=== PATIENT | male | born 1950 | race Caucasian/White ===

== ENCOUNTER 2017-08-09 06:10 | Emergency (ER) | payer OTHER, BC ==
[~2017-08-09 06:10] MED LIST: ALBUAER2 INH; ATEN50TA8 PO; CHOL100027 PO; DXY100 PO; GLC5 PO; GLC500 PO; LPT/40 PO; OMEP20CA9 PO; POTA10CA28 PO; TRIA75TA53 PO
[2017-08-09 06:16] VITALS: TEMP 36.4
[2017-08-09] MEDS ORDERED: AZITHROMYCIN 250 MG TAB PO STA (06:48)
[2017-08-09] MEDS ORDERED: AZITTAB PO (06:53)
--- NOTE | 2017-08-09 06:57 | EMERGENCY ROOM VISIT NOTE ---
History Report prepared by Heidiibaliya: Beth Puentes Under the Supervision of: Ijeoma RandolphO. First contact with patient: 06:37 Chief Complaint: RESPIRATORY PROBLEMS Stated Complaint: BRONCHITIS History of Present Illness The patient is a 66 year old male who presents to the Emergency Room with complaints of persistent cough for three days [employer] LIB[employer]. Per family, every time the patient gets a cold he typically gets pneumonia or bronchitis. He notes a productive cough with yellow sputum, fevers, cough, sore throat, sinus congestion. The patient has had his flu shot this year. He has a history of DM. He denies any shortness of breath. 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 Review of Systems See HPI for pertinent positives & negatives. A total of 10 systems reviewed and were otherwise negative. 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 (9) Dyslipidemia (10) Dyslipidemia (11) GERD (gastroesophageal reflux disease) (12) HTN (hypertension) (13) Hypertension (14) LVH (left ventricular hypertrophy) due to hypertensive disease (15) Malignant neoplasm of colon (16) Mild intellectual disability (17) Obesity, Class III, BMI 40-49.9 (morbid obesity) (18) Vitamin D deficiency Surgical Problems: (1) H/o a-port placement (2) H/O colonoscopy (3) H/o EGD (4) History of bowel resection (5) History of cholecystectomy (6) Hx of cholecystectomy (7) S/P appendectomy (8) S/P partial colectomy Family History Cardiac disorder BROTHER GRANDMOTHER UNCLE FH: aneurysm FATHER FH: kidney failure FATHER Stroke BROTHER Social History Smoking Status: Never Smoker Smokeless Tobacco Use: No Alcohol Use: none Drug Use: none Marital Status: Housing Status: lives with family Occupation Status: unemployed Current/Historical Medications Scheduled Atenolol (Tenormin), 50 MG PO DAILY Atorvastatin (Lipitor), 40 MG PO HS Cholecalciferol (Vitamin D 1000 Unit), 1,000 INTER.UNIT PO DAILY Doxycycline Hyclate (Doxycycline Hyclate), 1 CAP PO BID Glipizide (Glipizide), 5 MG PO DAILY Metformin HCL (Glucophage *), 1,000 MG PO BID Omeprazole (Prilosec), 20 MG PO DAILY Potassium Chloride (Micro-K Ext Rel), 30 MEQ PO TID Triamterene/Hctz (Maxzide 75MG/50MG), 0.5 TAB PO DAILY Scheduled PRN Albuterol (Ventolin), 2 PUFFS INH QID PRN for Shortness of Breath Allergies Coded Allergies: No Known Allergies (Verified , 12/01/15) Physical Exam Vital Signs Date Time Temp Pulse Resp B/P (MAP) Pulse Ox O2 Delivery O2 Flow Rate FiO2 08/09/17 06:48 103 08/09/17 06:16 36.4 110 20 149/89 93 Room Air Physical Exam CONSTITUTIONAL/VITAL SIGNS: Reviewed / noted above. GENERAL: Non-toxic in appearance. INTEGUMENTARY: Warm, dry, and [place]. HEAD: Normocephalic. EYES: without scleral icterus or trauma. ENT/OROPHARYNX: clear and moist. LYMPHADENOPATHY/NECK: Is supple without lymphadenopathy or meningismus. RESPIRATORY: Lungs clear and equal. CARDIOVASCULAR: Regular rate and rhythm. GI/ABDOMEN: Soft and nontender. No organomegaly or pulsatile mass. No rebound or guarding. Normal bowel sounds. EXTREMITIES: Warm and well perfused. BACK: No CVA tenderness. NEUROLOGICAL: Intact without focal deficits. PSYCHIATRIC: normal affect. MUSCULOSKELETAL: Normally developed with good muscle tone. Medical Decision & Procedures ED Course 0639: Previous medical records were reviewed. The patient was evaluated in room B11B. A complete history and physical examination was performed. 0653: Zithromax 500mg po 0655: I reassessed the patient at this time. He is resting comfortably. I discussed the results and treatment plan with the patient and his family. I answered all pertaining questions that he had. He expressed understanding and verbalized agreement. The patient will be discharged home. Medical Decision Differential includes viral illness, influenza, streptococcal pharyngitis, meningitis, pneumonia, sinusitis, UTI, pyelonephritis, and otitis media. This is a 66-year-old female who presents to the ED with a chief complaint of cough, sore throat, congestion fever. The patient's symptoms started on Wednesday. Cough is productive for yellow sputum. The patient has a history of COPD and diabetes. His daughter brought him in as she felt might need an antibiotic because of frequent bronchitis. The patient is no distress. His breathing appears comfortable. His vital signs are stable. His exam reveals clear lungs sounds. He has no chest pains or shortness of breath. Based on the patient's history, patient was started on Z-Nestor. He was given his first dose here today. Medication Reconcilliation Current Medication List: was personally reviewed by me Impression Primary Impression: Bronchitis Scribe Attestation The scribe's documentation has been prepared under my direction and personally reviewed by me in its entirety. I confirm that the note above accurately reflects all work, treatment, procedures, and medical decision making performed by me. Departure Information Dispostion Home / Self-Care Prescriptions Azithromycin (ZITHROMAX Z-NESTOR) 250 Mg Tab 0 PO UD, #1 PKT 2 TABS DAY 1, THEN 1 TAB DAILY FOR 4 DAYS Prov: Kristian Reyes D.O. 08/09/17 Referrals Dominic Blancas M.D. (PCP) Patient Instructions My [facility] Additional Instructions Zithromax as prescribed. Follow-up with your doctor for further care and evaluation in 5-7 days if symptoms persist. Return to the emergency department for worsening or new symptoms or any concerns. You have been examined and treated today on an emergency basis only. This is not a substitute for, or an effort to provide, complete comprehensive medical care. It is impossible to recognize and treat all injuries or illnesses in a single emergency department visit. It is therefore important that you follow up closely with your doctor. Call as soon as possible for an appointment.
[2017-08-09 07:00] VITALS: BP 135/95
[2017-08-09 07:10] VITALS: PULSE 98; O2SAT 92
[2017-08-09] MEDS ORDERED: METF-384 PO (07:11)
[2017-08-09] MEDS ORDERED: VNTHFA/IN INH (07:11)
== END 2017-08-09 07:13 | disposition home or self-care (01) ==
LOC: C.EDB 06:12
DX: J40 Bronchitis, not specified as acute or chronic (principal); E11.9 Type 2 diabetes mellitus without complications; E78.5 Hyperlipidemia, unspecified; K21.9 Gastro-esophageal reflux disease without esophagitis; I10 Essential (primary) hypertension; J44.9 Chronic obstructive pulmonary disease, unspecified; E55.9 Vitamin D deficiency, unspecified; F70 Mild intellectual disabilities; Z85.038 Personal history of other malignant neoplasm of large intestine; Z90.49 Acquired absence of other specified parts of digestive tract; Z90.89 Acquired absence of other organs; Z98.890 Other specified postprocedural states; Z82.49 Family history of ischemic heart disease and other diseases of the circulatory system; Z82.3 Family history of stroke; Z84.2 Family history of other diseases of the genitourinary system; Z79.84 Long term (current) use of oral hypoglycemic drugs; Z79.899 Other long term (current) drug therapy

== ENCOUNTER 2022-12-16 18:43 | Observation (INO) ==
[2022-12-16] MEDS ORDERED: OPTIRAY 320 500ml IV ONE (18:58)
[2022-12-16 19:25] LABS: Basophils # (auto) 0.04 K/uL (0-0.2); Basophils % (auto) 0.6 %; Eosinophils % (auto) 1.4 %; Hematocrit (blood only) 40.4 % (42.0-52.0); Hemoglobin 13.8 g/dl (14.0-18.0); Immature Granulocytes # (auto) 0.04 K/uL (0.01-0.20); Immature Granulocytes % (auto) 0.6 %; Lymphocytes % (auto) 21.2 %; Mean Corpuscular Hemoglobin 30.5 pg (25.0-34.0); Mean Corpuscular Hgb Conc 34.2 g/dL (32.0-36.0); Mean Corpuscular Volume 89.2 fL (80.0-100.0); Monocytes # (auto) 0.86 K/uL (0.11-0.59); Monocytes % (auto) 12.1 %; Neutrophils # (auto) 4.55 K/uL (1.40-6.50); Neutrophils % (auto) 64.1 %; Platelet Count 163 K/uL (130-400); RDW Coefficient of Variation 13.4 % (11.5-14.5); RDW Standard Deviation 43.8 fL (36.4-46.3); Red Blood Count 4.53 M/uL (4.70-6.10); White Blood Count 7.09 K/ul (4.8-10.8)
--- NOTE | 2022-12-16 19:37 | CT Scan Report ---
CT angio head w con, CT angio neck with con, CT head/brain wo con CLINICAL HISTORY: 72 years-old Male with neuro deficit, acute stroke suspected. Acute stroke like symptoms COMPARISON STUDY: Head CT 02/03/2022 TECHNIQUE: Unenhanced axial CT scan of the brain is performed. Subsequently, following the IV adminis tration of 118 cc of Optiray, CT angiogram of the head and neck was performed from the aortic arch to the skull apex. Images are reviewed in the axial, sagittal, and coronal planes. 3-D MIPS images are created and assessed. IV contrast was administered without complication. All measurements were obtain ed according to NASCET criteria. A dose lowering technique was utilized adhering to the principles of ALARA. CT DOSE: 995.09 mGy.cm FINDINGS: CT BRAIN: There is no acute intracranial hemorrhage, midline shift, hydrocephalus, intracranial mass, territori al ischemia or abnormal extra-axial collections. No abnormal intra-axial or extra-axial enhancement. Involutional changes with mild likely ex vacuo ventriculomegaly. White matter hypodensities suggest c hronic microvascular ischemic disease. Cerebral vascular calcifications. Mastoid air cells and middle ear cavities are clear. Prior bilateral repair. No calvarial fracture. Paranasal sinuses are clear. CT ANGIOGRAM OF THE HEAD AND NECK: The atherosclerosis of the thoracic aorta and arch. Patency of the innominate and image subclavian ar teries. The common carotid arteries are patent. Moderate atherosclerotic plaque of the carotid bulbs and proximal cervical segments of the internal carotid arteries resulting in less than 50% stenosis b ilaterally. The bilateral anterior and middle cerebral arteries are also patent. Dominant right verte bral artery is widely patent. Prominent degenerative left vertebral artery. Atherosclerotic plaques i n the V4 segment results in high-grade approximately 90% stenosis on image 29 series 6 just proximal to the PICA origin. There is a stenosis noted within the PICA, notably on image 314 series 6. The pos terior cerebral arteries are patent with areas of mild multifocal stenosis. There is no aneurysm, add itional high-grade stenosis, or proximal branch occlusion identified. Dural sinuses appear patent. Lung apices are clear. No pneumothorax. Unremarkable soft tissues. Degenerative changes of the cervic al spine. IMPRESSION: 1. No acute intracranial abnormality. 2. High-grade stenosis within the V4 segment left vertebral artery secondary to atherosclerotic plaqu e. 3. No additional high-grade stenosis, aneurysm, dissection or arterial occlusion. ACT 112: Negative or not required by law. The above report was generated using voice recognition software. It may contain grammatical, syntax o r spelling errors. Electronically signed by: Romain Franco M.D. 12/16/2022 7:34 PM
[2022-12-16 19:50] LABS: Albumin Level 3.7 gm/dl (3.4-5.0); Anion Gap 8 (3-11); Bilirubin,Total 1.5 mg/dl (0.2-1.0); Calcium 9.2 mg/dl (8.6-10.3); Carbon Dioxide 25 mmol/L (21-32); Chloride 105 mmol/L (98-107); INR 1.1 (0.9-1.1); Magnesium 1.6 mg/dl (1.7-2.4); Partial Thromboplastin Ratio 0.9; Partial Thromboplastin Time 26.1 Seconds (21.0-31.0); Potassium 3.6 mmol/L (3.5-5.1); Prothrombin Time 12.1 Seconds (9.0-12.0); Sodium 138 mmol/L (136-145)
[2022-12-16 19:56] LABS: Alanine Aminotransferase 19 U/L (7-52); Albumin Globulin Ratio 1.5 (0.9-2); Alkaline Phosphatase 48 U/L (34-104); Aspartate Aminotransferase 31 U/L (13-39); BUN Creatinine Ratio 16.3 (10-20); Blood Urea Nitrogen 16 mg/dl (6-23); Est GFR (African American) 88.3 ml/min; Est GFR (Non-African American) 76.2 ml/min; Globulin 2.5 gm/dl (2.5-4.0); Glucose 175 mg/dl (70-99(Fasting)); Total Protein 6.2 gm/dl (6.0-8.3)
[2022-12-16 19:58] LABS: Troponin I High Sensitivity 3.4 pg/ml (0-20)
--- NOTE | 2022-12-16 20:03 | XRay Report ---
XR chest 1V portable HISTORY: 72 years-old Male neuro deficit, acute stroke suspected acute strokelike symptoms COMPARISON: Chest radiograph 02/03/2022 TECHNIQUE: AP view of the chest FINDINGS: Cardiac silhouette is enlarged. Atherosclerosis of the aorta. No pneumothorax, pleural effusion, airs pace consolidation or pulmonary edema. Degenerative changes of the shoulders and spine. IMPRESSION: Cardiomegaly without acute process. ACT 112: Negative or not required by law. The above report was generated using voice recognition software. It may contain grammatical, syntax o r spelling errors. Electronically signed by: Romain Franco M.D. 12/16/2022 8:01 PM
[2022-12-16 20:12] LABS: Appearance Urine Clear (Clear); Bilirubin Urine Negative (Negative); Blood Urine Negative (Negative); Color Urine Yellow; Glucose Urine UA 3+ (Negative); Ketones Urine Negative (Negative); Leukocyte Esterase Urine Negative (Negative); Nitrite Urine Negative (Negative); Protein Urine Negative (Negative); Specific Gravity Urine > 1.045 (1.000-1.030); Urobilinogen Urine Negative (Negative)
[2022-12-16] MEDS ORDERED: MAGNESIUM SULFATE / D5W 1 GM/100 ML BAG IV SCH (20:25)
[2022-12-16] MEDS ORDERED: LACTATED RINGER'S 1,000 ML IV ONE (20:26)
[2022-12-16] MEDS: MAGNESIUM SULFATE / D5W 1 GM/100 ML BAG IV SCH ×2 (20:38→22:43)
--- NOTE | 2022-12-16 20:50 | History & Physical Report ---
Date of Service December 16, 2022 Assessment & Plan (1) Stroke-like symptom: (2) Mild intellectual disability: (3) DM type 2 (diabetes mellitus, type 2): (4) Hypertension: (5) Dyslipidemia: (6) Obesity, Class III, BMI 40-49.9 (morbid obesity): (7) Cortes's esophagus: Plan: Assessment and plan per Dr Corrales. See addendum History of Present Illness Chief Complaint: Slurred speech Primary Care Provider: Dominic Blancas MD Patient is 72-year-old male with PMH mild intellectual disability, HTN, dyslipidemia, DM II, Cortes's esophagus, obesity presented to ER with complaint of slurred speech. History obtained from chart review and patient's cousin Eli who is his POA and who he resides with. States 3 days ago patient seemed more tired than usual. After eating lunch 3 days ago patient had reported felt like his left hand was weaker than usual. Symptoms seem to resolve throughout the day. Has noticed past 3 days has not been eating as much as usual. She is concerned that patient does not drink enough fluids. Seen at PCPs office 12/14/2022 for new onset fatigue and had negative urine culture, CRP <3, ESR: 23, and negative Lyme disease antibody. Was started on doxycycline. Had 3 doses. Family reports since patient seem to be improving discontinue doxycycline. Today around 6:15pm patient was sitting in the car. Family noticed patient was taking a long time to unbuckle himself and get out of the car. When patient spoke it is reported that he had garbled speech. Family brought patient to hospital. Since being in ER family reports patient speech is close to baseline. Currently patient denying any complaints. Denies fever/chills, diaphoresis, N/V/D/C, LAZARO, dizziness, syncope, vision changes, neck pain, CP, SOB, cough, sore throat, otalgia, rhinorrhea, abdominal pain, paresthesias, extremity edema, rashes, urinary symptoms. Allergies Allergy/AdvReac Type Severity Reaction Status Date / Time latex Allergy Unknown Rash Verified 11/17/22 06:33 Home Medications Medication Instructions Recorded Confirmed Type atenolol 50 mg tablet 50 mg PO QAM 09/15/22 12/16/22 History atorvastatin 40 mg tablet 40 mg PO HS 09/15/22 12/16/22 History cholecalciferol (vitamin D3) 25 4,000 - 5,000 unit PO WK 09/15/22 12/16/22 History mcg (1,000 unit) capsule (Vitamin D3) cyanocobalamin (vitamin B-12) 1,000 mcg PO QAM 09/15/22 12/16/22 History 1,000 mcg tablet (Vitamin B-12) dapagliflozin 10 mg tablet 10 mg PO DAILY 09/15/22 12/16/22 History (Farxiga) glipizide 5 mg tablet 5 mg PO BID 09/15/22 12/16/22 History metformin 1,000 mg tablet 1,000 mg PO BID 09/15/22 12/16/22 History multivitamin 1 cap PO QAM 09/15/22 12/16/22 History omeprazole 20 mg capsule,delayed 20 mg PO QAM 09/15/22 12/16/22 History release potassium chloride 10 mEq 30 meq PO TID 09/15/22 12/16/22 History tablet,extended release(part/cryst) (Klor-Con M) triamterene 75 0.5 tab PO QAM 09/15/22 12/16/22 History mg-hydrochlorothiazide 50 mg tablet miconazole nitrate 2 % topical 1 applic topical DAILY PRN Rash 12/16/22 12/16/22 History powder Past Med/Surg History Medical History Aortic valve sclerosis Cortes's esophagus DM type 2 (diabetes mellitus, type 2) DM TYPE 2 CAUSING RENAL DISEASE Dyslipidemia History of anesthesia reaction problems with swallowing after surgery, esophagus was irritated - with colon surgery Hypertension Kidney disease ? born with, reason for potassium supplement Malignant neoplasm of colon hx 15-20 yr ago / sx intervention HX PORT PLACEMENT ? HX CHEMO/? IF PORT IS STILL PRESENT Mild intellectual disability PT IS SPECIAL NEEDS, COMMUNICATION ABILITY SEEMS TO DECLINE WITH AGE PT IS FEARFUL OF UPCOMING CATARACT SURGERY Obesity, Class III, BMI 40-49.9 (morbid obesity) Problem of extremity RIGHT LEG TROUBLE WITH MOVEMENT AT TIMES Rash OF GROIN AREA/DR VASQUEZ FOR/ANTIFUNGAL POWDER/IMPROVING Surgical History History of colon surgery for colon ca History of colonoscopy History of endoscopy History of left cataract surgery Hx of cholecystectomy S/P appendectomy Family History Mother Family history of diabetes mellitus Social History Smoking Status: Never smoker Second Hand Exposure: No; Do You Dip or Chew Tobacco: No; Hx Alcohol Use: No Hx Substance Use: No Preferred Language: Ukrainian Communication Ability: Effective Communication Ability Comment: PT SPECIAL NEEDS/COMMUNICATES LIVAN & IS COOPERATIVE/ABLE TO SIGN CONSENTS Engineering Scientist Required: No Beliefs That Will Affect Care: None Current Living Situation: Family Current Living Situation Comment: PT LIVES WITH COUSIN AND HER Other Information That Helps Us Care for You: No Feels Safe at Home: Yes Safety Concerns: Feels Safe At This Time Assistive Devices: Denture - Upper and Glasses Review of Systems Review of Systems: All systems reviewed & are unremarkable except as noted in HPI & below Physical Exam Physical Exam: General: no acute distress, +obese Head: normocephalic, atraumatic Eyes: PERRL, EOM's intact, conjunctiva non-injected, anicteric ENT: normal inspection external ears, nose, mucous membranes dry Neck: supple, trachea midline Lungs: clear, no respiratory distress, no wheezing/rhonchi/rales CV: RRR, + murmur,no pretibial edema Abd: normal BS, soft, non-tender Ext: no cyanosis, no calf tenderness Neuro: Alert, Oriented to person and place. calm, cooperative. facial sensation is intact and symmetric, face is strong and symmetric, hearing grossly intact, soft palate elevates symmetrically, some mild slurred speech (family report baseline), shoulder shrug intact, tongue is midline, normal movement, no fasciculations. Strength BUE: 5/5. Strength BLE: 4/5 Skin: warm, dry Results & Data Results & Data Vital Signs (Past 12 Hours) Vital Signs Temp Pulse Resp BP Pulse Ox O2 Del Method 12/16/22 20:15 76 20 135/82 93 Room Air 12/16/22 19:45 75 18 152/87 H 95 Room Air 12/16/22 19:33 37.0 C 12/16/22 19:30 76 22 143/92 H 96 Room Air 12/16/22 19:10 84 12/16/22 19:11 84 18 154/95 H 94 Room Air 12/16/22 18:45 36.6 C 104 H 18 131/60 98 Room Air Laboratory Results Short CBC 12/16/22 Range/Units 19:11 WBC 7.09 (4.8-10.8) K/ul Hgb 13.8 L (14.0-18.0) g/dl Hct 40.4 L (42.0-52.0) % Plt Count 163 (130-400) K/uL BMP 12/16/22 19:11 Sodium 138 Potassium 3.6 Chloride 105 Carbon Dioxide 25 BUN 16 Creatinine 0.98 Glucose 175 H Calcium 9.2 Liver Function 12/16/22 Range/Units 19:11 Total Bilirubin 1.5 H (0.2-1.0) mg/dl AST 31 (13-39) U/L ALT 19 (7-52) U/L Alkaline Phosphatase 48 (34-104) U/L Albumin 3.7 (3.4-5.0) gm/dl Urine 12/16/22 Range/Units 20:04 Urine Color Yellow Urine Appearance Clear (Clear) Urine pH 5.0 (4.5-7.5) Ur Specific [place] > 1.045 H (1.000-1.030) Urine Protein Negative (Negative) Urine Glucose (UA) 3+ H (Negative) Diagnostic Findings Chest X-Ray 12/16/22 18:54 XR chest 1V portable HISTORY: 72 years-old Male neuro deficit, acute stroke suspected acute strokelike symptoms COMPARISON: Chest radiograph 02/03/2022 TECHNIQUE: AP view of the chest FINDINGS: Cardiac silhouette is enlarged. Atherosclerosis of the aorta. No pneumothorax, pleural effusion, airspace consolidation or pulmonary edema. Degenerative changes of the shoulders and spine. IMPRESSION: Cardiomegaly without acute process. ACT 112: Negative or not required by law. The above report was generated using voice recognition software. It may contain grammatical, syntax or spelling errors. Electronically signed by: Romain Franco M.D. 12/16/2022 8:[address] 12/16/22 18:54 CT angio head w con, CT angio neck with con, CT head/brain wo con CLINICAL HISTORY: 72 years-old Male with neuro deficit, acute stroke suspected. Acute stroke like symptoms COMPARISON STUDY: Head CT 02/03/2022 TECHNIQUE: Unenhanced axial CT scan of the brain is performed. Subsequently, following the IV administration of 118 cc of Optiray, CT angiogram of the head and neck was performed from the aortic arch to the skull apex. Images are reviewed in the axial, sagittal, and coronal planes. 3-D MIPS images are created and assessed. IV contrast was administered without complication. All measurements were obtained according to NASCET criteria. A dose lowering technique was utilized adhering to the principles of ALARA. CT DOSE: 995.09 mGy.cm FINDINGS: CT BRAIN: There is no acute intracranial hemorrhage, midline shift, hydrocephalus, intracranial mass, territorial ischemia or abnormal extra-axial collections. No abnormal intra-axial or extra-axial enhancement. Involutional changes with mild likely ex vacuo ventriculomegaly. White matter hypodensities suggest chronic microvascular ischemic disease. Cerebral vascular calcifications. Mastoid air cells and middle ear cavities are clear. Prior bilateral repair. No calvarial fracture. Paranasal sinuses are clear. CT ANGIOGRAM OF THE HEAD AND NECK: The atherosclerosis of the thoracic aorta and arch. Patency of the innominate and image subclavian arteries. The common carotid arteries are patent. Moderate atherosclerotic plaque of the carotid bulbs and proximal cervical segments of the internal carotid arteries resulting in less than 50% stenosis bilaterally. The bilateral anterior and middle cerebral arteries are also patent. Dominant right vertebral artery is widely patent. Prominent degenerative left vertebral artery. Atherosclerotic plaques in the V4 segment results in high-grade approximately 90% stenosis on image 29 series 6 just proximal to the PICA origin. There is a stenosis noted within the PICA, notably on image 314 series 6. The posterior cerebral arteries are patent with areas of mild multifocal stenosis. There is no aneurysm, additional high-grade stenosis, or proximal branch occlusion identified. Dural sinuses appear patent. Lung apices are clear. No pneumothorax. Unremarkable soft tissues. Degenerative changes of the cervical spine. IMPRESSION: 1. No acute intracranial abnormality. 2. 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 3. No additional high-grade stenosis, aneurysm, dissection or arterial occlusion. ACT 112: Negative or not required by law. The above report was generated using voice recognition software. It may contain grammatical, syntax or spelling errors. Electronically signed by: Romain Franco M.D. 12/16/2022 7:34 PM Head CTA 12/16/22 18:54 CT angio head w con, CT angio neck with con, CT head/brain wo con CLINICAL HISTORY: 72 years-old Male with neuro deficit, acute stroke suspected. Acute stroke like symptoms COMPARISON STUDY: Head CT 02/03/2022 TECHNIQUE: Unenhanced axial CT scan of the brain is performed. Subsequently, following the IV administration of 118 cc of Optiray, CT angiogram of the head and neck was performed from the aortic arch to the skull apex. Images are reviewed in the axial, sagittal, and coronal planes. 3-D MIPS images are created and assessed. IV contrast was administered without complication. All measurements were obtained according to NASCET criteria. A dose lowering technique was utilized adhering to the principles of ALARA. CT DOSE: 995.09 mGy.cm FINDINGS: CT BRAIN: There is no acute intracranial hemorrhage, midline shift, hydrocephalus, intracranial mass, territorial ischemia or abnormal extra-axial collections. No abnormal intra-axial or extra-axial enhancement. Involutional changes with mild likely ex vacuo ventriculomegaly. White matter hypodensities suggest chronic microvascular ischemic disease. Cerebral vascular calcifications. Mastoid air cells and middle ear cavities are clear. Prior bilateral repair. No calvarial fracture. Paranasal sinuses are clear. CT ANGIOGRAM OF THE HEAD AND NECK: The atherosclerosis of the thoracic aorta and arch. Patency of the innominate and image subclavian arteries. The common carotid arteries are patent. Moderate atherosclerotic plaque of the carotid bulbs and proximal cervical segments of the internal carotid arteries resulting in less than 50% stenosis bilaterally. The bilateral anterior and middle cerebral arteries are also patent. Dominant right vertebral artery is widely patent. Prominent degenerative left vertebral artery. Atherosclerotic plaques in the V4 segment results in high-grade approximately 90% stenosis on image 29 series 6 just proximal to the PICA origin. There is a stenosis noted within the PICA, notably on image 314 series 6. The posterior cerebral arteries are patent with areas of mild multifocal stenosis. There is no aneurysm, additional high-grade stenosis, or proximal branch occlusion identified. Dural sinuses appear patent. Lung apices are clear. No pneumothorax. Unremarkable soft tissues. Degenerative changes of the cervical spine. IMPRESSION: 1. No acute intracranial abnormality. 2. 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 3. No additional high-grade stenosis, aneurysm, dissection or arterial occlusion. ACT 112: Negative or not required by law. The above report was generated using voice recognition software. It may contain grammatical, syntax or spelling errors. Electronically signed by: Romain Franco M.D. 12/16/2022 7:34 PM Neck CTA 12/16/22 18:54 CT angio head w con, CT angio neck with con, CT head/brain wo con CLINICAL HISTORY: 72 years-old Male with neuro deficit, acute stroke suspected. Acute stroke like symptoms COMPARISON STUDY: Head CT 02/03/2022 TECHNIQUE: Unenhanced axial CT scan of the brain is performed. Subsequently, following the IV administration of 118 cc of Optiray, CT angiogram of the head and neck was performed from the aortic arch to the skull apex. Images are reviewed in the axial, sagittal, and coronal planes. 3-D MIPS images are created and assessed. IV contrast was administered without complication. All measurements were obtained according to NASCET criteria. A dose lowering technique was utilized adhering to the principles of ALARA. CT DOSE: 995.09 mGy.cm FINDINGS: CT BRAIN: There is no acute intracranial hemorrhage, midline shift, hydrocephalus, intracranial mass, territorial ischemia or abnormal extra-axial collections. No abnormal intra-axial or extra-axial enhancement. Involutional changes with mild likely ex vacuo ventriculomegaly. White matter hypodensities suggest chronic microvascular ischemic disease. Cerebral vascular calcifications. Mastoid air cells and middle ear cavities are clear. Prior bilateral repair. No calvarial fracture. Paranasal sinuses are clear. CT ANGIOGRAM OF THE HEAD AND NECK: The atherosclerosis of the thoracic aorta and arch. Patency of the innominate and image subclavian arteries. The common carotid arteries are patent. Moderate atherosclerotic plaque of the carotid bulbs and proximal cervical segments of the internal carotid arteries resulting in less than 50% stenosis bilaterally. The bilateral anterior and middle cerebral arteries are also patent. Dominant right vertebral artery is widely patent. Prominent degenerative left vertebral artery. Atherosclerotic plaques in the V4 segment results in high-grade approximately 90% stenosis on image 29 series 6 just proximal to the PICA origin. There is a stenosis noted within the PICA, notably on image 314 series 6. The posterior cerebral arteries are patent with areas of mild multifocal stenosis. There is no aneurysm, additional high-grade stenosis, or proximal branch occlusion identified. Dural sinuses appear patent. Lung apices are clear. No pneumothorax. Unremarkable soft tissues. Degenerative changes of the cervical spine. IMPRESSION: 1. No acute intracranial abnormality. 2. 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 3. No additional high-grade stenosis, aneurysm, dissection or arterial occlusion. ACT 112: Negative or not required by law. The above report was generated using voice recognition software. It may contain grammatical, syntax or spelling errors. Electronically signed by: Romain Franco M.D. 12/16/2022 7:34 PM Supervising Physician Co-Signing Physician Notes Patient seen and examined. History obtained from patient, family, and records. Limited history from patient secondary to intellectual impairment. Preceding documentation by Ms. Tammie Mills PA-C reviewed. FINAL ASSESSMENT AND PLAN as follows : TIA presenting as transient left hand weakness, slurred speech, significant improvement after IVF administration at the ER Ongoing doxycycline Rx for presumptive Lyme disease, outpatient Lyme screen negative Left vertebral artery stenosis/plaque on CT imaging Hypertension, slightly elevated Hyperlipidemia on statin Rx GERD/Cortes's esophagus on PPI DM2 on oral medications, suboptimal control as of recent hemoglobin A1c of 7.15 Dec 2022 Colon cancer status post surgery chemotherapy New onset anemia, FOBT done at the ER was negative Chronic intellectual impairment OBS Medical telemetry Neurochecks Aspirin for stroke prevention, PVD MRI brain, TTE for TIA work-up Further management pending work-up results Stop doxycycline given negative outpatient Lyme screen Basal bolus insulin, ISS BG goal 1 10-1 40, carb count coverage Anemia work-up PT OT eval DVT prophylaxis per Lovenox subcu Full code as per patient's cousin/POA, Ms. Eli Dinero. She requests updates from providers thru contact #[phone]. Text document was generated using [employer] voice recognition software. It may contain grammatical or spelling errors. Kindly contact undersigned for clarification of any documentation item in question.
--- NOTE | 2022-12-16 22:45 | Emergency Department Note ---
Impression & Plan Stroke-like symptom, Mild intellectual disability, Hypomagnesemia ED Provider Note NAME: MIHIR HEATH AGE: 72 SEX: M ARRIVES VIA: Walk-In INFORMANT: Patient ED PROVIDER(S): Jacob Hansen MD CHIEF COMPLAINT: Slurred speech PLAN: Disposition: Admit MEDICAL DECISION MAKING: The patient is a pleasant 72-year-old gentleman with a past medical history of intellectual delay, SBO, hypertension, hyperlipidemia, type 2 diabetes who presents to the emergency department via walk-in, accompanied by his sister with concern for symptoms of confusion and garbled speech which she reports was notable approximately 40 minutes prior to arrival. Stroke alert was activated from triage. Symptoms occur in the setting of the patient not being himself since Wednesday where he was appearing more fatigued and had even complained of numbness and weakness of his left hand where he had dropped his utensil when he was eating. Per her report, the patient was seen by his PCP on Wednesday and there was suspicion for possible Lyme and was started on doxycycline however per her report, his lyme screen had returned negative and given that he was improving they were instructed that he could discontinue this. The patient's sister reports that they were at a family gathering and while she noticed his symptoms 40 minutes prior to arrival but she acknowledges that there were no family members that necessarily engaged in conversation with him for least an hour or so prior to that, approximately 5 PM. Thus, given the patient's last known well was not definitive and moreover has had component of neurologic symptoms since Wednesday we agreed he is not a tPA candidate however stroke evaluation was expedited. On arrival the patient is no acute distress, afebrile stable vital signs. He appears clinically dry. His speech is currently at his baseline per his sister at the bedside. He has otherwise no focal neurologic deficits. EKG without overt acute ischemia. CXR negative for acute cardiopulmonary process. WBC and platelets within normal limits. H/H 13.8/40.4 decreased from prior however no recent values for comparison. Chemistry without metabolic acidosis. Magnesium 1.6 with repletion provided. LFTs unremarkable. High-sensitivity troponin 3.4, within normal limits. UA without convincing evidence of infection. COVID-19 RNA, KENDALL test was negative. CT of the head and CT of the head and neck were performed and demonstrate high-grade stenosis within the V4 s egment of the left vertebral artery and otherwise no ischemia, ICH or severe narrowing or occlusion of large vessels. Upon evaluation the patient was feeling improved following IV fluid hydration. Given the patient's symptoms which may be related to central etiology the patient's sister and the patient agree with plan for admission for further management. [facility] will evaluate the patient for admission. Triage Nursing notes reviewed and agree them. Prior/outside medical records reviewed Vital Signs: reviewed Differential diagnosis: Infection, dehydration, metabolic abnormality, hypo/hyperglycemia, electrolyte disturbance, anemia, hypoxia, cardiac sources, intracerebral event, toxicologic, neurologic, as well as other pathologies. ER treatment provided: See below. Diagnostics interpreted by me: ECG: Normal sinus rhythm, 82 bpm, right bundle branch block, left anterior fascicular block, no overt ST elevation or depression, QTc 472, QRS 130. Cardiac Monitoring: An order for continuous cardiac monitoring was placed and demonstrated Normal sinus rhythm, 82 bpm, no ectopy. Laboratory studies: See below Imaging studies: See below Consultation(s): [facility] will [facility] the patient for admission. HPI: The patient is a pleasant 72-year-old gentleman with a past medical history of intellectual delay, SBO, hypertension, hyperlipidemia, type 2 diabetes who presents to the emergency department via walk-in, accompanied by his sister with concern for symptoms of confusion and garbled speech which she reports was notable approximately 40 minutes prior to arrival. Stroke alert was activated from triage. Symptoms occur in the setting of the patient not being himself since Wednesday where he was appearing more fatigued and had even complained of numbness and weakness of his left hand where he had dropped his utensil when he was eating. Per her report, the patient was seen by his PCP on Wednesday and there was suspicion for possible Lyme and was started on doxycycline however per her report, his lyme screen had returned negative and given that he was improving they were instructed that he could discontinue this. The patient's sister reports that they were at a family gathering and while she noticed his symptoms 40 minutes prior to arrival but she acknowledges that there were no family members that necessarily engaged in conversation with him for least an hour or so prior to that, approximately 5 PM. Thus, given the patient's last known well was not definitive and moreover has had component of neurologic symptoms since Wednesday we agreed he is not a tPA candidate however stroke evaluation was expedited. ROS: See above HPI for pertinent positives & negatives. A total of 10 systems reviewed and were otherwise negative. VITALS:See Below PHYSICAL EXAMINATION: GENERAL: Awake, alert, fatigued-appearing, in no distress HENT: Normocephalic, atraumatic. Oropharynx with dry mucous membranes and otherwise unremarkable. EYES: Normal conjunctiva. Sclera non-icteric. EOMI. No nystamgus. PEARRL. NECK: Supple. No nuchal rigidity. FROM. No JVD. RESPIRATORY: Clear to auscultation. CARDIAC: Regular rate, normal rhythm. Extremities warm and well perfused. Pulses equal. ABDOMEN: Soft, non-distended. No tenderness to palpation. No rebound or guarding. No masses. RECTAL: Deferred. MUSCULOSKELETAL: Chest examination reveals no tenderness. The back is symmetrical on inspection without obvious abnormality. There is no CVA tenderness to palpation. No joint edema. LOWER EXTREMITIES: Calves are equal size bilaterally and non-tender. No edema. No discoloration. NEURO: No focal sensory or motor deficits noted. Cranial nerves II-XII grossly intact. 5/5 strength and SILT x 4 extremities. Cerebellar function intact including [id number]. SKIN: No rash or jaundice noted. Jacob Hansen MD Past Med/Surg History Medical History Aortic valve sclerosis Cortes's esophagus DM type 2 (diabetes mellitus, type 2) DM TYPE 2 CAUSING RENAL DISEASE Dyslipidemia History of anesthesia reaction problems with swallowing after surgery, esophagus was irritated - with colon surgery Hypertension Kidney disease ? born with, reason for potassium supplement Malignant neoplasm of colon hx 15-20 yr ago / sx intervention HX PORT PLACEMENT ? HX CHEMO/? IF PORT IS STILL PRESENT Mild intellectual disability PT IS SPECIAL NEEDS, COMMUNICATION ABILITY SEEMS TO DECLINE WITH AGE PT IS FEARFUL OF UPCOMING CATARACT SURGERY Obesity, Class III, BMI 40-49.9 (morbid obesity) Problem of extremity RIGHT LEG TROUBLE WITH MOVEMENT AT TIMES Rash OF GROIN AREA/DR VASQUEZ FOR/ANTIFUNGAL POWDER/IMPROVING Surgical History History of colon surgery for colon ca History of colonoscopy History of endoscopy History of left cataract surgery Hx of cholecystectomy S/P appendectomy Family History Mother Family history of diabetes mellitus Social History Smoking Status: Never smoker Second Hand Exposure: No; Do You Dip or Chew Tobacco: No; Hx Alcohol Use: No Hx Substance Use: No Preferred Language: Vietnamese Communication Ability: Effective Communication Ability Comment: PT SPECIAL NEEDS/COMMUNICATES LIVAN & IS 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 Malted Milk Required: No Beliefs That Will Affect Care: None Current Living Situation: Family Current Living Situation Comment: PT LIVES WITH COUSIN AND HER Feels Safe at Home: Yes Assistive Devices: Denture - Upper and Walker Allergies Allergies Allergy/AdvReac Type Severity Reaction Status Date / Time latex Allergy Unknown Rash Verified 11/17/22 06:33 Home Meds Home Medications Medication Instructions Recorded Confirmed atenolol 50 mg tablet 50 mg PO QAM 09/15/22 12/16/22 atorvastatin 40 mg tablet 40 mg PO HS 09/15/22 12/16/22 cholecalciferol (vitamin D3) 25 4,000 - 5,000 unit PO WK 09/15/22 12/16/22 mcg (1,000 unit) capsule (Vitamin D3) cyanocobalamin (vitamin B-12) 1,000 mcg PO QAM 09/15/22 12/16/22 1,000 mcg tablet (Vitamin B-12) dapagliflozin 10 mg tablet 10 mg PO DAILY 09/15/22 12/16/22 (Farxiga) glipizide 5 mg tablet 5 mg PO BID 09/15/22 12/16/22 metformin 1,000 mg tablet 1,000 mg PO BID 09/15/22 12/16/22 multivitamin 1 cap PO QAM 09/15/22 12/16/22 omeprazole 20 mg capsule,delayed 20 mg PO QAM 09/15/22 12/16/22 release potassium chloride 10 mEq 30 meq PO TID 09/15/22 12/16/22 tablet,extended release(part/cryst) (Klor-Con M) triamterene 75 0.5 tab PO QAM 09/15/22 12/16/22 mg-hydrochlorothiazide 50 mg tablet miconazole nitrate 2 % topical 1 applic topical DAILY PRN Rash 12/16/22 12/16/22 powder Results & Data (ED) Vital Signs Vital Signs - 24 hr 12/16/22 18:45 12/16/22 19:11 12/16/22 19:10 Temperature 36.6 C Temperature Source Temporal Artery Scan Pulse Rate 104 H 84 84 Respiratory Rate 18 18 Respiratory Effort / Characteristics Non-Labored Respiratory Depth Normal Respiratory Pattern Regular Blood Pressure 131/60 154/95 H Blood Pressure Mean 83 114 Pulse Oximetry 98 94 Oxygen Delivery Method Room Air Room Air Sepsis Recent Fever Within 48 Hours No Sepsis New/Unexplained Change in Mental Status N/A Sepsis Action Taken by Nursing No Action Required 12/16/22 19:30 12/16/22 19:33 12/16/22 19:45 Temperature 37.0 C Temperature Source Oral Pulse Rate 76 75 Respiratory Rate 22 18 Respiratory Effort / Characteristics Respiratory Depth Respiratory Pattern Blood Pressure 143/92 H 152/87 H Blood Pressure Mean 109 108 Pulse Oximetry 96 95 Oxygen Delivery Method Room Air Room Air Sepsis Recent Fever Within 48 Hours Sepsis New/Unexplained Change in Mental Status Sepsis Action Taken by Nursing 12/16/22 20:15 12/16/22 20:30 12/16/22 20:40 Temperature Temperature Source Pulse Rate 76 76 Respiratory Rate 20 22 Respiratory Effort / Characteristics Respiratory Depth Respiratory Pattern Blood Pressure 135/82 138/78 Blood Pressure Mean 99 98 Pulse Oximetry 93 94 Oxygen Delivery Method Room Air Sepsis Recent Fever Within 48 Hours Sepsis New/Unexplained Change in Mental Status Sepsis Action Taken by Nursing 12/16/22 20:40 12/16/22 21:00 12/16/22 21:00 Temperature Temperature Source Pulse Rate 76 73 Respiratory Rate 19 24 Respiratory Effort / Characteristics Respiratory Depth Respiratory Pattern Blood Pressure 152/87 H Blood Pressure Mean 108 Pulse Oximetry 95 95 Oxygen Delivery Method Room Air Sepsis Recent Fever Within 48 Hours Sepsis New/Unexplained Change in Mental Status Sepsis Action Taken by Nursing 12/16/22 21:30 12/16/22 21:30 12/16/22 22:00 Temperature Temperature Source Pulse Rate 72 Respiratory Rate 16 Respiratory Effort / Characteristics Respiratory Depth Respiratory Pattern Blood Pressure 126/83 134/85 Blood Pressure Mean 97 101 Pulse Oximetry Oxygen Delivery Method Sepsis Recent Fever Within 48 Hours Sepsis New/Unexplained Change in Mental Status Sepsis Action Taken by Nursing 12/16/22 22:00 12/16/22 22:30 12/16/22 22:30 Temperature Temperature Source Pulse Rate 68 73 Respiratory Rate 20 22 Respiratory Effort / Characteristics Respiratory Depth Respiratory Pattern Blood Pressure 156/82 H Blood Pressure Mean 106 Pulse Oximetry Oxygen Delivery Method Sepsis Recent Fever Within 48 Hours Sepsis New/Unexplained Change in Mental Status Sepsis Action Taken by Nursing Laboratory Data Attestation: I reviewed the patient's lab results. 12/16/22 19:11 12/16/22 19:11 Lab Results 12/16/22 12/16/22 12/16/22 Range/Units 19:09 19:11 19:11 WBC 7.09 (4.8-10.8) K/ul RBC 4.53 L (4.70-6.10) M/uL Hgb 13.8 L (14.0-18.0) g/dl Hct 40.4 L (42.0-52.0) % MCV 89.2 (80.0-100.0) fL MCH 30.5 (25.0-34.0) pg MCHC 34.2 (32.0-36.0) g/dL RDW Std Deviation 43.8 (36.4-46.3) fL RDW Coeff of Hal 13.4 (11.5-14.5) % Plt Count 163 (130-400) K/uL MPV 10.0 (9.4-12.4) fL Immature Gran % (Auto) 0.6 % Neut % (Auto) 64.1 % Lymph % (Auto) 21.2 % Lasalle % (Auto) 12.1 % Eos % (Auto) 1.4 % Baso % (Auto) 0.6 % Neut # (Auto) 4.55 (1.40-6.50) K/uL Lymph # (Auto) 1.50 (1.2-3.4) K/uL Lasalle # (Auto) 0.86 H (0.11-0.59) K/uL Eos # (Auto) 0.10 (0-0.50) K/uL Baso # (Auto) 0.04 (0-0.2) K/uL Immature Gran # (Auto) 0.04 (0.01-0.20) K/uL PT 12.1 H (9.0-12.0) Seconds INR 1.1 (0.9-1.1) APTT 26.1 (21.0-31.0) Seconds PTT Ratio 0.9 Sodium (136-145) mmol/L Potassium (3.5-5.1) mmol/L Chloride (98-107) mmol/L Carbon Dioxide (21-32) mmol/L Anion Gap (3-11) BUN (6-23) mg/dl Creatinine (0.6-1.4) mg/dl Est Cr Clr Drug Dosing Est GFR ( Amer) ml/min Est GFR (Non-Af Amer) ml/min BUN/Creatinine Ratio (10-20) Glucose (70-99(Fasting)) mg/dl POC Glucose 173 H (70-99) mg/dl Calcium (8.6-10.3) mg/dl Magnesium (1.7-2.4) mg/dl Total Bilirubin (0.2-1.0) mg/dl AST (13-39) U/L ALT (7-52) U/L Alkaline Phosphatase (34-104) U/L Troponin I High Sens (0-20) pg/ml Total Protein (6.0-8.3) gm/dl Albumin (3.4-5.0) gm/dl Globulin (2.5-4.0) gm/dl Albumin/Globulin Ratio (0.9-2) Urine Color Urine Appearance (Clear) Urine pH (4.5-7.5) Ur Specific Gary (1.000-1.030) Urine Protein (Negative) Urine Glucose (UA) (Negative) Urine Ketones (Negative) Urine Blood (Negative) Urine Nitrite (Negative) Urine Bilirubin (Negative) Urine Urobilinogen (Negative) Ur Leukocyte Esterase (Negative) SARS-CoV-2, RNA, NAAT (NEGATIVE) 12/16/22 12/16/22 12/16/22 Range/Units 19:11 19:35 20:04 WBC (4.8-10.8) K/ul RBC (4.70-6.10) M/uL Hgb (14.0-18.0) g/dl Hct (42.0-52.0) % MCV (80.0-100.0) fL MCH (25.0-34.0) pg MCHC (32.0-36.0) g/dL RDW Std Deviation (36.4-46.3) fL RDW Coeff of Hal (11.5-14.5) % Plt Count (130-400) K/uL MPV (9.4-12.4) fL Immature Gran % (Auto) % Neut % (Auto) % Lymph % (Auto) % Lasalle % (Auto) % Eos % (Auto) % Baso % (Auto) % Neut # (Auto) (1.40-6.50) K/uL Lymph # (Auto) (1.2-3.4) K/uL Lasalle # (Auto) (0.11-0.59) K/uL Eos # (Auto) (0-0.50) K/uL Baso # (Auto) (0-0.2) K/uL Immature Gran # (Auto) (0.01-0.20) K/uL PT (9.0-12.0) Seconds INR (0.9-1.1) APTT (21.0-31.0) Seconds PTT Ratio Sodium 138 (136-145) mmol/L Potassium 3.6 (3.5-5.1) mmol/L Chloride 105 (98-107) mmol/L Carbon Dioxide 25 (21-32) mmol/L Anion Gap 8 (3-11) BUN 16 (6-23) mg/dl Creatinine 0.98 (0.6-1.4) mg/dl Est Cr Clr Drug Dosing Not Reportable Est GFR ( Amer) 88.3 ml/min Est GFR (Non-Af Amer) 76.2 ml/min BUN/Creatinine Ratio 16.3 (10-20) Glucose 175 H (70-99(Fasting)) mg/dl POC Glucose (70-99) mg/dl Calcium 9.2 (8.6-10.3) mg/dl Magnesium 1.6 L (1.7-2.4) mg/dl Total Bilirubin 1.5 H (0.2-1.0) mg/dl AST 31 (13-39) U/L ALT 19 (7-52) U/L Alkaline Phosphatase 48 (34-104) U/L Troponin I High Sens 3.4 (0-20) pg/ml Total Protein 6.2 (6.0-8.3) gm/dl Albumin 3.7 (3.4-5.0) gm/dl Globulin 2.5 (2.5-4.0) gm/dl Albumin/Globulin Ratio 1.5 (0.9-2) Urine Color Yellow Urine Appearance Clear (Clear) Urine pH 5.0 (4.5-7.5) Ur Specific Gary > 1.045 H (1.000-1.030) Urine Protein Negative (Negative) Urine Glucose (UA) 3+ H (Negative) Urine Ketones Negative (Negative) Urine Blood Negative (Negative) Urine Nitrite Negative (Negative) Urine Bilirubin Negative (Negative) Urine Urobilinogen Negative (Negative) Ur Leukocyte Esterase Negative (Negative) SARS-CoV-2, RNA, NAAT NEGATIVE (NEGATIVE) Administered Medications Magnesium Sulfate/Dextrose (Magnesium Sulfate / D5w) 1 gm in 100 mls @ 50 mls/hr IV Q2H DANISHA Stop: 12/17/22 00:29 Last Admin: 12/16/22 22:43 Dose: 50 mls/hr Documented By: Infusion: 12/16/22 22:38 Dose: 50 mls/hr Documented By: Admin: 12/16/22 20:38 Dose: 50 mls/hr Documented By: VARINDER Lactated Ringer's (Lr) 1,000 mls @ 80 mls/hr IV .[id number] ONE Stop: 12/17/22 08:55 Last Admin: 12/16/22 20:38 Dose: 80 mls/hr Documented By: VARINDER Discontinued Medications Ioversol (Optiray 320 500ml) 118 ml IV ONCE ONE Stop: 12/16/22 18:59 Last Admin: 12/16/22 19:05 Dose: 118 ml Documented By: LARRY Imaging Data Radiologist's Impression: Chest X-Ray 12/16/22 18:54 XR chest 1V portable HISTORY: 72 years-old Male neuro deficit, acute stroke suspected acute strokelike symptoms COMPARISON: Chest radiograph 02/03/2022 TECHNIQUE: AP view of the chest FINDINGS: Cardiac silhouette is enlarged. Atherosclerosis of the aorta. No pneumothorax, pleural effusion, airspace consolidation or pulmonary edema. Degenerative changes of the shoulders and spine. IMPRESSION: Cardiomegaly without acute process. ACT 112: Negative or not required by law. The above report was generated using voice recognition software. It may contain grammatical, syntax or spelling errors. Electronically signed by: Romain Franco M.D. 12/16/2022 8:[address] 12/16/22 18:54 CT angio head w con, CT angio neck with con, CT head/brain wo con CLINICAL HISTORY: 72 years-old Male with neuro deficit, acute stroke suspected. Acute stroke like symptoms COMPARISON STUDY: Head CT 02/03/2022 TECHNIQUE: Unenhanced axial CT scan of the brain is performed. Subsequently, following the IV administration of 118 cc of Optiray, CT angiogram of the head and neck was performed from the aortic arch to the skull apex. Images are reviewed in the axial, sagittal, and coronal planes. 3-D MIPS images are created and assessed. IV contrast was administered without complication. All measurements were obtained according to NASCET criteria. A dose lowering mamta hnique was utilized adhering to the principles of ALARA. CT DOSE: 995.09 mGy.cm FINDINGS: CT BRAIN: There is no acute intracranial hemorrhage, midline shift, hydrocephalus, intracranial mass, territorial ischemia or abnormal extra-axial collections. No abnormal intra-axial or extra-axial enhancement. Involutional changes with mild likely ex vacuo ventriculomegaly. White matter hypodensities suggest chronic microvascular ischemic disease. Cerebral vascular calcifications. Mastoid air cells and middle ear cavities are clear. Prior bilateral repair. No calvarial fracture. Paranasal sinuses are clear. CT ANGIOGRAM OF THE HEAD AND NECK: The atherosclerosis of the thoracic aorta and arch. Patency of the innominate and image subclavian arteries. The common carotid arteries are patent. Moderate atherosclerotic plaque of the carotid bulbs and proximal cervical segments of the internal carotid arteries resulting in less than 50% stenosis bilaterally. The bilateral anterior and middle cerebral arteries are also patent. Dominant right vertebral artery is widely patent. Prominent degenerative left vertebral artery. Atherosclerotic plaques in the V4 segment results in high-grade approximately 90% stenosis on image 29 series 6 just proximal to the PICA origin. There is a stenosis noted within the PICA, notably on image 314 series 6. The posterior cerebral arteries are patent with areas of mild multifocal stenosis. There is no aneurysm, additional high-grade stenosis, or proximal branch occlusion identified. Dural sinuses appear patent. Lung apices are clear. No pneumothorax. Unremarkable soft tissues. Degenerative changes of the cervical spine. IMPRESSION: 1. No acute intracranial abnormality. 2. 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 3. No additional high-grade stenosis, aneurysm, dissection or arterial occlusion. ACT 112: Negative or not required by law. The above report was generated using voice recognition software. It may contain grammatical, syntax or spelling errors. Electronically signed by: Romain Franco M.D. 12/16/2022 7:34 PM Head CTA 12/16/22 18:54 CT angio head w con, CT angio neck with con, CT head/brain wo con CLINICAL HISTORY: 72 years-old Male with neuro deficit, acute stroke suspected. Acute stroke like symptoms COMPARISON STUDY: Head CT 02/03/2022 TECHNIQUE: Unenhanced axial CT scan of the brain is performed. Subsequently, following the IV administration of 118 cc of Optiray, CT angiogram of the head and neck was performed from the aortic arch to the skull apex. Images are reviewed in the axial, sagittal, and coronal planes. 3-D MIPS images are created and assessed. IV contrast was administered without complication. All measurements were obtained according to NASCET criteria. A dose lowering technique was utilized adhering to the principles of ALARA. CT DOSE: 995.09 mGy.cm FINDINGS: CT BRAIN: There is no acute intracranial hemorrhage, midline shift, hydrocephalus, intracranial mass, territorial ischemia or abnormal extra-axial collections. No abnormal intra-axial or extra-axial enhancement. Involutional changes with mild likely ex vacuo ventriculomegaly. White matter hypodensities suggest chronic microvascular ischemic disease. Cerebral vascular calcifications. Mastoid air cells and middle ear cavities are clear. Prior bilateral repair. No calvarial fracture. Paranasal sinuses are clear. CT ANGIOGRAM OF THE HEAD AND NECK: The atherosclerosis of the thoracic aorta and arch. Patency of the innominate and image subclavian arteries. The common carotid arteries are patent. Moderate atherosclerotic plaque of the carotid bulbs and proximal cervical segments of the internal carotid arteries resulting in less than 50% stenosis bilaterally. The bilateral anterior and middle cerebral arteries are also patent. Dominant right vertebral artery is widely patent. Prominent degenerative left vertebral artery. Atherosclerotic plaques in the V4 segment results in high-grade approximately 90% stenosis on image 29 series 6 just proximal to the PICA origin. There is a stenosis noted within the PICA, notably on image 314 series 6. The posterior cerebral arteries are patent with areas of mild multifocal stenosis. There is no aneurysm, additional high-grade stenosis, or proximal branch occlusion identified. Dural sinuses appear patent. Lung apices are clear. No pneumothorax. Unremarkable soft tissues. Degenerative changes of the cervical spine. IMPRESSION: 1. No acute intracranial abnormality. 2. 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 3. No additional high-grade stenosis, aneurysm, dissection or arterial occlusion. ACT 112: Negative or not required by law. The above report was generated using voice recognition software. It may contain grammatical, syntax or spelling errors. Electronically signed by: Romain Franco M.D. 12/16/2022 7:34 PM Neck CTA 12/16/22 18:54 CT angio head w con, CT angio neck with con, CT head/brain wo con CLINICAL HISTORY: 72 years-old Male with neuro deficit, acute stroke suspected. Acute stroke like symptoms COMPARISON STUDY: Head CT 02/03/2022 TECHNIQUE: Unenhanced axial CT scan of the brain is performed. Subsequently, following the IV administration of 118 cc of Optiray, CT angiogram of the head and neck was performed from the aortic arch to the skull apex. Images are reviewed in the axial, sagittal, and coronal planes. 3-D MIPS images are created and assessed. IV contrast was administered without complication. All measurements were obtained according to NASCET criteria. A dose lowering technique was utilized adhering to the principles of ALARA. CT DOSE: 995.09 mGy.cm FINDINGS: CT BRAIN: There is no acute intracranial hemorrhage, midline shift, hydrocephalus, intracranial mass, territorial ischemia or abnormal extra-axial collections. No abnormal intra-axial or extra-axial enhancement. Involutional changes with mild likely ex vacuo ventriculomegaly. White matter hypodensities suggest chronic microvascular ischemic disease. Cerebral vascular calcifications. Mastoid air cells and middle ear cavities are clear. Prior bilateral repair. No calvarial fracture. Paranasal sinuses are clear. CT ANGIOGRAM OF THE HEAD AND NECK: The atherosclerosis of the thoracic aorta and arch. Patency of the innominate and image subclavian arteries. The common carotid arteries are patent. Moderate atherosclerotic plaque of the carotid bulbs and proximal cervical segments of the internal carotid arteries resulting in less than 50% stenosis bilaterally. The bilateral anterior and middle cerebral arteries are also patent. Dominant right vertebral artery is widely patent. Prominent degenerative left vertebral artery. Atherosclerotic plaques in the V4 segment results in high-grade approximately 90% stenosis on image 29 series 6 just proximal to the PICA origin. There is a stenosis noted within the PICA, notably on image 314 series 6. The posterior cerebral arteries are patent with areas of mild multifocal stenosis. There is no aneurysm, additional high-grade stenosis, or proximal branch occlusion identified. Dural sinuses appear patent. Lung apices are clear. No pneumothorax. Unremarkable soft tissues. Degenerative changes of the cervical spine. IMPRESSION: 1. No acute intracranial abnormality. 2. 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 3. No additional high-grade stenosis, aneurysm, dissection or arterial occlusion. ACT 112: Negative or not required by law. The above report was generated using voice recognition software. It may contain grammatical, syntax or spelling errors. Electronically signed by: Romain Franco M.D. 12/16/2022 7:34 PM Discharge Plan Visit Data Chief Complaint: Stroke/CVA Symptoms Stated Complaint: WEAKNESS ED Provider: Jacob Hansen Discharge Problem: Stroke-like symptom, Mild intellectual disability, Hypomagnesemia Forms Stand Alone Forms: [facility]Context Prescriptions Prescriptions: No Action atorvastatin 40 mg Tablet 40 mg PO HS cyanocobalamin (vitamin B-12) [Vitamin B-12] 1,000 mcg Tablet 1,000 mcg PO QAM metformin 1,000 mg Tablet 1,000 mg PO BID omeprazole 20 mg Capsule,Delayed Release(Dr/Ec) 20 mg PO QAM triamterene-hydrochlorothiazid 75-50 mg Tablet 0.5 tab PO QAM Patient Comments: half tablet in the morning . 1 tablet is 75-50 mg. multivitamin Capsule 1 cap PO QAM atenolol 50 mg Tablet 50 mg PO QAM glipizide 5 mg Tablet 5 mg PO BID cholecalciferol (vitamin D3) [Vitamin D3] 25 mcg (1,000 unit) Capsule 4,000 - 5,000 unit PO WK potassium chloride [Klor-Con M10] 10 mEq Tablet,Er Particles/Crystals 30 meq PO TID Farxiga 10 mg Tablet 10 mg PO DAILY Rx Instructions: takes at lunch time miconazole nitrate 2 % Powder 1 applic TOPICAL DAILY PRN (Reason: Rash) Rx Instructions: apply to groin Referrals Referrals: Dominic Blancas MD [Primary Care Provider] -
[2022-12-16] MEDS ORDERED: ASPIRIN 81 MG CHEW PO STA (22:54)
[2022-12-17] MEDS ORDERED: CARBOHYDRATES FOR HYPOGLYCEMIA PO PRN (00:43)
[2022-12-17] MEDS ORDERED: PHARMACIST DISCHARGE MED REC CONSULT PRN (00:43)
[2022-12-17] MEDS ORDERED: GLUCAGON FOR INJ 1 MG VIAL SQ PRN (00:43)
[2022-12-17] MEDS ORDERED: GLUCOSE 40% GEL 15 GM TUBE PO PRN (00:43)
[2022-12-17] MEDS ORDERED: LANTUS PER UNIT CHARGE SQ SCH (00:43)
[2022-12-17] MEDS ORDERED: ACETAMINOPHEN 325 MG TAB PO PRN (00:43)
[2022-12-17] MEDS ORDERED: GLUCOSE 10 TAB/TUBE PO PRN (00:43)
[2022-12-17] MEDS ORDERED: DEXTROSE 50% 50 ML SYRINGE IV PRN (00:43)
--- NOTE | 2022-12-17 01:49 | Magnetic Resonance Report ---
Exam(s): MRI HEAD Without Contrast EXAM: MR Head Without Intravenous Contrast CLINICAL HISTORY: Reason for exam: tia. TECHNIQUE: Magnetic resonance images of the head/brain without intravenous contrast in multiple planes. COMPARISON: No relevant prior studies available. FINDINGS: Brain: No restricted diffusion. No mass-effect or edema. Global parenchymal atrophy. Periventricular and subcortical T2/flair hyperintensities consistent with chronic microvascular ischemic changes. No hemorrhage. Ventricles: Unremarkable. No ventriculomegaly. Bones/joints: Unremarkable. Sinuses: Unremarkable as visualized. No acute sinusitis. Mastoid air cells: Unremarkable as visualized. No mastoid effusion. Orbits: Unremarkable as visualized. IMPRESSION: 1. No acute abnormality. 2. Atrophy and chronic microvascular ischemic changes. Electronically signed by: Melecio Beltran MD 12/17/22 01:48 AM
[2022-12-17] MEDS: INSULIN ASPART PER UNIT CHARGE SC SCH ×4 (02:06→17:03)
[2022-12-17 07:54] LABS: Basophils # (auto) 0.02 K/uL (0-0.2); Basophils % (auto) 0.3 %; Eosinophils # (auto) 0.07 K/uL (0-0.50); Eosinophils % (auto) 1.2 %; Hematocrit (blood only) 40.2 % (42.0-52.0); Hemoglobin 13.5 g/dl (14.0-18.0); Immature Granulocytes # (auto) 0.02 K/uL (0.01-0.20); Immature Granulocytes % (auto) 0.3 %; Lymphocytes # (auto) 1.35 K/uL (1.2-3.4); Lymphocytes % (auto) 22.8 %; Mean Corpuscular Hemoglobin 30.1 pg (25.0-34.0); Mean Corpuscular Hgb Conc 33.6 g/dL (32.0-36.0); Mean Corpuscular Volume 89.7 fL (80.0-100.0); Mean Platelet Volume 10.5 fL (9.4-12.4); Monocytes # (auto) 0.64 K/uL (0.11-0.59); Monocytes % (auto) 10.8 %; Neutrophils # (auto) 3.83 K/uL (1.40-6.50); Neutrophils % (auto) 64.6 %; Platelet Count 135 K/uL (130-400); RDW Coefficient of Variation 13.2 % (11.5-14.5); RDW Standard Deviation 43.4 fL (36.4-46.3); Red Blood Count 4.48 M/uL (4.70-6.10); Reticulocyte % 1.5 % (0.5-2.0); Reticulocytes # 0.07 10^6/uL (0.02-0.10); White Blood Count 5.93 K/ul (4.8-10.8)
[2022-12-17 08:32] LABS: Vitamin B12 775 pg/ml (180-914)
[2022-12-17 08:38] LABS: BUN Creatinine Ratio 17.7 (10-20); Calcium 8.5 mg/dl (8.6-10.3); Chol HDL Ratio 2.5 (0-5); Creatinine Clr Calc Pharmacy 98.5 ml/min; Est GFR (African American) 103.2 ml/min; Est GFR (Non-African American) 89.1 ml/min; Magnesium 1.9 mg/dl (1.7-2.4); Potassium 3.7 mmol/L (3.5-5.1)
[2022-12-17 08:55] LABS: Ferritin 46.1 ng/ml (8-388)
[2022-12-17] MEDS ORDERED: ATENOLOL 25 MG TABLET PO SCH (09:00)
[2022-12-17] MEDS ORDERED: MULTIVITAMIN TAB PO SCH (09:00)
[2022-12-17] MEDS ORDERED: ASPIRIN 81 MG ECTAB PO SCH (09:00)
[2022-12-17] MEDS ORDERED: CYANOCOBALAMIN (B-12) 500 MCG TABLET PO SCH (09:00)
[2022-12-17] MEDS ORDERED: PANTOprazole 40 MG TAB PO SCH (09:00)
[2022-12-17] MEDS ORDERED: ENOXAPARIN INJ 40 MG/0.4 ML SYR SQ SCH (09:00)
--- NOTE | 2022-12-17 15:44 | Neurology Consultation ---
Date of Consultation December 17, 2022 Assessment & Plan (1) Stroke-like symptom: Impression: The patient had an episode of short lasting expressive speech difficulty, which was resolved in emergency department. There has been no additional neurological symptoms. The patient was not a candidate for thrombolytic treatment. Since admission, the patient has been neurologically intact. Imaging studies did not show acute cerebrovascular accident. Aspirin was added to treatment. Telemetry monitoring and echocardiogram are unremarkable. This event can be due to transient ischemic attack or can be secondary to dry mouth and possible dehydration. Recommendations: I agree with aspirin treatment, 81 mg daily, for secondary stroke prevention. We will keep the patient on Lipitor 40 mg as before. Goal LDL level is lower than 70. Good hydration. Management of hypertension and diabetes mellitus. Outpatient evaluation for possible obstructive sleep apnea. The patient is neurologically stable and can be discharged home. I will contact with [facility] neurology to set up an appointment in a month. (2) Vertebral artery stenosis, non-symptomatic: Impression: CT angiography of neck showed left vertebral artery V4 for segment significant stenosis, which is asymptomatic. Recommendations: There is no neurological indication for vascular intervention at this time. Optimizing treatment for secondary stroke prevention will be sufficient at this time. (3) Dyslipidemia: Impression: The patient has been on Lipitor for a long time, and the last lipid panel showed LDL lower than 70. (4) Hypertension: Impression: The patient has been treated for hypertension successfully. (5) DM type 2 (diabetes mellitus, type 2): Impression: The patient has been on treatment. He has been compliant. (6) Mild intellectual disability: Plan As seen above. Thank you for the consultation. History of Present Illness Reason for Consultation: Stroke like symptoms Requesting Physician: Elijah Shankar MD Attending Physician: Elijah Shankar MD History of Present Illness The patient is a 72-year-old gentleman, who was brought to emergency department, after family noticed garbled speech yesterday evening. When he was taken to emergency department, he was back to his baseline with mostly improved speech, without any additional neurological deficit. Head CT was unremarkable and the patient was admitted to hospital for stroke work-up. Following brain MRI did not show any acute intracranial pathology. CT angiogram of head and neck were unremarkable other than left vertebral artery V4 segment significant stenosis. Telemetry monitoring has been sinus, with satisfactory blood pressure and blood sugar control. The patient has stayed symptom-free. Serum lipid panel showed LDL lower than 70. He has been on Lipitor 40 mg and a low-dose aspirin was added to treatment based on possibility of transient ischemic attack. Echocardiogram was also unremarkable. Apparently, the patient has not been hydrating and eating as usual during last many days. He was treated for possible urinary tract infection on doxycycline, which was discontinued. Reportedly, the patient had an episode of questionable left hand short lasting weakness 4 days ago. He denies any residual sensorimotor symptoms. He has mild intellectual disability, and he is a mouth breather with dry mouth which might contribute to speech disturbance. I have reviewed the patient's chart including imaging studies and visualized them personally. I have discussed the case with hospitalist physician. Allergies Allergy/AdvReac Type Severity Reaction Status Date / Time latex Allergy Unknown Rash Verified 11/17/22 06:33 Home Medications Medication Instructions Recorded Confirmed Type atenolol 50 mg tablet 50 mg PO QAM 09/15/22 12/16/22 History atorvastatin 40 mg tablet 40 mg PO HS 09/15/22 12/16/22 History cholecalciferol (vitamin D3) 25 4,000 - 5,000 unit PO WK 09/15/22 12/16/22 History mcg (1,000 unit) capsule (Vitamin D3) cyanocobalamin (vitamin B-12) 1,000 mcg PO QAM 09/15/22 12/16/22 History 1,000 mcg tablet (Vitamin B-12) dapagliflozin 10 mg tablet 10 mg PO DAILY 09/15/22 12/16/22 History (Farga) glipizide 5 mg tablet 5 mg PO BID 09/15/22 12/16/22 History metformin 1,000 mg tablet 1,000 mg PO BID 09/15/22 12/16/22 History multivitamin 1 cap PO QAM 09/15/22 12/16/22 History omeprazole 20 mg capsule,delayed 20 mg PO QAM 09/15/22 12/16/22 History release potassium chloride 10 mEq 30 meq PO TID 09/15/22 12/16/22 History tablet,extended release(part/cryst) (Klor-Con M) triamterene 75 0.5 tab PO QAM 09/15/22 12/16/22 History mg-hydrochlorothiazide 50 mg tablet miconazole nitrate 2 % topical 1 applic topical DAILY PRN Rash 12/16/22 12/16/22 History powder aspirin 81 mg tablet,delayed 81 mg PO QAM #30 tabs 12/17/22 Rx release Patient History Medical History Aortic valve sclerosis Cortes's esophagus DM type 2 (diabetes mellitus, type 2) DM TYPE 2 CAUSING RENAL DISEASE Dyslipidemia History of anesthesia reaction problems with swallowing after surgery, esophagus was irritated - with colon surgery Hypertension Kidney disease ? born with, reason for potassium supplement Malignant neoplasm of colon hx 15-20 yr ago / sx intervention HX PORT PLACEMENT ? HX CHEMO/? IF PORT IS STILL PRESENT Mild intellectual disability PT IS SPECIAL NEEDS, COMMUNICATION ABILITY SEEMS TO DECLINE WITH AGE PT IS FEARFUL OF UPCOMING CATARACT SURGERY Obesity, Class III, BMI 40-49.9 (morbid obesity) Problem of extremity RIGHT LEG TROUBLE WITH MOVEMENT AT TIMES Rash OF GROIN AREA/DR VASQUEZ FOR/ANTIFUNGAL POWDER/IMPROVING Surgical History History of colon surgery for colon ca History of colonoscopy History of endoscopy History of left cataract surgery Hx of cholecystectomy S/P appendectomy Family History Mother Family history of diabetes mellitus Social History Smoking Status: Never smoker Second Hand Exposure: No; Do You Dip or Chew Tobacco: No; Hx Alcohol Use: No Hx Substance Use: No Preferred Language: Paraguayan Communication Ability: Effective Communication Ability Comment: PT SPECIAL NEEDS/COMMUNICATES LIVAN & IS COOPERATIVE/ABLE TO SIGN CONSENTS [employer] Required: No Beliefs That Will Affect Care: None Current Living Situation: Family Current Living Situation Comment: PT LIVES WITH COUSIN AND HER Other Information That Helps Us Care for You: No Feels Safe at Home: Yes Safety Concerns: Feels Safe At This Time Assistive Devices: Walker Review of Systems Review of Systems: All systems reviewed & are unremarkable except as noted in HPI & below Physical Exam Physical Exam: General Examination: Constitutional: Well developed overweight person with mild intellectual disability in no acute distress. HENT: Normal exam with inspection. CV: Hearth rhythm is regular. Neck: Supple, no carotid bruits. Lungs: Non-labored and comfortable breathing. Abdomen: Soft, non-tender, non-distended. Skin: No rash or ecchymosis. Extremities: No edema or cyanosis NEUROLOGICAL EXAMINATION: Mental Status: Alert and oriented to place, person but not to time. Baseline mild intellectual disability. Cranial Nerves: II-XII are intact. No nystagmus. Funduscopy: Normal looking optic discs. Motor: 5/5 in all extremities without asymmetry. Tone: Normal without spasticity or rigidity. Sensory: Intact to all sensory modalities other than decreased vibratory sensation in feet. Coordination: No dysmetria with FTN testing. Speech: Fluent. Comprehension is intact. Gait: Normal. No ataxia or abnormal walking pattern. Musculoskeletal: Normal muscle bulk, no atrophy. DTRs: 2 - in upper extremities and 1+ in lower extremities symmetrically. Plantar reflexes are bilaterally downgoing. Results & Data Vital Signs (Past 12 Hours) Vital Signs Temp Pulse Pulse Resp BP Pulse Ox O2 Del Method 12/17/22 15:40 36.5 C 70 20 150/77 H 95 Room Air 12/17/22 11:34 36.6 C 63 18 146/75 H 95 Room Air 12/17/22 07:29 Room Air 12/17/22 07:15 36.6 C 68 18 147/77 H 95 Room Air 12/17/22 07:14 65 12/17/22 03:45 36.4 C L 68 18 131/84 95 Room Air Laboratory Results Laboratory Results - last 24 hr 12/16/22 12/16/22 12/16/22 19:09 19:11 19:11 WBC 7.09 RBC 4.53 L Hgb 13.8 L Hct 40.4 L MCV 89.2 MCH 30.5 MCHC 34.2 RDW Std Deviation 43.8 RDW Coeff of Hal 13.4 Plt Count 163 MPV 10.0 Immature Gran % (Auto) 0.6 Neut % (Auto) 64.1 Lymph % (Auto) 21.2 [place] % (Auto) 12.1 Eos % (Auto) 1.4 Baso % (Auto) 0.6 Reticulocyte % (Auto) Neut # (Auto) 4.55 Lymph # (Auto) 1.50 [place] # (Auto) 0.86 H Eos # (Auto) 0.10 Baso # (Auto) 0.04 Reticulocyte # Immature Gran # (Auto) 0.04 PT 12.1 H INR 1.1 APTT 26.1 PTT Ratio 0.9 Sodium Potassium Chloride Carbon Dioxide Anion Gap BUN Creatinine Est Cr Clr Drug Dosing Est GFR ( Amer) Est GFR (Non-Af Amer) BUN/Creatinine Ratio Glucose POC Glucose 173 H Calcium Magnesium Iron Transferrin Ferritin Total Bilirubin AST ALT Alkaline Phosphatase Troponin I High Sens Total Protein Albumin Globulin Albumin/Globulin Ratio Triglycerides Cholesterol LDL Cholesterol, Calc VLDL Cholesterol, Calc HDL Cholesterol Cholesterol/HDL Ratio Vitamin B12 Folate Urine Color Urine Appearance Urine pH Ur Specific [place] Urine Protein Urine Glucose (UA) Urine Ketones Urine Blood Urine Nitrite Urine Bilirubin Urine Urobilinogen Ur Leukocyte Esterase SARS-CoV-2, RNA, NAAT 12/16/22 12/16/22 12/16/22 19:11 19:35 20:04 WBC RBC Hgb Hct MCV MCH MCHC RDW Std Deviation RDW Coeff of Hal Plt Count MPV Immature Gran % (Auto) Neut % (Auto) Lymph % (Auto) [place] % (Auto) Eos % (Auto) Baso % (Auto) Reticulocyte % (Auto) Neut # (Auto) Lymph # (Auto) [place] # (Auto) Eos # (Auto) Baso # (Auto) Reticulocyte # Immature Gran # (Auto) PT INR APTT PTT Ratio Sodium 138 Potassium 3.6 Chloride 105 Carbon Dioxide 25 Anion Gap 8 BUN 16 Creatinine 0.98 Est Cr Clr Drug Dosing Not Reportable Est GFR ( Amer) 88.3 Est GFR (Non-Af Amer) 76.2 BUN/Creatinine Ratio 16.3 Glucose 175 H POC Glucose Calcium 9.2 Magnesium 1.6 L Iron Transferrin Ferritin Total Bilirubin 1.5 H AST 31 ALT 19 Alkaline Phosphatase 48 Troponin I High Sens 3.4 Total Protein 6.2 Albumin 3.7 Globulin 2.5 Albumin/Globulin Ratio 1.5 Triglycerides Cholesterol LDL Cholesterol, Calc VLDL Cholesterol, Calc HDL Cholesterol Cholesterol/HDL Ratio Vitamin B12 Folate Urine Color Yellow Urine Appearance Clear Urine pH 5.0 Ur Specific [place] > 1.045 H Urine Protein Negative Urine Glucose (UA) 3+ H Urine Ketones Negative Urine Blood Negative Urine Nitrite Negative Urine Bilirubin Negative Urine Urobilinogen Negative Ur Leukocyte Esterase Negative SARS-CoV-2, RNA, NAAT NEGATIVE 12/17/22 12/17/22 12/17/22 01:39 07:04 07:04 WBC 5.93 RBC 4.48 L Hgb 13.5 L Hct 40.2 L MCV 89.7 MCH 30.1 MCHC 33.6 RDW Std Deviation 43.4 RDW Coeff of Hal 13.2 Plt Count 135 MPV 10.5 Immature Gran % (Auto) 0.3 Neut % (Auto) 64.6 Lymph % (Auto) 22.8 [place] % (Auto) 10.8 Eos % (Auto) 1.2 Baso % (Auto) 0.3 Reticulocyte % (Auto) 1.5 Neut # (Auto) 3.83 Lymph # (Auto) 1.35 [place] # (Auto) 0.64 H Eos # (Auto) 0.07 Baso # (Auto) 0.02 Reticulocyte # 0.07 Immature Gran # (Auto) 0.02 PT INR APTT PTT Ratio Sodium 142 Potassium 3.7 Chloride 107 Carbon Dioxide 27 Anion Gap 8 BUN 14 Creatinine 0.79 Est Cr Clr Drug Dosing 98.5 Est GFR ( Amer) 103.2 Est GFR (Non-Af Amer) 89.1 BUN/Creatinine Ratio 17.7 Glucose 92 POC Glucose 171 H Calcium 8.5 L Magnesium 1.9 Iron 53 Transferrin 295 Ferritin 46.1 Total Bilirubin AST ALT Alkaline Phosphatase Troponin I High Sens Total Protein Albumin Globulin Albumin/Globulin Ratio Triglycerides 135 Cholesterol 84 LDL Cholesterol, Calc 24 VLDL Cholesterol, Calc 27 HDL Cholesterol 33 Cholesterol/HDL Ratio 2.5 Vitamin B12 Folate Urine Color Urine Appearance Urine pH Ur Specific [place] Urine Protein Urine Glucose (UA) Urine Ketones Urine Blood Urine Nitrite Urine Bilirubin Urine Urobilinogen Ur Leukocyte Esterase SARS-CoV-2, RNA, NAAT 12/17/22 12/17/22 12/17/22 07:04 07:46 11:47 WBC RBC Hgb Hct MCV MCH MCHC RDW Std Deviation RDW Coeff of Hal Plt Count MPV Immature Gran % (Auto) Neut % (Auto) Lymph % (Auto) [place] % (Auto) Eos % (Auto) Baso % (Auto) Reticulocyte % (Auto) Neut # (Auto) Lymph # (Auto) [place] # (Auto) Eos # (Auto) Baso # (Auto) Reticulocyte # Immature Gran # (Auto) PT INR APTT PTT Ratio Sodium Potassium Chloride Carbon Dioxide Anion Gap BUN Creatinine Est Cr Clr Drug Dosing Est GFR ( Amer) Est GFR (Non-Af Amer) BUN/Creatinine Ratio Glucose POC Glucose 90 131 H Calcium Magnesium Iron Transferrin Ferritin Total Bilirubin AST ALT Alkaline Phosphatase Troponin I High Sens Total Protein Albumin Globulin Albumin/Globulin Ratio Triglycerides Cholesterol LDL Cholesterol, Calc VLDL Cholesterol, Calc HDL Cholesterol Cholesterol/HDL Ratio Vitamin B12 775 Folate > 22.30 Urine Color Urine Appearance Urine pH Ur Specific [place] Urine Protein Urine Glucose (UA) Urine Ketones Urine Blood Urine Nitrite Urine Bilirubin Urine Urobilinogen Ur Leukocyte Esterase SARS-CoV-2, RNA, NAAT Diagnostic Findings Chest X-Ray 12/16/22 18:54 XR chest 1V portable HISTORY: 72 years-old Male neuro deficit, acute stroke suspected acute strokelike symptoms COMPARISON: Chest radiograph 02/03/2022 TECHNIQUE: AP view of the chest FINDINGS: Cardiac silhouette is enlarged. Atherosclerosis of the aorta. No pneumothorax, pleural effusion, airspace consolidation or pulmonary edema. Degenerative changes of the shoulders and spine. IMPRESSION: Cardiomegaly without acute process. ACT 112: Negative or not required by law. The above report was generated using voice recognition software. It may contain grammatical, syntax or spelling errors. Electronically signed by: Romain Franco M.D. 12/16/2022 8:[address] 12/16/22 18:54 CT angio head w con, CT angio neck with con, CT head/brain wo con CLINICAL HISTORY: 72 years-old Male with neuro deficit, acute stroke suspected. Acute stroke like symptoms COMPARISON STUDY: Head CT 02/03/2022 TECHNIQUE: Unenhanced axial CT scan of the brain is performed. Subsequently, following the IV administration of 118 cc of Optiray, CT angiogram of the head and neck was performed from the aortic arch to the skull apex. Images are reviewed in the axial, sagittal, and coronal planes. 3-D MIPS images are created and assessed. IV contrast was administered without complication. All measurements were obtained according to NASCET criteria. A dose lowering technique was utilized adhering to the principles of ALARA. CT DOSE: 995.09 mGy.cm FINDINGS: CT BRAIN: There is no acute intracranial hemorrhage, midline shift, hydrocephalus, intracranial mass, territorial ischemia or abnormal extra-axial collections. No abnormal intra-axial or extra-axial enhancement. Involutional changes with mild likely ex vacuo ventriculomegaly. White matter hypodensities suggest chronic microvascular ischemic disease. Cerebral vascular calcifications. Mastoid air cells and middle ear cavities are clear. Prior bilateral repair. No calvarial fracture. Paranasal sinuses are clear. CT ANGIOGRAM OF THE HEAD AND NECK: The atherosclerosis of the thoracic aorta and arch. Patency of the innominate and image subclavian arteries. The common carotid arteries are patent. Moderate atherosclerotic plaque of the carotid bulbs and proximal cervical segments of the internal carotid arteries resulting in less than 50% stenosis bilaterally. The bilateral anterior and middle cerebral arteries are also patent. Dominant r ight vertebral artery is widely patent. Prominent degenerative left vertebral artery. Atherosclerotic plaques in the V4 segment results in high-grade approximately 90% stenosis on image 29 series 6 just proximal to the PICA origin. There is a stenosis noted within the PICA, notably on image 314 series 6. The posterior cerebral arteries are patent with areas of mild multifocal stenosis. There is no aneurysm, additional high-grade stenosis, or proximal branch occlusion identified. Dural sinuses appear patent. Lung apices are clear. No pneumothorax. Unremarkable soft tissues. Degenerative changes of the cervical spine. IMPRESSION: 1. No acute intracranial abnormality. 2. 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 3. No additional high-grade stenosis, aneurysm, dissection or arterial occlusion. ACT 112: Negative or not required by law. The above report was generated using voice recognition software. It may contain grammatical, syntax or spelling errors. Electronically signed by: Romain Franco M.D. 12/16/2022 7:34 PM Head CTA 12/16/22 18:54 CT angio head w con, CT angio neck with con, CT head/brain wo con CLINICAL HISTORY: 72 years-old Male with neuro deficit, acute stroke suspected. Acute stroke like symptoms COMPARISON STUDY: Head CT 02/03/2022 TECHNIQUE: Unenhanced axial CT scan of the brain is performed. Subsequently, following the IV administration of 118 cc of Optiray, CT angiogram of the head and neck was performed from the aortic arch to the skull apex. Images are reviewed in the axial, sagittal, and coronal planes. 3-D MIPS images are created and assessed. IV contrast was administered without complication. All measurements were obtained according to NASCET criteria. A dose lowering technique was utilized adhering to the principles of ALARA. CT DOSE: 995.09 mGy.cm FINDINGS: CT BRAIN: There is no acute intracranial hemorrhage, midline shift, hydrocephalus, intracranial mass, territorial ischemia or abnormal extra-axial collections. No abnormal intra-axial or extra-axial enhancement. Involutional changes with mild likely ex vacuo ventriculomegaly. White matter hypodensities suggest chronic microvascular ischemic disease. Cerebral vascular calcifications. Mastoid air cells and middle ear cavities are clear. Prior bilateral repair. No calvarial fracture. Paranasal sinuses are clear. CT ANGIOGRAM OF THE HEAD AND NECK: The atherosclerosis of the thoracic aorta and arch. Patency of the innominate and image subclavian arteries. The common carotid arteries are patent. Moderate atherosclerotic plaque of the carotid bulbs and proximal cervical segments of the internal carotid arteries resulting in less than 50% stenosis bilaterally. The bilateral anterior and middle cerebral arteries are also patent. Dominant right vertebral artery is widely patent. Prominent degenerative left vertebral artery. Atherosclerotic plaques in the V4 segment results in high-grade approximately 90% stenosis on image 29 series 6 just proximal to the PICA origin. There is a stenosis noted within the PICA, notably on image 314 series 6. The posterior cerebral arteries are patent with areas of mild multifocal stenosis. There is no aneurysm, additional high-grade stenosis, or proximal branch occlusion identified. Dural sinuses appear patent. Lung apices are clear. No pneumothorax. Unremarkable soft tissues. Degenerative changes of the cervical spine. IMPRESSION: 1. No acute intracranial abnormality. 2. 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 3. No additional high-grade stenosis, aneurysm, dissection or arterial occlusion. ACT 112: Negative or not required by law. The above report was generated using voice recognition software. It may contain grammatical, syntax or spelling errors. Electronically signed by: Romain Franco M.D. 12/16/2022 7:34 PM Neck CTA 12/16/22 18:54 CT angio head w con, CT angio neck with con, CT head/brain wo con CLINICAL HISTORY: 72 years-old Male with neuro deficit, acute stroke suspected. Acute stroke like symptoms COMPARISON STUDY: Head CT 02/03/2022 TECHNIQUE: Unenhanced axial CT scan of the brain is performed. Subsequently, following the IV administration of 118 cc of Optiray, CT angiogram of the head and neck was performed from the aortic arch to the skull apex. Images are reviewed in the axial, sagittal, and coronal planes. 3-D MIPS images are created and assessed. IV contrast was administered without complication. All measurements were obtained according to NASCET criteria. A dose lowering technique was utilized adhering to the principles of ALARA. CT DOSE: 995.09 mGy.cm FINDINGS: CT BRAIN: There is no acute intracranial hemorrhage, midline shift, hydrocephalus, intracranial mass, territorial ischemia or abnormal extra-axial collections. No abnormal intra-axial or extra-axial enhancement. Involutional changes with mild likely ex vacuo ventriculomegaly. White matter hypodensities suggest chronic microvascular ischemic disease. Cerebral vascular calcifications. Mastoid air cells and middle ear cavities are clear. Prior bilateral repair. No calvarial fracture. Paranasal sinuses are clear. CT ANGIOGRAM OF THE HEAD AND NECK: The atherosclerosis of the thoracic aorta and arch. Patency of the innominate and image subclavian arteries. The common carotid arteries are patent. Moderate atherosclerotic plaque of the carotid bulbs and proximal cervical segments of the internal carotid arteries resulting in less than 50% stenosis bilaterally. The bilateral anterior and middle cerebral arteries are also patent. Dominant right vertebral artery is widely patent. Prominent degenerative left vertebral artery. Atherosclerotic plaques in the V4 segment results in high-grade approximately 90% stenosis on image 29 series 6 just proximal to the PICA origin. There is a stenosis noted within the PICA, notably on image 314 series 6. The posterior cerebral arteries are patent with areas of mild multifocal stenosis. There is no aneurysm, additional high-grade stenosis, or proximal branch occlusion identified. Dural sinuses appear patent. Lung apices are clear. No pneumothorax. Unremarkable soft tissues. Degenerative changes of the cervical spine. IMPRESSION: 1. No acute intracranial abnormality. 2. 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 3. No additional high-grade stenosis, aneurysm, dissection or arterial occlusion. ACT 112: Negative or not required by law. The above report was generated using voice recognition software. It may contain grammatical, syntax or spelling errors. Electronically signed by: Romain Franco M.D. 12/16/2022 7:34 PM Brain MRI 12/17/22 00:02 Exam(s): MRI HEAD Without Contrast EXAM: MR Head Without Intravenous Contrast CLINICAL HISTORY: Reason for exam: tia. TECHNIQUE: Magnetic resonance images of the head/brain without intravenous contrast in multiple planes. COMPARISON: No relevant prior studies available. FINDINGS: Brain: No restricted diffusion. No mass-effect or edema. Global parenchymal atrophy. Periventricular and subcortical T2/flair hyperintensities consistent with chronic microvascular ischemic changes. No hemorrhage. Ventricles: Unremarkable. No ventriculomegaly. Bones/joints: Unremarkable. Sinuses: Unremarkable as visualized. No acute sinusitis. Mastoid air cells: Unremarkable as visualized. No mastoid effusion. Orbits: Unremarkable as visualized. IMPRESSION: 1. No acute abnormality. 2. Atrophy and chronic microvascular ischemic changes. Electronically signed by: Melecio Beltran MD 12/17/22 01:48 AM ECHO--Reviewed Medications Administered Reviewed
[2022-12-17] MEDS ORDERED: STROKE PATIENT DISCHARGE STA (16:13)
--- NOTE | 2022-12-17 16:21 | Discharge Summary ---
Date of Service December 17, 2022 Admission HPI Per Admitting Provider Patient is 72-year-old male with PMH mild intellectual disability, HTN, dyslipidemia, DM II, Cortes's esophagus, obesity presented to ER with complaint of slurred speech. History obtained from chart review and patient's cousin Eli who is his POA and who he resides with. States 3 days ago patient seemed more tired than usual. After eating lunch 3 days ago patient had reported felt like his left hand was weaker than usual. Symptoms seem to resolve throughout the day. Has noticed past 3 days has not been eating as much as usual. She is concerned that patient does not drink enough fluids. Seen at PCPs office 12/14/2022 for new onset fatigue and had negative urine culture, CRP <3, ESR: 23, and negative Lyme disease antibody. Was started on doxycycline. Had 3 doses. Family reports since patient seem to be improving discontinue doxycycline. Today around 6:15pm patient was sitting in the car. Family noticed patient was taking a long time to unbuckle himself and get out of the car. When patient spoke it is reported that he had garbled speech. Family brought patient to hospital. Since being in ER family reports patient speech is close to baseline. Currently patient denying any complaints. Denies fever/chills, diaphoresis, N/V/D/C, LAZARO, dizziness, syncope, vision changes, neck pain, CP, SOB, cough, sore throat, otalgia, rhinorrhea, abdominal pain, paresthesias, extremity edema, rashes, urinary symptoms. Admission Exam Per Admitting Provider General: no acute distress, +obese Head: normocephalic, atraumatic Eyes: PERRL, EOM's intact, conjunctiva non-injected, anicteric ENT: normal inspection external ears, nose, mucous membranes dry Neck: supple, trachea midline Lungs: clear, no respiratory distress, no wheezing/rhonchi/rales CV: RRR, + murmur,no pretibial edema Abd: normal BS, soft, non-tender Ext: no cyanosis, no calf tenderness Neuro: Alert, Oriented to person and place. calm, cooperative. facial sensation is intact and symmetric, face is strong and symmetric, hearing grossly intact, soft palate elevates symmetrically, some mild slurred speech (family report baseline), shoulder shrug intact, tongue is midline, normal movement, no fasciculations. Strength BUE: 5/5. Strength BLE: 4/5 Skin: warm, dry Principal Diagnosis Stroke-like symptoms/ TIA Discharge Exam General: elderly obese M in no acute distress Head: normocephalic, atraumatic Eyes: PERRL, EOM's intact, conjunctiva non-injected, anicteric ENT: normal inspection external ears, nose, mucous membranes dry Neck: supple Lungs: clear, no respiratory distress, no wheezing/rhonchi/rales CV: RRR, + murmur,no pretibial edema Abd: normal BS, soft, non-tender Ext: no cyanosis, no calf tenderness Neuro: Alert, Oriented to person and place. calm, cooperative. facial sensation is intact and symmetric, speech mildly slurred (family report baseline), moves extremities, no weakness noted Skin: warm, dry Discharge Data Allergies Allergy/AdvReac Type Severity Reaction Status Date / Time latex Allergy Unknown Rash Verified 11/17/22 06:33 Consultations 12/16/22 20:25 ED Decision to Admit Stat 12/17/22 08:22 Consult Neurology Routine Ordered Studies 12/16/22 18:54 CT angio head w con Stat CT angio neck with con Stat CT head/brain wo con Stat CT BRAIN: There is no acute intracranial hemorrhage, midline shift, hydrocephalus, intracranial mass, territorial ischemia or abnormal extra-axial collections. No abnormal intra-axial or extra-axial enhancement. Involutional changes with mild likely ex vacuo ventriculomegaly. White matter hypodensities suggest chronic microvascular ischemic disease. Cerebral vascular calcifications. Mastoid air cells and middle ear cavities are clear. Prior bilateral repair. No calvarial fracture. Paranasal sinuses are clear. CT ANGIOGRAM OF THE HEAD AND NECK: The atherosclerosis of the thoracic aorta and arch. Patency of the innominate and image subclavian arteries. The common carotid arteries are patent. Moderate atherosclerotic plaque of the carotid bulbs and proximal cervical segments of the internal carotid arteries resulting in less than 50% stenosis bilaterally. The bilateral anterior and middle cerebral arteries are also patent. Dominant right vertebral artery is widely patent. Prominent degenerative left vertebral artery. Atherosclerotic plaques in the V4 segment results in high-grade approximately 90% stenosis on image 29 series 6 just proximal to the PICA origin. There is a stenosis noted within the PICA, notably on image 314 series 6. The posterior cerebral arteries are patent with areas of mild multifocal stenosis. There is no aneurysm, additional high-grade stenosis, or proximal branch occlusion identified. Dural sinuses appear patent. Lung apices are clear. No pneumothorax. Unremarkable soft tissues. Degenerative changes of the cervical spine. IMPRESSION: 1. No acute intracranial abnormality. 2. 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 3. No additional high-grade stenosis, aneurysm, dissection or arterial occlusion. 12/17/22 00:02 MR brain wo con Stat FINDINGS: Brain: No restricted diffusion. No mass-effect or edema. Global parenchymal atrophy. Periventricular and subcortical T2/flair hyperintensities consistent with chronic microvascular ischemic changes. No hemorrhage. Ventricles: Unremarkable. No ventriculomegaly. Bones/joints: Unremarkable. Sinuses: Unremarkable as visualized. No acute sinusitis. Mastoid air cells: Unremarkable as visualized. No mastoid effusion. Orbits: Unremarkable as visualized. IMPRESSION: 1. No acute abnormality. 2. Atrophy and chronic microvascular ischemic changes. Hospital Course (1) Stroke-like symptom: (2) Mild intellectual disability: (3) DM type 2 (diabetes mellitus, type 2): (4) Hypertension: (5) Dyslipidemia: (6) Obesity, Class III, BMI 40-49.9 (morbid obesity): (7) Cortes's esophagus: TIA - presenting as transient left hand weakness, slurred speech, significant improvement after IVF administration at the ER Ongoing doxycycline Rx for presumptive Lyme disease, outpatient Lyme screen negative - doxy stopped UA negative CXR- Cardiomegaly without acute process. CT/ CTA head and neck Left vertebral artery stenosis/plaque on CT imaging MRI brain - without acute abnormality Aspirin started for stroke prevention, PVD Neurologically pt back to baseline TTE obtained as part of stroke work-up EF 60 to 65%. There is borderline concentric LVH. Grade 1 diastolic dysfunction. Aortic valve sclerosis moderate, without significant aortic valvular stenosis. Injection of contrast documented no interatrial shunt. LDL - 24 - cont. home statin PT eval - ok to return home. Neurology consulted and discussed with - ok to discharge home on daily aspirin. Cont. home statin. Follow up w/ [facility] neurology in 1 month. Pt may benefit from eval for obstructive sleep apnea. Hypertension, slightly elevated Hyperlipidemia on statin Rx GERD/Cortes's esophagus on PPI DM2 on oral medications, suboptimal control as of recent hemoglobin A1c of 7.15 Dec 2022 Colon cancer status post surgery chemotherapy Mild anemia-new, FOBT done at the ER was negative, followup as outpt Chronic intellectual impairment Total Time Total Time Spent Total Time Spent (In Minutes): 40 Discharge Plan Discharge Items Patient Disposition: Home - Self-Care Reason For Visit: TIA Discharge Diagnosis: Stroke-like symptoms/ TIA Activity: Per Instructions section Non-emergency contact: Primary Care Provider and Neurologist Call non-emergency contact if: you have any medication questions Follow-up/Referrals: Dominic Blancas MD [Primary Care Provider] - Diet: Carb Consistent or DM2 and Heart Healthy Addtl Attending Provider Instructions: Follow-up with primary care doctor within 1 week. Follow-up with [facility] neurology in 1 month. You will be contacted about the appointment. Take aspirin daily. Recommend to take aspirin with food. Make sure to stay well-hydrated. You may need evaluation for possible obstructive sleep apnea. Pending Studies at Discharge: No Stand-Alone Forms: My [facility] [employer], Smoking Cessation Medications and DC Order Prescriptions: New aspirin 81 mg Tablet,Delayed Release (Dr/Ec) 81 mg PO QAM Qty: 30 0RF Continued atorvastatin 40 mg Tablet 40 mg PO HS cyanocobalamin (vitamin B-12) [Vitamin B-12] 1,000 mcg Tablet 1,000 mcg PO QAM metformin 1,000 mg Tablet 1,000 mg PO BID omeprazole 20 mg Capsule,Delayed Release(Dr/Ec) 20 mg PO QAM triamterene-hydrochlorothiazid 75-50 mg Tablet 0.5 tab PO QAM Patient Comments: half tablet in the morning . 1 tablet is 75-50 mg. multivitamin Capsule 1 cap PO QAM atenolol 50 mg Tablet 50 mg PO QAM glipizide 5 mg Tablet 5 mg PO BID cholecalciferol (vitamin D3) [Vitamin D3] 25 mcg (1,000 unit) Capsule 4,000 - 5,000 unit PO WK potassium chloride [Klor-Con M10] 10 mEq Tablet,Er Particles/Crystals 30 meq PO TID Farxiga 10 mg Tablet 10 mg PO DAILY Rx Instructions: takes at lunch time miconazole nitrate 2 % Powder 1 applic TOPICAL DAILY PRN (Reason: Rash) Rx Instructions: apply to groin Discharge Orders: Discharge Order (Routine); Ordered 12/17/22 Ordered By: Elijah Shankar Admission Data Admit Date/Time: 12/16/22 22:56 Attending Provider: Elijah Shankar Admit Provider: Saran Corrales Primary Care Provider: Dominic Blancas Other Providers: Saran Corrales ; Trey Wadsworth Other Interventions: Discharge Summary Assessment (RN) Last Done: 12/17/22 16:36
[2022-12-17] MEDS ORDERED: ATORVASTATIN 40 MG TAB PO SCH (21:00)
--- NOTE | 2022-12-18 05:17 | Electrocardiogram Report ---
Test Reason : Blood Pressure : / mmHG Vent. Rate : 082 BPM Atrial Rate : 082 BPM P-R Int : 188 ms QRS Dur : 130 ms QT Int : 404 ms P-R-T Axes : 043 -66 015 degrees QTc Int : 472 ms Normal sinus rhythm Right bundle branch block Left anterior fascicular block Bifascicular block Abnormal ECG When compared with ECG of 03-FEB-2022 04:05, No significant change Confirmed by Chandan Justice [id number] on 12/18/2022 5:17:20 AM Referred By: REFERRED SELF Confirmed By:Chandan Justice
--- NOTE | 2022-12-18 09:54 | Pharmacy Report ---
Pharmacist Stroke Counseling - Date of Service December 18, 2022 - Scope: Pharmacy has been consulted to provide medication discharge counseling for this patient admitted with transient ischemic attack as per the Pharmacist Discharge Counseling for Stroke Patients Protocol. - Medications on Discharge: Home Medications Medication Instructions Recorded Confirmed atenolol 50 mg tablet 50 mg PO QAM 09/15/22 12/16/22 atorvastatin 40 mg tablet 40 mg PO HS 09/15/22 12/16/22 cholecalciferol (vitamin D3) 25 4,000 - 5,000 unit PO WK 09/15/22 12/16/22 mcg (1,000 unit) capsule (Vitamin D3) cyanocobalamin (vitamin B-12) 1,000 mcg PO QAM 09/15/22 12/16/22 1,000 mcg tablet (Vitamin B-12) dapagliflozin 10 mg tablet 10 mg PO DAILY 09/15/22 12/16/22 (Farxiga) glipizide 5 mg tablet 5 mg PO BID 09/15/22 12/16/22 metformin 1,000 mg tablet 1,000 mg PO BID 09/15/22 12/16/22 multivitamin 1 cap PO QAM 09/15/22 12/16/22 omeprazole 20 mg capsule,delayed 20 mg PO QAM 09/15/22 12/16/22 release potassium chloride 10 mEq 30 meq PO TID 09/15/22 12/16/22 tablet,extended release(part/cryst) (Klor-Con M) triamterene 75 0.5 tab PO QAM 09/15/22 12/16/22 mg-hydrochlorothiazide 50 mg tablet miconazole nitrate 2 % topical 1 applic topical DAILY PRN Rash 12/16/22 12/16/22 powder New Rx's Medication Instructions Recorded aspirin 81 mg tablet,delayed 81 mg PO QAM #30 tabs 12/17/22 release - Action: The above medications, specifically ones for stroke treatment/prophylaxis, have been reviewed in detail with the patient and/or patient financial services sales representative(s) prior to discharge. This includes indication, common adverse reactions, drug interactions, and medication administration. Medication counseling has been employed using the teach-back method to ensure understanding. - Outcome: The patient and/or patient financial services sales representative(s) have demonstrated understanding of the medications. Additional comments: - Spoke with patient's Eli RIZZO - she will be picking up aspirin today at the pharmacy, follow-up appointment made. No other changes to patients regimen. No issues identified. Thank you for allowing pharmacy to be involved in the care of this patient. Please call [phone] with any additional questions
== END 2022-12-17 18:44 | disposition home or self-care (01) ==
LOC: 2N 18:43 → ED 18:43 → 2N 12-17 00:11

== ENCOUNTER 2024-07-30 19:07 | Inpatient (IN) ==
--- OUTSIDE RECORDS SUMMARY | 2024-07-30 19:16 | External Medical Summary | Summary of Care ---
Author Name Unknown Organization [facility] Address [address] [place] [facility] [place] [address] Phone [phone] Care Team Providers Care Cook Short Order Name Role Phone Dominic Blancas MD Primary Care Provider [phone] Reason for Visit * Reason Onset Date Comments Order Request 03/27/2024 Non fasting labs Encounter Details Date Type Department Care Team (Late st Contact Info) Description 03/27/2024 Telephone [facility] [address] [place] [address] Dominic Blancas MD [address] [place] [address] Order Request (Non fasting labs ) Allergies Active Allergy Reactions Criticality Noted Date Comments Dapagliflozin Other (Please comment) 12/25/2022 dehydration Latex 11/06/2016 documented as of this encounter (statuses as of 06/26/2024) Medications Every1Mobile SYSTEM W/DEVICE KITIndications:D M type 2, not at goal (HCC) Use up to four times a day as directed 1 Kit 0 11/17/19 12 Active VITAMIN D 1000 UNITS PO CAPSIndications: Vitamin D deficiency 1 capsule daily 30 Cap 11 05/06/20 12 Active Multiple Vitamins-Mineral s (MULTIVITAMIN ADULT) TABSIndications: daily once. Active Triamcinolone Acetonide 0.1 % External Ointment (Aristocort)Alma cations:Eczema, unspecified type APPLY TO AFFECTED AREA TWICE A DAY 80 g 3 07/13/20 22 Active OneTouch Delica Lancets 30G E 11.9 DX Use to test blood glucose twice daily 200 Each 3 09/01/19 23 Active Miconazole Nitrate 2 % PowderIndication s:Intertrigo Apply powder to areas of fungal rash in groin area three times a day until rash is gone. Then daily for maintenance therapy. 100 g 11 09/07/19 23 Active OneTouch Ultra In Vitro Strip (Glucose Blood)Indication s:Type 2 diabetes mellitus with hemoglobin A1c goal of less than 8.0% (HCC) USE TO TEST BLOOD SUGARS ONCE DAILY DX: E11.9 100 Strip 3 03/14/20 24 Active Triamterene-HCTZ 75-50 MG Oral Tablet (Maxzide) TAKE 1/2 TABLET BY MOUTH EVERY DAY 45 Tablet 3 04/06/20 23 024 Discontin ued(Refil l) glipiZIDE ER 10 MG Oral Tablet Extended Release 24 Hour (glipiZIDE XL)Indications:D iabetes mellitus with stage 2 chronic kidney disease (HCC) Take 1 Tablet by mouth in the morning. 30 minutes before a meal.. 90 Tablet 3 10/18/19 24 024 Discontin ued(Medic ation/Dos e Changed) Trulicity 3 MG/0.5ML Subcutaneous Solution Pen-injector (Dulaglutide)Ind ications:Type 2 diabetes mellitus with hemoglobin A1c goal of less than 8.0% ([facility]) Inject 3 mg under the skin once a week. Dose Increase 2 mL 5 10/18/19 24 024 Discontin ued(Refil l) Omeprazole 20 MG Oral Capsule Delayed Release (PriLOSEC)Indica tions: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,Intertrigino us dermatitis associated with moisture TAKE 1 CAPSULE BY MOUTH EVERY MORNING 90 Capsule 3 11/03/19 24 024 Discontin ued(Refil l) Atenolol 50 MG Oral Tablet (Tenormin)Indica tions:HTN, goal below 150/90 TAKE 1 TABLET BY MOUTH EVERY DAY 90 Tablet 3 11/16/19 24 024 Discontin ued(Refil l) metFORMIN HCl 1000 MG Oral Tablet (Glucophage)Alma cations:Type 2 diabetes mellitus with hemoglobin A1c goal of less than 8.0% (HCC) TAKE ONE TABLET TWICE A DAY FOR SUGAR CONTROL. 180 Tablet 2 11/26/19 24 024 Discontin ued(Refil l) Vitamin B-12 1000 MCG Oral Tablet (Cyanocobalamin) TAKE 1 TABLET BY MOUTH EVERY DAY IN THE MORNING 90 Tablet 3 12/13/19 24 024 Discontin ued(Refil l) Potassium Chloride Amira ER 10 MEQ Oral Tablet Extended Release (Klor-Con M10)Indications: Hypokalemia TAKE 3 TABLETS BY MOUTH THREE TIMES A DAY (9 TABLETS PER DAY) 810 Tablet 3 01/18/20 24 024 Discontin ued(Refil l) Atorvastatin Calcium 40 MG Oral Tablet (Lipitor)Indicat ions:Dyslipidemi a, goal LDL below 100 TAKE 1 TABLET BY MOUTH EVERY NIGHT AT BEDTIME. FOR CHOLESTEROL 90 Tablet 3 01/18/20 24 024 Discontin ued(Refil l) Trulicity 1.5 MG/0.5ML Subcutaneous Solution Pen-injector (Dulaglutide)Ind ications:Type 2 diabetes mellitus with hemoglobin A1c goal of less than 8.0% (HCC) Inject 1.5 mg under the skin once a week. 2 mL 1 01/22/20 24 024 Discontin ued(Medic ation List Clean Up) Aspirin Low Dose 81 MG Oral Tablet Delayed Release (aspirin enteric coated) TAKE 1 TABLET BY MOUTH EVERY DAY IN THE MORNING 90 Tablet 3 03/14/20 24 024 Discontin ued(Refil l) documented as of this encounter (statuses as of 06/26/2024) Active Problems Problem Noted Date Diagnosed Date Class 2 severe obesity due t o excess calories with serious comorbidity and body mass index (BMI) of 38.0 to 38.9 in adult 10/15/2020 Diabetes mellitus with stage 2 chronic kidney di sease 09/29/2019 Cortes's esophagus without dysplasia 09/30/2018 History of colon cancer in adulthood 10/29/2017 Mild intellectual disability 04/30/2017 Overview (05/10/2017): ICD-10 update of inactive term Hypokalemia 04/30/2017 Aortic valve sclerosis 11/06/2016 HTN, goal below 150/90 02/21/2016 Type 2 diabetes mellitus wit h hemoglobin A1c goal of less than 8.0% 08/16/2015 Overview (12/05/2015): ICD-10 update of inactive term Vitamin D deficiency 05/29/2011 Obesity, morbid (more than 1 00 lbs over ideal weight or BMI > 40) 11/05/2009 Overview (10/28/2015): Per Obesity Taxonomy ICD-10 update of inactive term DM type 2 causing renal disease 08/22/2009 DYSLIPIDEMIA, GOAL LDL BELOW 100 07/25/2009 Overview (07/25/2009): Per Lipid Taxonomy. LV hypertrophy, hypertensive documented as of this encounter (statuses as of 06/26/2024) Resolved Problems Problem Noted Date Diagnosed Date Resolved Date Class 2 severe obesity due t o excess calories with serious comorbidity and body mass index (BMI) of 38.0 to 38.9 in adult 09/29/2019 0 HTN, goal below 140/90 10/14/201502/20 Overview: Per HTN Protocol #27. Severe obesity with body mas s index (BMI) of 35.0 to 39.9 with serious comorbidity 07/27/2012 Overview (05/25/2018): bmi= 39.61 07/27/12 ICD-10 update of inactive diagnosis Cough 07/27/2012 04/30/2017 HTN, GOAL BELOW 140/80 03/28/201211/13 Overview: Per HTN Protocol #27. JOINT PAIN-R knee 08/06/2010 04/30/2017 HTN, GOAL BELOW 130/80 09/05/200903/31 Overview (09/05/2009): Per HTN Taxonomy. Type 2 diabetes mellitus wit h hemoglobin A1c goal of less than 7.0% 06/06/2009 08/16/2015 Overview (12/03/2015): Per Diabetes Taxonomy. ICD-10 update of inactive term COLONIC CANCER SPLENIC FLEXURE 06/05/2008 10/29/2017 Encounter for antineoplastic chemotherapy 08/17/2006 04/30/2017 Cortes's esophagus 02/05/2006 09/30/19 19 MALIGNANT NIKKI COLON NOS 12/17/200504/10 Screening for prostate cancer 12/09/2005 10/17/2008 Overview (10/17/2008): Resolved per Screening Diagnosis Protocol #6 BENIGN NEOPLASM LG BOWEL 12/09/200512/2008 Overview (09/13/2008): Resolved per Duplicate Protocol #2. Special screening for malign ant neoplasms, colon 12/09/2005 10/17/2008 Overview (10/17/2008): Resolved per Screening Diagnosis Protocol #6 ADVANCE DIRECTIVE INFORMATION 03/10/2005 04/30/2017 Overview (03/10/2005): No, Advance Directive brochure given to patient. Type 2 diabetes mellitus wit h hemoglobin A1c goal of less than 7.0% 01/07/2005 06/06/2009 Overview (12/03/2015): Per Diabetes Taxonomy. ICD-10 update of inactive term Dyslipidemia, goal to be determined 05/21/2004 07/25/2009 Overview (07/25/2009): Per Lipid Taxonomy. BENIGN NEOPLASM LG BOWEL 09/08/2002 ABDOMINAL PAIN, RIGHT UPPER QUADRANT 05/24/2000 04/30/2017 Constipation 05/24/2000 04/30/2017 Overview (10/31/2015): ICD-10 update of inactive term HTN, goal below 140/90 06/09/199909/05 Overview (09/05/2009): Per HTN Taxonomy. OBESITY, UNSPECIFIED 010 Overview (11/05/2009): Per Obesity Taxonomy documented as of this encounter (statuses as of 06/26/2024) Immunizations Name Administration Dates Next Due COVID-19 mRNA, LNP-s, No Pre serve, 2-Dose Series (Moderna) 10/07/2020,09/09/2020 COVID-19, mRNA, LNP-s, PF, B ooster, 100mcg/0.5mg (Moderna) 04/17/2022,06/05/2021 H1N1 2009 Influenza, IM 10/04/2009 Pneumococcal Conjugate Vacc, 13 Valent (Prevnar) 08/16/2015 Pneumococcal Polysaccharide PPV23 (Pneumovax) 11/06/2016 Seasonal Influenza Vac., MDV , IM, 0.5 mL (Fluzone) 05/16/2014,05/12/2013,05/06/2012,05/10,06/13/2010,06/04/2009,06/04/20 08,05/25/2007,05/19/2006 Seasonal Influenza, PF, 6 M & above, IM , (FluLaval or Fluzone) 05/09/2020,05/22/2019,04/30/2017 Seasonal Influenza, Quadriva lent Hd (Fluzone Hd) 05/10/2021 Seasonal Influenza, Quadriva lent, No Preserve, IM 05/14/2023,05/29/2016,06/05/2015 Seasonal Influenza, Trivalen t, Adjuvanted, 65+ YRS, PF, (Fluad) 05/20/2018 TDAP (age 10 and older)(Boostrix) 01/18/2015 01/18/2025 Varicella Zoster Vaccine (Adult) 09/26/2012 Zoster Vaccine Recombinant (Shingrix) 05/01/2023 ,01/15/2023 documented as of this encounter Social History Tobacco Use Types Packs/Day Years Used Date Smoking Tobacco: Never Passive Smoke Exposure: Past Smokeless Tobacco: Never Alcohol Use Standard Drinks/Week Comments No 0 (1 standard drink = 0.6 oz pur e alcohol) PHQ-2 Answer Date Recorded PHQ Adult Total Score 0 10/07/2023 Hunger Vital Sign Answer Date Recorded Worried About Running Out of Food in the Last Ye ar Never true 04/05/2020 Ran Out of Food in the Last Year Never true 04/05/2020 Sex and Gender Information Value Date Recorded Sex Assigned at Male 12/14/2022 1:36 PM EDT Legal Sex Male 7:14 AM EST Gender Identity Male 12/14/2022 1:36 PM EDT Sexual Orientation Straight 12/14/2022 1: 36 PM EDT Occupation Industry Job Start Date Job End Date ana Not on file Not on file Not on file documented as of this encounter Miscellaneous Notes * Telephone Encounter - Kathy Gray LPN - 03/28/2024 3:49 PM EDT Attempted to call patient, no answer left a detailed message that non-fasting labs have been placed. * Telephone Encounter - Dominic Blancas MD - 03/27/2024 6:51 PM EDT Nonfasting labs ordered. * Telephone Encounter - Kathy Gray LPN - 03/27/2024 1:18 PM EDT Please advise can orders be placed for patients upcoming appointment? * Telephone Encounter - Sami De Guzman OSA - 03/27/2024 12:08 PM EDT An order was requested for this patient. Name of Requesting Provider: Dr. Blancas Order Requested: labs Diagnosis/Reason for Request: was advised to have non-fasting labs done per check out notes from . Pt's next appt is 04/06. If order request is for Mammogram: Is the patient having any breast symptoms? N/A Is there a chance of ? N/A Has the patient had any breast problems in the past? NA What location AND department does the patient wish to have their order completed at? [facility] Fax Number, if applicable: na If the caller is not a current patient, please advise the patient to call their current PCP to havethe order's prior to being seen in our office. The patient was informed that our providers would not order anything (medication, labs, etc.) prior to being seen. documented in this encounter Plan of Treatment Upcoming Encounters Date Type Department Care Team (Late st Contact Info) Description 10/03/2024 9:40 AM EST Laboratory Laboratory[address] [address] [place], [facility] [address] [place] [address] 10/10/2024 9:40 AM EST Office Visit Family [facility], [facility] [address] [place] [id number] Dominic Blanacs MD [address] [facility] [place] [id number] Scheduled Procedures Name Priority Associated Diagnoses Date/Ti me ESOPHAGOGASTRODUODENOSCOPY ( EGD), FLEXIBLE, TRANSORAL, DIAGNOSTIC Recall Cortes's esophagus COLONOSCOPY FLEXIBLE PROXIMAL DIAGNOSTIC Recall History of colonic polyps Health Maintenance Due Date Last Done Comments Cologuard 1994 Sigmoidoscopy 1994 Fecal Occult Blood Test 03/19/2003 03/19/2002, 12/23 Diabetic Foot Exam 04/06/2024 04/06/2023, 0 10/15/2020, 09/29/2019, Additional history exists GFR 10/04/2024 10/04/2023, 03/09, 12/14/2022, Additional history exists HbA1c 10/05/2024 04/04/2024, 03/0 08/2023, 10/04/2023, Additional history exists Adult Wellness Visit 10/06/2024 10/07/2023 Depression Screening 10/06/2024 10/07/2023 Diabetic Eye Exam 2024 11/26/2023, , 11/22/2023, Additional history exists DTap/Tdap Vaccines (2 - Td or Tdap) 01/18/2025 01/18/2015, 05/15/2004 Albumin/Creatinine Ratio 04/04/2025 024, 12/14/2022, 07/23/2020, Additional history exists Colonoscopy 04/25/2025 04/25/2024, 04/09, 11/30/2018, Additional history exists Colorectal Cancer Screening 04/25/2025 Cortes's Esophagus Surveilance 04/25/2027 04/25/2024, 04/25/2024, 11/30/2018, Additional history exists Lipid Panel 10/04/2028 10/04/2023, 02/2023, 04/23/2022, Additional history exists Pneumococcal Vaccine: 65+ Years Completed 11/06/2016, 08/16/2015, 02/27/2002 Zoster Vaccines Completed 05/01/2023, 04/2023, 09/26/2012 COVID-19 Vaccine Completed 04/12/2024, 11/2023, 05/08/2023, Additional history exists Influenza Vaccine (FLU shot) Completed 07/2024, 05/14/2023, 05/14/2023, Additional history exists HPV (Gardasil) Vaccine Aged Out No lo nger eligible based on patient's age to complete this topic Hepatitis B Vaccine Aged Out No longe r eligible based on patient's age to complete this topic MENINGOCOCCAL (MENACTRA/MENVEO) Aged Out No longer eligible based on patient's age to complete this topic documented as of this encounter Medical Devices Not on filedocumented as of this encounter Results * HEPATIC FUNCTION PANEL (04/04/2024 8:00 AM EDT) Albumin 4.3 3.8 - 5.0 g/dL 04/04/2024 6:10 PM EDT [facility] AST 33 10 - 50 U/L 04/04/2024 6:10 PM EDT [facility] Alkaline Phosphatase 77 35 - 130 U/L 04/04/2024 6:10 PM EDT [facility] ALT 21 10 - 50 U/L 04/04/2024 6:10 PM EDT [facility] Bilirubin, Total 0.9 <=1.2 mg/dL 04/04/2024 6:10 PM EDT [facility] Bilirubin, Direct 0.3 0.0 - 0.3 mg/dL 04/04/2024 6:10 PM EDT LABORATORY [facility] Protein 6.6 6.0 - 8.3 g/dL 04/04/2024 6:10 PM EDT LABORATORY [facility] Blood Venous blood specimen / Unknown Venipuncture / Unknown 04/04/2024 8:00 AM EDT 04/04/2024 8:00 AM EDT us Dominic Blancas MD LAB BLOOD ORDERABLES Final Resu lt Performing Organization Address City/[facility] Co de Phone Number LABORATORY [facility] [address] [place] [address] * (ABNORMAL) HEMOGLOBIN A1C (04/04/2024 8:00 AM EDT) Hemoglobin A1C 6.9(H) 4.0 - 5.6 % 04/04/2024 6:30 PM EDT LABORATORY [facility] Comment:The use of HbA1c to monitor glycemic status is based on normal hemoglobin and HbA composition. This test should not be used in patients with abnormal hemoglobin that affects the half life of the red blood cell or the in vivo glycation rates. Estimated Average Glucose 151(H) <126 mg/dL 04/04/2024 6:30 PM EDT LABORATORY [facility] Blood Venous blood specimen / Unknown Venipuncture / Unknown 04/04/2024 8:00 AM EDT 04/04/2024 8:00 AM EDT us Dominic Blancas MD LAB BLOOD ORDERABLES Final Resu lt Performing Organization Address City/[facility]/ZIP Co de Phone Number LABORATORY [facility] [address] [place] [address] documented in this encounter Visit Diagnoses Diagnosis Type 2 diabetes mellitus with hemoglobin A1c goal of less than 8.0% (HCC)- Primary History of colon cancer in adulthood documented in this encounter Care Teams Cook Short Order Relationship Specialty Start Date End Date Dominic Blancas MD [address] [place] [address] PCP - General 03/03/00 documented as of this encounter
--- OUTSIDE RECORDS SUMMARY | 2024-07-30 19:16 | External Medical Summary | Summary of Care ---
Author Name Unknown Organization [facility] Address [address] [place] [address] Phone [phone] Care Team Providers Care Pan Greaser Name Role Phone Dominic Blancas MD Primary Care Provider [phone] Reason for Visit * Reason Onset Date Comments Test Results 05/11/2024 Encounter Details Date Type Department Care Team (Late st Contact Info) Description 05/11/2024 Telephone [facility] [address] [place] [address] Dominic Blancas MD [address] [place] [address] Test Results Allergies Active Allergy Reactions Criticality Noted Date Comments Dapagliflozin Other (Please comment) 12/25/2022 dehydration Latex 11/06/2016 documented as of this encounter (statuses as of 05/11/2024) Medications Medication Sig Dispensed Refills Start Date End Date Status Iqua SYSTEM W/DEVICE KITIndications:DM type 2, not at goal (HCC) Use up to four times a day as directed 1 Kit 0 11/17/2011 Active VITAMIN D 1000 UNITS PO CAPSIndications:Vit lyman D deficiency 1 capsule daily 30 Cap 11 05/06/2012 Active Multiple Vitamins-Minerals (MULTIVITAMIN ADULT) TABSIndications:kari ly once. Active Triamcinolone Acetonide 0.1 % External Ointment (Aristocort)Indicat ions:Eczema, unspecified type APPLY TO AFFECTED AREA TWICE A DAY 80 g 3 07/13/2022 Active OneTouch Delica Lancets 30G E 11.9 DX Use to test blood glucose twice daily 200 Each 09/01/2022 Active Miconazole Nitrate 2 % PowderIndications:I ntertrigo Apply powder to areas of fungal rash in groin area three times a day until rash is gone. Then daily for maintenance therapy. 100 g 09/07/2022 Active OneTouch Ultra In Vitro Strip (Glucose Blood)Indications:T ype 2 diabetes mellitus with hemoglobin A1c goal of less than 8.0% ([facility]) USE TO TEST BLOOD SUGARS ONCE DAILY DX: E11.9 100 Strip 3 03/14/2024 Active Aspirin 81 MG Oral Tablet Delayed Release (Aspirin Low Dose) Take 1 Tablet by mouth in the morning. 90 Tablet 04/06/2024 Active Atenolol 50 MG Oral Tablet (Tenormin)Indicatio ns:HTN, goal below 150/90 Take 1 Tablet by mouth in the morning. 90 Tablet 04/06/2024 Active Atorvastatin Calcium 40 MG Oral Tablet (Lipitor)Indication s:Dyslipidemia, goal LDL below 100 TAKE 1 TABLET BY MOUTH EVERY NIGHT AT BEDTIME. FOR CHOLESTEROL 90 Tablet 04/06/2024 Active glipiZIDE ER 5 MG Oral Tablet Extended Release 24 Hour (glipiZIDE XL)Indications:Type 2 diabetes mellitus with diabetic nephropathy, without long-term current use of insulin (HCC) Take 1 Tablet by mouth in the morning. 30 minutes before a meal.. 90 Tablet 04/06/2024 Active metFORMIN HCl 1000 MG Oral Tablet (Glucophage)Indicat ions:Type 2 diabetes mellitus with hemoglobin A1c goal of less than 8.0% ([facility]) Take one tablet twice a day for sugar control. 180 Tablet 04/06/2024 Active Omeprazole 20 MG Oral Capsule Delayed Release (PriLOSEC)Indicatio ns: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,Intertriginous dermatitis associated with moisture Take 1 Capsule by mouth in the morning. Every morning.. 90 Capsule 04/06/2024 Active Potassium Chloride Amira ER 10 MEQ Oral Tablet Extended Release (Klor-Con M10)Indications:Hyp okalemia TAKE 3 TABLETS BY MOUTH THREE TIMES A DAY (9 TABLETS PER DAY) 810 Tablet 04/06/2024 Active Triamterene-HCTZ 75-50 MG Oral Tablet (Maxzide)Indication s:HTN, goal below 150/90 TAKE 1/2 TABLET BY MOUTH EVERY DAY 45 Tablet 3 04/06/2024 Active Vitamin B-12 1000 MCG Oral Tablet (Cyanocobalamin)Ind ications:B12 deficiency Take 1 Tablet by mouth in the morning. 90 Tablet 3 04/06/2024 Active Trulicity 3 MG/0.5ML Subcutaneous Solution Pen-injector (Dulaglutide)Indica tions:Type 2 diabetes mellitus with hemoglobin A1c goal of less than 8.0% (HCC) Inject 3 mg under the skin once a week. Dose Increase 6 mL 3 04/06/2024 Active Additional Information Patient taking differently:3 mg Subcutaneous QWEEK,, Reported on 04/18/2024 Econazole Nitrate 1 % External Cream (Spectazole)Indicat ions:Yeast dermatitis Apply topically to affected area daily. Apply to right groin twice daily until resolved 170 g 1 05/10/2024 Active documented as of this encounter (statuses as of 05/11/2024) Active Problems Problem Noted Date Diagnosed Date Class 2 severe obesity due t o excess calories with serious comorbidity and body mass index (BMI) of 38.0 to 38.9 in adult 10/15/2020 Diabetes mellitus with stage 2 chronic kidney di sease 09/29/2019 Cortes's esophagus without dysplasia 09/30/2018 History of colon cancer in adulthood 10/29/2017 Mild intellectual disability 04/30/2017 Overview: ICD-10 update of inactive term Hypokalemia 04/30/2017 Aortic valve sclerosis 11/06/2016 HTN, goal below 150/90 02/21/2016 Type 2 diabetes mellitus wit h hemoglobin A1c goal of less than 8.0% 08/16/2015 Overview: ICD-10 update of inactive term Vitamin D deficiency 05/29/2011 Obesity, morbid (more than 1 00 lbs over ideal weight or BMI > 40) 11/05/2009 Overview: Per Obesity Taxonomy ICD-10 update of inactive term DM type 2 causing renal disease 08/22/2009 DYSLIPIDEMIA, GOAL LDL BELOW 100 07/25/2009 Overview: Per Lipid Taxonomy. LV hypertrophy, hypertensive documented as of this encounter (statuses as of 05/11/2024) Resolved Problems Problem Noted Date Diagnosed Date Resolved Date Class 2 severe obesity due t o excess calories with serious comorbidity and body mass index (BMI) of 38.0 to 38.9 in adult 09/29/2019 0 HTN, goal below 140/90 10/14/201502/20 Overview: Per HTN Protocol #27. Severe obesity with body mas s index (BMI) of 35.0 to 39.9 with serious comorbidity 07/27/2012 Overview: bmi= 39.61 07/27/12 ICD-10 update of inactive diagnosis Cough 07/27/2012 04/30/2017 HTN, GOAL BELOW 140/80 03/28/201211/13 Overview: Per HTN Protocol #27. JOINT PAIN-R knee 08/06/2010 04/30/2017 HTN, GOAL BELOW 130/80 09/05/200903/31 Overview: Per HTN Taxonomy. Type 2 diabetes mellitus wit h hemoglobin A1c goal of less than 7.0% 06/06/2009 08/16/2015 Overview: Per Diabetes Taxonomy. ICD-10 update of inactive term COLONIC CANCER SPLENIC FLEXURE 06/05/2008 10/29/2017 Encounter for antineoplastic chemotherapy 08/17/2006 04/30/2017 Cortes's esophagus 02/05/2006 09/30/19 19 MALIGNANT NIKKI COLON NOS 12/17/200504/10 Screening for prostate cancer 12/09/2005 10/17/2008 Overview: Resolved per Screening Diagnosis Protocol #6 BENIGN NEOPLASM LG BOWEL 12/09/200512/2008 Overview: Resolved per Duplicate Protocol #2. Special screening for malign ant neoplasms, colon 12/09/2005 10/17/2008 Overview: Resolved per Screening Diagnosis Protocol #6 ADVANCE DIRECTIVE INFORMATION 03/10/2005 04/30/2017 Overview: No, Advance Directive brochure given to patient. Type 2 diabetes mellitus wit h hemoglobin A1c goal of less than 7.0% 01/07/2005 06/06/2009 Overview: Per Diabetes Taxonomy. ICD-10 update of inactive term Dyslipidemia, goal to be determined 05/21/2004 07/25/2009 Overview: Per Lipid Taxonomy. BENIGN NEOPLASM LG BOWEL 09/08/2002 ABDOMINAL PAIN, RIGHT UPPER QUADRANT 05/24/2000 04/30/2017 Constipation 05/24/2000 04/30/2017 Overview: ICD-10 update of inactive term HTN, goal below 140/90 06/09/199909/05 Overview: Per HTN Taxonomy. OBESITY, UNSPECIFIED 010 Overview: Per Obesity Taxonomy documented as of this encounter (statuses as of 05/11/2024) Immunizations Name Administration Dates Next Due COVID-19 mRNA, LNP-s, No Pre serve, 2-Dose Series (Moderna) 10/07/2020,09/09/2020 COVID-19, MRNA-LNP, 23-24, P F, 30 MCG/0.3 mL, 12 YRS AND ABOVE, IM (PFIZER-Comirnaty) 04/12/2024 COVID-19, mRNA, LNP-s, PF, B ooster, 100mcg/0.5mg (Moderna) 04/17/2022,06/05/2021 COVID-19, mRNA, LNR-S, Bival ent, PF, 3 mcg/0.2 ml (Pfizer) 6m to 4 years 04/12/2024 H1N1 2009 Influenza, IM 10/04/2009 Pneumococcal Conjugate [...] pur e alcohol) PHQ-2 Answer Date Recorded PHQ-2 Score -1 04/29/2020 Hunger Vital Sign Answer Date Recorded Worried About Running Out of Food in the Last Ye ar Never true 04/05/2020 Ran Out of Food in the Last Year Never true 04/05/2020 Sex and Gender Information Value Date Recorded Sex Assigned at Male 12/14/2022 1:36 PM EDT Gender Identity Male 12/14/2022 1:36 PM EDT Sexual Orientation Straight 12/14/2022 1: 36 PM EDT Job Start Date Occupation Industry Not on file Not on file Not on file documented as of this encounter Miscellaneous Notes * Telephone Encounter - Dominic Blancas MD - 05/11/2024 2:08 PM EDT See Myntrag message to pt. * Telephone Encounter - Daksha Menon OSA - 05/11/2024 1:12 PM EDT Who is Requesting Test Results: Pt's cousinEli. Primary Care Provider : Dominic Blancas MD Tests Results Requested : Covid 19 test Date of Test : 05/10/24 Location of Test: [facility]. Ordering Provider: Patient has been made aware that the turnaround time for test results are typically as follows: Laboratory results = within 2-3 days ([facility]), 3-5 days (Non-[facility], ie. [facility]) Urine Cultures = within 2-3 days depending on growth within the culture Pathology results (biopsy results/PAP) = 1-2 weeks Radiology results = about 1 week Cologuard results = within 2 weeks from the shipment date COVID testing = about 24 hours documented in this encounter Plan of Treatment Upcoming Encounters Date Type Department Care Team (Late st Contact Info) Description 10/03/2024 9:40 AM EST Laboratory Laboratory, [place] [address] [place] [id number] [facility] [address] [place] [address] 10/10/2024 9:40 AM EST Office Visit [facility] [address] [place] [phone] Dominic Blancas MD [address], [place] [phone] Scheduled Procedures Name Priority Associated Diagnoses Date/Ti me ESOPHAGOGASTRODUODENOSCOPY ( EGD), FLEXIBLE, TRANSORAL, DIAGNOSTIC Recall Cortes's esophagus COLONOSCOPY FLEXIBLE PROXIMAL DIAGNOSTIC Recall History of colonic polyps Health Maintenance Due Date Last Done Comments Cologuard 1994 Sigmoidoscopy 1994 Fecal Occult Blood Test 03/19/2003 03/19/2002, 12/23 Diabetic Foot Exam 04/06/2024 04/06/2023, 0 10/15/2020, 09/29/2019, Additional history exists Influenza Vaccine (FLU shot) (#1) 2024 05/14/2023, 05/14/2023, 05/08/2022, Additional history exists GFR 10/04/2024 10/04/2023, 03/09, [...] 11/06/2016, 08/16/2015, 02/27/2002 Zoster Vaccines Completed 05/01/2023, 0 04/2023, 09/26/2012 COVID-19 Vaccine Completed 04/12/2024, 11/2023, 05/08/2023, Additional history exists HPV (Gardasil) Vaccine Aged [...] Not on filedocumented as of this encounter Care Teams Pan Greaser Relationship Specialty Start Date End Date Dominic Blancas MD [address] [place] [address] PCP - General 03/03/00 documented as of this encounter
--- OUTSIDE RECORDS SUMMARY | 2024-07-30 19:16 | External Medical Summary | Summary of Care ---
Author Name Unknown Organization [facility] Address [address] [facility] [place] [address] Phone [phone] Care Team Providers Care Simulation Software Engineer Name Role Phone Dominic Blancas MD Primary Care Provider [phone] Reason for Visit * Reason Comments Acute Patient is here toda y due to starting Wednesday patient went to bed early which per caregiver is unusual for him. Patient then started with a cough within the past couple of nights. Patient is here today with caregiver. Patients caregiver states the patient is also complaining of discomfort in his rectal area, had colonoscopy x2 weeks ago. Encounter Details Date Type Department Care Team (Late st Contact Info) Description 05/10/2024 4:00 PM EDT Office Visit [facility] [address] [place] [address] Dominic Blancas MD [address] [place] [address] Suspected COVID-19 virus infection*; Yeast dermatitis Allergies Active Allergy Reactions Criticality Noted Date Comments Dapagliflozin Other (Please comment) 12/25/2022 dehydration Latex 11/06/2016 documented as of this encounter (statuses as of 05/10/2024) Medications Medication Sig Dispensed Refills Start Date End Date Status ONETOUCH ULTRA SYSTEM W/DEVICE KITIndications:DM type 2, not at goal (HCC) Use up to four times a day as directed 1 Kit 0 11/17/2011 Active VITAMIN D 1000 UNITS PO CAPSIndications:V itamin D deficiency 1 capsule daily 30 Cap 11 05/06/2012 Active Multiple Vitamins-Minerals (MULTIVITAMIN ADULT) TABSIndications:d aily once. Active Triamcinolone Acetonide 0.1 % External Ointment (Aristocort)Indic ations:Eczema, unspecified type APPLY TO AFFECTED AREA TWICE A DAY 80 g 3 07/13/2022 Active OneTouch Delica Lancets 30G E 11.9 DX Use to test blood glucose twice daily 200 Each 3 09/01/2022 Active Miconazole Nitrate 2 % PowderIndications :Intertrigo Apply powder to areas of fungal rash in groin area three times a day until rash is gone. Then daily for maintenance therapy. 100 g 09/07/2022 Active OneTouch Ultra In Vitro Strip (Glucose Blood)Indications :Type 2 diabetes mellitus with hemoglobin A1c goal of less than 8.0% ([facility]) USE TO TEST BLOOD SUGARS ONCE DAILY DX: E11.9 100 Strip 3 03/14/2024 Active Aspirin 81 MG Oral Tablet Delayed Release (Aspirin Low Dose) Take 1 Tablet by mouth in the morning. 90 Tablet 04/06/2024 Active Atenolol 50 MG Oral Tablet (Tenormin)Indicat ions:HTN, goal below 150/90 Take 1 Tablet by mouth in the morning. 90 Tablet 04/06/2024 Active Atorvastatin Calcium 40 MG Oral Tablet (Lipitor)Indicati ons:Dyslipidemia, goal LDL below 100 TAKE 1 TABLET BY MOUTH EVERY NIGHT AT BEDTIME. FOR CHOLESTEROL 90 Tablet 04/06/2024 Active glipiZIDE ER 5 MG Oral Tablet Extended Release 24 Hour (glipiZIDE XL)Indications:Ty pe 2 diabetes mellitus with diabetic nephropathy, without long-term current use of insulin (HCC) Take 1 Tablet by mouth in the morning. 30 minutes before a meal.. 90 Tablet 3 04/06/2024 Active metFORMIN HCl 1000 MG Oral Tablet (Glucophage)Indic ations:Type 2 diabetes mellitus with hemoglobin A1c goal of less than 8.0% ([facility]) Take one tablet twice a day for sugar control. 180 Tablet 04/06/2024 Active Omeprazole 20 MG Oral Capsule Delayed Release (PriLOSEC)Indicat ions: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,Intertriginou s dermatitis associated with moisture Take 1 Capsule by mouth in the morning. Every morning.. 90 Capsule 04/06/2024 Active Potassium Chloride Amira ER 10 MEQ Oral Tablet Extended Release (Klor-Con M10)Indications:H ypokalemia TAKE 3 TABLETS BY MOUTH THREE TIMES A DAY (9 TABLETS PER DAY) 810 Tablet 3 04/06/2024 Active Triamterene-HCTZ 75-50 MG Oral Tablet (Maxzide)Indicati ons:HTN, goal below 150/90 TAKE 1/2 TABLET BY MOUTH EVERY DAY 45 Tablet 3 04/06/2024 Active Vitamin B-12 1000 MCG Oral Tablet (Cyanocobalamin)I ndications:B12 deficiency Take 1 Tablet by mouth in the morning. 90 Tablet 3 04/06/2024 Active Trulicity 3 MG/0.5ML Subcutaneous Solution Pen-injector (Dulaglutide)[place]ma cations:Type 2 diabetes mellitus with hemoglobin A1c goal of less than 8.0% (HCC) Inject 3 mg under the skin once a week. Dose Increase 6 mL 3 04/06/2024 Active Additional Information Patient taking differently:3 mg Subcutaneous QWEEK,, Reported on 04/18/2024 Econazole Nitrate 1 % External Cream (Spectazole)Indic ations:Yeast dermatitis Apply topically to affected area daily. Apply to right groin twice daily until resolved 170 g 1 05/10/2024 Active Trulicity 1.5 MG/0.5ML Subcutaneous Solution Pen-injector (Dulaglutide)[place]ma cations:Type 2 diabetes mellitus with hemoglobin A1c goal of less than 8.0% (HCC) Inject 1.5 mg under the skin once a week. 2 mL 1 01/22/2024 4 Discontinue d(Medicatio n List Clean Up) documented as of this encounter (statuses as of 05/10/2024) Active Problems Problem Noted Date Diagnosed Date [...] as of this encounter (statuses as of 05/10/2024) Resolved Problems Problem Noted Date Diagnosed Date [...] as of this encounter (statuses as of 05/10/2024) Immunizations Name Administration Dates Next Due COVID-19 mRNA, LNP-s, No Pre serve, 2-Dose Series (Moderna) 10/07/2020,09/09/2020 COVID-19, MRNA-LNP, 23-24, P F, 30 MCG/0.3 mL, 12 YRS AND ABOVE, IM (PFIZER-Comirnat) 04/12/2024 COVID-19, mRNA, LNP-s, PF, B ooster, [...] on file documented as of this encounter Last Filed Vital Signs Vital Sign Reading Time Taken Comments Blood Pressure 128/76 05/10/2024 3:58 PM EDT Pulse 88 05/10/2024 3:58 PM EDT Temperature 35.8 C (96.4 F) 05/10/2024 3:58 PM ED T Respiratory Rate 16 05/10/2024 3:58 PM EDT Oxygen Saturation 96% 05/10/2024 3:58 PM EDT Inhaled Oxygen Concentration - - Weight 108.1 kg (238 lb 6.4 oz) 05/10/2024 3:58 PM EDT Height 165.1 cm (5' 5") 05/10/2024 3:58 PM EDT Body Mass Index 39.67 05/10/2024 3:58 PM EDT documented in this encounter Progress Notes * Dominic Blancas MD - 05/10/2024 4:14 PM EDT Subjective: Tim Vazquez is a 73 year old male. Chief Complaint Patient presents with Acute Patient is here today due to starting Wednesday patient went to bed early which per caregiver is unusual for him. Patient then started with a cough within the past couple of nights. Patient is here today with caregiver. Patients caregiver states the patient is also complaining of discomfort in his rectal area, had colonoscopy x2 weeks ago. HPI: 73-year-old seen today with a question of possible COVID infection. He has been acting sick now for about 2-1/2 days. This is included a mild cough but overwhelming fatigue. Sleep in the daytimewhich he does not usually do. He has had some questionable exposure to COVID infection. Also he points out a rash that he has had for an unknown period of time as he just had pointed it out. He claims it does not itch or burn. Of note is his last hemoglobin A1c just done about a month ago was 6.9 showing good control Patient Active Problem List Diagnosis LV hypertrophy, hypertensive DYSLIPIDEMIA, GOAL LDL BELOW 100 DM type 2 causing renal disease (HCC) Obesity, morbid (more than 100 lbs over ideal weight or BMI > 40) (HCC) Vitamin D deficiency Type 2 diabetes mellitus with hemoglobin A1c goal of less than 8.0% ([facility]) HTN, goal below 150/90 Aortic valve sclerosis Mild intellectual disability Hypokalemia History of colon cancer in adulthood Cortes's esophagus without dysplasia Diabetes mellitus with stage 2 chronic kidney disease ([facility]) Class 2 severe obesity due to excess calories with serious comorbidity and body mass index (BMI) of38.0 to 38.9 in adult ([facility]) Current Outpatient Medications Medication Sig Dispense Refill Ixchelsis SYSTEM W/DEVICE KIT Use up to four times a day as directed 1 Kit 0 VITAMIN D 1000 UNITS PO CAPS 1 capsule daily 30 Cap 11 Multiple Vitamins-Minerals (MULTIVITAMIN ADULT) TABS once. Triamcinolone Acetonide 0.1 % External Ointment (Aristocort) APPLY TO AFFECTED AREA TWICE A DAY 80 g 3 Cutefund Delica Lancets 30G E 11.9 DX Use to test blood glucose twice daily 200 Each 3 Miconazole Nitrate 2 % Powder Apply powder to areas of fungal rash in groin area three times a day until rash is gone. Then daily for maintenance therapy. 100 g 11 Flagr In Vitro Strip (Glucose Blood) USE TO TEST BLOOD SUGARS ONCE DAILY DX: E11.9 100 Strip 3 Aspirin 81 MG Oral Tablet Delayed Release (Aspirin Low Dose) Take 1 Tablet by mouth in the morning.90 Tablet 3 Atenolol 50 MG Oral Tablet (Tenormin) Take 1 Tablet by mouth in the morning. 90 Tablet 3 Atorvastatin Calcium 40 MG Oral Tablet (Lipitor) TAKE 1 TABLET BY MOUTH EVERY NIGHT AT BEDTIME. FORCHOLESTEROL 90 Tablet 3 glipiZIDE ER 5 MG Oral Tablet Extended Release 24 Hour (glipiZIDE XL) Take 1 Tablet by mouth in themorning. 30 minutes before a meal.. 90 Tablet 3 metFORMIN HCl 1000 MG Oral Tablet (Glucophage) Take one tablet twice a day for sugar control. 180 Tablet 3 Omeprazole 20 MG Oral Capsule Delayed Release (PriLOSEC) Take 1 Capsule by mouth in the morning. Every morning.. 90 Capsule 3 Potassium Chloride Amira ER 10 MEQ Oral Tablet Extended Release (Klor-Con M10) TAKE 3 TABLETS BY MOUTH THREE TIMES A DAY (9 TABLETS PER DAY) 810 Tablet 3 Triamterene-HCTZ 75-50 MG Oral Tablet (Maxzide) TAKE 1/2 TABLET BY MOUTH EVERY DAY 45 Tablet 3 Vitamin B-12 1000 MCG Oral Tablet (Cyanocobalamin) Take 1 Tablet by mouth in the morning. 90 Tablet3 Trulicity 3 MG/0.5ML Subcutaneous Solution Pen-injector (Dulaglutide) Inject 3 mg under the skin once a week. Dose Increase (Patient taking differently: Inject 3 mg under the skin once a week. ) 6 mL 3 No current facility-administered medications for this visit. Review of patient's allergies indicates: Allergen Reactions Farxiga [Dapagliflozin] Other (Please comment) dehydration Latex Objective: BP 128/76 | Pulse 88 | Temp 35.8 C (96.4 F) (Tympanic) | Resp 16 | Ht 1.651 m (5' 5") | Wt 108.1 kg (238 lb 6.4 oz) | SpO2 96% | BMI 39.67 kg/m | BSA 2.23 m Physical Exam: CONST: alert, pleasant, no acute distress HEAD: normocephalic, atraumatic NECK: supple, soft, no adenopathy EARS: canals normal, TMs normal NARES: clear Eyes - PERRLA, EOM'I OROPHARYNX: clear, no swelling or erythema, moist CV: regular rate and rhythm, no murmur CHEST: clear to auscultation bilaterally, no rales or wheezing ABD: soft, non tender, non distended, no masses or hepatosplenomegaly SKIN: He has coalesced diffuse erythematous in almost purplish discoloration of the entire right groin area extending onto the proximal medial thigh. There was no blisters. I did not see any involvement in the left side. It does extend to the scrotum. ASSESSMENT/PLAN: 1. Suspect COVID-a nasal pharyngeal swab was done and was be sent for PCR COVID testing. If positive he will be placed on PACs low vid therapy. If that is the case then he will have to stop his atorvastatin for 7 days. We would need to get him started on therapy tomorrow i.e. same day as anticipating resolved 2. Probable monilial dermatitis right groin-econazole cream twice daily until resolved. I recommended he continue that for 2 weeks. Keep the areas dry as possible. . Dominic Blancas MD documented in this encounter Nursing Notes * Kathy Gray, DEVELOPMENT ARCHITECT - 05/10/2024 4:01 PM EDT The patient has been properly identified by confirmation of name and date of . Chief Complaint Patient presents with Acute Patient is here today due to starting Wednesday patient went to bed early which per caregiver is unusual for him. Patient then started with a cough within the past couple of nights. Patient is here today with caregiver. Patients caregiver states the patient is also complaining of discomfort in his rectal area, had colonoscopy x2 weeks ago. documented in this encounter Plan of Treatment Upcoming Encounters Date Type Department Care Team (Late st Contact Info) Description 10/03/2024 9:40 AM EST Laboratory Laboratory, [place] [address] [place] [phone] [facility] [address], [place] [phone] 10/10/2024 9:40 AM EST Office [facility] [place] [place] [place] [address] [place] [address] Dominic Blancas MD [address], [place] [phone] Pending Results Name Type Priority Associated Diagnoses Date /Time SARS-COV-2 (COVID-19), NAAT Lab Routine Suspected COVID-19 virus infection 05/10/2024 4:52 PM EDT Scheduled Procedures Name Priority Associated Diagnoses Date/Ti [...] Additional history exists Lipid Panel 10/04/2028 10/04/2023, 0402/2023, 04/23/2022, Additional history exists Pneumococcal Vaccine: 65+ Years Completed 11/06/2016, 08/16/2015, 02/27/2002 Zoster Vaccines Completed 05/01/2023, 060 04/2023, 09/26/2012 COVID-19 Vaccine Completed 04/12/2024, 11/2023, [...] Not on filedocumented as of this encounter Visit Diagnoses Diagnosis Suspected COVID-19 virus infection- Primary Yeast dermatitis Candidiasis of skin and nails documented in this encounter Care Teams Simulation Software Engineer Relationship Specialty Start Date End Date Dominic Blancas MD [address] [place] [address] PCP - General 03/03/00 documented as of this encounter
--- OUTSIDE RECORDS SUMMARY | 2024-07-30 19:16 | External Medical Summary | Summary of Care ---
Author Name Unknown Organization [facility] Address [address] [facility] [place] [address] Phone [phone] Care Team Providers Care Science Tutor Name Role Phone Dominic Blancas MD Primary Care Provider [phone] Reason for Visit * Reason Onset Date Comments Health Maintenance 05/04/2024 Encounter Details Date Type Department Care Team (Late st Contact Info) Description 05/04/2024 Telephone [facility] [address] [place] [address] Dominic Blancas MD [address] [place] [address] Health Maintenance Allergies Active Allergy Reactions Criticality Noted Date Comments Dapagliflozin Other (Please comment) 12/25/2022 dehydration Latex 11/06/2016 documented as of this encounter (statuses as of 05/04/2024) Medications Medication Sig Dispensed Refills Start Date End Date Status [employer] SYSTEM W/DEVICE KITIndications:DM type 2, not at [...] 3 09/01/2022 Active Miconazole Nitrate 2 % PowderIndications:I ntertrigo Apply powder to areas of fungal rash in groin area three times a day until rash is gone. Then daily for maintenance therapy. 100 g 11 09/07/2022 Active Trulicity 1.5 MG/0.5ML Subcutaneous Solution Pen-injector (Dulaglutide)Indica tions:Type 2 diabetes mellitus with hemoglobin A1c goal of less than 8.0% (HCC) Inject 1.5 mg under the skin once a week. 2 mL 1 01/22/2024 Active Additional Information Patient not taking.Reported on 04/18/2024 [employer] Ultra In Vitro Strip (Glucose Blood)Indications:T ype 2 diabetes mellitus with hemoglobin A1c goal of less than 8.0% (HCC) USE TO TEST BLOOD SUGARS ONCE DAILY DX: E11.9 100 Strip 3 03/14/2024 Active Aspirin 81 MG Oral Tablet Delayed Release (Aspirin Low Dose) Take 1 Tablet by mouth in the morning. 90 Tablet 3 04/06/2024 Active Atenolol 50 MG Oral Tablet (Tenormin)Indicatio ns:HTN, goal below 150/90 Take 1 Tablet by mouth in the morning. 90 Tablet 3 04/06/2024 Active Atorvastatin Calcium 40 MG Oral Tablet (Lipitor)Indication s:Dyslipidemia, goal LDL below 100 TAKE 1 TABLET BY MOUTH EVERY NIGHT AT BEDTIME. FOR CHOLESTEROL 90 Tablet 3 04/06/2024 Active glipiZIDE ER 5 MG Oral [...] A1c goal of less than 8.0% (HCC) Take one tablet twice a day for sugar control. 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 Every morning.. 90 Capsule 3 04/06/2024 Active Potassium Chloride Amira ER 10 [...] differently:3 mg Subcutaneous QWEEK,, Reported on 04/18/2024 documented as of this encounter (statuses as of 05/04/2024) Active Problems Problem Noted Date Diagnosed Date [...] as of this encounter (statuses as of 05/04/2024) Resolved Problems Problem Noted Date Diagnosed Date [...] as of this encounter (statuses as of 05/04/2024) Immunizations Name Administration Dates Next Due COVID-19 mRNA, LNP-s, No Pre serve, 2-Dose Series (Moderna) 10/07/2020,09/09/2020 COVID-19, MRNA-LNP, 23-24, P F, 30 MCG/0.3 mL, 12 YRS AND ABOVE, IM (New Relic-Comirnat) 04/12/2024 COVID-19, mRNA, LNP-s, PF, B ooster, 100mcg/0.5mg (Moderna) 04/17/2022,06/05/2021 H1N1 2009 Influenza, IM 10/04/2009 Pneumococcal Conjugate Vacc, 13 Valent (Prevnar) 08/16/2015 Pneumococcal Polysaccharide PPV23 (Pneumovax) 11/06/2016 Seasonal Influenza, PF, 6 M & above, IM , (FluLaval or Fluzone) 05/09/2020,05/22/2019,04/30/2017 Seasonal Influenza, Quadriva lent Hd (Fluzone Hd) 05/10/2021 Seasonal Influenza, Quadriva lent, No Preserve, IM 05/14/2023,05/29/2016,06/05/2015 Seasonal Influenza, Trivalen t, (IIV3), with Preserv, (Fluzone) 05/16/2014,05/12/2013,05/06/2012,05/10,06/13/2010,06/04/2009,06/04/20 08,05/25/2007,05/19/2006 Seasonal Influenza, Trivalen t, Adjuvanted, 65+ YRS, [...] encounter Miscellaneous Notes * Telephone Encounter - Marilyn Traore NEGRO - 05/04/2024 3:40 PM EDT Care Gaps Comprehensive Care Outreach Last Office/Telemedicine Visit: 04/06/2024 (in office), Visit date not found (telemedicine) Next Office Visit: 10/10/2024 Hemoglobin AIC Results: Lab Results Component Value Date/Time HEMOGLOBIN A1C - [facility] 6.9 (H) 04/04/2024 08:00 AM HEMOGLOBIN A1C - [facility] 9.0 (H) 10/08/2023 04:06 PM HEMOGLOBIN A1C - [facility] 9.1 (H) 10/04/2023 09:16 AM HEMOGLOBIN A1C - [facility] 6.7 (H) 07/12/2020 08:00 AM HEMOGLOBIN A1C - [facility] 7.7 (H) 04/02/2020 08:34 AM HEMOGLOBIN A1C - [facility] 7.4 (H) 09/29/2019 02:07 PM BP Readings from Last 1 Encounters: 04/25/24 125/81 Reviewed Health Maintenance below: Health Maintenance Topic Date Due Diabetic Foot Exam 04/06/2024 Influenza Vaccine (FLU shot) (1) 04/09/2024 GFR 10/04/2024 HbA1c 10/05/2024 Labs already ordered Care Gap Outreach Action Taken: Outreach not indicated documented in this encounter Plan of Treatment Upcoming Encounters Date Type Department Care Team (Late st Contact Info) Description 10/03/2024 9:40 AM EST Laboratory Laboratory, [place] [address] [place] [phone] [facility] [address], [place] [id number] 10/10/2024 9:40 AM EST Office Visit [facility] [address] [place] [phone] Dominic Blancas MD [address], [place] [phone] Scheduled Procedures Name Priority Associated Diagnoses Date/Ti [...] Additional history exists Lipid Panel 10/04/2028 10/04/2023, 040 02/2023, 04/23/2022, Additional history exists Pneumococcal Vaccine: 65+ Years Completed 11/06/2016, 08/16/2015, 02/27/2002 Zoster Vaccines Completed 05/01/2023, 060 04/2023, 09/26/2012 COVID-19 Vaccine Completed 04/12/2024, , 04/17/2022, Additional history exists HPV (Gardasil) Vaccine Aged [...] filedocumented as of this encounter Care Teams Science Tutor Relationship Specialty Start Date End Date Dominic Blancas MD [address] [facility] [place] [address] PCP - General 03/03/00 documented as of this encounter
--- OUTSIDE RECORDS SUMMARY | 2024-07-30 19:16 | External Medical Summary | Summary of Care ---
Author Name Unknown Organization [facility] Address [address] [place] [address] Phone [phone] Care Team Providers Care Conservation Agent Name Role Phone Dominic Blancas MD Primary Care Provider [phone] Reason for Visit * Reason Comments Rash Pt here for a rash i n his left groin. Pt had this before and was given a cream and started using it again last night. Just wants to make sure that this cream is okay to keep taking. Encounter Details Date Type Department Care Team (Late st Contact Info) Description 07/28/2024 9:40 AM EST Office Visit Family Practice [facility] [address] [place] [address] Casimiro White MD [address] [place] [id number] Candidal intertrigo* Allergies Active Allergy Reactions Criticality Noted Date Comments Dapagliflozin Other (Please comment) 12/25/2022 dehydration Latex 11/06/2016 documented as of this encounter (statuses as of 07/28/2024) Medications [employer] SYSTEM W/DEVICE KITIndications:D M type 2, not at goal (HCC) Use up to four times a day as directed 1 Kit 0 012 Active VITAMIN D 1000 UNITS PO CAPSIndications: Vitamin D deficiency 1 capsule daily 30 Cap 11 012 Active Multiple Vitamins-Mineral s (MULTIVITAMIN ADULT) TABSIndications: daily once. Active OneTouch Delica Lancets 30G E 11.9 DX Use to test blood glucose twice daily 200 Each 023 Active Miconazole Nitrate 2 % PowderIndication s:Intertrigo Apply powder to areas of fungal rash in groin area three times a day until rash is gone. Then daily for maintenance therapy. 100 g 023 Active OneTouch Ultra In Vitro Strip (Glucose Blood)Indication s:Type 2 diabetes mellitus with hemoglobin A1c goal of less than 8.0% ([facility]) USE TO TEST BLOOD SUGARS ONCE DAILY DX: E11.9 100 Strip 024 Active Aspirin 81 MG Oral Tablet Delayed Release (Aspirin Low Dose) Take 1 Tablet by mouth in the morning. 90 Tablet 024 Active Atenolol 50 MG Oral Tablet (Tenormin)Indica tions:HTN, goal below 150/90 Take 1 Tablet by mouth in the morning. 90 Tablet 024 Active Atorvastatin Calcium 40 MG Oral Tablet (Lipitor)Indicat ions:Dyslipidemi a, goal LDL below 100 TAKE 1 TABLET BY MOUTH EVERY NIGHT AT BEDTIME. 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 30 minutes before a meal.. 90 Tablet 024 Active metFORMIN HCl 1000 MG Oral Tablet (Glucophage)Alma cations:Type 2 diabetes mellitus with hemoglobin A1c goal of less than 8.0% ([facility]) Take one tablet twice a day for sugar control. 180 Tablet 024 Active Omeprazole 20 MG Oral Capsule Delayed Release (PriLOSEC)Indica tions: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,Intertrigino us dermatitis associated with moisture Take 1 Capsule by mouth in the morning. Every morning.. 90 Capsule 024 Active Potassium Chloride Amira ER 10 MEQ Oral Tablet Extended Release (Klor-Con M10)Indications: Hypokalemia TAKE 3 TABLETS BY MOUTH THREE TIMES A DAY (9 TABLETS PER DAY) 810 Tablet 024 Active Triamterene-HCTZ 75-50 MG Oral Tablet (Maxzide)Indicat ions:HTN, goal below 150/90 TAKE 1/2 TABLET BY MOUTH EVERY DAY 45 Tablet 3 Active Vitamin B-12 1000 MCG Oral Tablet (Cyanocobalamin) Indications:B12 deficiency Take 1 Tablet by mouth in the morning. 90 Tablet 3 024 Active Trulicity 3 MG/0.5ML Subcutaneous Solution Pen-injector (Dulaglutide)Ind ications:Type 2 diabetes mellitus with hemoglobin A1c goal of less than 8.0% (HCC) Inject 3 mg under the skin once a week. Dose Increase 6 mL 3 Active Additional Information Patient taking differently:3 mg Subcutaneous QWEEK,, Reported on 07/28/2024 Ketoconazole 2 % External Cream Apply topically to affected area 2 times a day for 14 days. Apply to affected area of groin twice a day. 60 g 2 024 2024 Active Econazole Nitrate 1 % External Cream (Spectazole)Alma cations:Yeast dermatitis Apply topically to affected area daily. Apply to right groin twice daily until resolved 170 g 1 024 2023 Discontinued Triamcinolone Acetonide 0.025 % External Ointment (Aristocort)Alma cations:Hemorrho ids, external without complications Apply topically to affected area 2 times a day. Apply to hemorrhoids 30 g 024 2023 Discontinued Triamcinolone Acetonide 0.1 % External Cream (Aristocort)Alma cations:Follicul itis Apply topically to affected area 2 times a day. To rash on buttocks 45 g 5 024 2023 Discontinued documented as of this encounter (statuses as of 07/28/2024) Active Problems Problem Noted Date Diagnosed Date [...] as of this encounter (statuses as of 07/28/2024) Resolved Problems Problem Noted Date Diagnosed Date [...] as of this encounter (statuses as of 07/28/2024) Immunizations Name Administration Dates Next Due COVID-19 mRNA, LNP-s, No Pre serve, 2-Dose Series (Moderna) 10/07/2020,09/09/2020 COVID-19, MRNA-LNP, PF, 30 M CG/0.3 mL, 12 YRS AND ABOVE, IM (PFIZER-Comirnaty) 04/12/2024 COVID-19, mRNA, LNP-s, PF, B ooster, 100mcg/0.5mg (Moderna) 04/17/2022,06/05/2021 COVID-19, mRNA, LNR-S, Bival ent, PF, 3 mcg/0.2 ml (Pfizer) 6m to 4 years 04/12/2024 H1N1 2009 Influenza, IM 10/04/2009 Pneumococcal Conjugate Vacc, 13 Valent (Prevnar) 08/16/2015 Pneumococcal Polysaccharide PPV23 (Pneumovax) 11/06/2016 RSV Vac., Bivalent, Perfusio n F, Pf,0.5 Ml (Abrysvo) 06/20/2024 Seasonal Influenza Vac., MDV , IM, 0.5 mL (Fluzone) 05/16/2014,05/12/2013,05/06/2012,05/10,06/13/2010,06/04/2009,06/04/20 08,05/25/2007,05/19/2006 Seasonal Influenza, PF, 6 M & above, IM , (FluLaval or Fluzone) 05/09/2020,05/22/2019,04/30/2017 Seasonal Influenza, Quadriva lent Hd (Fluzone Hd) 05/10/2021 Seasonal Influenza, Quadriva lent, No Preserve, IM 05/14/2023,05/29/2016,06/05/2015 Seasonal Influenza, Trivalen t, Adjuvanted, 65+ YRS, PF, (Fluad) 06/20/2024,05/20/2018 TDAP (age 10 and older)(Boostrix) 01/18/2015 01/18/2025 [...] 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 Not on file Not on file documented as of this encounter Last Filed Vital Signs Vital Sign Reading Time Taken Comments Blood Pressure 116/84 07/28/2024 9:53 AM EST Pulse 92 07/28/2024 9:53 AM EST Temperature 37.2 C (98.9 F) 07/28/2024 9:53 AM ES T Respiratory Rate 16 07/28/2024 9:53 AM EST Oxygen Saturation 95% 07/28/2024 9:53 AM EST Inhaled Oxygen Concentration - - Weight 106.3 kg (234 lb 6.4 oz) 07/28/2024 9:53 AM EST Height 165.1 cm (5' 5") 07/28/2024 9:53 AM EST Body Mass Index 39.01 07/28/2024 9:53 AM EST documented in this encounter Progress Notes * Casimiro White MD - 07/28/2024 10:14 AM EST Images from the original note were not included. History of Present Illness Tim Vazquez is a 73 year old male that presents for Rash (Pt here for a rash in his left groin. Pt had this before and was given a cream and started using it again last night. Just wants to make sure that this cream is okay to keep taking. ) Physical Exam BP 116/84 (BP Site: Left Arm, BP Position: Sitting, BP Cuff Size: Regular) | Pulse 92 | Temp 98.9 F (37.2 C) (Tympanic) | Resp 16 | Ht 5' 5" (1.651 m) | Wt 234 lb 6.4 oz (106.3 kg) | SpO2 95% | BMI 39.01 kg/m | BSA 2.21 m Nad Non ill appearing + galded area b/l groins, worst on left than right, no drainage but there is malodor and some whitened areas - skin in thinned as well I have reviewed most recent labs None Assessment and Plan Candidal intertrigo - back to AF cream and stop the steroid. Given instructions on drying in the areas as well as care after he is done with the cream. D/w his POA who is with him today. Wrap-Up prn Time: I spent a total of 10-19 minutes (exact time 15 mins) on the date of service in preparation, delivery, and documentation of the care provided to Tim Vazquez excluding any time spent in the performance of separately billed services. documented in this encounter Plan of Treatment Upcoming Encounters Date Type Department Care Team (Late st Contact Info) Description 10/03/2024 9:40 AM EST Laboratory Laboratory, [facility] [address] [phone] [facility] [address] [address] 10/10/2024 9:40 AM EST [facility] [address] [phone] Dominic Blancas MD [address] [phone] Scheduled Procedures Name Priority Associated Diagnoses Date/Ti me ESOPHAGOGASTRODUODENOSCOPY ( EGD), FLEXIBLE, TRANSORAL, DIAGNOSTIC Recall Cortes's esophagus COLONOSCOPY FLEXIBLE PROXIMAL DIAGNOSTIC Recall History of colonic polyps Health Maintenance Due Date Last Done Comments Cologuard 1994 Sigmoidoscopy 1994 Fecal Occult Blood Test 03/19/2003 03/19/2002, 12/23 GFR 10/04/2024 10/04/2023, 03/09, 12/14/2022, Additional history [...] Additional history exists Colorectal Cancer Screening 04/25/2025 Diabetic Foot Exam 06/29/2025 06/29/2024, 0 04/06/2023, 10/15/2020, Additional history exists Cortes's Esophagus Surveilance 04/25/2027 04/25/2024, 04/25/2024, 11/30/2018, Additional history exists Lipid Panel 10/04/2028 10/04/2023, 04/0 02/2023, 04/23/2022, Additional history exists Pneumococcal Vaccine: [...] as of this encounter Visit Diagnoses Diagnosis Candidal intertrigo- Primary Candidiasis of skin and nails documented in this encounter Care Teams Conservation Agent Relationship Specialty Start Date End Date Dominic Blancas MD PCP - General 03/03/00 documented as of this encounter
--- OUTSIDE RECORDS SUMMARY | 2024-07-30 19:16 | External Medical Summary | Summary of Care ---
Author Name Unknown Organization [facility] Address [address] [address] Phone [phone] Care Team Providers Care Trend Investigator Name Role Phone Dominic Blancas MD Primary Care Provider [phone] Reason for Visit * Reason Comments Acute Patient is here with complaints of a rash that he noticed on Wednesday on his right buttocks and slightly on his lower back-no itching or burning just red and hard. Patient has been using hemorrhoidal ointment to treat hemorrhoid and is questioning if rash came from cream and how to continue treatment of rash and hemorrhoid. Patient would like a handicap placard paper completed as well due to having trouble walking. Encounter Details Date Type Department Care Team (Late st Contact Info) Description 06/29/2024 9:40 AM EST Office Visit [place] [address] [place] [phone] Tierney Headley PA-C [address], [place] [id number] DM type 2 nursing care encounter (HCC)*; Hemorrhoids, external without complications; Folliculitis Allergies Active Allergy Reactions Criticality Noted Date Comments Dapagliflozin Other (Please comment) 12/25/2022 dehydration Latex 11/06/2016 documented as of this encounter (statuses as of 06/29/2024) Medications [employer] SYSTEM W/DEVICE KITIndications:D M type 2, not at goal (HCC) Use up to four times a day as directed 1 Kit 0 012 Active VITAMIN D 1000 UNITS PO CAPSIndications: Vitamin D deficiency 1 capsule daily 30 Cap 012 Active Multiple Vitamins-Mineral s (MULTIVITAMIN ADULT) [...] goal of less than 8.0% ([facility]) USE TO TEST BLOOD SUGARS ONCE DAILY [...] long-term current use of insulin ([facility]) Take 1 Tablet by mouth in the morning. 30 minutes before a meal.. 90 Tablet 024 Active metFORMIN HCl 1000 MG Oral Tablet (Glucophage)[place]ma cations:Type 2 diabetes mellitus with hemoglobin A1c goal of less than 8.0% ([facility]) Take one tablet twice a day for [...] (9 TABLETS PER DAY) 810 Tablet 3 Active Triamterene-HCTZ 75-50 MG Oral Tablet (Maxzide)Indicat ions:HTN, goal below 150/90 TAKE 1/2 TABLET BY MOUTH EVERY DAY 45 Tablet 3 Active Vitamin B-12 1000 MCG Oral Tablet (Cyanocobalamin) Indications:B12 deficiency Take 1 Tablet by mouth in the morning. 90 Tablet 3 Active Trulicity 3 MG/0.5ML Subcutaneous Solution Pen-injector (Dulaglutide)Ind ications:Type 2 diabetes mellitus with hemoglobin A1c goal of less than 8.0% (HCC) Inject 3 mg under the skin once a week. Dose Increase 6 mL 3 Active Additional Information Patient taking differently:3 mg Subcutaneous QWEEK,, Reported on 06/29/2024 Econazole Nitrate 1 % External Cream (Spectazole)Alma cations:Yeast dermatitis Apply topically to affected area daily. Apply to right groin twice daily until resolved 170 g 1 Active Triamcinolone Acetonide 0.025 % External Ointment (Aristocort)Alma cations:Hemorrho ids, external without complications Apply topically to affected area 2 times a day. Apply to hemorrhoids 30 g Active Triamcinolone Acetonide 0.1 % External Cream (Aristocort)Alma cations:Follicul itis Apply topically to affected area 2 times a day. To rash on buttocks 45 g 5 024 Active Triamcinolone Acetonide 0.1 % External Ointment (Aristocort)Alma cations:Eczema, unspecified type APPLY TO AFFECTED AREA TWICE A DAY 80 g 3 022 2023 Discontinued documented as of this encounter (statuses as of 06/29/2024) Active Problems Problem Noted Date Diagnosed Date [...] as of this encounter (statuses as of 06/29/2024) Resolved Problems Problem Noted Date Diagnosed Date [...] inactive term HTN, goal below 140/90 06/09/199909/05 /2010 Overview (09/05/2009): Per HTN Taxonomy. 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 file Not on file Not on file documented as of this encounter Last Filed Vital Signs Vital Sign Reading Time Taken Comments Blood Pressure 124/80 06/29/2024 9:51 AM EST Pulse 87 06/29/2024 9:51 AM EST Temperature 36.2 C (97.2 F) 06/29/2024 9:51 AM ES T Respiratory Rate 18 06/29/2024 9:51 AM EST Oxygen Saturation 97% 06/29/2024 9:51 AM EST Inhaled Oxygen Concentration - - Weight 107.4 kg (236 lb 12.8 oz) 06/29/2024 9:51 AM EST Height - - Body Mass Index 39.41 05/10/2024 3:58 PM EDT documented in this encounter Patient Instructions * Patient Instructions* Kristine Bah LPN - 06/29/2024 9:54 AM EST Diabetes: Keeping Feet Healthy Inspect your feet every day for signs of a problem. Diabetes can damage nerves in your feet and cause neuropathy. This condition makes it hard for you to feel injuries or sore spots. Diabetes can also change blood flow, making it harder for small problems, like a blister, to heal properly. In fact, minor injuries can quickly become serious infections that send you to the hospital. Practice self-care to protect your feet and keep them healthy. Take Special Care Inspect your feet daily for problems such as redness, blisters, cracks, dry skin, or numbness. Use a mirror to see the bottoms of your feet. Or, ask for help. Manage your diabetes. Monitor and control your blood sugar. Take all your medications as prescribed. Avoid walking barefoot, even indoors. Wash your feet with warm water and mild soap. Dry well, especially between toes. Dont treat corns or calluses yourself. Talk to your doctor or jingle writer (a doctor who specializes in foot care) if you need assistance trimming your toenails. Use moisturizing cream or lotion if you have dry skin, but dont use it between toes. Dont use heating pads on your feet. If you have neuropathy, you could get a burn and not feel it. Stop smoking. Smoking restricts blood flow and can make it harder for wounds to heal. Have Regular Checkups Foot problems can develop quickly. So be sure to follow your healthcare teams schedule for regular checkups. During office visits, take off your shoes and socks as soon as you get in the exam room. Ask your healthcare provider to examine your feet for problems. This will make it easier to find and treat small skin irritations before they get worse. Regular checkups can also help keep track of the blood flow and feeling in your feet. If you have neuropathy, you may need to have checkups more often. Wear Proper Footwear Wearing proper footwear is very important. If areas of your feet have been damaged by too much pressure, your healthcare provider may recommend changing your footwear. In some cases, avoiding high heels or tight work boots may be all thats needed. Or, your healthcare provider may recommend special shoes or custom inserts. These help protect your feet and keep existing irritations from getting worse. If you need special footwear, ask your healthcare provider if you qualify for [employer] diabetic shoe program. Make Sure Shoes and Socks Fit Any pair of shoes--new or old--should feel comfortable as soon as you put them on. There shouldnt be any rubbing when you walk. Wear the right shoe for any activity. For instance, a running shoe is designed to keep your feet injury-free while jogging. Buy shoes at the end of the day, when your feet are larger. Make sure they provide support without feeling too loose. Make sure your socks fit, t oo. Wear soft, seamless, well-padded socks for activity. Cotton or microfiber socks are best to help to absorb sweat. To protect your feet, avoid shoes that are open-toed or open-heeled. If you have questions about what kinds of shoes and socks are best, talk to your healthcare team. Get Regular Exercise Regular exercise improves blood flow in your feet. It also increases foot strength and flexibility.Gentle exercises, like walking or riding a stationary bicycle, are best. You can also do special foot exercises. Just be sure to talk with your healthcare provider before starting any exercise program. Also mention if any exercise causes pain, redness, or other signs of foot problems. Note: If you have any kind of break in the skin of your foot or ankle, keep the area clean. Then call your doctor--especially if the area doesnt appear to be healing. [phone] [employer], [address] [place] [address], [place] [id number]. All rights reserved. This information is not intended as a substitute for professional medical care. Always follow your healthcare professional's instructions. documented in this encounter Progress Notes * Tierney Headley PA-C - 06/29/2024 9:57 AM EST Images from the original note were not included. History of Present Illness Tim Vazquez is a 73 year old male that presents for Acute (Patient is here with complaints of a rash that he noticed on Wednesday on his right buttocks and slightly on his lower back-no itching or burning just red and hard. Patient has been using hemorrhoidal ointment to treat hemorrhoid and is questioning if rash came from cream and how to continue treatment of rash and hemorrhoid. /Patient wouldlike a handicap placard paper completed as well due to having trouble walking.) Here for a rash on his bum Had been treating some hemorrhoids with equate hemorrhoidal ointment ( mineral oil, petrolatum, andphenylephrine) on Wednesday or Wednesday On Wednesday he called his family down as he had bumps on his rump They were hard, red and swollen Numerous All on the R side No pain Physical Exam Vitals: 06/29/24 0951 Temp: 97.2 F (36.2 C) Pulse: 87 Resp: 18 SpO2: 97% BP: 124/80 BP Readings from Last 3 Encounters: 06/29/24 124/80 05/10/24 128/76 04/25/24 125/81 Wt Readings from Last 3 Encounters: 06/29/24 236 lb 12.8 oz (107.4 kg) 05/10/24 238 lb 6.4 oz (108.1 kg) 04/25/24 235 lb (106.6 kg) BMI Readings from Last 3 Encounters: 06/29/24 39.41 kg/m 05/10/24 39.67 kg/m 04/25/24 37.95 kg/m Ht Readings from Last 3 Encounters: 05/10/24 5' 5" (1.651 m) 04/25/24 5' 5.98" (1.676 m) 04/06/24 5' 6" (1.676 m) General: alert, healthy, and no distress Head: Normocephalic, No masses, lesions, tenderness or abnormalities Skin: skin color, texture, turgor are normal, R side of buttocks, mild case of folliculitis Assessment and Plan DM type 2 nursing care encounter (HCC) (Primary) - DIABETES FOOT EXAM Hemorrhoids, external without complications - Triamcinolone Acetonide 0.025 % External Ointment (Aristocort); Apply topically to affected area 2 times a day. Apply to hemorrhoids Folliculitis - Triamcinolone Acetonide 0.1 % External Cream (Aristocort); Apply topically to affected area 2 times a day. To rash on buttocks Handicapped placard maria guadalupe filled out Wrap-Up Time: I spent a total of 10-19 minutes (exact time 13 mins) on the date of service in preparation, delivery, and documentation of the care provided to Tim Vazquez excluding any time spent in the performance of separately billed services. Tierney Headley PA-C 06/29/2024 10:13 AM * Kristine Bah LPN - 06/29/2024 9:54 AM EST DM Foot Exam completed today. Provider aware. Kristine Bah LPN Socks and Shoes Removed for Annual Diabetic Foot Screening RIGHT FOOT: No Reddened, Cracking, Or Open Areas Noted. RIGHT Dorsalis Pedis Pulse: Palpable RIGHT Posterior Tibial Pulse: Palpable RIGHT Monofilament:Patient reports feeling monofilament pressure on plantar surface of foot LEFT FOOT: No Reddened, Cracking or Open Areas Noted. LEFT Dorsalis Pedis Pulse: Palpable LEFT Posterior Tibial Pulse: Palpable LEFT Monofilament:Patient reports feeling monofilament pressure on plantar surface of foot Do you need diabetic shoes: No documented in this encounter Nursing Notes * Kristine Bah LPN - 06/29/2024 9:52 AM EST The patient has been properly identified by confirmation of name and date of . Chief Complaint Patient presents with Acute Patient is here with complaints of a rash that he noticed on Wednesday on his right buttocks and slightly on his lower back-no itching or burning just red and hard. Patient has been using hemorrhoidal ointment to treat hemorrhoid and is questioning if rash came from cream and how to continue treatmentof rash and hemorrhoid. Patient would like a handicap placard paper completed as well due to having trouble walking. documented in this encounter Plan of Treatment Upcoming Encounters Date Type Department Care Team (Late st Contact Info) Description 10/03/2024 9:40 AM EST Laboratory Laboratory, [facility] [address] [place] [phone] [facility] [address] [place] [address] 10/10/2024 9:40 AM EST Office Visit [facility], [address] [place] [phone] Dominic Blancas MD [address] [place] [address] Scheduled Procedures Name Priority Associated Diagnoses Date/Ti [...] or Tdap) 01/18/2025 01/18/2015, 05/15/2004 Albumin/Creatinine Ratio 04/04/20252 024, 12/14/2022, 07/23/2020, Additional history exists Colonoscopy [...] as of this encounter Visit Diagnoses Diagnosis DM type 2 nursing care encounter (HCC)- Primary Type II or unspecified type diabetes mellitus without mention of complication, not stated as uncontrolled Hemorrhoids, external without complications External hemorrhoids without mention of complication Folliculitis Other specified disease of hair and hair follicles documented in this encounter Care Teams Trend Investigator Relationship Specialty Start Date End Date Dominic Blancas MD [address] [place] [address] PCP - General 03/03/00 documented as of this encounter
--- OUTSIDE RECORDS SUMMARY | 2024-07-30 19:16 | External Medical Summary | Summary of Care ---
Author Name Unknown Organization [facility] Address [address] [place] [address] Phone [phone] Care Team Providers Care System Safety Engineer Name Role Phone Dominic Blancas MD Primary Care Provider [phone] Reason for Visit * Reason Onset Date Comments Test Results 05/11/2024 Encounter Details Date Type Department Care Team (Late st Contact Info) Description 05/11/2024 Telephone [facility] [address] [place] [address] Dominic Blancas MD [address] [place] [address] Test Results Allergies Active Allergy Reactions Criticality Noted Date Comments Dapagliflozin Other (Please comment) 12/25/2022 dehydration Latex 11/06/2016 documented as of this encounter (statuses as of 05/11/2024) Medications Medication Sig Dispensed Refills Start Date End Date Status [employer] SYSTEM W/DEVICE KITIndications:DM type 2, not at [...] hemoglobin A1c goal of less than 8.0% ([facility]) USE TO TEST BLOOD SUGARS ONCE DAILY [...] hemoglobin A1c goal of less than 8.0% ([facility]) Take one tablet twice a day for [...] Valent (Prevnar) 08/16/2015 Pneumococcal Polysaccharide PPV23 (Pneumovax) 11/06/2016,02/27/2002 Seasonal Influenza Vac., MDV , IM, 0.5 mL (Fluzone) 05/16/2014,05/12/2013,05/06/2012,05/10,06/13/2010,06/04/2009,06/04/20 08,05/25/2007,05/19/2006,06/16/2005,1 08/15/2002,05/29/2002,07/11/2001,07/26,06/09/1999 Seasonal Influenza Virus Vac cine, Unspecified Formulation 05/22/1998 Seasonal Influenza, PF, 6 M & above, IM , (FluLaval or Fluzone) 05/09/2020,05/22/2019,04/30/2017 Seasonal Influenza, Quadriva lent Hd (Fluzone Hd) 05/10/2021 Seasonal Influenza, Quadriva lent, No Preserve, IM 05/14/2023,05/29/2016,06/05/2015 Seasonal Influenza, Trivalen t, Adjuvanted, 65+ YRS, PF, (Fluad) 05/20/2018 TD - Tetanus/Diptheria (ADULT) 05/15/2004 TDAP (age 10 and older)(Boostrix) 01/18/2015 01/18/2025 [...] encounter Miscellaneous Notes * Telephone Encounter - Francoise Montano LPN - 05/11/2024 3:53 PM EDT Spoke to Eli and she was given test results. * Telephone Encounter - Dominic Blancas MD - 05/11/2024 2:08 PM EDT See myg message to pt. * Telephone Encounter - Daksha Menon OSA - 05/11/2024 1:12 PM EDT Who is Requesting Test Results: Pt's cousin, Eli. Primary Care Provider : Dominic Blancas MD Tests Results Requested : Covid 19 test Date of Test : 05/10/24 Location of Test: [facility]. Ordering Provider: Patient has been made aware [...] Description 10/03/2024 9:40 AM EST Laboratory Laboratory, [place] [address] [place] [facility] [place] [phone] [place], Laboratory [address] [place] [address] 10/10/2024 9:40 AM EST Office Visit [facility] [address] [place] [facility] [place] [place] [phone] Dominic Blancas MD [address] [place] [address] Scheduled Procedures Name Priority Associated Diagnoses Date/Ti [...] or Tdap) 01/18/2025 01/18/2015, 05/15/2004 Albumin/Creatinine Ratio 04/04/202504/04/2 024, 12/14/2022, 07/23/2020, Additional history exists Colonoscopy [...] filedocumented as of this encounter Care Teams System Safety Engineer Relationship Specialty Start Date End Date Dominic Blancas MD [address] [place] [address] PCP - General 03/03/00 documented as of this encounter
--- OUTSIDE RECORDS SUMMARY | 2024-07-30 19:16 | External Medical Summary ---
Author Name Unknown Address Unknown Organization [id number]:[facility] - [address] [facility] [address] Laboratory Report Ordering Provider Test Date Status KELLY RG 05/10/2024 16:52:37 Final For PreSurgery, Procedure, O B Admit, or Surveillance testing - Nasal Turbinate source preferred.

For Symptomatic testing - Nasopharyngeal source preferred.
null Observation Date Value Abnormality Reference (Units ) Status SARS Coronavirus 2 05/10/2024 16:52:37 Negative N egative Final 2018 Novel Coronavirus not d etected.

This express test was developed and its performance characteristics determined by [facility]. It has not been cleared or approved by the U.S. Food and Drug Administration (FDA). FDA does not require this test to go thru premarket FDA review. This test is used for clinical purposes. It should not be regarded as investigational or for research. This laboratory is certified under the Clinical Laboratory Improvement Amendments (CLIA) as qualified to perform high complexity clinical laboratory testing.

This test is a nucleic acid amplification test (NAAT), a reverse transcriptase polymerase chain reaction (RT-PCR) test, or a Centers for Disease Control-acceptable equivalent. The test is performed in a high complexity Clinical Laboratory Improvement Amendments-(CLIA) certified laboratory. The test is acceptable for SARS-CoV-2 diagnosis, surveillance, and travel within the [place] and to most countries. Please check with local testing authorities about requirements before travel.

The validation of bronchial specimens, tracheal aspirates, and sputum for this assay was developed and performance characteristics determined by [facility]. The validation of alternate specimen types has not been cleared or approved by the U.S. Food and Drug Administration (FDA). It has been determined that such clearance is not necessary. Performing Location [facility] - [address] [facility] [address]
--- OUTSIDE RECORDS SUMMARY | 2024-07-30 19:16 | External Medical Summary | Summary of Care ---
Author Name Unknown Organization [facility] Address [address] [place] [address] Phone [phone] Care Team Providers Care Director Of Analytics Name Role Phone Dominic Blancas MD Primary Care Provider [phone] Reason for Visit * Reason Onset Date Comments Test Results 07/30/2024 Encounter Details Date Type Department Care Team ([facility] Contact Info) Description [facility] [address] [place] [address] Ileana Perez CRNP [address] [place] [address] Test Results Allergies Active Allergy Reactions Criticality Noted Date Comments Dapagliflozin Other (Please comment) 12/25/2022 dehydration Latex 11/06/2016 documented as of this encounter (statuses as of 07/30/2024) Medications Medipacs SYSTEM W/DEVICE KITIndications:D M type 2, not at goal (HCC) Use up to four times a day as directed 1 Kit 0 2 Active VITAMIN D 1000 UNITS PO CAPSIndications: Vitamin D deficiency 1 capsule daily 30 Cap 11 2 Active Multiple Vitamins-Mineral s (MULTIVITAMIN ADULT) TABSIndications: daily once. Active OneTouch Delica Lancets 30G E 11.9 DX Use to test blood glucose twice daily 200 Each 3 3 Active Miconazole Nitrate 2 % PowderIndication s:Intertrigo Apply powder to areas of fungal rash in groin area three times a day until rash is gone. Then daily for maintenance therapy. 100 g 11 3 Active OneTouch Ultra In Vitro Strip (Glucose Blood)Indication s:Type 2 diabetes mellitus with hemoglobin A1c goal of less than 8.0% ([facility]) USE TO TEST BLOOD SUGARS ONCE DAILY DX: E11.9 100 Strip 3 4 Active Aspirin 81 MG Oral Tablet Delayed Release (Aspirin Low Dose) Take 1 Tablet by mouth in the morning. 90 Tablet 3 4 Active Atenolol 50 MG Oral Tablet (Tenormin)Indica tions:HTN, goal below 150/90 Take 1 Tablet by mouth in the morning. 90 Tablet 3 4 Active Atorvastatin Calcium 40 MG Oral Tablet (Lipitor)Indicat ions:Dyslipidemi a, goal LDL below 100 TAKE 1 TABLET BY MOUTH EVERY NIGHT AT BEDTIME. 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 30 minutes before a meal.. 90 Tablet 3 4 Active metFORMIN HCl 1000 MG Oral Tablet (Glucophage)Alma cations:Type 2 diabetes mellitus with hemoglobin A1c goal of less than 8.0% ([facility]) Take one tablet twice a day for sugar control. 180 Tablet 3 4 Active Omeprazole 20 MG Oral Capsule Delayed Release (PriLOSEC)Indica tions: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,Intertrigino us dermatitis associated with moisture Take 1 Capsule by mouth in the morning. Every morning.. 90 Capsule 3 4 Active Potassium Chloride Amira ER 10 MEQ Oral Tablet Extended Release (Klor-Con M10)Indications: Hypokalemia TAKE 3 TABLETS BY MOUTH THREE TIMES A DAY (9 TABLETS PER DAY) 810 Tablet 3 4 Active Triamterene-HCTZ 75-50 MG Oral Tablet (Maxzide)Indicat ions:HTN, goal below 150/90 TAKE 1/2 TABLET BY MOUTH EVERY DAY 45 Tablet 3 4 Active Vitamin B-12 1000 MCG Oral Tablet (Cyanocobalamin) Indications:B12 deficiency Take 1 Tablet by mouth in the morning. 90 Tablet 3 4 Active Trulicity 3 MG/0.5ML Subcutaneous Solution Pen-injector (Dulaglutide)Ind ications:Type 2 diabetes mellitus with hemoglobin A1c goal of less than 8.0% ([facility]) Inject 3 mg under the skin once a week. Dose Increase 6 mL 3 4 Active Additional Information Patient taking differently:3 mg Subcutaneous QWEEK,, Reported on 07/29/2024 Ketoconazole 2 % External Cream Apply topically to affected area 2 times a day for 14 days. Apply to affected area of groin twice a day. 60 g 2 4 025 Active Azithromycin 250 MG Oral Tablet (Zithromax)Indic ations:LRTI (lower respiratory tract infection) Take 2 tabs by mouth on the first day, then 1 tab daily on days two through five 6 Tablet 4 024 Active documented as of this encounter (statuses as of 07/30/2024) Active Problems Problem Noted Date Diagnosed Date [...] as of this encounter (statuses as of 07/30/2024) Resolved Problems Problem Noted Date Diagnosed Date [...] as of this encounter (statuses as of 07/30/2024) Immunizations Name Administration Dates Next Due COVID-19 [...] (Prevnar) 08/16/2015 Pneumococcal Polysaccharide PPV23 (Pneumovax) 11/06/2016,02/27/2002 RSV Vac., Bivalent, Perfusio n F, Pf,0.5 [...] t, Adjuvanted, 65+ YRS, PF, (Fluad) 06/20/2024,05/20/2018 TD - Tetanus/Diptheria (ADULT) 05/15/2004 TDAP (age [...] encounter Miscellaneous Notes * Telephone Encounter - Ileana Perez CRNP - 07/30/2024 4:30 PM EST Reviewed chart, PCP has provided antiviral after a review of labs, chronic rx, etc. No further action req. * Telephone Encounter - Vera Lopez OSA - 07/30/2024 8:26 AM EST Eli called back Was wondering if there is a med to be prescribed, is he in the window of it Please call * Telephone Encounter - Ileana Perez CRNP - 07/30/2024 7:54 AM EST Called SO Benitez to notify her of the positive COVID results. Xray was neg but d/t lung sounds advised to just complete the rx as prescribed d/t his history of quick devolution into pneumonia. She spelled last name and verbalized birthdate to verify identity. Reviewed warning signs that would indicate an ER trip such as elevated HR >130 sustaining, O2% <90% sustaining, lethargy, pallor or purple/blueish coloring, fevers around 104 that do not respond to antipyretic rx. documented in this encounter Plan of Treatment Upcoming Encounters Date Type Department Care Team (Late st Contact Info) Description 10/03/2024 9:40 AM EST Laboratory Laboratory, [address] [phone] Jaycee Carr [address] [id number] 10/10/2024 9:40 AM EST Office Visit [facility], [address] [phone] Dominic Blancas MD [address] [id number] Scheduled Procedures Name Priority Associated Diagnoses Date/Ti [...] Additional history exists Lipid Panel 10/04/2028 10/04/2023, 0 02/2023, 04/23/2022, Additional history exists Pneumococcal Vaccine: [...] Not on filedocumented as of this encounter Additional Health Concerns Infection Onset Date Last Indicated Resolved Time SARS-CoV-2 (COVID-19) 07/29/2024 07/29/2024 documented as of this encounter Care Teams Director Of Analytics Relationship Specialty Start Date End Date Dominic Blancas MD PCP - General 03/03/00 documented as of this encounter
--- OUTSIDE RECORDS SUMMARY | 2024-07-30 19:16 | External Medical Summary | Summary of Care ---
Author Name Unknown Organization [facility] Address [address] [place] [address] Phone [phone] Care Team Providers Care External Grinder Name Role Phone Dominic Blancas MD Primary Care Provider [phone] Reason for Visit * Reason Comments Cold Symptoms Encounter Details Date Type Department Care Team (Latest Contact Info) Description 07/29/2024 12:30 PM EST [facility] Visit [facility] [address] [place] [address] Ileana Perez CRNP [address] [place] [address] Acute cough*; LRTI (lower respiratory tract infection); Body aches; Adventitious breath sounds Allergies Active Allergy Reactions Criticality Noted Date Comments Dapagliflozin Other (Please comment) 12/25/2022 dehydration Latex 11/06/2016 documented as of this encounter (statuses as of 07/29/2024) Medications Milyoni SYSTEM W/DEVICE KITIndications:D M type 2, not [...] NIGHT AT BEDTIME. FOR CHOLESTEROL 90 Tablet 4 Active glipiZIDE ER 5 MG Oral [...] as of this encounter (statuses as of 07/29/2024) Active Problems Problem Noted Date Diagnosed Date [...] as of this encounter (statuses as of 07/29/2024) Resolved Problems Problem Noted Date Diagnosed Date [...] as of this encounter (statuses as of 07/29/2024) Immunizations Name Administration Dates Next Due COVID-19 [...] Passive Smoke Exposure: Past Smokeless Tobacco: Never Tobacco Cessation:Counseling Given: No Alcohol Use Standard Drinks/Week Comments No 0 [...] Sign Reading Time Taken Comments Blood Pressure 130/90 07/29/2024 11:35 AM EST Pulse 109 07/29/2024 11:35 AM EST Temperature 37.1 C (98.8 F) 07/29/2024 11:[address] Respiratory Rate 28 07/29/2024 11:35 AM EST Oxygen Saturation 97% 07/29/2024 11:35 AM EST Inhaled Oxygen Concentration - - Weight 103.9 kg (229 lb) 07/29/2024 11:35 AM EST Height 167.6 cm (5' 6") 07/29/2024 11:35 AM EST Body Mass Index 36.96 07/29/2024 11:35 AM EST documented in this encounter Progress Notes * Ileana Perez CRNP - 07/29/2024 1:36 PM EST [facility] Basic Exam Subjective Tim Vazquez is a 73 year old male that presents to the [facility] with a productive cough and fatigue x 1 day. Objective BP 130/90 | Pulse 109 | Temp 37.1 C (98.8 F) (Tympanic) | Resp 28 | Ht 1.676 m (5' 6") | Wt 103.9 kg (229 lb) | SpO2 97% | BMI 36.96 kg/m | BSA 2.2 m Body mass index is 36.96 kg/m. Review of Systems Constitutional: Positive for activity change and fatigue. HENT: Positive for congestion and postnasal drip. Respiratory: Positive for cough. Cardiovascular: Negative. Gastrointestinal: Negative. Genitourinary: Negative. Musculoskeletal: Negative. Skin: Negative. Neurological: Negative. Physical Exam Vitals and nursing note reviewed. HENT: Head: Normocephalic and atraumatic. Ears: Comments: Bilat TM erythematous w/ cloudy effusions. Nose: Congestion and rhinorrhea present. Mouth/Throat: Mouth: Mucous membranes are moist. Pharynx: Posterior oropharyngeal erythema present. Eyes: Conjunctiva/sclera: Conjunctivae normal. Pupils: Pupils are equal, round, and reactive to light. Cardiovascular: Rate and Rhythm: Regular rhythm. Tachycardia present. Pulses: Normal pulses. Heart sounds: Normal heart sounds. Pulmonary: Comments: Coarse upper frias, ronchi with wheezes lower frias. Musculoskeletal: General: Normal range of motion. Skin: General: Skin is warm and dry. Capillary Refill: Capillary refill takes less than 2 seconds. Neurological: Mental Status: Mental status is at baseline. Past Medical History: Diagnosis Date Cortes's esophagus 04/15/11 barretts bxs--no evidence of Barretts --repeat in 3 yrs Benign neoplasm of colon 09/08/2002 Benign neoplasm of colon 04/15/11 polyps-one polyp tubulovillous adenoma --repeat in one yr Benign neoplasm of colon 05/30/12 adenoma- repeat in 3 years COLONIC CANCER SPLENIC FLEXURE 06/05/2008 COLONIC CANCER SPLENIC FLEXURE 06/05/2008 DM type 2, goal A1c below 7 Esophagitis, unspecified Barretts by bx 12/12. repeat EGD every 2-3 years HTN, goal below 140/90 06/09/1999 LV hypertrophy, hypertensive Malignant neoplasm of colon (HCC) 12/17/2005 Mild intellectual disabilities Obesity, BMI not known VITAMIN D DEFICIENCY NOS 05/29/2011 Patient Active Problem List Diagnosis LV hypertrophy, hypertensive DYSLIPIDEMIA, GOAL LDL BELOW 100 DM type 2 causing renal disease ([facility]) Obesity, morbid (more than 100 lbs over ideal weight or BMI > 40) ([facility]) Vitamin D deficiency Type 2 diabetes mellitus with hemoglobin A1c goal of less than 8.0% ([facility]) HTN, goal below 150/90 Aortic valve sclerosis Mild intellectual disability Hypokalemia History of colon cancer in adulthood Cortes's esophagus without dysplasia Diabetes mellitus with stage 2 chronic kidney disease ([facility]) Class 2 severe obesity due to excess calories with serious comorbidity and body mass index (BMI) of38.0 to 38.9 in adult ([facility]) BP Readings from Last 3 Encounters: 07/29/24 130/90 07/28/24 116/84 06/29/24 124/80 Wt Readings from Last 3 Encounters: 07/29/24 103.9 kg (229 lb) 07/28/24 106.3 kg (234 lb 6.4 oz) 06/29/24 107.4 kg (236 lb 12.8 oz) Assessment and plan Acute cough (Primary) - INFLUENZA A/B RSV SARS-COV2,PCR - XR CHEST 2 VIEWS; Future; Expected date: 07/29/2024 LRTI (lower respiratory tract infection) - Azithromycin 250 MG Oral Tablet (Zithromax); Take 2 tabs by mouth on the first day, then 1 tab daily on days two through five Body aches - INFLUENZA A/B RSV SARS-COV2,PCR Adventitious breath sounds - XR CHEST 2 VIEWS; Future; Expected date: 07/29/2024 D/t history of rapid devolution into secondary bacterial infections and adventitious sounds will move forward with abx coverage. Flu/cov/rsv pending. Will call if positive. Reviewed rx. Cousin (POA) will monitor closely d/t ID. Humidifier at night. Stay hydrated Tylenol/ibuprofen as needed. Follow up Follow Up: Return if symptoms worsen or fail to improve. Total time today including reviewing chart before the visit, pertinent labs, imaging reports, face to face time, and documentation time was 20 minutes. The above was discussed and understanding was expressed. CHRISS Patricia documented in this encounter Nursing Notes * Vikram Gama CMA - 07/29/2024 11:32 AM EST Tim Vazquez is a 73 year old male who presents to walk-in clinic today complaining of Chief Complaint Patient presents with Cold Symptoms Brief history:pt is present with fatigue, persistent productive cough Onset/duration: 1x day. OTC treatments tried:N/A Effectiveness: N/A Patient is accompanied by POA cousin for today's visit. documented in this encounter Plan of Treatment Upcoming Encounters Date Type Department Care Team (Late st Contact Info) Description 10/03/2024 9:40 AM EST Laboratory Laboratory, [address] [phone] Jaycee Carr [address] [address] 10/10/2024 9:40 AM EST Office Visit [facility], [place] Yanes [address] [phone] Dominic Blancas MD [address] [phone] Pending Results Name Type Priority Associated Diagnoses Date /Time INFLUENZA A/B RSV SARS-COV2,PCR Lab Routine Acute cough Body aches 07/29/2024 2:11 PM EST Scheduled Procedures Name Priority Associated Diagnoses Date/Ti tn ESOPHAGOGASTRODUODENOSCOPY ( EGD), FLEXIBLE, TRANSORAL, DIAGNOSTIC Recall Cortes's esophagus COLONOSCOPY FLEXIBLE PROXIMAL DIAGNOSTIC Recall History of colonic polyps Health Maintenance Due Date Last Done Comments Cologuard 1994 Sigmoidoscopy 1994 Fecal Occult Blood Test 03/19/2003 03/19/2002, 12/23 GFR 10/04/2024 10/04/2023, 03/09, 12/14/2022, Additional history exists HbA1c 10/05/2024 04/04/2024, 03/08/2023, 10/04/2023, Additional history exists Adult Wellness Visit 10/06/2024 10/07/2023 Depression Screening 10/06/2024 10/07/2023 Diabetic Eye Exam 2024 11/26/2023, , 11/22/2023, Additional history exists DTap/Tdap Vaccines (2 - Td or Tdap) 01/18/2025 01/18/2015, 05/15/2004 Albumin/Creatinine Ratio 04/04/202504/04/ 024, 12/14/2022, 07/23/2020, Additional history exists Colonoscopy [...] filedocumented as of this encounter Results * XR CHEST 2 VIEWS (07/29/2024 2:13 PM EST) Anatomical Region Laterality Modality Chest Digital Radiogra phy 07/29/2024 4:22 PM EST Impressions 07/29/2024 4:20 PM EST IMPRESSION No active disease. Narrative 07/29/2024 4:20 PM EST EXAM XR CHEST 2 VIEWS - 07/29/2024 2:13 pm HISTORY "ADVENTITIOUS LUNG SOUNDS" TECHNIQUE Frontal and lateral views of the chest were obtained. COMPARISON CHEST 2 VIEWS AP OR PA AND LATERAL, ACC: [id number], dated 2012-08-14 14:23:44 FINDINGS The lungs are clear. There is no pleural effusion or pneumothorax. The cardiomediastinal silhouette is within normal limits. Procedure Note Dre Reddy MD - 07/29/2024 EXAM XR CHEST 2 VIEWS - 07/29/2024 2:13 pm HISTORY "ADVENTITIOUS LUNG SOUNDS" TECHNIQUE Frontal and lateral views of the chest were obtained. COMPARISON CHEST 2 VIEWS AP OR PA AND LATERAL, ACC: [id number], dated :23:44 FINDINGS The lungs are clear. There is no pleural effusion or pneumothorax. Thecardiomediastinal silhouette is within normal limits. IMPRESSION IMPRESSION No active disease. Ileana [facility] (RAD GENERAL) Final Result documented in this encounter Visit Diagnoses Diagnosis Acute cough- Primary LRTI (lower respiratory tract infection) Other diseases of respiratory system, not elsewhere classified Body aches Generalized pain Adventitious breath sounds Respiratory abnormality, unspecified Acute cough Adventitious breath sounds Respiratory abnormality, unspecified documented in this encounter Care Teams External Grinder Relationship Specialty Start Date End Date Dominic Blancas MD PCP - General 03/03/00 documented as of this encounter
--- OUTSIDE RECORDS SUMMARY | 2024-07-30 19:16 | External Medical Summary | Summary of Care ---
Author Name Unknown Organization [facility] Address [address] [place] [address] Phone [phone] Care Team Providers Care Press Operator Automatic Name Role Phone Dominic Blancas MD Primary Care Provider [phone] Reason for Visit * Reason Onset Date Comments Test Results 07/30/2024 Encounter Details Date Type Department Care Team ([facility] Contact Info) Description [facility] [address] [place] [address] Ileana Perez CRNP [address] [place] [address] Test Results Allergies Active Allergy Reactions Criticality Noted Date Comments Dapagliflozin Other (Please comment) 12/25/2022 dehydration Latex 11/06/2016 documented as of this encounter (statuses as of 07/30/2024) Medications Re.nooble SYSTEM W/DEVICE KITIndications:D M type 2, not [...] nephropathy, without long-term current use of insulin ([facility]) Take 1 Tablet by mouth in the [...] than 8.0% (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 Not on file Not on file documented as of this encounter Miscellaneous Notes * Telephone Encounter - Vera Lopez OSA - 07/30/2024 8:26 AM EST Eli called back Was wondering if there is a med to be prescribed, is he in the window of it Please call * Telephone Encounter - Ileana Perez CRNP - 07/30/2024 7:54 AM EST Called PONya Benitez to notify her of the positive [...] 10/03/2024 9:40 AM EST Laboratory Laboratory, [address] [phone] Jaycee Carr [address] [address] 10/10/2024 9:40 AM EST Office Visit [facility] [place] [address] [address] [phone] Dominic Blancas MD [address] [address] Scheduled Procedures Name Priority Associated Diagnoses Date/Ti me ESOPHAGOGASTRODUODENOSCOPY ( EGD), FLEXIBLE, TRANSORAL, DIAGNOSTIC Recall Cortes's esophagus COLONOSCOPY FLEXIBLE PROXIMAL DIAGNOSTIC Recall History of colonic polyps Health Maintenance Due Date Last Done Comments Cologuard 1994 Sigmoidoscopy 1994 Fecal Occult Blood Test 03/19/2003 03/19/2002, 12/23 GFR 10/04/2024 10/04/2023, 03/09, 12/14/2022, Additional history exists HbA1c 10/05/2024 04/04/2024, 0308/2023, 10/04/2023, Additional history exists Adult Wellness Visit [...] documented as of this encounter Care Teams Press Operator Automatic Relationship Specialty Start Date End Date Dominic Blancas MD PCP - General 03/03/00 documented as of this encounter
--- OUTSIDE RECORDS SUMMARY | 2024-07-30 19:16 | External Medical Summary ---
Author Name Unknown Address Unknown Organization [id number]:LABORATORY [facility] - [address] [facility] [place] [address] Laboratory Report Ordering Provider Test Date Status LOULOU RODRIGUEZ 07/29/2024 14:11:29 Final Observation Date Value Abnormality Reference (Units ) Status SARS Coronavirus 2 07/29/2024 14:11:29 Positive Abnormal N egative Final SARS-CoV2 Coronavirus RNA de tected by PCR (amplified probe). Test results reported to [facility].
This express test was developed and its performance characteristics determined by [employer]. It has not been cleared or approved [...] SARS-CoV-2 diagnosis, surveillance, and travel within the [facility] and to most countries. Please check with local testing authorities about requirements before travel.

The validation of bronchial specimens, tracheal aspirates, and sputum for this assay was developed and performance characteristics determined by [employer]. The validation of alternate specimen types has not been cleared or approved by the U.S. Food and Drug Administration (FDA). It has been determined that such clearance is not necessary. Influenza virus A RNA [Prese nce] in Specimen by [facility] with probe detection 07/29/2024 14:11:29 Negative Negative Final No Influenza A RNA detected by PCR (amplified probe) Influenza virus B RNA [Prese nce] in Specimen by [facility] with probe detection 07/29/2024 14:11:29 Negative Negative Final No Influenza B RNA detected by PCR (amplified probe) Respiratory syncytial virus RNA [Identifier] in Specimen by [facility] with probe detection 07/29/2024 14:11:29 Negative Negative Final No Respiratory Syncytial Vir us RNA detected by PCR (amplified probe) Performing Location [address]ATORY [address] [facility] [address]
--- OUTSIDE RECORDS SUMMARY | 2024-07-30 19:16 | External Medical Summary | Summary of Care ---
Author Name Unknown Organization [facility] Address [address] [place] [address] Phone [phone] Care Team Providers Care Ferry Pilot Name Role Phone Dominic Blancas MD Primary Care Provider [phone] Reason for Visit * Reason Onset Date Comments Test Results 07/30/2024 Encounter Details Date Type Department Care Team ([facility] Contact Info) Description [facility] [address] [place] [address] Ileana Perez CRNP [address] [place] [address] Test Results Allergies Active Allergy Reactions Criticality Noted Date Comments Dapagliflozin Other (Please comment) 12/25/2022 dehydration Latex 11/06/2016 documented as of this encounter (statuses as of 07/30/2024) Medications [employer] SYSTEM W/DEVICE KITIndications:D M type 2, not [...] hemoglobin A1c goal of less than 8.0% ([facility]) USE TO TEST BLOOD SUGARS ONCE DAILY [...] nephropathy, without long-term current use of insulin ([facility]) Take 1 Tablet by mouth in the morning. 30 minutes before a meal.. 90 Tablet 3 4 Active metFORMIN HCl 1000 MG Oral Tablet (Glucophage)Alma cations:Type 2 diabetes mellitus with hemoglobin A1c goal of less than 8.0% ([facility]) Take one tablet twice a day for [...] hemoglobin A1c goal of less than 8.0% ([facility]) Inject 3 mg under the skin once [...] [place] [phone] Jaycee Carr [address] [address] 10/10/2024 9:40 AM EST [facility] [address] [phone] Dominic Blancas MD [address] [phone] Scheduled Procedures Name Priority Associated Diagnoses Date/Ti [...] documented as of this encounter Care Teams Ferry Pilot Relationship Specialty Start Date End Date Dominic Blancas MD PCP - General 03/03/00 documented as of this encounter
--- OUTSIDE RECORDS SUMMARY | 2024-07-30 19:16 | External Medical Summary | Summary of Care ---
Author Name Unknown Organization [facility] Address [address] [address] Phone [phone] Care Team Providers Care Banquet Server Name Role Phone Dominic Blancas MD Primary Care Provider [phone] Reason for Visit * Reason Onset Date Comments Advice 06/27/2024 Encounter Details Date Type Department Care Team ([facility] st Contact Info) Description 06/27/[address] [address] Dominic Blancas MD [address] [place] [address] Advice Allergies Active Allergy Reactions Criticality Noted Date Comments Dapagliflozin Other (Please comment) 12/25/2022 dehydration Latex 11/06/2016 documented as of this encounter (statuses as of 07/10/2024) Medications Home Leasing SYSTEM W/DEVICE KITIndications:D M type 2, not [...] hemoglobin A1c goal of less than 8.0% ([facility]) USE TO TEST BLOOD [...] nephropathy, without long-term current use of insulin ([facility]) Take 1 Tablet by mouth in the morning. 30 minutes before a meal.. 90 Tablet 3 4 Active metFORMIN HCl 1000 MG Oral Tablet (Glucophage)Alma cations:Type 2 diabetes mellitus with hemoglobin A1c goal of less than 8.0% ([facility]) Take one tablet twice [...] hemoglobin A1c goal of less than 8.0% ([facility]) Inject 3 mg under the skin once a week. Dose Increase 6 mL 3 4 Active Additional Information Patient taking differently:3 mg Subcutaneous QWEEK,, Reported on 06/29/2024 Econazole Nitrate 1 % External Cream (Spectazole)Alma cations:Yeast dermatitis Apply topically to affected area daily. 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 Acute If Acute Visit Type is needed, were surrounding clinics offered to patient (Yes/No)? Yes Was patient offered appointments with other available providers (Yes/No)? Yes See Call Details? (Yes or No): Yes Pt EC only can take pt to appt on 06/29 wants and appt that day documented in this encounter Plan of Treatment Upcoming Encounters Date Type Department Care Team (Late st Contact Info) Description 10/03/2024 9:40 AM EST [facility] [place] [facility] [address] [facility] [place] [id number] [place] [facility] [address] [place] [address] 10/10/2024 9:40 AM EST [facility] [address] [facility] [place] [address] Dominic Blancas MD [address] [facility] [place] [address] Scheduled Procedures Name Priority Associated Diagnoses Date/Ti me ESOPHAGOGASTRODUODENOSCOPY ( EGD), FLEXIBLE, TRANSORAL, DIAGNOSTIC Recall Cortes's esophagus COLONOSCOPY FLEXIBLE PROXIMAL DIAGNOSTIC Recall History of colonic polyps Health Maintenance Due Date Last Done Comments Cologuard 1994 Sigmoidoscopy 1994 Fecal Occult Blood Test 03/19/2003 03/19/2002, 12/23 GFR 10/04/2024 10/04/2023, 03/09, 12/14/2022, Additional history exists HbA1c 10/05/2024 04/04/2024, 030 08/2023, 10/04/2023, Additional history exists Adult Wellness [...] filedocumented as of this encounter Care Teams Banquet Server Relationship Specialty Start Date End Date Dominic Blancas MD [address] [place] [address] PCP - General 03/03/00 documented as of this encounter
--- OUTSIDE RECORDS SUMMARY | 2024-07-30 19:17 | External Medical Summary | Summary of Care ---
Author Name Unknown Organization [facility] Address [address] [facility] [place] [address] Phone [phone] Care Team Providers Care Director Weights And Measures Name Role Phone Dominic Blancas MD Primary Care Provider [phone] Reason for Visit * Reason Onset Date Comments Advice 04/28/2024 Encounter Details Date Type Department Care Team (Late st Contact Info) Description 04/28/2024 Telephone [facility] [address] [place] [address] Dominic Blancas MD [address] [place] [address] Advice Allergies Active Allergy Reactions Criticality Noted Date Comments Dapagliflozin Other (Please comment) 12/25/2022 dehydration Latex 11/06/2016 documented as of this encounter (statuses as of 04/28/2024) Medications Medication Sig Dispensed Refills Start Date End Date Status [employer] ULTRA SYSTEM W/DEVICE KITIndications:DM type 2, not [...] Additional Information Patient not taking.Reported on 04/18/2024 eBuddyuch Ultra In Vitro Strip (Glucose Blood)Indications:T ype [...] as of this encounter (statuses as of 04/28/2024) Active Problems Problem Noted Date Diagnosed Date [...] as of this encounter (statuses as of 04/28/2024) Resolved Problems Problem Noted Date Diagnosed Date [...] as of this encounter (statuses as of 04/28/2024) Immunizations Name Administration Dates Next Due COVID-19 [...] encounter Miscellaneous Notes * Telephone Encounter - Lilia Lerma LPN - 04/28/2024 10:17 AM EDT Eli aware of Immunization's. Patient did get 2 shingle vaccines. Called [facility] for 2nd dose and updated vaccine list. * Telephone Encounter - Gabi Llanos OSA - 04/28/2024 9:12 AM EDT Reason for patient's call: asking to speak with nurse about clarification on vaccines Please call to discuss. documented in this encounter Plan of Treatment Upcoming Encounters Date Type Department Care Team (Late st Contact Info) Description 10/03/2024 9:40 AM EST Laboratory Laboratory, [place] [address] [place] [facility] [place] [address] [facility] [address] [place] [address] 10/10/2024 9:40 AM EST Office Visit [facility] [place] [address] [place] [facility] [place] [facility] [place] [address] Domiinc Blancas MD [address] [place] [address] Scheduled Procedures Name Priority Associated [...] 05/01/2023, 04/2023, 09/26/2012 COVID-19 Vaccine Completed 04/12/2024, , [...] filedocumented as of this encounter Care Teams Director Weights And Measures Relationship Specialty Start Date End Date Dominic Blancas MD [address] [place] [address] PCP - General 03/03/00 documented as of this encounter
--- OUTSIDE RECORDS SUMMARY | 2024-07-30 19:17 | External Medical Summary | Summary of Care ---
Author Name Unknown Organization [facility] Address [address] [place] [place] [place] [address] Phone [phone] Care Team Providers Care Education Officer Name Role Phone Arcenio Blancas MD Primary Care Provider [phone] Reason for Visit * Reason Comments eRx-Medication Refill Encounter Details Date Type Department Care Team (Late st Contact Info) Description 03/12/2024 Refill [facility] [address] [place] [address] Arcenio Blancas MD [address] [place] [address] Type 2 diabetes mellitus with hemoglobin A1c goal of less than 8.0% ([facility]) Allergies Active Allergy Reactions Criticality Noted Date Comments Dapagliflozin Other (Please comment) 12/25/2022 dehydration Latex 11/06/2016 documented as of this encounter (statuses as of 03/14/2024) Medications Medication Sig Dispensed Refills Start Date End Date Status Intiza SYSTEM W/DEVICE KITIndications:D M type 2, not at goal ([facility]) Use up to four times a day as directed 1 Kit 0 2 Active VITAMIN D 1000 UNITS PO CAPSIndications: Vitamin D deficiency 1 capsule daily 30 Cap 11 2 Active Multiple Vitamins-Mineral s (MULTIVITAMIN ADULT) TABSIndications: daily once. Active Triamcinolone Acetonide 0.1 % External Ointment (Aristocort)Alma cations:Eczema, unspecified type APPLY TO AFFECTED AREA TWICE A DAY 80 g 3 2 Active Additional Information Patient not taking.Reported on 10/07/2023 Priti Becerril Lancets 30G E 11.9 DX Use to test blood glucose twice daily 200 Each 3 3 Active Miconazole Nitrate 2 % PowderIndication s:Intertrigo Apply powder to areas of fungal rash in groin area three times a day until rash is gone. Then daily for maintenance therapy. 100 g 11 3 Active Triamterene-HCTZ 75-50 MG Oral Tablet (Maxzide) TAKE 1/2 TABLET BY MOUTH EVERY DAY 45 Tablet 3 3 Active glipiZIDE ER 10 MG Oral Tablet Extended Release 24 Hour (glipiZIDE XL)Indications:D iabetes mellitus with stage 2 chronic kidney disease (HCC) Take 1 Tablet by mouth in the morning. 30 minutes before a meal.. 90 Tablet 3 4 Active Trulicity 3 MG/0.5ML Subcutaneous Solution Pen-injector (Dulaglutide)Ind ications:Type 2 diabetes mellitus with hemoglobin A1c goal of less than 8.0% ([facility]) Inject 3 mg under the skin once a week. Dose Increase 2 mL 5 4 Active Omeprazole 20 MG Oral Capsule Delayed Release (PriLOSEC)Indica tions: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,Intertrigino us dermatitis associated with moisture TAKE 1 CAPSULE BY MOUTH EVERY MORNING 90 Capsule 3 4 Active Atenolol 50 MG Oral Tablet (Tenormin)Indica tions:HTN, goal below 150/90 TAKE 1 TABLET BY MOUTH EVERY DAY 90 Tablet 3 4 Active metFORMIN HCl 1000 MG Oral Tablet (Glucophage)Alma cations:Type 2 diabetes mellitus with hemoglobin A1c goal of less than 8.0% ([facility]) TAKE ONE TABLET TWICE A DAY FOR SUGAR CONTROL. 180 Tablet 2 4 Active Vitamin B-12 1000 MCG Oral Tablet (Cyanocobalamin) TAKE 1 TABLET BY MOUTH EVERY DAY IN THE MORNING 90 Tablet 3 4 Active Potassium Chloride Amira ER 10 MEQ Oral Tablet Extended Release (Klor-Con M10)Indications: Hypokalemia TAKE 3 TABLETS BY MOUTH THREE TIMES A DAY (9 TABLETS PER DAY) 810 Tablet 3 4 Active Atorvastatin Calcium 40 MG Oral Tablet (Lipitor)Indicat ions:Dyslipidemi a, goal LDL below 100 TAKE 1 TABLET BY MOUTH EVERY NIGHT AT BEDTIME. FOR CHOLESTEROL 90 Tablet 3 4 Active Trulicity 1.5 MG/0.5ML Subcutaneous Solution Pen-injector (Dulaglutide)Ind ications:Type 2 diabetes mellitus with hemoglobin A1c goal of less than 8.0% (HCC) Inject 1.5 mg under the skin once a week. 2 mL 1 4 Active OneTouch Ultra In Vitro Strip (Glucose Blood)Indication s:Type 2 diabetes mellitus with hemoglobin A1c goal of less than 8.0% (HCC) USE TO TEST BLOOD SUGARS ONCE DAILY DX: E11.9 100 Strip 3 4 Active Aspirin Low Dose 81 MG Oral Tablet Delayed Release (aspirin enteric coated) TAKE 1 TABLET BY MOUTH EVERY DAY IN THE MORNING 90 Tablet 3 4 Active Aspirin 81 MG Oral Tablet Delayed Release (Aspirin 81)Indications:C erebrovascular disease, arteriosclerotic , post-stroke Take 1 Tablet by mouth in the morning. 100 Tablet 3 3 03/14/20 24 Discontinued(Ref ill) Aspirin 81 MG Oral Tablet Delayed Release (Aspirin 81) Take 1 Tablet by mouth in the morning. 100 Tablet 3 3 03/14/20 24 Discontinued OneTouch Ultra In Vitro Strip (Glucose Blood)Indication s:Type 2 diabetes mellitus with hemoglobin A1c goal of less than 8.0% (HCC) USE TO TEST BLOOD SUGARS ONCE DAILY DX: E11.9 100 Strip 3 3 03/14/20 24 Discontinued documented as of this encounter (statuses as of 03/14/2024) Active Problems Problem Noted Date Diagnosed Date [...] as of this encounter (statuses as of 03/14/2024) Resolved Problems Problem Noted Date Diagnosed Date [...] as of this encounter (statuses as of 03/14/2024) Immunizations Name Administration Dates Next Due COVID-19 [...] lent, No Preserve, IM 05/14/2023,05/29/2016,06/05/2015 Seasonal Influenza, Split, I IV3, With Preserve, Inj 05/16/2014,05/12/2013,05/06/2012,05/10,06/13/2010,06/04/2009,06/04/20 08,05/25/2007,05/19/2006 Seasonal Influenza, Trivalen t, Adjuvanted, 65+ yrs 05/20/2018 TDAP (age 10 and older)(Boostrix) 01/18/2015 01/18/2025 Varicella Zoster Vaccine (Adult) 09/26/2012 Zoster Vaccine Recombinant (Shingrix) 05/01/2023 documented as of this encounter Social History [...] encounter Miscellaneous Notes * Telephone Encounter - Sri Winters, [facility] - 03/14/2024 5:36 AM EDTSigned Prescriptions: Disp Refills OneTouch Ultra In Vitro Strip (Glucose Blo*100 St*3 Sig: USE TO TEST BLOOD SUGARS ONCE DAILY DX: E11.9Authorizing Provider: ARCENIO BLANCAS User: SRI WINTERS Aspirin Low Dose 81 MG Oral Tablet Delayed*90 Tab*3 Sig: TAKE 1 TABLET BY MOUTH EVERY DAY IN THE MORNINGAuthorizing Provider: ARCENIO BLANCAS User: SRI WINTERS documented in this encounter Plan of Treatment Upcoming Encounters Date Type Department Care Team (Latest Contact Info) Description 04/06/2024 8:20 AM EDT Office Visit [facility] [address] [place] [facility] [id number] Arcenio Blancas MD [address] [place] [address] 04/25/2024 9:00 AM EDT Hospital Encounter ENDO OSS, Endoscopy Room [facility] [address] [place] [address] Jeyson Newby MD [address] [place] [address] 04/25/2024 9:00 AM EDT - 04/25/2024 9:45 AM EDT Surgery ENDO OSS, Endoscopy Room [facility] [address] [place] [address] Jeyson Newby MD [address] [place] [address] ESOPHAGOGASTRODUODENOSCOPY (EGD), FLEXIBLE, TRANSORAL, DIAGNOSTIC Scheduled Procedures Name Priority Associated Diagnoses Date/Ti me ESOPHAGOGASTRODUODENOSCOPY ( EGD), FLEXIBLE, TRANSORAL, DIAGNOSTIC Recall Cortes's esophagus History of colon cancer in adulthood 04/25/2024 9:00 AM EDT COLONOSCOPY FLEXIBLE PROXIMA L DIAGNOSTIC Recall Cortes's esophagus History of colon cancer in adulthood 04/25/2024 9:00 AM EDT Health Maintenance Due Date Last Done Comments Cologuard 1994 Sigmoidoscopy 1994 Fecal Occult Blood Test 03/19/2003 03/19/2002, 12/23 Cortes's Esophagus Surveilance 11/30/2021 11/30/2018, 11/30/2018, 11/13/2015, Additional history exists Colonoscopy 11/30/2021 11/30/2018, 11/08, 11/13/2015, Additional history exists Colorectal Cancer Screening 11/30/2021 Zoster Vaccines (3 of 3) 06/26/2023 05/01/2023, 09/09 COVID-19 Vaccine ( season) 2023 05/08/2023, 04/17/2022, 06/05/2021, Additional history exists Albumin/Creatinine Ratio 12/15/2023 023, 07/23/2020, 03/25/2018, Additional history exists Diabetic Foot Exam 04/06/2024 04/06/2023, 0 10/15/2020, 09/29/2019, Additional history exists HbA1c 04/09/2024 10/08/2023, 09/10, 03/25/2023, Additional history exists Influenza Vaccine (FLU shot) (#1) 2024 05/14/2023, 05/14/2023, 05/08/2022, Additional history exists GFR 10/04/2024 10/04/2023, 03/09, 12/14/2022, Additional history exists Adult Wellness Visit 10/06/2024 10/07/2023 Depression Screening 10/06/2024 10/07/2023 Diabetic Eye Exam 2024 11/26/2023, , 11/22/2023, Additional history exists DTaP,Tdap,and Td Vaccines (2 - Td or Tdap) 01/18/2025 01/18/2015, 05/15/2004 Lipid Panel 10/04/2028 10/04/2023, 04/0 02/2023, 04/23/2022, Additional history exists Pneumococcal Vaccine: 65+ Years Completed 11/06/2016, 08/16/2015, 02/27/2002 HPV (Gardasil) Vaccine Aged Out No lo [...] as of this encounter Visit Diagnoses Diagnosis Type 2 diabetes mellitus with hemoglobin A1c goal of less than 8.0% (HCC) Cortes's esophagus History of colon cancer in adulthood documented in this encounter Care Teams Education Officer Relationship Specialty Start Date End Date Arcenio Blancas MD [address] [place] [address] PCP - General 03/03/00 documented as of this encounter
--- OUTSIDE RECORDS SUMMARY | 2024-07-30 19:17 | External Medical Summary ---
Author Name Unknown Address Unknown Organization K01:[facility] - [address] [place] [address] Laboratory Report Ordering Provider Test Date Status KELLY RG 04/04/2024 08:00:14 Final Observation Date Value Abnormality Reference (Units ) Status Albumin 04/04/2024 08:00:14 4.3 3.8-5.0 (g/dL) Final AST (Aspartate aminotransferase) 04/04/2024 08:00:14 33 10-50 (U/L) Final Alk Phos 04/04/2024 08:00:14 77 35-130 (U/L) Final ALT (Alanine aminotransferase) 04/04/2024 08:00:14 21 10-50 (U/L) Final Bilirubin, Total 04/04/2024 08:00:14 0.9 <=1.2 (mg/dL) Final Bilirubin, Direct 04/04/2024 08:00:14 0.3 0.0-0.3 (mg/dL) Final Protein 04/04/2024 08:00:14 6.6 6.0-8.3 (g/dL) Final Performing Location [facility] - [address] [place] [address]
--- OUTSIDE RECORDS SUMMARY | 2024-07-30 19:17 | External Medical Summary | Summary of Care ---
Author Name Unknown Organization [facility] Address [address] [facility] [place] [address] Phone [phone] Care Team Providers Care Washer Machine Name Role Phone Dominic Blancas MD Primary Care Provider [phone] Encounter Details Date Type Department Care Team (Late st Contact Info) Description 04/04/2024 Telephone Gastroenterology, [facility] [address] [place] [address] Jeyson Newby MD [address] [place] [address] Allergies Active Allergy Reactions Criticality Noted Date Comments Dapagliflozin Other (Please comment) 12/25/2022 dehydration Latex 11/06/2016 documented as of this encounter (statuses as of 04/04/2024) Medications Medication Sig Dispensed Refills Start Date End Date Status Airizu SYSTEM W/DEVICE KITIndications:DM type 2, not at [...] A DAY 80 g 3 07/13/2022 Active Additional Information Patient not taking.Reported on 10/07/2023 OneTouch Delica Lancets 30G E 11.9 DX Use to test blood glucose twice daily 200 Each 3 09/01/2022 Active Miconazole Nitrate 2 % PowderIndications:I ntertrigo Apply powder to areas of fungal rash in groin area three times a day until rash is gone. Then daily for maintenance therapy. 100 g 11 09/07/2022 Active Triamterene-HCTZ 75-50 MG Oral Tablet (Maxzide) TAKE 1/2 TABLET BY MOUTH EVERY DAY 45 Tablet 3 04/06/2023 Active glipiZIDE ER 10 MG Oral Tablet Extended Release 24 Hour (glipiZIDE XL)Indications:Diab etes mellitus with stage 2 chronic kidney disease (HCC) Take 1 Tablet by mouth in the morning. 30 minutes before a meal.. 90 Tablet 3 10/18/2023 Active Trulicity 3 MG/0.5ML Subcutaneous Solution Pen-injector (Dulaglutide)Indica tions:Type 2 diabetes mellitus with hemoglobin A1c goal of less than 8.0% ([facility]) Inject 3 mg under the skin once a week. Dose Increase 2 mL 5 10/18/2023 Active Omeprazole 20 MG Oral Capsule Delayed Release (PriLOSEC)Indicatio ns: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,Intertriginous dermatitis associated with moisture TAKE 1 CAPSULE BY MOUTH EVERY MORNING 90 Capsule 3 11/03/2023 Active Atenolol 50 MG Oral Tablet (Tenormin)Indicatio ns:HTN, goal below 150/90 TAKE 1 TABLET BY MOUTH EVERY DAY 90 Tablet 3 11/16/2023 Active metFORMIN HCl 1000 MG Oral Tablet (Glucophage)Indicat ions:Type 2 diabetes mellitus with hemoglobin A1c goal of less than 8.0% ([facility]) TAKE ONE TABLET TWICE A DAY FOR SUGAR CONTROL. 180 Tablet 2 11/26/2023 Active Vitamin B-12 1000 MCG Oral Tablet (Cyanocobalamin) TAKE 1 TABLET BY MOUTH EVERY DAY IN THE MORNING 90 Tablet 3 12/13/2023 Active Potassium Chloride Amira ER 10 MEQ Oral Tablet Extended Release (Klor-Con M10)Indications:Hyp okalemia TAKE 3 TABLETS BY MOUTH THREE TIMES A DAY (9 TABLETS PER DAY) 810 Tablet 3 01/18/2024 Active Atorvastatin Calcium 40 MG Oral Tablet (Lipitor)Indication s:Dyslipidemia, goal LDL below 100 TAKE 1 TABLET BY MOUTH EVERY NIGHT AT BEDTIME. FOR CHOLESTEROL 90 Tablet 3 01/18/2024 Active Trulicity 1.5 MG/0.5ML Subcutaneous Solution Pen-injector (Dulaglutide)Indica tions:Type 2 diabetes mellitus with hemoglobin A1c goal of less than 8.0% ([facility]) Inject 1.5 mg under the skin once a week. 2 mL 1 01/22/2024 Active OneTouch Ultra In Vitro Strip (Glucose Blood)Indications:T ype 2 diabetes mellitus with hemoglobin A1c goal of less than 8.0% (HCC) USE TO TEST BLOOD SUGARS ONCE DAILY DX: E11.9 100 Strip 3 03/14/2024 Active Aspirin Low Dose 81 MG Oral Tablet Delayed Release (aspirin enteric coated) TAKE 1 TABLET BY MOUTH EVERY DAY IN THE MORNING 90 Tablet 3 03/14/2024 Active documented as of this encounter (statuses as of 04/04/2024) Active Problems Problem Noted Date Diagnosed Date [...] as of this encounter (statuses as of 04/04/2024) Resolved Problems Problem Noted Date Diagnosed Date [...] as of this encounter (statuses as of 04/04/2024) Immunizations Name Administration Dates Next Due COVID-19 [...] on file documented as of this encounter Plan of Treatment Upcoming Encounters Date Type Department Care Team (Latest Contact Info) Description 04/06/2024 8:20 AM EDT Office Visit [facility] [address] [place] [phone] Dominic Blancas MD [address] [place] [address] 04/25/2024 9:00 AM EDT Hospital Encounter ENDO [facility]C, Endoscopy Room [facility] [address] [place] [address] Jeyson Newby MD [address] [place] [address] 04/25/2024 9:00 AM EDT - 04/25/2024 9:45 AM EDT Surgery ENDO [facility], Endoscopy Room [facility] [address] [place] [address] Jeyson Newby MD [address] [place] [address] ESOPHAGOGASTRODUODENOSCOPY (EGD), FLEXIBLE, TRANSORAL, DIAGNOSTIC Scheduled Procedures [...] 01/18/2025 01/18/2015, 05/15/2004 Lipid Panel 10/04/2028 10/04/2023, /02/2023, 04/23/2022, Additional history exists Pneumococcal Vaccine: 65+ [...] filedocumented as of this encounter Care Teams Washer Machine Relationship Specialty Start Date End Date Dominic Blancas MD [address] [place] [address] PCP - General 03/03/00 documented as of this encounter
--- OUTSIDE RECORDS SUMMARY | 2024-07-30 19:17 | External Medical Summary | Summary of Care ---
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 Apprentice Name Role Phone Dominic Blancas MD Primary Care Provider [phone] Reason for Visit * Auth/Cert Specialty Diagnoses / Procedures Referred By Janis t Referred To Contact Diagnoses Cortes's esophagus History of colon cancer in adulthood Cortes's esophagus [K22.70] History of colon cancer in adulthood [Z85.038] Procedures EGD, FLEXIBLE, DIAGNOSTIC COLONOSCOPY, DIAGNOSTIC (RECTUM) ESOPHAGOGASTRODUODENOSCOPY (EGD), FLEXIBLE, TRANSORAL, DIAGNOSTIC COLONOSCOPY FLEXIBLE PROXIMAL DIAGNOSTIC Jeyson Newby MD [address] [place] [phone] [facility] [address] [place] [id number] Referral ID Status Reason Start Date Expiration Date Visits Re quested Visits Authorized [id number] Encounter Details Date Type Department Care Team (Latest Contact Info) Description 04/25/2024 7:58 AM EDT - 04/25/2024 10:10 AM EDT Hospital Encounter [facility], Endoscopy [facility] [address] [place] [phone] Jeyson Newby MD [address] [place] [address] Various: UGI,GICOLON Discharge Disposition: Home - Self Care Allergies Active Allergy Reactions Criticality Noted Date Comments Dapagliflozin Other (Please comment) 12/25/2022 dehydration Latex 11/06/2016 documented as of this encounter (statuses as of 04/25/2024) Medications Medication Sig Dispensed Refills Start Date End Date Status [employer] ULTRA SYSTEM W/DEVICE KITIndications:DM type 2, not [...] than 8.0% (FORMERLY [facility]) Inject 1.5 mg under the skin once a week. 2 mL 1 01/22/2024 Active Additional Information Patient not taking.Reported on 04/18/2024 [employer] Ultra In Vitro Strip (Glucose Blood)Indications:T ype [...] than 8.0% (FORMERLY [facility]) Inject 3 mg under the skin once a week. Dose Increase 6 mL 3 04/06/2024 Active Additional Information Patient taking differently:3 mg Subcutaneous QWEEK,, Reported on 04/18/2024 documented as of this encounter (statuses as of 04/25/2024) Active Problems Problem Noted Date Diagnosed Date [...] as of this encounter (statuses as of 04/25/2024) Resolved Problems Problem Noted Date Diagnosed Date [...] as of this encounter (statuses as of 04/25/2024) Immunizations Name Administration Dates Next Due COVID-19 [...] Sign Reading Time Taken Comments Blood Pressure 125/81 04/25/2024 9:44 AM EDT Pulse 82 04/25/2024 9:44 AM EDT Temperature 36.1 C (97 F) 04/25/2024 9:44 AM EDT Respiratory Rate 16 04/25/2024 9:44 AM EDT Oxygen Saturation 96% 04/25/2024 9:44 AM EDT Inhaled Oxygen Concentration - - Weight 106.6 kg (235 lb) 04/25/2024 8:40 AM EDT Height 167.6 cm (5' 5.98") 04/25/2024 8:40 AM ED T Body Mass Index 37.95 04/25/2024 8:40 AM EDT documented in this encounter H&P Notes * Jeyson Newby MD - 04/25/2024 8:50 AM EDT Endoscopy Pre-Procedure Assessment Name: Tim Vazquez Date: 04/25/2024 Time: 8:50 AM Procedure: Colonoscopy; with Indication(s) of post cancer surveillance Upper GI Endoscopy; with Indication(s) of evaluation or management of Cortes's esophagus Endoscopy Pre-Procedure Assessment: Prior to the procedure, the patient was identified. The patient's history, medications and allergies were reviewed as per the Anesthesia Assessment. The patient is competent. The risks and benefits of the proposed procedure and the planned sedation were discussed with the patient. All questions were answered and informed consent for the procedure was obtained. This patient has undergone a preprocedural evaluation. A determination has been made to proceed with the planned procedure under [facility] [place] procedural guidelines and the CMS Non-Emergent, Elective Medical Services and Treatment Recommendations (published on 11-14-19). The community and hospital prevalence of COVID-19 has been discussed as well as this patient's specific risks associated with SARS-CoV-19 infection. Based upon the clinical acuity and patient-specific care considerations, this procedure is deemed a Tier II - Intermediate acuity treatment or service with either progression or the threat of progressive disease related to the delay in treatment. Not providing the service has the potential for increasing morbidity or mortality. Temp 36.3 C (97.4 F) (Tympanic) | Ht 1.676 m (5' 5.98") | Wt 106.6 kg (235 lb) | BMI 37.95 kg/m | BSA 2.23 m Prior to Admission medications Medication Sig Last Dose Discont. Aspirin 81 MG Oral Tablet Delayed Release (Aspirin Low Dose) Take 1 Tablet by mouth in the morning.04/24/2024 Atenolol 50 MG Oral Tablet (Tenormin) Take 1 Tablet by mouth in the morning. 04/24/2024 Atorvastatin Calcium 40 MG Oral Tablet (Lipitor) TAKE 1 TABLET BY MOUTH EVERY NIGHT AT BEDTIME. FORCHOLESTEROL 04/24/2024 glipiZIDE ER 5 MG Oral Tablet Extended Release 24 Hour (glipiZIDE XL) Take 1 Tablet by mouth in themorning. 30 minutes before a meal.. 04/24/2024 metFORMIN HCl 1000 MG Oral Tablet (Glucophage) Take one tablet twice a day for sugar control. 04/24/2024 Omeprazole 20 MG Oral Capsule Delayed Release (PriLOSEC) Take 1 Capsule by mouth in the morning. Every morning.. 04/24/2024 Potassium Chloride Amira ER 10 MEQ Oral Tablet Extended Release (Klor-Con M10) TAKE 3 TABLETS BY MOUTH THREE TIMES A DAY (9 TABLETS PER DAY) 04/24/2024 Triamterene-HCTZ 75-50 MG Oral Tablet (Maxzide) TAKE 1/2 TABLET BY MOUTH EVERY DAY 04/24/2024 Trulicity 3 MG/0.5ML Subcutaneous Solution Pen-injector (Dulaglutide) Inject 3 mg under the skin once a week. Dose Increase Patient taking differently: Inject 3 mg under the skin once a week. Past Week Vitamin B-12 1000 MCG Oral Tablet (Cyanocobalamin) Take 1 Tablet by mouth in the morning. 04/24/2024 [employer] Ultra In Vitro Strip (Glucose Blood) USE TO TEST BLOOD SUGARS ONCE DAILY DX: E11.9 04/24/2024 Miconazole Nitrate 2 % Powder Apply powder to areas of fungal rash in groin area three times a day until rash is gone. Then daily for maintenance therapy. Past Month [employer] Delica Lancets 30G E 11.9 DX Use to test blood glucose twice daily 04/24/2024 Triamcinolone Acetonide 0.1 % External Ointment (Aristocort) APPLY TO AFFECTED AREA TWICE A DAY Past Month Multiple Vitamins-Minerals (MULTIVITAMIN ADULT) TABS once. 04/24/2024 VITAMIN D 1000 UNITS PO CAPS 1 capsule daily 04/24/2024 [employer] ULTRA SYSTEM W/DEVICE KIT Use up to four times a day as directed 04/24/2024 Trulicity 1.5 MG/0.5ML Subcutaneous Solution Pen-injector (Dulaglutide) Inject 1.5 mg under the skin once a week. Patient not taking: Reported on 04/18/2024 Not Taking Review of patient's allergies indicates: Allergen Reactions Farxiga [Dapagliflozin] Other (Please comment) dehydration Latex Physical Exam: Mental Status Examination: alert and oriented. General: nad, calm Airway Examination: normal oropharyngeal airway and neck mobility. CV: no JVD Respiratory Examination: symmetrical excursion Abd:soft/ntd ASA Grade: III - A patient with severe systemic disease. After reviewing the risks and benefits, the patient was deemed in satisfactory condition to undergothe procedure. The anesthesia plan was to use general anesthesia. Jeyson Newby MD 04/25/2024 documented in this encounter Procedure Notes * Dominic Blancas MD - 04/25/2024 8:52 AM EDTAssociated Order(s): UPPER GI ENDOSCOPY [facility] Patient Name: Tim Vazquez Procedure Date: 04/25/2024 8:52 AM Date of : 1950 Admit Type: Outpatient Note Status: Finalized Date of : 1950 Admit Type: Outpatient Age: 73 Room: [facility] 2 Gender: Male Note Status: Finalized Procedure: Upper GI endoscopy Indications: Follow-up of Cortes's esophagus Providers: Jeyson Newby MD (Doctor) Referring MD: Dominic Blancas MD (Referring MD) Medicines: Propofol per Anesthesia Complications: No immediate complications. Estimated blood loss: None. Procedure: Pre-Anesthesia Assessment: - - Prior to the procedure, a History and Physical was performed, patient medications, allergies and sensitivities were reviewed. The patient's tolerance of previous anesthesia was reviewed. See [facility] for further details. - The risks, benefits, and alternatives of the procedure including the sedation options and risks were discussed with the patient. All questions were answered and informed consent was obtained. - Patient identification and proposed procedure were verified prior to the procedure by the physician and the nurse. The procedure was verified in the procedure room. - [facility] for documentation of the pre-procedure assessment including ASA status. - After I obtained informed consent, the scope was carefully and meticulously passed under direct vision only when the lumen was definitively identified. CO2 insufflation was utilized throughout the entire procedure exclusively. After obtaining informed consent, the endoscope was passed under direct vision. All instruments were visually inspected immediately before and after removal from the patient to ensure they are fully intact. Throughout the procedure, the patient's blood pressure, pulse, and oxygen saturations were monitored continuously. The upper GI endoscopy was accomplished without difficulty. The patient tolerated the procedure well. The GIF-H180 Endoscope ([id number]) was introduced through the mouth, and advanced to the second part of duodenum. Findings & Specimens: The esophagus and gastroesophageal junction were examined with white light and narrow band imaging (NBI) from a forward view and retroflexed position. There were esophageal mucosal changes classified as Cortes's stage C0-M1 per Worthington criteria. These changes involved the mucosa extending to the Z-line. The maximum longitudinal extent of these esophageal mucosal changes was 1 cm in length. Mucosa was biopsied with a cold forceps for histology in a targeted manner and in 4 quadrants at intervals of 1 cm at the gastroesophageal junction. One specimen bottle was sent to pathology. The pathology specimenwas placed into Bottle Number 1. The entire examined stomach was normal. The examined duodenum was normal. Impression: - Esophageal mucosal changes classified as Cortes's stage C0-M1 per Worthington criteria. Biopsied. - Normal stomach. - Normal examined duodenum. Recommendation: - Discharge patient to home (with escort). - Return to referring physician as previously scheduled. - Patient has a contact number available for emergencies. The signs and symptoms of potential delayed complications were discussed with the patient. Return to normal activities tomorrow. Written discharge instructions were provided to the patient. Jeyson Newby MD 04/25/2024 9:11:14 AM This report has been signed electronically. * Dominic Blancas MD - 04/25/2024 8:50 AM EDTAssociated Order(s): COLONOSCOPY [facility] Patient Name: Tim Vazquez Procedure Date: 04/25/2024 8:50 AM Date of : 1950 Admit Type: Outpatient Note Status: Finalized Date of : 1950 Admit Type: Outpatient Age: 73 Room: [facility] 2 Gender: Male Note Status: Finalized Procedure: Colonoscopy Indications: High risk colon cancer surveillance: Personal history of adenoma with high grade dysplasia, High risk colon cancer surveillance: Personal history of colon cancer Providers: Jeyson Newby MD (Doctor) Referring MD: Dominic Blancas MD (Referring MD) Medicines: Propofol per Anesthesia Complications: No immediate complications. Estimated blood loss: None. Procedure: Pre-Anesthesia Assessment: - - Prior to the procedure, a History and Physical was performed, patient medications, allergies and sensitivities were reviewed. The patient's tolerance of previous anesthesia was reviewed. See [facility] for further details. - The risks, benefits, and alternatives of the procedure including the sedation options and risks were discussed with the patient. All questions were answered and informed consent was obtained. - Patient identification and proposed procedure were verified prior to the procedure by the physician and the nurse. The procedure was verified in the procedure room. - [facility] for documentation of the pre-procedure assessment including ASA status. - After I obtained informed consent, the scope was carefully and meticulously passed under direct vision only when the lumen was definitively identified. CO2 insufflation was utilized throughout the entire procedure exclusively. After I obtained informed consent, the scope was passed under direct vision. All instruments were visually inspected immediately before and after removal from the patient to ensure they are fully intact. Throughout the procedure, the patient's blood pressure, pulse, and oxygen saturations were monitored continuously.The colonoscopy was performed without difficulty. The patient tolerated the procedure well. The quality of the bowel preparation was good. The [id number] Colonoscope ([id number]) was introduced through the anus and advanced to the cecum, identified by appendiceal orifice and ileocecal valve. Findings & Specimens: The terminal ileum appeared normal. A 9 mm polyp was found in the ascending colon. The polyp was sessile. The polyp was removed with a cold snare. Resection and retrieval were complete. The pathology specimen was placed into Bottle Number 1. A 4 mm polyp was found in the ascending colon. The polyp was sessile. The polyp was removed with a cold snare. Resection and retrieval were complete. The pathology specimen was placed into Bottle Number 1. There was evidence of a prior end-to-side of an ileocolonic and a colo-colonic anastomosis in the sigmoid colon and in the ascending colon. This was patent and was characterized by healthy appearing mucosa. The anastomosis was traversed. Multiple small-mouthed diverticula were found in the sigmoid colon. Internal hemorrhoids were found during retroflexion. The exam was otherwise without abnormality on direct and retroflexion views. Impression: - The examined portion of the ileum was normal. - One 9 mm polyp in the ascending colon, removed with a cold snare. Resected and retrieved. - One 4 mm polyp in the ascending colon, removed with a cold snare. Resected and retrieved. - Patent end-to-side colo-colonic anastomosis, characterized by healthy appearing mucosa. - Diverticulosis in the sigmoid colon. - Internal hemorrhoids. - The examination was otherwise normal on direct and retroflexion views. Recommendation: - Discharge patient to home (with escort). - Return to referring physician as previously scheduled. - Patient has a contact number available for emergencies. The signs and symptoms of potential delayed complications were discussed with the patient. Return to normal activities tomorrow. Written discharge instructions were provided to the patient. - Repeat colonoscopy in 1 year for surveillance. Jeyson Newby MD 04/25/2024 9:29:29 AM This report has been signed electronically. documented in this encounter Nursing Notes * Shena Vela RN - 04/25/2024 10:10 AM EDT Patient is alert, pain free, passing flatus and tolerating po fluids prior to discharge. Patient has been visited by Dr. Newby. Patient /family have received and demonstrates understandingof discharge instructions. Patient is transported via w/c to private auto accompanied by endo staff. * Shena Vela RN - 04/25/2024 9:29 AM EDT Patient transferred to post endo s/p egd/colonoscopy. Patient sleeping Respirations are even and unlabored on room air. NSR in the 70s on the monitor. Abdomen soft and non distended. Vital signs stable. * Blayne Thompson RN - 04/25/2024 9:26 AM EDT See anesthesia record for medication administered during procedure. Blayne Thompson RN Specimen(s) and location(s) verified with physician post procedure 9:26 AM Blayne Thompson RN Pre cleaning of scope at the bedside started by photovoltaic fabrication technician. No abdominal pressure given * Opal Diaz RN - 04/25/2024 8:46 AM EDT The following pt discharge instructions reviewed with pt and his cousin, Eli prior to prodedure: No driving today. No alcohol today. No signing of legal documents. Rest as much as possible today and can return to normal activities tomorrow. No operating any heavy equipment today. Diet as tolerated. Pt and his cousin verbalized understanding. * Opal Diaz RN - 04/25/2024 8:34 AM EDT Pt cousin Eli bedside to assist pt with admission questions. documented in this encounter Plan of Treatment Upcoming Encounters Date Type Department Care Team (Late st Contact Info) Description 10/03/2024 9:40 AM EST Laboratory Laboratory, [place] [address] [place] [address] [facility] [address] [place] [address] 10/10/2024 9:40 AM EST Office Visit Family [facility], [place] [address] [place] [address] Dominic Blancas MD [address] [place] [address] Pending Results Name Type Priority Associated Diagnoses Date /Time SURGICAL PATHOLOGY Pathology Routine Cortes's esophagus History of colon cancer in adulthood 04/25/2024 9:27 AM EDT Scheduled Orders Name Type Priority Associated Diagnoses Orde r Schedule SURGICAL PATHOLOGY Pathology Routine Cortes's esophagus History of colon cancer in adulthood Release Upon Ordering for 1 Occurrences starting 04/25/2024 Scheduled Procedures Name Priority Associated Diagnoses Date/Ti me COLONOSCOPY FLEXIBLE PROXIMA L DIAGNOSTIC Recall Cortes's esophagus History of colon cancer in adulthood 04/25/2024 9:01 AM EDT ESOPHAGOGASTRODUODENOSCOPY ( EGD), FLEXIBLE, TRANSORAL, DIAGNOSTIC Recall Cortes's esophagus History of colon cancer in adulthood 04/25/2024 9:01 AM EDT Health Maintenance Due Date Last Done Comments Cologuard 1994 Sigmoidoscopy 1994 Fecal Occult Blood Test 03/19/2003 03/19/2002, 12/23 Zoster Vaccines (3 of 3) 06/26/2023 05/01/2023, 09/09 Diabetic Foot Exam 04/06/2024 04/06/2023, 0 10/15/2020, [...] 04/04/2025 024, 12/14/2022, 07/23/2020, Additional history exists Cortes's Esophagus Surveilance 04/25/2027 04/25/2024, 11/30/2018, 11/30/2018, Additional history exists Colonoscopy 04/25/2027 04/25/2024, 11/08, 11/30/2018, Additional history exists Colorectal Cancer Screening 04/25/2027 Lipid Panel 10/04/2028 10/04/2023, 04/0 02/2023, 04/23/2022, Additional history exists Pneumococcal Vaccine: 65+ Years Completed 11/06/2016, 08/16/2015, 02/27/2002 COVID-19 Vaccine Completed 04/12/2024, , 04/17/2022, Additional [...] Not on filedocumented as of this encounter Procedures Procedure Name Priority Date/Time Associated Diagnosis Comments GLUCOSE METER, POINT OF CARE TOÑO 04/25/2024 8:57 AM EDT UPPER GI ENDOSCOPY 04/25/2024 8: 52 AM EDT COLONOSCOPY 04/25/2024 8:50 AM EDT documented in this encounter Results * (ABNORMAL) GLUCOSE METER, POINT OF CARE (04/25/2024 8:57 AM EDT) GLUCOSE - POCT 151(H) 70 - 120 mg/dL 04/25/2024 12:30 PM EDT [facility] Blood Whole blood specimen / Unknown 04/25/2024 8:57 AM EDT 04/25/2024 12:30 PM EDT Jeyson Newby MD LAB POINT OF CARE TE ST DOCKED DEVICE UNSOLICITED RESULTS [facility] [place] [address] [place] [address] * UPPER GI ENDOSCOPY (04/25/2024 8:52 AM EDT) 04/25/2024 8:52 AM EDT Narrative Procedure Note Dominic Blancas MD - 04/25/2024 8:52 AM EDT [facility] Patient Name: iTm Vazquez Procedure Date: 04/25/2024 8:52 AM Date of : 1950 Admit Type: Outpatient Note Status:Finalized Date of : 1950 Admit Type: Outpatient Age: 73 Room: [facility] 2 Gender: Male Note Status: Finalized Procedure: Upper GI endoscopy Indications: Follow-up of Cortes's esophagus Providers: Jeyson Newby MD (Doctor) Referring MD: Dominic Blancas MD (Referring MD) Medicines: Propofol per Anesthesia Complications: No immediate complications. Estimated blood loss:None. Procedure: Pre-Anesthesia Assessment: - - Prior to the procedure, a History and Physicalwas performed, patient medications, allergies and sensitivities were reviewed. Thepatient's tolerance of previous anesthesia was reviewed. See Epic for furtherdetails. - The risks, benefits, and alternatives of theprocedure including the sedation options and risks were discussed with the patient.All questions were answered and informed consent was obtained. - Patient identification and proposed procedurewere verified prior to the procedure by the physician and the nurse. The procedure wasverified in the procedure room. - See [facility] for documentation of the pre-procedureassessment including ASA status. - After I obtained informed consent, the scope wascarefully and meticulously passed under direct vision only when the lumen wasdefinitively identified. CO2 insufflation was utilized throughout the entire procedureexclusively. After obtaining informed consent, the endoscope waspassed under direct vision. All instruments were visually inspected immediatelybefore and after removal from the patient to ensure they are fully intact. Throughout the procedure, the patient's bloodpressure, pulse, and oxygen saturations were monitored continuously. The upper GI endoscopywas accomplished without difficulty. The patient tolerated the procedurewell. The GIF-H180 Endoscope ([id number]) was introduced through the mouth, andadvanced to the second part of duodenum. Findings & Specimens: The esophagus and gastroesophageal junction were examined with whitelight and narrow band imaging (NBI) from a forward view and retroflexed position. There wereesophageal mucosal changes classified as Cortes's stage C0-M1 per Worthington criteria. These changes involved themucosa extending to the Z-line. The maximum longitudinal extent of these esophageal mucosal changeswas 1 cm in length. Mucosa was biopsied with a cold forceps for histology in a targeted manner andin 4 quadrants at intervals of 1 cm at the gastroesophageal junction. One specimen bottle was sent topathology. The pathology specimen was placed into Bottle Number 1. The entire examined stomach was normal. The examined duodenum was normal. Impression: - Esophageal mucosal changes classified asBarrett's stage C0-M1 per Worthington criteria. Biopsied. - Normal stomach. - Normal examined duodenum. Recommendation: - Discharge patient to home (with escort). - Return to referring physician as previouslyscheduled. - Patient has a contact number available foremergencies. The signs and symptoms of potential delayed complications were discussed withthe patient. Return to normal activities tomorrow. Written discharge instructionswere provided to the patient. Jeyson Newby MD 04/25/2024 9:11:14 AM This report has been signed electronically. Dominic Blancas MD GASTRO UPPER * COLONOSCOPY (04/25/2024 8:50 AM EDT) 04/25/2024 8:50 AM EDT Narrative Procedure Note Dominic Blancas MD - 04/25/2024 8:50 AM EDT [facility] Patient Name: Tim Vazquez Procedure Date: 04/25/2024 8:50 AM Date of : 1950 Admit Type: Outpatient Note Status:Finalized Date of : 1950 Admit Type: Outpatient Age: 73 Room: [facility] 2 Gender: Male Note Status: Finalized Procedure: Colonoscopy Indications: High risk colon cancer surveillance: Personalhistory of adenoma with high grade dysplasia, High risk colon cancer surveillance:Personal history of colon cancer Providers: Jeyson Newby MD (Doctor) Referring MD: Dominic Blancas MD (Referring MD) Medicines: Propofol per Anesthesia Complications: No immediate complications. Estimated blood loss:None. Procedure: Pre-Anesthesia Assessment: - - Prior to the procedure, a History and Physicalwas performed, patient medications, allergies and sensitivities were reviewed. Thepatient's tolerance of previous anesthesia was reviewed. See [facility] for furtherdetails. - The risks, benefits, and alternatives of theprocedure including the sedation options and risks were discussed with the patient.All questions were answered and informed consent was obtained. - Patient identification and proposed procedurewere verified prior to the procedure by the physician and the nurse. The procedure wasverified in the procedure room. - [facility] for documentation of the pre-procedureassessment including ASA status. - After I obtained informed consent, the scope wascarefully and meticulously passed under direct vision only when the lumen wasdefinitively identified. CO2 insufflation was utilized throughout the entire procedureexclusively. After I obtained informed consent, the scope waspassed under direct vision. All instruments were visually inspected immediatelybefore and after removal from the patient to ensure they are fully intact. Throughout the procedure, the patient's bloodpressure, pulse, and oxygen saturations were monitored continuously.The colonoscopy wasperformed without difficulty. The patient tolerated the procedure well. The qualityof the bowel preparation was good. The [facility][id number] Colonoscope ([id number]) was introducedthrough the anus and advanced to the cecum, identified by appendiceal orifice andileocecal valve. Findings & Specimens: The terminal ileum appeared normal. A 9 mm polyp was found in the ascending colon. The polyp was sessile.The polyp was removed with a cold snare. Resection and retrieval were complete. The pathology specimenwas placed into Bottle Number 1. A 4 mm polyp was found in the ascending colon. The polyp was sessile.The polyp was removed with a cold snare. Resection and retrieval were complete. The pathology specimenwas placed into Bottle Number 1. There was evidence of a prior end-to-side of an ileocolonic and acolo-colonic anastomosis in the sigmoid colon and in the ascending colon. This was patent and wascharacterized by healthy appearing mucosa. The anastomosis was traversed. Multiple small-mouthed diverticula were found in the sigmoid colon. Internal hemorrhoids were found during retroflexion. The exam was otherwise without abnormality on direct and retroflexionviews. Impression: - The examined portion of the ileum was normal. - One 9 mm polyp in the ascending colon, removedwith a cold snare. Resected and retrieved. - One 4 mm polyp in the ascending colon, removedwith a cold snare. Resected and retrieved. - Patent end-to-side colo-colonic anastomosis,characterized by healthy appearing mucosa. - Diverticulosis in the sigmoid colon. - Internal hemorrhoids. - The examination was otherwise normal on directand retroflexion views. Recommendation: - Discharge patient to home (with escort). - Return to referring physician as previouslyscheduled. - [facility] The signs and symptoms of potential delayed complications were discussed withthe patient. Return to normal activities tomorrow. Written discharge instructionswere provided to the patient. - Repeat colonoscopy in 1 year for surveillance. Jeyson Newby MD 04/25/2024 9:29:29 AM This report has been signed electronically. Dominic Blancas MD [facility] documented in this encounter Visit Diagnoses Diagnosis Cortes's esophagus History of colon cancer in adulthood documented in this encounter Administered Medications Inactive Administered Medications - up to 3 most recent administrations Medication Order MAR Action Action Date Dose Rate Site Acetaminophen (Tylenol) tab 650 mg 650 mg, Oral, PRN Pain, Mild, Starting on Wed04/25/24 at 0933, Until Wed04/25/24 at 1424, For 1 dose, Maximum of 4 grams (4000 mg) per day., Post-op isolyte-S pH 7.4 infusion Intravenous, at 100 mL/hr, Plasma-LYTE 148, isolyte-S, and isolyte-S pH 7.4 are considered equivalent - including for MAR barcode scanning., CONTINUOUS, Starting on Wed04/25/24 at 0900, Until Wed04/25/24 at 1424, Pre-Op Restarted 04/25/2024 9:25 AM EDT New Bag 04/25/2024 8:59 AM EDT 100 mL/hr documented in this encounter Active and Recently Administered Medications Times are shown in EDT. Continuous Medication Order 04/23/2024 04/24/2024 04/25/2024 isolyte-S pH 7.4 infusion Intravenous, at 100 mL/hr, Plasma-LYTE 148, isolyte-S, and isolyte-S pH 7.4 are considered equivalent - including for MAR barcode scanning., CONTINUOUS, Starting on Wed04/25/24 at 0900, Until Wed04/25/24 at 1424, Pre-Op 0859 (New Bag - Prov ider: Opal Diaz RN)0924 (Paused - Provider: MEAGAN Rebollar - Comment: Switch to gravity)0925 (Restarted - Provider: MEAGAN Rebollar)0927 (Anes Intra-Op Fluid - Provider: MEAGAN Rebollar) PRN Medication Order 04/23/2024 04/24/2024 04/25/2024 Acetaminophen (Tylenol) tab 650 mg 650 mg, Oral, PRN Pain, Mild, Starting on Wed04/25/24 at 0933, Until Wed04/25/24 at 1424, For 1 dose, Maximum of 4 grams (4000 mg) per day., Post-op documented in this encounter Care Teams Automotive Machinist Apprentice Relationship Specialty Start Date End Date Dominic Blancas MD [address] [place] [address] PCP - General 03/03/00 documented as of this encounter
--- OUTSIDE RECORDS SUMMARY | 2024-07-30 19:17 | External Medical Summary | Summary of Care ---
Author Name Unknown Organization [facility] Address [address] [facility] [place] [address] Phone [phone] Care Team Providers Care Chip Tuner Name Role Phone Dominic Blancas MD Primary Care Provider Reason for Visit * Reason Comments Follow Up Patient is here toda y for a six month follow up.Patient states no concerns. Encounter Details Date Type Department Care Team (Late st Contact Info) Description 04/06/2024 8:20 AM EDT Office Visit [facility] [address] [place] [address] Dominic Blancas MD [address] [place] [address] HTN, goal below 150/90*; DYSLIPIDEMIA, GOAL LDL BELOW 100; Type 2 diabetes mellitus with diabetic nephropathy, without long-term current use of insulin ([facility]); Cortes's esophagus without dysplasia; History of colon cancer in adulthood; Encounter for long-term (current) use of medications; Type 2 diabetes mellitus with hemoglobin A1c goal of less than 8.0% ([facility]); 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; Intertriginous dermatitis associated with moisture; Hypokalemia; B12 deficiency Allergies Active Allergy Reactions Criticality Noted Date Comments Dapagliflozin Other (Please comment) 12/25/2022 dehydration Latex 11/06/2016 documented as of this encounter (statuses as of 04/06/2024) Medications Medication Sig Dispensed Refills Start Date End Date Status Setup SYSTEM W/DEVICE KITIndications:DM type 2, not at goal (HCC) Use up to four times a day as directed 1 Kit 0 11/17/2011 Active VITAMIN D 1000 UNITS PO CAPSIndications:Vi tamin D deficiency 1 capsule daily 30 Cap 11 05/06/2012 Active Multiple Vitamins-Minerals (MULTIVITAMIN ADULT) TABSIndications:da celestine once. Active Triamcinolone Acetonide 0.1 % External Ointment (Aristocort)Indica tions:Eczema, unspecified type APPLY TO AFFECTED AREA TWICE A DAY 80 g 3 07/13/2022 Active OneTouch Delica Lancets 30G E 11.9 DX Use to test blood glucose twice daily 200 Each 3 09/01/2022 Active Miconazole Nitrate 2 % PowderIndications: Intertrigo Apply powder to areas of fungal rash in groin area three times a day until rash is gone. Then daily for maintenance therapy. 100 g 11 09/07/2022 Active Trulicity 1.5 MG/0.5ML Subcutaneous Solution Pen-injector (Dulaglutide)Indic ations:Type 2 diabetes mellitus with hemoglobin A1c goal of less than 8.0% ([facility]) Inject 1.5 mg under the skin once a week. 2 mL 1 01/22/2024 Active OneTouch Ultra In Vitro Strip (Glucose Blood)Indications: Type 2 diabetes mellitus with hemoglobin A1c goal of less than 8.0% ([facility]) USE TO TEST BLOOD SUGARS ONCE DAILY DX: E11.9 100 Strip 3 03/14/2024 Active Aspirin 81 MG Oral Tablet Delayed Release (Aspirin Low Dose) Take 1 Tablet by mouth in the morning. 90 Tablet 3 04/06/2024 Active Atenolol 50 MG Oral Tablet (Tenormin)Indicati ons:HTN, goal below 150/90 Take 1 Tablet by mouth in the morning. 90 Tablet 3 04/06/2024 Active Atorvastatin Calcium 40 MG Oral Tablet (Lipitor)Indicatio ns:Dyslipidemia, goal LDL below 100 TAKE 1 TABLET BY MOUTH EVERY NIGHT AT BEDTIME. FOR CHOLESTEROL 90 Tablet 3 04/06/2024 Active glipiZIDE ER 5 MG Oral Tablet Extended Release 24 Hour (glipiZIDE XL)Indications:Typ e 2 diabetes mellitus with diabetic nephropathy, without long-term current use of insulin (HCC) Take 1 Tablet by mouth in the morning. 30 minutes before a meal.. 90 Tablet 3 04/06/2024 Active metFORMIN HCl 1000 MG Oral Tablet (Glucophage)Indica tions:Type 2 diabetes mellitus with hemoglobin A1c goal of less than 8.0% (HCC) Take one tablet twice a day for sugar control. 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 Every morning.. 90 Capsule 3 04/06/2024 Active Potassium Chloride Amira ER 10 MEQ Oral Tablet Extended Release (Klor-Con M10)Indications:Hy pokalemia TAKE 3 TABLETS BY MOUTH THREE TIMES A DAY (9 TABLETS PER DAY) 810 Tablet 3 04/06/2024 Active Triamterene-HCTZ 75-50 MG Oral Tablet (Maxzide)Indicatio ns:HTN, goal below 150/90 TAKE 1/2 TABLET BY MOUTH EVERY DAY 45 Tablet 3 04/06/2024 Active Vitamin B-12 1000 MCG Oral Tablet (Cyanocobalamin)In dications:B12 deficiency Take 1 Tablet by mouth in the morning. 90 Tablet 3 04/06/2024 Active Trulicity 3 MG/0.5ML Subcutaneous Solution Pen-injector (Dulaglutide)Indic ations:Type 2 diabetes mellitus with hemoglobin A1c goal of less than 8.0% (HCC) Inject 3 mg under the skin once a week. Dose Increase 6 mL 3 04/06/2024 Active Triamterene-HCTZ 75-50 MG Oral Tablet (Maxzide) TAKE 1/2 TABLET BY MOUTH EVERY DAY 45 Tablet 3 04/06/2023 4 Discontinue d(Refill) glipiZIDE ER 10 MG Oral Tablet Extended Release 24 Hour (glipiZIDE XL)Indications:Aby betes mellitus with stage 2 chronic kidney disease (HCC) Take 1 Tablet by mouth in the morning. 30 minutes before a meal.. 90 Tablet 3 10/18/2023 4 Discontinue d(Medicatio n/Dose Changed) Trulicity 3 MG/0.5ML Subcutaneous Solution Pen-injector (Dulaglutide)Indic ations:Type 2 diabetes mellitus with hemoglobin A1c goal of less than 8.0% (HCC) Inject 3 mg under the skin once a week. Dose Increase 2 mL 5 10/18/2023 4 Discontinue d(Refill) Omeprazole 20 MG Oral Capsule Delayed Release (PriLOSEC)Indicati ons: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,Intertriginous dermatitis associated with moisture TAKE 1 CAPSULE BY MOUTH EVERY MORNING 90 Capsule 3 11/03/2023 4 Discontinue d(Refill) Atenolol 50 MG Oral Tablet (Tenormin)Indicati ons:HTN, goal below 150/90 TAKE 1 TABLET BY MOUTH EVERY DAY 90 Tablet 3 11/16/2023 4 Discontinue d(Refill) metFORMIN HCl 1000 MG Oral Tablet (Glucophage)Indica tions:Type 2 diabetes mellitus with hemoglobin A1c goal of less than 8.0% (HCC) TAKE ONE TABLET TWICE A DAY FOR SUGAR CONTROL. 180 Tablet 2 11/26/2023 4 Discontinue d(Refill) Vitamin B-12 1000 MCG Oral Tablet (Cyanocobalamin) TAKE 1 TABLET BY MOUTH EVERY DAY IN THE MORNING 90 Tablet 3 12/13/2023 4 Discontinue d(Refill) Potassium Chloride Amira ER 10 MEQ Oral Tablet Extended Release (Klor-Con M10)Indications:Hy pokalemia TAKE 3 TABLETS BY MOUTH THREE TIMES A DAY (9 TABLETS PER DAY) 810 Tablet 3 01/18/2024 4 Discontinue d(Refill) Atorvastatin Calcium 40 MG Oral Tablet (Lipitor)Indicatio ns:Dyslipidemia, goal LDL below 100 TAKE 1 TABLET BY MOUTH EVERY NIGHT AT BEDTIME. FOR CHOLESTEROL 90 Tablet 3 01/18/2024 4 Discontinue d(Refill) Aspirin Low Dose 81 MG Oral Tablet Delayed Release (aspirin enteric coated) TAKE 1 TABLET BY MOUTH EVERY DAY IN THE MORNING 90 Tablet 3 03/14/2024 4 Discontinue d(Refill) Trulicity 3 MG/0.5ML Subcutaneous Solution Pen-injector (Dulaglutide)Indic ations:Type 2 diabetes mellitus with hemoglobin A1c goal of less than 8.0% (HCC) Inject 3 mg under the skin once a week. Dose Increase 6 mL 3 04/06/2024 4 Discontinue d(Refill) documented as of this encounter (statuses as of 04/06/2024) Active Problems Problem Noted Date Diagnosed Date [...] as of this encounter (statuses as of 04/06/2024) Resolved Problems Problem Noted Date Diagnosed Date [...] 06/09/199909/05 Overview: Per HTN Taxonomy. OBESITY, UNSPECIFIED 03/30/2 010 Overview: Per Obesity Taxonomy documented as of this encounter (statuses as of 04/06/2024) Immunizations Name Administration Dates Next Due COVID-19 [...] Sign Reading Time Taken Comments Blood Pressure 122/76 04/06/2024 8:27 AM EDT Pulse 76 04/06/2024 8:27 AM EDT Temperature 36 C (96.8 F) 04/06/2024 8:27 AM EDT Respiratory Rate 16 04/06/2024 8:27 AM EDT Oxygen Saturation 93% 04/06/2024 8:27 AM EDT Inhaled Oxygen Concentration - - Weight 106.5 kg (234 lb 12.8 oz) 04/06/2024 8:27 AM EDT Height 167.6 cm (5' 6") 04/06/2024 8:27 AM EDT Body Mass Index 37.9 04/06/2024 8:27 AM EDT documented in this encounter Progress Notes * Dominic Blancas MD - 04/06/2024 8:50 AM EDT Subjective: Tim Vazquez is a 73 year old male. Chief Complaint Patient presents with Follow Up Patient is here today for a six month follow up. Patient states no concerns. HPI: 73-year-old that is seen today as a six-month recheck. Has now been on Trulicity a dose of 3 mg per week for over 6 months. In the last 6 months he has dropped his most recent hemoglobin A1c hasimproved to 6.9 having been 9.0 just 5 months ago. He gives no Um significant complaints. Knees maybe bothering him a little bit more. Reportedly not walking quite as much. He is scheduled in mid April for an EGD as routine follow-up for Barretts esophagus. He is on omeprazole daily. He was to be scheduled for colonoscopy the same day and that is a little unclear tome whether that colonoscopy is on the schedule. Not bothered with chest pain or shortness of breath. Also no heartburn Patient Active Problem List Diagnosis LV hypertrophy, hypertensive DYSLIPIDEMIA, GOAL LDL BELOW 100 DM type 2 causing renal disease ([facility]) Obesity, morbid (more than 100 lbs over ideal weight or BMI > 40) ([facility]) Vitamin D deficiency Type 2 diabetes mellitus with hemoglobin A1c goal of less than 8.0% ([facility]) HTN, goal below 150/90 Aortic valve sclerosis Mild intellectual disability Hypokalemia History of colon cancer in adulthood Cortes's esophagus without dysplasia Diabetes mellitus with stage 2 chronic kidney disease ([facility]) Class 2 severe obesity due to excess calories with serious comorbidity and body mass index (BMI) of38.0 to 38.9 in adult ([facility]) Current Outpatient Medications Medication Sig Dispense Refill Setup SYSTEM W/DEVICE KIT Use up to four times a day as directed 1 Kit 0 VITAMIN D 1000 UNITS PO CAPS 1 capsule daily 30 Cap 11 Multiple Vitamins-Minerals (MULTIVITAMIN ADULT) TABS once. Triamcinolone Acetonide 0.1 % External Ointment (Aristocort) APPLY TO AFFECTED AREA TWICE A DAY 80 g 3 [employer] Delica Lancets 30G E 11.9 DX Use to test blood glucose twice daily 200 Each 3 Triamterene-HCTZ 75-50 MG Oral Tablet (Maxzide) TAKE 1/2 TABLET BY MOUTH EVERY DAY 45 Tablet 3 glipiZIDE ER 10 MG Oral Tablet Extended Release 24 Hour (glipiZIDE XL) Take 1 Tablet by mouth in the morning. 30 minutes before a meal.. 90 Tablet 3 Trulicity 3 MG/0.5ML Subcutaneous Solution Pen-injector (Dulaglutide) Inject 3 mg under the skin once a week. Dose Increase 2 mL 5 Omeprazole 20 MG Oral Capsule Delayed Release (PriLOSEC) TAKE 1 CAPSULE BY MOUTH EVERY MORNING 90 Capsule 3 Atenolol 50 MG Oral Tablet (Tenormin) TAKE 1 TABLET BY MOUTH EVERY DAY 90 Tablet 3 metFORMIN HCl 1000 MG Oral Tablet (Glucophage) TAKE ONE TABLET TWICE A DAY FOR SUGAR CONTROL. 180 Tablet 2 Vitamin B-12 1000 MCG Oral Tablet (Cyanocobalamin) TAKE 1 TABLET BY MOUTH EVERY DAY IN THE MORNING 90 Tablet 3 Potassium Chloride Amira ER 10 MEQ Oral Tablet Extended Release (Klor-Con M10) TAKE 3 TABLETS BY MOUTH THREE TIMES A DAY (9 TABLETS PER DAY) 810 Tablet 3 Atorvastatin Calcium 40 MG Oral Tablet (Lipitor) TAKE 1 TABLET BY MOUTH EVERY NIGHT AT BEDTIME. FORCHOLESTEROL 90 Tablet 3 Trulicity 1.5 MG/0.5ML Subcutaneous Solution Pen-injector (Dulaglutide) Inject 1.5 mg under the skin once a week. 2 mL 1 IncentiveTouch Ultra In Vitro Strip (Glucose Blood) USE TO TEST BLOOD SUGARS ONCE DAILY DX: E11.9 100 Strip 3 Aspirin Low Dose 81 MG Oral Tablet Delayed Release (aspirin enteric coated) TAKE 1 TABLET BY MOUTH EVERY DAY IN THE MORNING 90 Tablet 3 Miconazole Nitrate 2 % Powder Apply powder to areas of fungal rash in groin area three times a day until rash is gone. Then daily for maintenance therapy. 100 g 11 No current facility-administered medications for this visit. Review of patient's allergies indicates: Allergen Reactions Farxiga [Dapagliflozin] Other (Please comment) dehydration Latex Objective: BP 122/76 | Pulse 76 | Temp 36 C (96.8 F) (Tympanic) | Resp 16 | Ht 1.676 m (5' 6") | Wt 106.5 kg (234 lb 12.8 oz) | SpO2 93% | BMI 37.90 kg/m | BSA 2.23 m Physical Exam: 19 lb weight loss in the last 5 months as noted above CONST: alert, pleasant, no acute distress HEAD: normocephalic, atraumatic NECK: supple, soft, no adenopathy EARS: canals normal, TMs normal Eyes - PERRLA, EOM'I OROPHARYNX: clear, no swelling or erythema, moist CV: regular rate and rhythm, no murmur CHEST: clear to auscultation bilaterally, no rales or wheezing ABD: soft, non tender, non distended, no masses or hepatosplenomegaly EXT: no edema, no joint swelling or deformities, NEURO: AAOx3, no gross focal deficits, cerebellar signs normal, affect appropriate MENTAL STATUS: no evidence of thought disorder, no delusional thought, no evidence of paranoia, thought is non-tangential. SKIN: no rash or significant lesions ASSESSMENT/PLAN: 1. Diabetes mellitus-marked improvement. Suspect the weight loss and ongoing Trulicity has been major factor. Will decrease his glipizide which currently has a 10 mg a day to 5 mg a day. He will alsoremain on metformin a 1000 mg twice a day 2. Barretts esophagus-needs lifelong PPI therapy. Continue omeprazole 20 mg daily. Proceed with EGD. 3. History colon cancer. He is due for routine 5 year recheck colonoscopy. Will make sure that his colonoscopies scheduled the same time as his EGD 4. Routine health maintenance-I did recommend flu shot as well as RSV vaccine and COVID booster this fall. See again 6 months. Will have blood work as ordered to be done prior to that visit. Dominic Blancas MD documented in this encounter Nursing Notes * Vianey Perez MED ASSIST - 04/06/2024 8:32 AM EDT The patient has been properly identified by confirmation of name and date of . Chief Complaint Patient presents with Follow Up Patient is here today for a six month follow up. Patient states no concerns. documented in this encounter Plan of Treatment Upcoming Encounters Date Type Department Care Team (Latest Contact Info) Description 04/25/2024 9:00 AM EDT Hospital Encounter ENDO [facility], Endoscopy Room [facility] [address] [place] [phone] Jeyson Newby MD [address] [place] [address] 04/25/2024 9:00 AM EDT - 04/25/2024 9:45 AM EDT Surgery ENDO [facility], Endoscopy Room [facility] [address] [place] [phone] Jeyson Newby MD [address] [place] [address] COLONOSCOPY FLEXIBLE PROXIMAL DIAGNOSTIC 10/03/2024 9:40 AM EST Laboratory Laboratory, [place] [address] [place] [facility] [place] [address] [place], Laboratory [address] [facility] [place] [place] [address] 10/10/2024 9:40 AM EST Office Visit [facility] [address] [place] [address] Dominic Blancas MD [address] [place] [address] Scheduled Orders Name Type Priority Associated Diagnoses Orde r Schedule COMPREHENSIVE METABOLIC PANEL Lab Routine HTN, goal below 150/90 Expected: 04/06/2024 (Approximate), Expires: 04/06/2025 LIPID PANEL WITH DIRECT LDL IF TG IS HIGH Lab Routine DYSLIPIDEMIA, GOAL LDL BELOW 100 Expected: 04/06/2024, Expires: 04/06/2025 HEMOGLOBIN A1C Lab Routine Type 2 diabetes mellitus with diabetic nephropathy, without long-term current use of insulin (HCC) Expected: 04/06/2024 (Approximate), Expires: 04/06/2025 ALBUMIN / CREATININE RATIO, URINE Lab Routine HTN, goal below 150/90 Expected: 04/06/2024 (Approximate), Expires: 04/06/2025 VITAMIN B12 Lab Routine Encounter for long-term (current) use of medications Expected: 04/06/2024 (Approximate), Expires: 04/06/2025 MAGNESIUM Lab Routine Encounter for long-term (current) use of medications Expected: 04/06/2024 (Approximate), Expires: 04/06/2025 Scheduled Procedures Name Priority Associated Diagnoses Date/Ti me COLONOSCOPY FLEXIBLE PROXIMA L DIAGNOSTIC Recall Cortes's esophagus History of colon cancer in adulthood 04/25/2024 9:00 AM EDT ESOPHAGOGASTRODUODENOSCOPY ( EGD), FLEXIBLE, TRANSORAL, [...] 2023 05/08/2023, 04/17/2022, 06/05/2021, Additional history exists Diabetic Foot Exam 04/06/2024 [...] 04/04/2025 024, 12/14/2022, 07/23/2020, Additional history exists Lipid Panel 10/04/2028 10/04/2023, [...] as of this encounter Visit Diagnoses Diagnosis HTN, goal below 150/90- Primary DYSLIPIDEMIA, GOAL LDL BELOW 100 Other and unspecified hyperlipidemia Type 2 diabetes mellitus with diabetic nephropathy, without long-term current use of insulin (HCC) Cortes's esophagus without dysplasia Cortes's esophagus History of colon cancer in adulthood Encounter for long-term (current) use of medications Encounter for long-term (current) use of other medications Type 2 diabetes mellitus with hemoglobin A1c goal of less than 8.0% (HCC) 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 Cortical senile cataract Intertriginous dermatitis associated with moisture Hypokalemia Hypopotassemia B12 deficiency Other B-complex deficiencies Cortes's esophagus History of colon cancer in adulthood documented in this encounter Care Teams Chip Tuner Relationship Specialty Start Date End Date Dominic Blancas MD [address] [place] [address] PCP - General 03/03/00 documented as of this encounter
--- OUTSIDE RECORDS SUMMARY | 2024-07-30 19:17 | External Medical Summary ---
Author Name Unknown Address Unknown Organization : Laboratory Report Ordering Provider Test Date Status CATERINA PATEL 04/25/2024 08:57:19 Final Observation Date Value Abnormality Reference (Units ) Status Glucose Point of Care 04/25/2024 08:57:19 151 Above high normal 70-120 (mg/dL) Final Performing Location
--- OUTSIDE RECORDS SUMMARY | 2024-07-30 19:17 | External Medical Summary ---
Author Name Unknown Address Unknown Organization K01:[facility] [place] [address] [place] [address] Laboratory Report Ordering Provider Test Date Status ANTIONE MARSH 04/04/2024 08:00:24 Final Normal: <30 mg/g creatinine< br/>High: 30-300 mg/g creatinine
Very High: >300 mg/g creatinine
Nephrotic: >2200 mg/g creatinine Observation Date Value Abnormality Reference (Units ) Status Albumin, Urine 04/04/2024 08:00:24 1.00 (mg/dL) Final Creatinine, Urine 04/04/2024 08:00:24 91 (mg/dL) Final Albumin/Creatinine [Mass Ratio] in Urine 04/04/2024 08:00:24 11 <30 (mg/g Creat) Final Performing Location [facility] [place] [address] [place] [address]
--- OUTSIDE RECORDS SUMMARY | 2024-07-30 19:17 | External Medical Summary | Summary of Care ---
Author Name Unknown Organization [facility] Address [address] [place] [address] Phone [phone] Care Team Providers Care Client Professional Name Role Phone Dominic Blancas MD Primary Care Provider [phone] Reason for Visit * Reason Comments Outpatient Testing Encounter Details Date Type Department Care Team (Late st Contact Info) Description 04/04/2024 8:00 AM EDT Laboratory Laboratory, [place] [address] [place] [address] [place] [address] [place] [address] Type 2 diabetes mellitus with hemoglobin A1c goal of less than 8.0% (FORMERLY [facility]); History of colon cancer in adulthood Allergies Active Allergy Reactions Criticality Noted Date Comments Dapagliflozin Other (Please comment) 12/25/2022 dehydration Latex 11/06/2016 documented as of this encounter (statuses as of 04/04/2024) Medications Medication Sig Dispensed Refills Start Date End Date Status [employer] SYSTEM W/DEVICE KITIndications:DM type 2, not at goal ([facility]LY [facility]) Use up to four times a day [...] than 8.0% ([facility]ER[facility]) Inject 3 mg under the skin once [...] than 8.0% (FORMERLY [facility]) TAKE ONE TABLET TWICE A DAY FOR [...] a week. 2 mL 1 01/22/2024 Active [employer] Ultra In Vitro Strip (Glucose Blood)Indications:T ype [...] Description 04/06/2024 8:20 AM EDT Office Visit [facility] [address] [place] [address] Dominic Blancas MD [address] [place] [address] 04/25/2024 9:00 AM EDT Hospital Encounter [facility], Endoscopy Room [facility] [address] [place] [address] Jeyson Newby MD [address] [place] [address] 04/25/2024 9:00 AM EDT - 04/25/2024 9:45 AM EDT Surgery ENDO [facility], Endoscopy Room [facility] [address] [place] [address] Jeyson Newby MD [address] [place] [id number] ESOPHAGOGASTRODUODENOSCOPY (EGD), FLEXIBLE, TRANSORAL, DIAGNOSTIC Pending Results Name Type Priority Associated Diagnoses Date /Time HEMOGLOBIN A1C Lab Routine Type 2 diabetes mellitus with hemoglobin A1c goal of less than 8.0% (HCC) 04/04/2024 8:00 AM EDT HEPATIC FUNCTION PANEL Lab Routine History of colon cancer in adulthood 04/04/2024 8:00 AM EDT Scheduled Procedures Name Priority Associated Diagnoses Date/Ti ct ESOPHAGOGASTRODUODENOSCOPY ( EGD), FLEXIBLE, TRANSORAL, DIAGNOSTIC Recall [...] 01/18/2025 01/18/2015, 05/15/2004 Lipid Panel 10/04/2028 10/04/2023, 02/2023, 04/23/2022, Additional [...] A1c goal of less than 8.0% (HCC) History of colon cancer in adulthood Cortes's esophagus History of colon cancer in adulthood documented in this encounter Care Teams Client Professional Relationship Specialty Start Date End Date Dominic Blancas MD [address] [place] [address] PCP - General 03/03/00 documented as of this encounter
[2024-07-30 19:57] LABS: Basophils # (auto) 0.05 K/uL (0.00-0.20); Basophils % (auto) 0.4 %; Eosinophils # (auto) 0.29 K/uL (0.00-0.50); Eosinophils % (auto) 2.6 %; Hematocrit (blood only) 40.8 % (42.0-52.0); Hemoglobin 13.6 g/dl (14.0-18.0); Immature Granulocytes # (auto) 0.06 K/uL (0.01-0.20); Immature Granulocytes % (auto) 0.5 %; Lymphocytes # (auto) 1.15 K/uL (1.20-3.40); Lymphocytes % (auto) 10.2 %; Mean Corpuscular Hemoglobin 29.1 pg (25.0-34.0); Mean Corpuscular Hgb Conc 33.3 g/dL (32.0-36.0); Mean Corpuscular Volume 87.4 fL (80.0-100.0); Mean Platelet Volume 9.8 fL (9.4-12.4); Monocytes # (auto) 1.68 K/uL (0.11-0.59); Monocytes % (auto) 14.9 %; Neutrophils # (auto) 8.03 K/uL (1.40-6.50); Neutrophils % (auto) 71.4 %; Platelet Count 181 K/uL (130-400); RDW Coefficient of Variation 13.7 % (11.5-14.5); RDW Standard Deviation 43.7 fL (36.4-46.3); Red Blood Count 4.67 M/uL (4.70-6.10); White Blood Count 11.26 K/ul (4.8-10.8)
[2024-07-30 20:16] LABS: Albumin Globulin Ratio 1.3 (0.9-2); BUN Creatinine Ratio 14.4 (10-20); Bilirubin,Total 1.5 mg/dl (0.2-1.0); Calcium 9.4 mg/dl (8.6-10.3); Creatinine Clr Calc Pharmacy 80.2 ml/min; Globulin 3.1 gm/dl (2.5-4.0); Magnesium 1.7 mg/dl (1.7-2.4); Potassium 3.7 mmol/L (3.5-5.1); Total Protein 7.1 gm/dl (6.0-8.3)
[2024-07-30 20:23] LABS: Troponin I High Sensitivity 5.1 pg/ml (0-20)
[2024-07-30 20:27] LABS: INR 1.1 (0.9-1.1); Prothrombin Time 11.6 Seconds (9.0-12.0)
--- NOTE | 2024-07-30 20:53 | Emergency Department Note ---
Impression & Plan COVID-19, Generalized weakness, Borderline low O2 saturation ED Provider Note NAME: MIHIR HEATH AGE: 73 SEX: M : 1950 ARRIVES VIA: Walk-In INFORMANT: Patient ED PROVIDER(S): Jacob Hansen MD CHIEF COMPLAINT: Generalized weakness, shortness of breath, COVID-19, referred. PLAN: Disposition: Admit MEDICAL DECISION MAKING: The patient is a pleasant 73 gentleman with a past medical history of hypertension, hyperlipidemia, type 2 diabetes, obesity, intellectual delay, Cortes's esophagus, SBO, LVH who presents emergency department via walk-in accompanied by his cousin and caregiver and POA for evaluation of worsening generalized weakness with shortness of breath and cough and congestion that began on Wednesday where the patient was tested for COVID-19 yesterday and tested positive. The patient's caregiver reports that they were instructed to present if his O2 saturation reached 90% or lower. She reports his breathing was more labored today and his O2 saturation did go down to 90%. She also notes that he is typically independent and able to get around on his own but over the past 24 hours has been increasingly weak and needing assistance. They deny nausea or vomiting. There are any diarrhea. He has any chest pain. The patient complained of mild right knee pain as he bumped it on the tub when he was getting out of the shower. On evaluation the patient is uncomfortable but no acute distress, afebrile with blood pressure 150s/80s and heart rate in the 100s and vital signs otherwise stable. He appears clinically dry. Lungs with intermittent wheeze and are otherwise clear. Right lower extremities unremarkable without deformity. Full range of motion intact without difficulty. There is no edema or contusion. EKG without overt acute ischemia. CXR demonstrates bilateral airspace opacities which are consistent with the patient's COVID-19 infection. WBC 11.2 K with neutrophilia and lymphopenia but no left shift. H/H similar to prior. Platelets within normal limits. Chemistry without metabolic acidosis. Electrolytes and LFTs unremarkable. High-sensitivity troponin 5.1, within normal limits. Lipase is not elevated. Procalcitonin is not elevated. COVID- 19 RNA, KENDALL test is positive. Patient treated with IV fluid hydration, Toradol, IV APAP, nasal saline. Additionally treated with Decadron given family report of low/borderline oxygen at home. Given the patient's medical comorbidities the patient and his caregiver agree with plan for admission for further management. Case was discussed with Mundo Oscar hospitalist, who will evaluate the patient for admission. Further management per admitting team. Triage Nursing notes reviewed and agree them. Prior/external medical records reviewed Vital Signs: reviewed Differential diagnosis: Infection, dehydration, metabolic abnormality, hypo/hyperglycemia, electrolyte disturbance, anemia, hypoxia, cardiac sources, intracerebral event, toxicologic, neurologic, as well as other pathologies. ER treatment provided: See below. Diagnostics interpreted by me: Cardiac Monitoring: An order for continuous cardiac monitoring was placed and demonstrated normal sinus rhythm, 80 bpm, rare PVCs. Laboratory studies: See below Imaging studies: See below Consultation(s): Case was discussed with Mundo Oscar, who will evaluate the patient for admission. HPI: The patient is a pleasant 73 gentleman with a past medical history of hypertension, hyperlipidemia, type 2 diabetes, obesity, intellectual delay, Cortes's esophagus, SBO, LVH who presents emergency department via walk-in accompanied by his cousin and caregiver and POA for evaluation of worsening generalized weakness with shortness of breath and cough and congestion that began on Wednesday where the patient was tested for COVID-19 yesterday and tested positive. The patient's caregiver reports that they were instructed to present if his O2 saturation reached 90% or lower. She reports his breathing was more labored today and his O2 saturation did go down to 90%. She also notes that he is typically independent and able to get around on his own but over the past 24 hours has been increasingly weak and needing assistance. They deny nausea or vomiting. There are any diarrhea. He has any chest pain. The patient complained of mild right knee pain as he bumped it on the tub when he was getting out of the shower. ROS: See above HPI for pertinent positives & negatives. A total of 10 systems reviewed and were otherwise negative. VITALS:See Below PHYSICAL EXAMINATION: GENERAL: Awake, alert, fatigued-appearing, in no distress HENT: Normocephalic, atraumatic. Oropharynx with dry mucous membranes and otherwise unremarkable. EYES: Normal conjunctiva. Sclera non-icteric. NECK: Supple. No nuchal rigidity. FROM. No JVD. RESPIRATORY: Intermittent wheeze and lungs otherwise clear to auscultation. CARDIAC: Tachycardic rate, normal rhythm. Extremities warm and well perfused. Pulses equal. ABDOMEN: Soft, non-distended. No tenderness to palpation. No rebound or guarding. No masses. MUSCULOSKELETAL: Chest examination reveals no tenderness. The back is symmetrical on inspection without obvious abnormality. There is no CVA tenderness to palpation. Right lower extremities unremarkable without deformity. Full range of motion intact without difficulty. There is no edema or contusion. LOWER EXTREMITIES: Calves are equal size bilaterally and non-tender. No edema. No discoloration. NEURO: Normal sensorium. No sensory or motor deficits noted. SKIN: No rash or jaundice noted. 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 R colon resection with primary ileocolonic anastomosis, gastrostomy" Cellulitis of right lower extremity without foot SBO (small bowel obstruction) (Acute) Small bowel obstruction (Acute) Tachycardia (Acute) Hx of cholecystectomy (Chronic) S/P appendectomy (Chronic) Mild intellectual disability (Chronic) PT IS SPECIAL NEEDS, COMMUNICATION ABILITY SEEMS TO DECLINE WITH AGE PT IS FEARFUL OF UPCOMING CATARACT SURGERY Cortes's esophagus (Chronic) Malignant neoplasm of colon (Chronic) hx 15-20 yr ago / sx intervention HX PORT PLACEMENT ? HX CHEMO/? IF PORT IS STILL PRESENT Obesity, Class III, BMI 40-49.9 (morbid obesity) (Chronic) Dyslipidemia (Chronic) Hypertension (Chronic) DM type 2 (diabetes mellitus, type 2) (Chronic) DM TYPE 2 CAUSING RENAL DISEASE Medical History Rash OF GROIN AREA/DR EVAL FOR/ANTIFUNGAL POWDER/IMPROVING Problem of extremity RIGHT LEG TROUBLE WITH MOVEMENT AT TIMES Kidney disease ? born with, reason for potassium supplement History of anesthesia reaction problems with swallowing after surgery, esophagus was irritated - with colon surgery Aortic valve sclerosis Surgical History History of left cataract surgery History of endoscopy History of colonoscopy History of colon surgery for colon ca Family History Mother Family history of diabetes mellitus Social History Smoking Status: Never smoker Second Hand Exposure: No; Do You Dip or Chew Tobacco: No; Tobacco Cessation Education Requested by Patient: No Hx Alcohol Use: No Hx Substance Use: No Preferred Language: [place]an Communication Ability: Effective Communication Ability Comment: PT SPECIAL NEEDS/COMMUNICATES LIVAN & IS COOPERATIVE/ABLE TO SIGN CONSENTS [employer] Business [employer] Required: No Beliefs That Will Affect Care: None Current Living Situation: Family Current Living Situation Comment: with cousin and her Other Information That Helps Us Care for You: No Feels Safe at Home: Yes Safety Concerns: Feels Safe At This Time Assistive Devices: Walker Allergies Allergies Allergy/AdvReac Type Severity Reaction Status Date / Time latex Allergy Unknown Rash Verified 07/30/24 21:59 dapagliflozin [From [facility]] AdvReac Anaphylaxis Unverified 07/30/24 22:00 Home Meds Home Medications Medication Instructions Recorded Confirmed atenolol 50 mg tablet 50 mg PO QAM 09/15/22 07/30/24 atorvastatin 40 mg tablet 40 mg PO HS 09/15/22 07/30/24 cholecalciferol (vitamin D3) 25 4,000 - 5,000 unit PO WK 09/15/22 07/30/24 mcg (1,000 unit) capsule (Vitamin D3) cyanocobalamin (vitamin B-12) 1,000 mcg PO QAM 09/15/22 07/30/24 1,000 mcg tablet (Vitamin B-12) glipizide 5 mg tablet 5 mg PO DAILY 09/15/22 07/30/24 metformin 1,000 mg tablet 1,000 mg PO BID 09/15/22 07/30/24 multivitamin 1 cap PO QAM 09/15/22 07/30/24 omeprazole 20 mg capsule,delayed 20 mg PO QAM 09/15/22 07/30/24 release potassium chloride 10 mEq 30 meq PO TID 09/15/22 07/30/24 tablet,extended release(part/cryst) (Klor-Con M) triamterene 75 0.5 tab PO QAM 09/15/22 07/30/24 mg-hydrochlorothiazide 50 mg tablet nirmatrelvir 300 mg (150 mg 1 ea PO DAILY 07/30/24 07/30/24 x2)-ritonavir 100 mg tablet,dose pack (Paxlovid) Previous Rx's Medication Instructions Recorded aspirin 81 mg tablet,delayed 81 mg PO QAM #30 tabs 12/17/22 release Results & Data (ED) Vital Signs Vital Signs - 24 hr 07/30/24 19:12 07/30/24 19:32 07/30/24 20:00 Temperature 36.5 C Temperature Source Temporal Artery Scan Pulse Rate 104 H 93 H Pulse Rate [Right Finger] 89 Pulse Rhythm [Right Finger] Regular Pulse Strength Normal Pulse Strength [Right Finger] Normal Respiratory Rate 19 20 Respiratory Effort / Characteristics Non-Labored Spontaneous Non-Labored Respiratory Depth Normal Normal Respiratory Pattern Regular Regular Blood Pressure 152/89 H Blood Pressure [Right Arm] 144/89 H Blood Pressure Mean 110 Blood Pressure Mean [Right Arm] 107 Blood Pressure Position Sitting Blood Pressure Position [Right Arm] Lying Pulse Oximetry 95 96 Oxygen Delivery Method Room Air Room Air Sepsis Recent Fever Within 48 Hours No Sepsis New/Unexplained Change in Mental Status No Sepsis Action Taken by Nursing No Action Required 07/30/24 20:00 07/30/24 22:00 Temperature Temperature Source Pulse Rate 88 Pulse Rate [Right Finger] 91 H Pulse Rhythm [Right Finger] Regular Pulse Strength Pulse Strength [Right Finger] Normal Respiratory Rate 20 18 Respiratory Effort / Characteristics Non-Labored Respiratory Depth Normal Respiratory Pattern Regular Blood Pressure Blood Pressure [Right Arm] 135/93 Blood Pressure Mean Blood Pressure Mean [Right Arm] 107 Blood Pressure Position Blood Pressure Position [Right Arm] Lying Pulse Oximetry 96 95 Oxygen Delivery Method Room Air Room Air Sepsis Recent Fever Within 48 Hours Sepsis New/Unexplained Change in Mental Status Sepsis Action Taken by Nursing Laboratory Data Attestation: I reviewed the patient's lab results. 07/30/24 19:43 07/30/24 19:43 Lab Results 07/30/24 07/30/24 Range/Units 19:43 20:11 WBC 11.26 H (4.8-10.8) K/ul RBC 4.67 L (4.70-6.10) M/uL Hgb 13.6 L (14.0-18.0) g/dl Hct 40.8 L (42.0-52.0) % MCV 87.4 (80.0-100.0) fL MCH 29.1 (25.0-34.0) pg MCHC 33.3 (32.0-36.0) g/dL RDW Std Deviation 43.7 (36.4-46.3) fL RDW Coeff of Hal 13.7 (11.5-14.5) % Plt Count 181 (130-400) K/uL MPV 9.8 (9.4-12.4) fL Immature Gran % (Auto) 0.5 % Neut % (Auto) 71.4 % Lymph % (Auto) 10.2 % [place] % (Auto) 14.9 % Eos % (Auto) 2.6 % Baso % (Auto) 0.4 % Neut # (Auto) 8.03 H (1.40-6.50) K/uL Lymph # (Auto) 1.15 L (1.20-3.40) K/uL [place] # (Auto) 1.68 H (0.11-0.59) K/uL Eos # (Auto) 0.29 (0.00-0.50) K/uL Baso # (Auto) 0.05 (0.00-0.20) K/uL Immature Gran # (Auto) 0.06 (0.01-0.20) K/uL PT 11.6 (9.0-12.0) Seconds INR 1.1 (0.9-1.1) Sodium 138 (136-145) mmol/L Potassium 3.7 (3.5-5.1) mmol/L Chloride 101 (98-107) mmol/L Carbon Dioxide 29 (21-32) mmol/L Anion Gap 8 (3-11) BUN 13 (6-23) mg/dl Creatinine 0.90 (0.6-1.4) mg/dl Est Cr Clr Drug Dosing 80.2 ml/min eGFR 89.62 BUN/Creatinine Ratio 14.4 (10-20) Glucose 185 H (70-99(Fasting)) mg/dl Calcium 9.4 (8.6-10.3) mg/dl Magnesium 1.7 (1.7-2.4) mg/dl Total Bilirubin 1.5 H (0.2-1.0) mg/dl AST 25 (13-39) U/L ALT 14 (7-52) U/L Alkaline Phosphatase 76 (34-104) U/L Troponin I High Sens 5.1 (0-20) pg/ml Total Protein 7.1 (6.0-8.3) gm/dl Albumin 4.0 (3.4-5.0) gm/dl Globulin 3.1 (2.5-4.0) gm/dl Albumin/Globulin Ratio 1.3 (0.9-2) Lipase 10 L (11-82) U/L Procalcitonin 0.06 (0-0.5) ng/ml SARS-CoV-2, RNA, NAAT POSITIVE A (NEGATIVE) Administered Medications Enoxaparin Sodium (Enoxaparin Inj 40 Mg/0.4 Ml Syr) 40 mg SQ PM DANISHA Stop: 08/29/24 23:41 Last Admin: 07/31/24 02:27 Dose: 40 mg Documented By: MARCO ANTONIO Discontinued Medications Albuterol (Albuterol Hfa 8 Gm Inhaler) 2 puffs INH NOW ONE Stop: 07/30/24 20:54 Last Admin: 07/30/24 21:14 Dose: 2 puffs Documented By: PAIGE Dexamethasone Sodium Phosphate (DexamethasonePf 10 Mg/Ml Vial) 6 mg IV NOW ONE Stop: 07/30/24 20:54 Last Admin: 07/30/24 21:14 Dose: 6 mg Documented By: PAIGE Guaifenesin (Guaifenesin 600 Mg Tabcr) 600 mg PO NOW STA Stop: 07/30/24 22:52 Last Admin: 07/31/24 02:27 Dose: 600 mg Documented By: MARCO ANTONIO Sodium Chloride (Nss) 1,000 mls @ 999 mls/hr IV .Q1H1M ONE Stop: 07/30/24 21:53 Last Infusion: 07/30/24 22:18 Dose: Infused Documented By: Admin: 07/30/24 21:06 Dose: 999 mls/hr Documented By: PAIGE Acetaminophen (Ofirmev) 1,000 mg in 100 mls @ 400 mls/hr IV NOW STA Stop: 07/30/24 21:07 Last Infusion: 07/30/24 22:18 Dose: Infused Documented By: Admin: 07/30/24 21:12 Dose: 400 mls/hr Documented By: PAIGE Remdesivir 200 mg/ Sodium (Chloride) 250 mls @ 125 mls/hr IV ONE STA; Protocol Stop: 07/31/24 01:41 Last Infusion: 07/31/24 03:00 Dose: Infused Documented By: MARCO ANTONIO Admin: 07/31/24 00:48 Dose: 125 mls/hr Documented By: MARCO ANTONIO Ketorolac Tromethamine (Ketorolac Tromethamine 15 Mg/Ml Vial) 15 mg IV NOW STA Stop: 07/30/24 20:54 Last Admin: 07/30/24 21:14 Dose: 15 mg Documented By: PAIGE Potassium Chloride (Potassium Chloride 10 Meq Tabcr) 30 meq PO NOW STA Stop: 07/30/24 22:52 Last Admin: 07/31/24 02:27 Dose: 30 meq Documented By: MARCO ANTONIO Sodium Chloride (Sodium Chloride 0.65% Na Soln 45 Ml ([place])) 2 sprays NA NOW ONE Stop: 07/30/24 20:54 Last Admin: 07/30/24 21:13 Dose: 2 sprays Documented By: PAIGE Imaging Data Radiologist's Impression: Chest X-Ray 07/30/24 19:18 Exam(s): XR CXR 1 VIEW EXAM: XR Chest, 1 View CLINICAL HISTORY: Chest Pain, nonspecific. TECHNIQUE: Frontal view of the chest. COMPARISON: Chest radiograph 12/16/2022 FINDINGS: Lungs: Bilateral airspace opacities may represent pulmonary edema and/or atypical infection. Pleural space: Small bilateral pleural effusions. No pneumothorax. Heart: Cardiomegaly. Mediastinum: Unremarkable. Normal mediastinal contour. Bones/joints: Degenerative changes of the spine are noted. No acute fracture. IMPRESSION: 1. Bilateral airspace opacities may represent pulmonary edema and/or atypical infection. 2. Cardiomegaly. 3. Small bilateral pleural effusions. Electronically signed by: Nichole Johnson MD 07/30/24 21:36 PM Discharge Plan Visit Data Chief Complaint: Cough Stated Complaint: POS COVID, LOW OXYGEN, COUGHING, LETHARGIC ED Provider: Jacob Hansen Discharge Problem: COVID-19, Generalized weakness, Borderline low O2 saturation Patient Disposition: Admitted As Inpatient Discharge Instructions Interventions: ED Discharge Assessment Last Done: 07/30/24 23:44
[2024-07-30] MEDS: SODIUM CHLORIDE 0.9% 1,000 ML IV ONE (21:06)
[2024-07-30] MEDS: ACETAMINOPHEN 1,000 MG/100 ML VIAL IV STA (21:12)
[2024-07-30] MEDS: SODIUM CHLORIDE 0.65% NA SOLN 45 ML (OCEAN) ONE (21:13)
[2024-07-30] MEDS: dexAMETHasone**PF** 10 MG/ML VIAL IV ONE (21:14)
[2024-07-30] MEDS: KETOROLAC TROMETHAMINE 15 MG/ML VIAL IV STA (21:14)
[2024-07-30] MEDS: ALBUTEROL HFA 8 GM INHALER INH ONE (21:14)
--- NOTE | 2024-07-30 21:37 | XRay Report ---
Exam(s): XR CXR 1 VIEW EXAM: XR Chest, 1 View CLINICAL HISTORY: Chest Pain, nonspecific. TECHNIQUE: Frontal view of the chest. COMPARISON: Chest radiograph 12/16/2022 FINDINGS: Lungs: Bilateral airspace opacities may represent pulmonary edema and/or atypical infection. Pleural space: Small bilateral pleural effusions. No pneumothorax. Heart: Cardiomegaly. Mediastinum: Unremarkable. Normal mediastinal contour. Bones/joints: Degenerative changes of the spine are noted. No acute fracture. IMPRESSION: 1. Bilateral airspace opacities may represent pulmonary edema and/or atypical infection. 2. Cardiomegaly. 3. Small bilateral pleural effusions. Electronically signed by: Nichole Johnson MD 07/30/24 21:36 PM
--- NOTE | 2024-07-30 23:06 | History & Physical Report ---
Date of Service July 30, 2024 Assessment & Plan (1) COVID: Plan: 73-year-old male with past medical history significant for diabetes, hyperlipidemia, history of hypokalemia, CKD stage II, left ventricular hypertensive hypertrophy, hypertension, aortic valve sclerosis, obesity, Cortes's esophagus, mild intellectual disability, history of colon cancer s/p surgery and chemo who lives with his niece was brought in because of ongoing cough and weakness. Since Wednesday afternoon patient started to have cough. Wednesday the cough was getting worse so they went to urgent care. He was prescribed azithromycin for possible pneumonia and the Wednesday morning COVID test came back positive. Because of his history laureano called his PCP and was prescribed Paxlovid. Patient took 1 dose of Paxlovid today afternoon. Patient oxygen sats were 95% in the morning but was slowly dropping down to low 90s by evening so the nehector brought him to the hospital. Patient had some low-grade fevers as per niece. He is also very weak. He usually ambulates without support but last couple of days he is using cane and is having difficulty for him to even get up. Appetite is down. Normal bowel and bladder movements. Denies any headache. Denies chest pain or shortness of breath. No nausea, no abdominal pain. Hemodynamics are okay. Patient has mild intellectual disability and williamshector helped with H&P. COVID Cough and weakness Will do short course of remdesivir and Decadron COVID precautions Urgent care prescribed azithromycin and 3 more days to complete the course budenoside and albuterol as needed Supportive care Monitor in the hospital History of diabetes Hold home p.o. medications Sliding scale Will closely monitor Hypertension On atenolol and triamterene hydrochlorothiazide Will monitor History of hypokalemia Continue potassium supplements GERD Cortes's esophagus on omeprazole History of colon cancer Status post left yaw colectomy and chemo in 2005 s/p Right hemicolectomy in 2006 Lower extremity edema We will follow Dopplers Will check echo Hyperlipidemia On statin DVT prophylaxis Lovenox Disposition Med/telemetry Full code. History of Present Illness Chief Complaint: Cough and weakness Primary Care Provider: Dominic Blancas MD 73-year-old male with past medical history significant for diabetes, hyperlipidemia, history of hypokalemia, CKD stage II, left ventricular hypertensive hypertrophy, hypertension, aortic valve sclerosis, obesity, Cortes's esophagus, mild intellectual disability, history of colon cancer s/p surgery and chemo who lives with his niece was brought in because of ongoing cough and weakness. Since Wednesday afternoon patient started to have cough. Wednesday the cough was getting worse so they went to urgent care. He was prescribed azithromycin for possible pneumonia and the Wednesday morning COVID test came back positive. Because of his history laureano called his PCP and was prescribed Paxlovid. Patient took 1 dose of Paxlovid today afternoon. Patient oxygen sats were 95% in the morning but was slowly dropping down to low 90s by evening so the neice brought him to the hospital. Patient had some low-grade fevers as per niece. He is also very weak. He usually ambulates without support but last couple of days he is using cane and is having difficulty for him to even get up. Appetite is down. Normal bowel and bladder movements. Denies any headache. Denies chest pain or shortness of breath. No nausea, no abdominal pain. Hemodynamics are okay. Patient has mild intellectual disability and laureano helped with H&P. Past medical history. As mentioned above Past surgical history. Colonoscopy. Colonoscopy biopsy. EGD. EGD with biopsy. Left partial colectomy.Exploratory laparotomy with lysis of adhesions and right colon resection with primary ileocolonic anastomosis gastrostomy. Appendectomy. Cholecystectomy. Sigmoidoscopy. Social history. Currently no smoking. No alcohol use. No drug use. Family history. Brother had heart disorder. Maternal grandmother had heart disorder. Uncle had heart disorder. Mother had kidney failure. Father had aneurysm. Allergies Allergy/AdvReac Type Severity Reaction Status Date / Time latex Allergy Unknown Rash Verified 07/30/24 21:59 dapagliflozin [From [facility]] AdvReac Anaphylaxis Unverified 07/30/24 22:00 Home Medications Medication Instructions Recorded Confirmed Type atenolol 50 mg tablet 50 mg PO QAM 09/15/22 07/30/24 History atorvastatin 40 mg tablet 40 mg PO HS 09/15/22 07/30/24 History cholecalciferol (vitamin D3) 25 4,000 - 5,000 unit PO WK 09/15/22 07/30/24 History mcg (1,000 unit) capsule (Vitamin D3) cyanocobalamin (vitamin B-12) 1,000 mcg PO QAM 09/15/22 07/30/24 History 1,000 mcg tablet (Vitamin B-12) glipizide 5 mg tablet 5 mg PO DAILY 09/15/22 07/30/24 History metformin 1,000 mg tablet 1,000 mg PO BID 09/15/22 07/30/24 History multivitamin 1 cap PO QAM 09/15/22 07/30/24 History omeprazole 20 mg capsule,delayed 20 mg PO QAM 09/15/22 07/30/24 History release potassium chloride 10 mEq 30 meq PO TID 09/15/22 07/30/24 History tablet,extended release(part/cryst) (Klor-Con M) triamterene 75 0.5 tab PO QAM 09/15/22 07/30/24 History mg-hydrochlorothiazide 50 mg tablet aspirin 81 mg tablet,delayed 81 mg PO QAM #30 tabs 12/17/22 07/30/24 Rx release nirmatrelvir 300 mg (150 mg 1 ea PO DAILY 07/30/24 07/30/24 History x2)-ritonavir 100 mg tablet,dose pack (Paxlovid) Past Med/Surg History Problem List (Updated 07/31/24 @ 05:48 by Jacob Hansen MD) Borderline low O2 saturation (Acute) Generalized weakness (Acute) COVID-19 (Acute) COVID Vertebral artery stenosis, non-symptomatic Hypomagnesemia (Acute) Stroke-like symptom (Acute) LVH (left ventricular hypertrophy) due to hypertensive disease (Chronic) 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 R colon resection with primary ileocolonic anastomosis, gastrostomy" Cellulitis of right lower extremity without foot SBO (small bowel obstruction) (Acute) Small bowel obstruction (Acute) Tachycardia (Acute) Hx of cholecystectomy (Chronic) S/P appendectomy (Chronic) Mild intellectual disability (Chronic) PT IS SPECIAL NEEDS, COMMUNICATION ABILITY SEEMS TO DECLINE WITH AGE PT IS FEARFUL OF UPCOMING CATARACT SURGERY Cortes's esophagus (Chronic) Malignant neoplasm of colon (Chronic) hx 15-20 yr ago / sx intervention HX PORT PLACEMENT ? HX CHEMO/? IF PORT IS STILL PRESENT Obesity, Class III, BMI 40-49.9 (morbid obesity) (Chronic) Dyslipidemia (Chronic) Hypertension (Chronic) DM type 2 (diabetes mellitus, type 2) (Chronic) DM TYPE 2 CAUSING RENAL DISEASE Medical History Rash OF GROIN AREA/DR EVAL FOR/ANTIFUNGAL POWDER/IMPROVING Problem of extremity RIGHT LEG TROUBLE WITH MOVEMENT AT TIMES Kidney disease ? born with, reason for potassium supplement History of anesthesia reaction problems with swallowing after surgery, esophagus was irritated - with colon surgery Aortic valve sclerosis Surgical History History of left cataract surgery History of endoscopy History of colonoscopy History of colon surgery for colon ca Family History Mother Family history of diabetes mellitus Social History Smoking Status: Never smoker Second Hand Exposure: No; Do You Dip or Chew Tobacco: No; Tobacco Cessation Education Requested by Patient: No Hx Alcohol Use: No Hx Substance Use: No Preferred Language: Estonian Communication Ability: Effective Communication Ability Comment: PT SPECIAL NEEDS/COMMUNICATES LIVAN & IS COOPERAT ZOHRA/ABLE TO SIGN CONSENTS Application Packager Required: No Beliefs That Will Affect Care: None Current Living Situation: Family Current Living Situation Comment: with cousin and her Other Information That Helps Us Care for You: No Feels Safe at Home: Yes Safety Concerns: Feels Safe At This Time Assistive Devices: Walker Review of Systems Review of Systems: All systems reviewed & are unremarkable except as noted in HPI & below Physical Exam Physical Exam: General- Not in distress Head- atraumatic Eyes- PERRL. ENT- oropharynx clear Neck- supple, no JVD. Lungs- clear to auscultation no wheezing or crackles Heart- regular rhythm; no murmur, no gallop. Abdomen- normal bowel sounds, soft, nontender, no distension Extremities- b/l pretibial edema present , no erythema seen Neuro- alert, oriented ; PERRL, no facial palsy; no dysarthria; moves extremities Results & Data Results & Data Vital Signs (Past 12 Hours) Vital Signs Temp Pulse Pulse Resp BP BP Pulse Ox 07/30/24 22:00 91 H 18 135/93 95 07/30/24 20:00 88 20 96 07/30/24 20:00 89 20 144/89 H 96 07/30/24 19:32 93 H 07/30/24 19:12 36.5 C 104 H 19 152/89 H 95 O2 Del Method 07/30/24 22:00 Room Air 07/30/24 20:00 Room Air 07/30/24 20:00 Room Air 07/30/24 19:32 07/30/24 19:12 Room Air Diagnostic Findings Laboratory Results WBC 11.26 K/ul (4.8-10.8) H 07/30/24 19:43 RBC 4.67 M/uL (4.70-6.10) L 07/30/24 19:43 Hgb 13.6 g/dl (14.0-18.0) L 07/30/24 19:43 Hct 40.8 % (42.0-52.0) L 07/30/24 19:43 MCV 87.4 fL (80.0-100.0) 07/30/24 19:43 MCH 29.1 pg (25.0-34.0) 07/30/24 19:43 MCHC 33.3 g/dL (32.0-36.0) 07/30/24 19:43 RDW Std Deviation 43.7 fL (36.4-46.3) 07/30/24 19:43 RDW Coeff of Hal 13.7 % (11.5-14.5) 07/30/24 19:43 Plt Count 181 K/uL (130-400) 07/30/24 19:43 MPV 9.8 fL (9.4-12.4) 07/30/24 19:43 Immature Gran % (Auto) 0.5 % 07/30/24 19:43 Neut % (Auto) 71.4 % 07/30/24 19:43 Lymph % (Auto) 10.2 % 07/30/24 19:43 [place] % (Auto) 14.9 % 07/30/24 19:43 Eos % (Auto) 2.6 % 07/30/24 19:43 Baso % (Auto) 0.4 % 07/30/24 19:43 Neut # (Auto) 8.03 K/uL (1.40-6.50) H 07/30/24 19:43 Lymph # (Auto) 1.15 K/uL (1.20-3.40) L 07/30/24 19:43 [place] # (Auto) 1.68 K/uL (0.11-0.59) H 07/30/24 19:43 Eos # (Auto) 0.29 K/uL (0.00-0.50) 07/30/24 19:43 Baso # (Auto) 0.05 K/uL (0.00-0.20) 07/30/24 19:43 Immature Gran # (Auto) 0.06 K/uL (0.01-0.20) 07/30/24 19:43 PT 11.6 Seconds (9.0-12.0) 07/30/24 19:43 INR 1.1 (0.9-1.1) 07/30/24 19:43 Sodium 138 mmol/L (136-145) 07/30/24 19:43 Potassium 3.7 mmol/L (3.5-5.1) 07/30/24 19:43 Chloride 101 mmol/L (98-107) 07/30/24 19:43 Carbon Dioxide 29 mmol/L (21-32) 07/30/24 19:43 Anion Gap 8 (3-11) 07/30/24 19:43 BUN 13 mg/dl (6-23) 07/30/24 19:43 Creatinine 0.90 mg/dl (0.6-1.4) 07/30/24 19:43 Est Cr Clr Drug Dosing 80.2 ml/min 07/30/24 19:43 eGFR 89.62 07/30/24 19:43 BUN/Creatinine Ratio 14.4 (10-20) 07/30/24 19:43 Glucose 185 mg/dl (70-99(Fasting)) H 07/30/24 19:43 Calcium 9.4 mg/dl (8.6-10.3) 07/30/24 19:43 Magnesium 1.7 mg/dl (1.7-2.4) 07/30/24 19:43 Total Bilirubin 1.5 mg/dl (0.2-1.0) H 07/30/24 19:43 AST 25 U/L (13-39) 07/30/24 19:43 ALT 14 U/L (7-52) 07/30/24 19:43 Alkaline Phosphatase 76 U/L (34-104) 07/30/24 19:43 Troponin I High Sens 5.1 pg/ml (0-20) 07/30/24 19:43 Total Protein 7.1 gm/dl (6.0-8.3) 07/30/24 19:43 Albumin 4.0 gm/dl (3.4-5.0) 07/30/24 19:43 Globulin 3.1 gm/dl (2.5-4.0) 07/30/24 19:43 Albumin/Globulin Ratio 1.3 (0.9-2) 07/30/24 19:43 Lipase 10 U/L (11-82) L 07/30/24 19:43 Procalcitonin 0.06 ng/ml (0-0.5) 07/30/24 19:43 SARS-CoV-2, RNA, NAAT POSITIVE (NEGATIVE) A 07/30/24 20:11 Impressions Chest X-Ray 07/30/24 19:18 Exam(s): XR CXR 1 VIEW EXAM: XR Chest, 1 View CLINICAL HISTORY: Chest Pain, nonspecific. TECHNIQUE: Frontal view of the chest. COMPARISON: Chest radiograph 12/16/2022 FINDINGS: Lungs: Bilateral airspace opacities may represent pulmonary edema and/or atypical infection. Pleural space: Small bilateral pleural effusions. No pneumothorax. Heart: Cardiomegaly. Mediastinum: Unremarkable. Normal mediastinal contour. Bones/joints: Degenerative changes of the spine are noted. No acute fracture. IMPRESSION: 1. Bilateral airspace opacities may represent pulmonary edema and/or atypical infection. 2. Cardiomegaly. 3. Small bilateral pleural effusions. Electronically signed by: Nichole Johnson MD 07/30/24 21:36 PM Code Status & VTE Plan VTE Prophylaxis Plan VTE Prophylaxis will be ordered: Yes
[2024-07-30] MEDS ORDERED: DEXTROSE 50% 50 ML SYRINGE IV PRN (23:42)
[2024-07-30] MEDS ORDERED: NITROGLYCERIN SL 0.4 MG/TAB TAB SL PRN (23:42)
[2024-07-30] MEDS ORDERED: CARBOHYDRATES FOR HYPOGLYCEMIA PO PRN (23:42)
[2024-07-30] MEDS ORDERED: guaiFENesin/CODEINE 100MG/10MG 5ML UDC PO PRN (23:42)
[2024-07-30] MEDS ORDERED: ACETAMINOPHEN 325 MG TAB PO PRN (23:42)
[2024-07-30] MEDS ORDERED: GLUCOSE 40% GEL 15 GM TUBE PO PRN (23:42)
[2024-07-30] MEDS ORDERED: ALBUTEROL HFA 8 GM INHALER INH PRN (23:42)
[2024-07-30] MEDS ORDERED: GLUCAGON FOR INJ 1 MG VIAL SQ PRN (23:42)
[2024-07-30] MEDS ORDERED: GLUCOSE 10 TAB/TUBE PO PRN (23:42)
[2024-07-31] MEDS: REMDESIVIR 200 MG in SODIUM CHLORIDE 0.9% 210 ML IV STA (00:48)
[2024-07-31] MEDS: POTASSIUM CHLORIDE 10 MEQ TABCR PO STA (02:27)
[2024-07-31] MEDS: ENOXAPARIN INJ 40 MG/0.4 ML SYR SQ SCH (02:27)
[2024-07-31] MEDS: guaiFENesin 600 MG TABCR PO STA (02:27)
[2024-07-31 06:06] LABS: Basophils # (auto) 0.03 K/uL (0.00-0.20); Basophils % (auto) 0.4 %; Eosinophils # (auto) 0.01 K/uL (0.00-0.50); Eosinophils % (auto) 0.1 %; Hematocrit (blood only) 39.6 % (42.0-52.0); Hemoglobin 13.4 g/dl (14.0-18.0); Immature Granulocytes # (auto) 0.04 K/uL (0.01-0.20); Immature Granulocytes % (auto) 0.5 %; Lymphocytes # (auto) 0.58 K/uL (1.20-3.40); Lymphocytes % (auto) 7.4 %; Mean Corpuscular Hemoglobin 29.4 pg (25.0-34.0); Mean Corpuscular Hgb Conc 33.8 g/dL (32.0-36.0); Mean Corpuscular Volume 86.8 fL (80.0-100.0); Mean Platelet Volume 9.9 fL (9.4-12.4); Monocytes # (auto) 0.18 K/uL (0.11-0.59); Monocytes % (auto) 2.3 %; Neutrophils # (auto) 7.04 K/uL (1.40-6.50); Neutrophils % (auto) 89.3 %; Platelet Count 158 K/uL (130-400); RDW Coefficient of Variation 13.4 % (11.5-14.5); RDW Standard Deviation 42.6 fL (36.4-46.3); Red Blood Count 4.56 M/uL (4.70-6.10); White Blood Count 7.88 K/ul (4.8-10.8)
[2024-07-31 06:19] LABS: Albumin Level 3.6 gm/dl (3.4-5.0); BUN Creatinine Ratio 17.7 (10-20); Bilirubin Direct 0.3 mg/dl (0-0.2); Bilirubin,Total 1.1 mg/dl (0.2-1.0); Calcium 9.2 mg/dl (8.6-10.3); Creatinine Clr Calc Pharmacy 92.3 ml/min; Magnesium 1.8 mg/dl (1.7-2.4); Potassium 4.3 mmol/L (3.5-5.1); Total Protein 6.9 gm/dl (6.0-8.3)
[2024-07-31 07:41] LABS: Estimated Average Glucose 160 mg/dl; Hemoglobin A1C 7.2 % (4.5-5.6)
--- NOTE | 2024-07-31 08:30 | Ultrasound Report ---
EXAM: US venous doppler LE BI CLINICAL HISTORY: HX: LEG EDEMA. TECHNIQUE: Ultrasound examination of bilateral lower extremity veins was performed in real time and duplex. One or more of the following were performed- spectral analysis, resistive index, waveform analysis, and pulsed Doppler. COMPARISON: 12/01/2015. FINDINGS: Normal phasic, non-pulsatile and spontaneous flow is noted in bilateral common femoral, superficial femoral, popliteal and posterior tibial and peroneal veins. Visualized veins of both lower extremities demonstrate normal compressibility. No sonographic evidence of acute deep vein thrombosis (DVT) is detected in the visualized veins of both lower extremities. Compression and Augmentation: All evaluated veins compress fully with applied transducer pressure. Augmentation of venous flow is noted with distal compression. Additional Findings: No evidence of intraluminal thrombus. Slight to minimally raised echogenicity of the soft tissues of the lower extremities noted in the distal leg/ ankle regions on either side, likely suggest mild to minimal associated soft tissue edema IMPRESSION: 1. No sonographic evidence of acute DVT detected in bilateral common femoral, superficial femoral, popliteal and posterior tibial and peroneal veins, at the time of examination. 2. Mild to minimal soft tissue edema seen in the distal leg/ ankle regions on either side. 3. Clinical correlation advised. Disclaimer: DVT could be missed early in the disease when clot burden is minimal. For patients with moderate and high pretest probability of DVT and negative ultrasound, the [place] [employer] clinical guidelines recommend testing with a D-dimer assay or repeat ultrasound in 5-7 days. If symptoms worsen, the Society of radiologists in ultrasound recommends repeating ultrasound even earlier. Electronically signed by Vandana Simms 07-31-2024 08:30 AM
[2024-07-31] MEDS: POTASSIUM CHLORIDE 10 MEQ TABCR PO SCH (08:33)
[2024-07-31] MEDS: TRIAMTERENE/HCTZ 37.5/25MG TAB PO SCH (08:34)
[2024-07-31] MEDS: MULTIVITAMIN TAB PO SCH (08:34)
[2024-07-31] MEDS: NYSTATIN CR 15 GM TUBE EXT SCH (08:34)
[2024-07-31] MEDS: ATENOLOL 50 MG TABLET PO SCH (08:34)
[2024-07-31] MEDS: ASPIRIN 81 MG ECTAB PO SCH (08:34)
[2024-07-31] MEDS: CYANOCOBALAMIN (B-12) 500 MCG TABLET PO SCH (08:34)
[2024-07-31] MEDS: guaiFENesin 600 MG TABCR PO SCH (08:34)
[2024-07-31] MEDS: AZITHROMYCIN 250 MG TAB PO SCH (08:34)
[2024-07-31] MEDS: PANTOprazole 40 MG TAB PO SCH (08:34)
[2024-07-31] MEDS: FLUTICASONE FUROATE 100MCG 14 PUFFS/INHALER INH SCH (08:35)
[2024-07-31] MEDS: dexAMETHasone 6 MG in SYRINGE 0 ML IV SCH (08:35)
[2024-07-31] MEDS: INSULIN ASPART PER UNIT CHARGE SC SCH (08:43)
--- NOTE | 2024-07-31 08:48 | Hospitalist Progress Note ---
Date of Service July 31, 2024 Assessment & Plan (1) COVID: Plan: 73 yo M with PMH significant for diabetes, hyperlipidemia, history of hypokalemia, CKD stage II, left ventricular hypertensive hypertrophy, hypertension, aortic valve sclerosis, obesity, Cortes's esophagus, mild intellectual disability, history of colon cancer s/p surgery and chemo who lives with his niece was brought in because of ongoing cough and weakness. Since Wednesday afternoon patient started to have cough. Wednesday the cough was getting worse so they went to urgent care. He was prescribed azithromycin for possible pneumonia and the Wednesday morning COVID test came back positive. Because of his history laureano called his PCP and was prescribed Paxlovid. Patient took 1 dose of Paxlovid today afternoon. Patient oxygen sats were 95% in the morning but was slowly dropping down to low 90s by evening so the nehector brought him to the hospital. Patient had some low-grade fevers as per niece. He is also very weak. He usually ambulates without support but last couple of days he is using cane and is having difficulty for him to even get up. Appetite is down. Normal bowel and bladder movements. Denies any headache. Denies chest pain or shortness of breath. No nausea, no abdominal pain. Hemodynamics are okay. Patient has mild intellectual disability and williamshector helped with H&P. COVID Cough and weakness Will do short course of remdesivir and Decadron COVID precautions Urgent care prescribed azithromycin and 3 more days to complete the course budenoside and albuterol as needed Supportive care Monitor in the hospital History of diabetes Hold home p.o. medications Sliding scale Will closely monitor Hypertension On atenolol and triamterene hydrochlorothiazide Will monitor History of hypokalemia Continue potassium supplements GERD Cortes's esophagus on omeprazole History of colon cancer Status post left yaw colectomy and chemo in 2005 s/p Right hemicolectomy in 2006 Lower extremity edema Dopplers obtained - no DVT Echo ordered Hyperlipidemia On statin DVT prophylaxis - Lovenox Disposition - Med/telemetry Full code. Admission and Anticipated Discharge Date Admission Date: July 30, 2024 Subjective Pt seen in follow up of covid pneumonia Currently sitting up in chair, in NAD Overall says he is feeling well, he is having no complaints or concerns, denies having any chest pain, shortness of breath. No abd. pain, n/v + hx of mild intellectual disability Review of Systems Review of Systems: All systems reviewed & are unremarkable except as noted in Subjective Physical Exam Physical Exam: General- obese, elderly M, in NAD Head- atraumatic Eyes- PERRL. Neck- supple, no JVD. Lungs- clear to auscultation no wheezing or crackles Heart- regular rhythm; no murmur Abdomen- normal bowel sounds, soft, nontender, no distension Extremities- b/l pretibial edema present , no erythema seen Neuro- alert, oriented ; PERRL, no facial palsy; no dysarthria; moves extremities Results & Data Results & Data Vital Signs (Past 12 Hours) Vital Signs Temp Pulse Pulse Resp BP Pulse Ox O2 Del Method 07/31/24 07:48 36.5 C 70 20 126/74 96 Room Air 07/31/24 07:23 Room Air 07/31/24 07:02 68 07/31/24 00:40 80 07/30/24 23:51 Room Air 07/30/24 23:51 36.6 C 86 20 133/80 93 Room Air 07/30/24 23:44 80 18 96 Room Air 07/30/24 22:00 91 H 18 135/93 95 Room Air Laboratory Results 07/31/24 07/31/24 07/30/24 Range/Units 08:13 05:41 20:11 WBC 7.88 (4.8-10.8) K/ul RBC 4.56 L (4.70-6.10) M/uL Hgb 13.4 L (14.0-18.0) g/dl Hct 39.6 L (42.0-52.0) % MCV 86.8 (80.0-100.0) fL MCH 29.4 (25.0-34.0) pg MCHC 33.8 (32.0-36.0) g/dL RDW Std Deviation 42.6 (36.4-46.3) fL RDW Coeff of Hal 13.4 (11.5-14.5) % Plt Count 158 (130-400) K/uL MPV 9.9 (9.4-12.4) fL Immature Gran % (Auto) 0.5 % Neut % (Auto) 89.3 % Lymph % (Auto) 7.4 % [place]bert % (Auto) 2.3 % Eos % (Auto) 0.1 % Baso % (Auto) 0.4 % Neut # (Auto) 7.04 H (1.40-6.50) K/uL Lymph # (Auto) 0.58 L (1.20-3.40) K/uL Colbert # (Auto) 0.18 (0.11-0.59) K/uL Eos # (Auto) 0.01 (0.00-0.50) K/uL Baso # (Auto) 0.03 (0.00-0.20) K/uL Immature Gran # (Auto) 0.04 (0.01-0.20) K/uL PT (9.0-12.0) Seconds INR (0.9-1.1) Sodium 140 (136-145) mmol/L Potassium 4.3 (3.5-5.1) mmol/L Chloride 104 (98-107) mmol/L Carbon Dioxide 28 (21-32) mmol/L Anion Gap 8 (3-11) BUN 14 (6-23) mg/dl Creatinine 0.79 (0.6-1.4) mg/dl Est Cr Clr Drug Dosing 92.3 ml/min eGFR 93.22 BUN/Creatinine Ratio 17.7 (10-20) Glucose 215 H (70-99(Fasting)) mg/dl POC Glucose 191 H (70-99) mg/dl Estimat Average Glucose 160 mg/dl Hemoglobin A1c 7.2 H (4.5-5.6) % Calcium 9.2 (8.6-10.3) mg/dl Magnesium 1.8 (1.7-2.4) mg/dl Total Bilirubin 1.1 H (0.2-1.0) mg/dl Direct Bilirubin 0.3 H (0-0.2) mg/dl AST 22 (13-39) U/L ALT 13 (7-52) U/L Alkaline Phosphatase 70 (34-104) U/L Troponin I High Sens (0-20) pg/ml Total Protein 6.9 (6.0-8.3) gm/dl Albumin 3.6 (3.4-5.0) gm/dl Globulin (2.5-4.0) gm/dl Albumin/Globulin Ratio (0.9-2) Lipase (11-82) U/L Procalcitonin (0-0.5) ng/ml SARS-CoV-2, RNA, NAAT POSITIVE A (NEGATIVE) 07/30/24 Range/Units 19:43 WBC 11.26 H (4.8-10.8) K/ul RBC 4.67 L (4.70-6.10) M/uL Hgb 13.6 L (14.0-18.0) g/dl Hct 40.8 L (42.0-52.0) % MCV 87.4 (80.0-100.0) fL MCH 29.1 (25.0-34.0) pg MCHC 33.3 (32.0-36.0) g/dL RDW Std Deviation 43.7 (36.4-46.3) fL RDW Coeff of Hal 13.7 (11.5-14.5) % Plt Count 181 (130-400) K/uL MPV 9.8 (9.4-12.4) fL Immature Gran % (Auto) 0.5 % Neut % (Auto) 71.4 % Lymph % (Auto) 10.2 % Colbert % (Auto) 14.9 % Eos % (Auto) 2.6 % Baso % (Auto) 0.4 % Neut # (Auto) 8.03 H (1.40-6.50) K/uL Lymph # (Auto) 1.15 L (1.20-3.40) K/uL [place]bert # (Auto) 1.68 H (0.11-0.59) K/uL Eos # (Auto) 0.29 (0.00-0.50) K/uL Baso # (Auto) 0.05 (0.00-0.20) K/uL Immature Gran # (Auto) 0.06 (0.01-0.20) K/uL PT 11.6 (9.0-12.0) Seconds INR 1.1 (0.9-1.1) Sodium 138 (136-145) mmol/L Potassium 3.7 (3.5-5.1) mmol/L Chloride 101 (98-107) mmol/L Carbon Dioxide 29 (21-32) mmol/L Anion Gap 8 (3-11) BUN 13 (6-23) mg/dl Creatinine 0.90 (0.6-1.4) mg/dl Est Cr Clr Drug Dosing 80.2 ml/min eGFR 89.62 BUN/Creatinine Ratio 14.4 (10-20) Glucose 185 H (70-99(Fasting)) mg/dl POC Glucose (70-99) mg/dl Estimat Average Glucose mg/dl Hemoglobin A1c (4.5-5.6) % Calcium 9.4 (8.6-10.3) mg/dl Magnesium 1.7 (1.7-2.4) mg/dl Total Bilirubin 1.5 H (0.2-1.0) mg/dl Direct Bilirubin (0-0.2) mg/dl AST 25 (13-39) U/L ALT 14 (7-52) U/L Alkaline Phosphatase 76 (34-104) U/L Troponin I High Sens 5.1 (0-20) pg/ml Total Protein 7.1 (6.0-8.3) gm/dl Albumin 4.0 (3.4-5.0) gm/dl Globulin 3.1 (2.5-4.0) gm/dl Albumin/Globulin Ratio 1.3 (0.9-2) Lipase 10 L (11-82) U/L Procalcitonin 0.06 (0-0.5) ng/ml SARS-CoV-2, RNA, NAAT (NEGATIVE) Medications Administered Current Inpatient Medications Acetaminophen (Acetaminophen 325 Mg Tab) 650 mg PO Q4H PRN PRN Reason: Pain or Fever Stop: 08/29/24 23:41 Albuterol (Albuterol Hfa 8 Gm Inhaler) 2 puffs INH Q4H PRN PRN Reason: Shortness Of Breath Or Wheezin Stop: 08/29/24 23:41 Aspirin (Aspirin 81 Mg Ectab) 81 mg PO [facility] Stop: 08/30/24 08:59 Last Admin: 07/31/24 08:34 Dose: 81 mg Atenolol (Atenolol 50 Mg Tablet) 50 mg PO [facility] Stop: 08/30/24 08:59 Last Admin: 07/31/24 08:34 Dose: 50 mg Atorvastatin Calcium (Atorvastatin 40 Mg Tab) 40 mg PO [facility] Stop: 08/30/24 20:59 Azithromycin (Azithromycin 250 Mg Tab) 250 mg PO [facility] Stop: 08/02/24 20:59 Last Admin: 07/31/24 08:34 Dose: 250 mg Cyanocobalamin (Cyanocobalamin (B-12) 500 Mcg Tablet) 1,000 mcg PO QAM [facility] Stop: 08/30/24 08:59 Last Admin: 07/31/24 08:34 Dose: 1,000 mcg Dextrose (Dextrose 50% 50 Ml Syringe) 25 - 50 ml IV UD PRN; Protocol PRN Reason: Hypoglycemia Protocol Stop: 08/29/24 23:41 Enoxaparin Sodium (Enoxaparin Inj 40 Mg/0.4 Ml Syr) 40 mg SQ PM [facility] Stop: 08/29/24 23:41 Last Admin: 07/31/24 02:27 Dose: 40 mg Fluticasone Furoate (Fluticasone Furoate 100mcg 14 Puffs/Inhaler) 1 puffs INH DAILY [facility] Stop: 08/30/24 08:59 Last Admin: 07/31/24 08:35 Dose: 1 puffs Glucagon (Glucagon For Inj 1 Mg Vial) 1 mg SQ UD PRN; Protocol PRN Reason: Hypoglycemia Protocol Stop: 08/29/24 23:41 Glucose (Glucose 40% Gel 15 Gm Tube) 15 - 30 gm PO UD PRN; Protocol PRN Reason: Hypoglycemia Protocol Stop: 08/29/24 23:41 Glucose (Glucose 10 Tab/Tube) 4 - 8 tab PO UD PRN; Protocol PRN Reason: Hypoglycemia Protocol Stop: 08/29/24 23:41 Guaifenesin (Guaifenesin 600 Mg Tabcr) 600 mg PO Q12 [facility] Stop: 08/30/24 08:59 Last Admin: 07/31/24 08:34 Dose: 600 mg Guaifenesin/Codeine Phosphate (Guaifenesin/Codeine 100mg/10mg 5ml Udc) 5 ml PO Q6H PRN PRN Reason: Cough Stop: 08/29/24 23:41 Remdesivir 100 mg/ Sodium (Chloride) 250 mls @ 250 mls/hr IV Q24H [facility] Stop: 08/03/24 20:59 Dexamethasone 6 mg/ Syringe 1.5 mls @ 1 mls/min IV DAILY [facility] Stop: 08/10/24 08:59 Last Admin: 07/31/24 08:35 Dose: 1 mls/min Insulin Aspart (Insulin Aspart Per Unit Charge) 0 units SC ACHS [facility] Stop: 08/30/24 07:29 Last Admin: 07/31/24 08:43 Dose: 3 units Miscellaneous (Carbohydrates For Hypoglycemia ) 15 - 30 gm PO UD PRN PRN Reason: Hypoglycemia Protocol Stop: 08/29/24 23:41 Multivitamins (Multivitamin Tab) 1 tab PO QAM [facility] Stop: 08/30/24 08:59 Last Admin: 07/31/24 08:34 Dose: 1 tab Nitroglycerin (Nitroglycerin Sl 0.4 Mg/Tab Tab) 0.4 mg SL Q5M PRN PRN Reason: Chest Pain Stop: 08/29/24 23:41 Nystatin (Nystatin Cr 15 Gm Tube) 1 appln EXT BID [facility] Stop: 08/30/24 08:59 Last Admin: 07/31/24 08:34 Dose: 1 appln Pantoprazole Sodium (Pantoprazole 40 Mg Tab) 40 mg PO QAM [facility] Stop: 08/30/24 08:59 Last Admin: 07/31/24 08:34 Dose: 40 mg Potassium Chloride (Potassium Chloride 10 Meq Tabcr) 30 meq PO TID [facility] Stop: 08/30/24 08:59 Last Admin: 07/31/24 08:33 Dose: 30 meq Triamterene/Hydrochlorothiazide (Triamterene/Hctz 37.5/25mg Tab) 0.5 tab PO QAM [facility] Stop: 08/30/24 08:59 Last Admin: 07/31/24 08:34 Dose: 0.5 tab
[2024-07-31] MEDS: MAGNESIUM SULFATE / D5W 1 GM/100 ML BAG IV ONE (13:51)
[2024-07-31] MEDS: MAGNESIUM OXIDE 400 MG TAB PO SCH (14:18)
--- NOTE | 2024-07-31 16:58 | Electrocardiogram Report ---
Test Reason : Blood Pressure : */* mmHG Vent. Rate : 88 BPM Atrial Rate : 88 BPM P-R Int : 118 ms QRS Dur : 126 ms QT Int : 392 ms P-R-T Axes : 74 -65 14 degrees QTcB Int : 474 ms Normal sinus rhythm Left axis deviation Left ventricular hypertrophy with QRS widening Anterolateral infarct Abnormal ECG Confirmed by Eldon Mathews ([id number]) on 07/31/2024 4:57:50 PM Referred By: REFERRED SELF Confirmed By: Eldon Mathews
[2024-07-31] MEDS: ATORVASTATIN 40 MG TAB PO SCH (20:31)
[2024-07-31] MEDS: REMDESIVIR 100 MG in SODIUM CHLORIDE 0.9% 230 ML IV SCH (21:18)
[2024-08-01 06:42] LABS: Hematocrit (blood only) 39.6 % (42.0-52.0); Hemoglobin 13.4 g/dl (14.0-18.0); Mean Corpuscular Hemoglobin 29.3 pg (25.0-34.0); Mean Corpuscular Hgb Conc 33.8 g/dL (32.0-36.0); Mean Corpuscular Volume 86.7 fL (80.0-100.0); Mean Platelet Volume 10.2 fL (9.4-12.4); Platelet Count 189 K/uL (130-400); RDW Coefficient of Variation 13.5 % (11.5-14.5); Red Blood Count 4.57 M/uL (4.70-6.10)
[2024-08-01 07:08] LABS: BUN Creatinine Ratio 25.6 (10-20); Calcium 9.6 mg/dl (8.6-10.3); Creatinine Clr Calc Pharmacy 84.7 ml/min; Magnesium 1.9 mg/dl (1.7-2.4); Phosphorus 3.6 mg/dl (2.5-4.9); Potassium 4.1 mmol/L (3.5-5.1)
--- NOTE | 2024-08-01 11:16 | Hospitalist Progress Note ---
Date of Service August 01, 2024 Assessment & Plan (1) COVID: Plan: 73 yo M with PMH significant for diabetes, hyperlipidemia, history of hypokalemia, CKD stage II, left ventricular hypertensive hypertrophy, hypertension, aortic valve sclerosis, obesity, Cortes's esophagus, mild intellectual disability, history of colon cancer s/p surgery and chemo who lives with his niece was brought in because of ongoing cough and weakness. Since Wednesday afternoon patient started to have cough. Wednesday the cough was getting worse so they went to urgent care. He was prescribed azithromycin for possible pneumonia and the Wednesday morning COVID test came back positive. Because of his history laureano called his PCP and was prescribed Paxlovid. Patient took 1 dose of Paxlovid today afternoon. Patient oxygen sats were 95% in the morning but was slowly dropping down to low 90s by evening so the nehector brought him to the hospital. Patient had some low-grade fevers as per niece. He is also very weak. He usually ambulates without support but last couple of days he is using cane and is having difficulty for him to even get up. Appetite is down. Normal bowel and bladder movements. Denies any headache. Denies chest pain or shortness of breath. No nausea, no abdominal pain. Hemodynamics are okay. Patient has mild intellectual disability and williamshector helped with H&P. COVID Cough and weakness Will do short course of remdesivir and Decadron COVID precautions Urgent care prescribed azithromycin and 3 more days to complete the course budenoside and albuterol as needed Supportive care Monitor in the hospital History of diabetes Hold home p.o. medications Sliding scale Will closely monitor Hypertension On atenolol and triamterene hydrochlorothiazide Will monitor History of hypokalemia Continue potassium supplements GERD Cortes's esophagus on omeprazole History of colon cancer Status post left yaw colectomy and chemo in 2005 s/p Right hemicolectomy in 2006 Lower extremity edema Dopplers obtained - no DVT Echo ordered Hyperlipidemia On statin DVT prophylaxis - Lovenox Disposition - Med/telemetry Full code. Admission and Anticipated Discharge Date Admission Date: July 30, 2024 Subjective Pt seen in follow up of covid pneumonia Currently sitting up in chair, in NAD Overall says he is feeling well, he is having no complaints or concerns, denies having any chest pain, shortness of breath. No abd. pain, n/v + hx of mild intellectual disability Review of Systems Review of Systems: All systems reviewed & are unremarkable except as noted in Subjective Physical Exam Physical Exam: General- obese, elderly M, in NAD Head- atraumatic Eyes- PERRL. Neck- supple, no JVD. Lungs- clear to auscultation no wheezing or crackles Heart- regular rhythm; no murmur Abdomen- normal bowel sounds, soft, nontender, no distension Extremities- b/l pretibial edema present , no erythema seen Neuro- alert, oriented ; PERRL, no facial palsy; no dysarthria; moves extremities Results & Data Results & Data Vital Signs (Past 12 Hours) Vital Signs Temp Pulse Pulse Resp BP Pulse Ox O2 Del Method 08/01/24 10:45 36.4 C L 75 20 123/74 93 Room Air 08/01/24 09:07 Room Air 08/01/24 07:47 71 08/01/24 07:38 36.4 C L 75 20 121/72 93 Room Air 08/01/24 03:51 36.5 C 74 18 120/79 92 Room Air 07/31/24 23:44 79 Laboratory Results 08/01/24 08/01/24 07/31/24 Range/Units 08:14 06:10 20:17 WBC 18.40 H (4.8-10.8) K/ul RBC 4.57 L (4.70-6.10) M/uL Hgb 13.4 L (14.0-18.0) g/dl Hct 39.6 L (42.0-52.0) % MCV 86.7 (80.0-100.0) fL MCH 29.3 (25.0-34.0) pg MCHC 33.8 (32.0-36.0) g/dL RDW Std Deviation 43.0 (36.4-46.3) fL RDW Coeff of Hal 13.5 (11.5-14.5) % Plt Count 189 (130-400) K/uL MPV 10.2 (9.4-12.4) fL Sodium 142 (136-145) mmol/L Potassium 4.1 (3.5-5.1) mmol/L Chloride 106 (98-107) mmol/L Carbon Dioxide 28 (21-32) mmol/L Anion Gap 8 (3-11) BUN 22 (6-23) mg/dl Creatinine 0.86 (0.6-1.4) mg/dl Est Cr Clr Drug Dosing 84.7 ml/min eGFR 90.86 BUN/Creatinine Ratio 25.6 H (10-20) Glucose 204 H (70-99(Fasting)) mg/dl POC Glucose 186 H 226 H (70-99) mg/dl Calcium 9.6 (8.6-10.3) mg/dl Phosphorus 3.6 (2.5-4.9) mg/dl Magnesium 1.9 (1.7-2.4) mg/dl AST 19 (13-39) U/L ALT 14 (7-52) U/L 07/31/24 07/31/24 Range/Units 16:49 11:54 WBC (4.8-10.8) K/ul RBC (4.70-6.10) M/uL Hgb (14.0-18.0) g/dl Hct (42.0-52.0) % MCV (80.0-100.0) fL MCH (25.0-34.0) pg MCHC (32.0-36.0) g/dL RDW Std Deviation (36.4-46.3) fL RDW Coeff of Hal (11.5-14.5) % Plt Count (130-400) K/uL MPV (9.4-12.4) fL Sodium (136-145) mmol/L Potassium (3.5-5.1) mmol/L Chloride (98-107) mmol/L Carbon Dioxide (21-32) mmol/L Anion Gap (3-11) BUN (6-23) mg/dl Creatinine (0.6-1.4) mg/dl Est Cr Clr Drug Dosing ml/min eGFR BUN/Creatinine Ratio (10-20) Glucose (70-99(Fasting)) mg/dl POC Glucose 192 H 258 H (70-99) mg/dl Calcium (8.6-10.3) mg/dl Phosphorus (2.5-4.9) mg/dl Magnesium (1.7-2.4) mg/dl AST (13-39) U/L ALT (7-52) U/L Medications Administered Current Inpatient Medications Acetaminophen (Acetaminophen 325 Mg Tab) 650 mg PO Q4H PRN PRN Reason: Pain or Fever Stop: 08/29/24 23:41 Albuterol (Albuterol Hfa 8 Gm Inhaler) 2 puffs INH Q4H PRN PRN Reason: Shortness Of Breath Or Wheezin Stop: 08/29/24 23:41 Aspirin (Aspirin 81 Mg Ectab) [facility] [place] Stop: 08/30/24 08:59 Last Admin: 08/01/24 08:42 Dose: 81 mg Atenolol (Atenolol 50 Mg Tablet) 50 mg [facility] [place] Stop: 08/30/24 08:59 Last Admin: 08/01/24 08:42 Dose: 50 mg Atorvastatin Calcium (Atorvastatin 40 Mg Tab) 40 mg PO [facility] Stop: 08/30/24 20:59 Last Admin: 07/31/24 20:31 Dose: 40 mg Azithromycin (Azithromycin 250 Mg Tab) 250 mg PO [facility] Stop: 08/02/24 20:59 Last Admin: 08/01/24 08:42 Dose: 250 mg Cyanocobalamin (Cyanocobalamin (B-12) 500 Mcg Tablet) 1,000 mcg PO [facility] Stop: 08/30/24 08:59 Last Admin: 08/01/24 08:42 Dose: 1,000 mcg Dextrose (Dextrose 50% 50 Ml Syringe) 25 - 50 ml IV UD PRN; Protocol PRN Reason: Hypoglycemia Protocol Stop: 08/29/24 23:41 Enoxaparin Sodium (Enoxaparin Inj 40 Mg/0.4 Ml Syr) 40 mg SQ PM [facility] Stop: 08/29/24 23:41 Last Admin: 07/31/24 20:32 Dose: 40 mg Fluticasone Furoate (Fluticasone Furoate 100mcg 14 Puffs/Inhaler) 1 puffs INH DAILY [facility] Stop: 08/30/24 08:59 Last Admin: 08/01/24 08:43 Dose: 1 puffs Glucagon (Glucagon For Inj 1 Mg Vial) 1 mg SQ UD PRN; Protocol PRN Reason: Hypoglycemia Protocol Stop: 08/29/24 23:41 Glucose (Glucose 40% Gel 15 Gm Tube) 15 - 30 gm PO UD PRN; Protocol PRN Reason: Hypoglycemia Protocol Stop: 08/29/24 23:41 Glucose (Glucose 10 Tab/Tube) 4 - 8 tab PO UD PRN; Protocol PRN Reason: Hypoglycemia Protocol Stop: 08/29/24 23:41 Guaifenesin (Guaifenesin 600 Mg Tabcr) 600 mg PO Q12 [facility] Stop: 08/30/24 08:59 Last Admin: 08/01/24 08:43 Dose: 600 mg Guaifenesin/Codeine Phosphate (Guaifenesin/Codeine 100mg/10mg 5ml Udc) 5 ml PO Q6H PRN PRN Reason: Cough Stop: 08/29/24 23:41 Remdesivir 100 mg/ Sodium (Chloride) 250 mls @ 250 mls/hr IV Q24H [facility] Stop: 08/03/24 20:59 Last Infusion: 07/31/24 22:27 Dose: Infused Dexamethasone 6 mg/ Syringe 1.5 mls @ 1 mls/min IV DAILY [facility] Stop: 08/10/24 08:59 Last Admin: 08/01/24 08:42 Dose: 1 mls/min Insulin Aspart (Insulin Aspart Per Unit Charge) 0 units SC ACHS [facility] Stop: 08/30/24 07:29 Last Admin: 08/01/24 09:22 Dose: 5 units Magnesium Oxide (Magnesium Oxide 400 Mg Tab) 400 mg PO QAM [facility] Stop: 08/30/24 13:44 Last Admin: 08/01/24 08:43 Dose: 400 mg Miscellaneous (Carbohydrates For Hypoglycemia ) 15 - 30 gm PO UD PRN PRN Reason: Hypoglycemia Protocol Stop: 08/29/24 23:41 Multivitamins (Multivitamin Tab) 1 tab PO QAM [facility] Stop: 08/30/24 08:59 Last Admin: 08/01/24 08:43 Dose: 1 tab Nitroglycerin (Nitroglycerin Sl 0.4 Mg/Tab Tab) 0.4 mg SL Q5M PRN PRN Reason: Chest Pain Stop: 08/29/24 23:41 Nystatin (Nystatin Cr 15 Gm Tube) 1 appln EXT BID [facility] Stop: 08/30/24 08:59 Last Admin: 08/01/24 08:43 Dose: 1 appln Pantoprazole Sodium (Pantoprazole 40 Mg Tab) 40 mg PO QAM [facility] Stop: 08/30/24 08:59 Last Admin: 08/01/24 08:43 Dose: 40 mg Potassium Chloride (Potassium Chloride 10 Meq Tabcr) 30 meq PO TID [facility] Stop: 08/30/24 08:59 Last Admin: 08/01/24 08:43 Dose: 30 meq Triamterene/Hydrochlorothiazide (Triamterene/Hctz 37.5/25mg Tab) 0.5 tab PO QAM [facility] Stop: 08/30/24 08:59 Last Admin: 08/01/24 08:43 Dose: 0.5 tab
[2024-08-01 14:06] LABS: Appearance Urine Clear (Clear); Bacteria Urine Automated None Seen (None Seen); Bilirubin Urine Negative (Negative); Blood Urine Negative (Negative); Cast Urine Automated 0-2 /lpf (0-2); Color Urine Yellow; Epithelial Cell Urine Auto 0-2 /hpf (0-2); Glucose Urine UA 2+ (Negative); Ketones Urine Negative (Negative); Leukocyte Esterase Urine Trace (Negative); Nitrite Urine Negative (Negative); Protein Urine Trace (Negative); RBC Urine Automated 0-2 /hpf (0-2); Specific Gravity Urine 1.023 (1.000-1.030); Urobilinogen Urine Negative (Negative); pH Urine 6.5 (4.5-7.5)
[2024-08-02 06:52] LABS: Hematocrit (blood only) 39.5 % (42.0-52.0); Hemoglobin 13.2 g/dl (14.0-18.0); Mean Corpuscular Hemoglobin 29.1 pg (25.0-34.0); Mean Corpuscular Hgb Conc 33.4 g/dL (32.0-36.0); Mean Platelet Volume 10.3 fL (9.4-12.4); Platelet Count 177 K/uL (130-400); RDW Coefficient of Variation 13.4 % (11.5-14.5); RDW Standard Deviation 42.6 fL (36.4-46.3); Red Blood Count 4.54 M/uL (4.70-6.10); White Blood Count 14.37 K/ul (4.8-10.8)
[2024-08-02 07:17] LABS: Calcium 9.1 mg/dl (8.6-10.3); Creatinine Clr Calc Pharmacy 80.2 ml/min; Magnesium 1.9 mg/dl (1.7-2.4); Phosphorus 3.7 mg/dl (2.5-4.9); Potassium 4.2 mmol/L (3.5-5.1)
[2024-08-02 11:18] VITALS: RESP 18
[2024-08-02] MEDS ORDERED: PHARMACY GLYCEMIC MGMT CONSULT PRN (12:19)
--- NOTE | 2024-08-02 13:02 | Discharge Summary ---
Date of Service August 02, 2024 Admission HPI Per Admitting Provider 73-year-old male with past medical history significant for diabetes, hyperlipidemia, history of hypokalemia, CKD stage II, left ventricular hypertensive hypertrophy, hypertension, aortic valve sclerosis, obesity, Bar rett's esophagus, mild intellectual disability, history of colon cancer s/p surgery and chemo who lives with his niece was brought in because of ongoing cough and weakness. Since Wednesday afternoon patient started to have cough. Wednesday the cough was getting worse so they went to urgent care. He was prescribed azithromycin for possible pneumonia and the Wednesday morning COVID test came back positive. Because of his history laureano called his PCP and was prescribed Paxlovid. Patient took 1 dose of Paxlovid today afternoon. Patient oxygen sats were 95% in the morning but was slowly dropping down to low 90s by evening so the nehector brought him to the hospital. Patient had some low-grade fevers as per niece. He is also very weak. He usually ambulates without support but last couple of days he is using cane and is having difficulty for him to even get up. Appetite is down. Normal bowel and bladder movements. Denies any headache. Denies chest pain or shortness of breath. No nausea, no abdominal pain. Hemodynamics are okay. Patient has mild intellectual disability and williamshector helped with H&P. Past medical history. As mentioned above Past surgical history. Colonoscopy. Colonoscopy biopsy. EGD. EGD with biopsy. Left partial colectomy.Exploratory laparotomy with lysis of adhesions and right colon resection with primary ileocolonic anastomosis gastrostomy. Appendectomy. Cholecystectomy. Sigmoidoscopy. Social history. Currently no smoking. No alcohol use. No drug use. Family history. Brother had heart disorder. Maternal grandmother had heart disorder. Uncle had heart disorder. Mother had kidney failure. Father had aneurysm. Admission Exam Per Admitting Provider General- Not in distress Head- atraumatic Eyes- PERRL. ENT- oropharynx clear Neck- supple, no JVD. Lungs- clear to auscultation no wheezing or crackles Heart- regular rhythm; no murmur, no gallop. Abdomen- normal bowel sounds, soft, nontender, no distension Extremities- b/l pretibial edema present , no erythema seen Neuro- alert, oriented ; PERRL, no facial palsy; no dysarthria; moves extremities Principal Diagnosis Infection due to COVID-19 virus Generalized weakness Discharge Exam General- obese, elderly M, in NAD Head- atraumatic Eyes- PERRL. Neck- supple, no JVD. Lungs- clear to auscultation no wheezing or crackles Heart- regular rhythm; no murmur Abdomen- normal bowel sounds, soft, nontender, no distension Extremities- trace ble edema , no erythema seen Neuro- alert, oriented ; PERRL, no facial palsy; no dysarthria; moves extremities Discharge Data Allergies Allergy/AdvReac Type Severity Reaction Status Date / Time latex Allergy Unknown Rash Verified 07/30/24 21:59 [email or web address] [From [facility]] AdvReac Anaphylaxis Unverified 07/30/24 22:00 Consultations 07/30/24 20:54 ED Decision to Admit Stat Ordered Studies 07/31/24 23:42 US venous doppler [facility] Routine Hospital Course (1) COVID: Per prior attending with addendum: 73 yo M with PMH significant for diabetes, hyperlipidemia, history of hypokalemia, CKD stage II, left ventricular hypertensive hypertrophy, hypertension, aortic valve sclerosis, obesity, Cortes's esophagus, mild intellectual disability, history of colon cancer s/p surgery and chemo who lives with his niece was brought in because of ongoing cough and weakness. Since Wednesday afternoon patient started to have cough. Wednesday the cough was getting worse so they went to urgent care. He was prescribed azithromycin for possible pneumonia and the Wednesday morning COVID test came back positive. Because of his history williamshector called his PCP and was prescribed Paxlovid. Patient took 1 dose of Paxlovid today afternoon. Patient oxygen sats were 95% in the morning but was slowly dropping down to low 90s by evening so the neice brought him to the hospital. Patient had some low-grade fevers as per niece. He is also very weak. He usually ambulates without support but last couple of days he is using cane and is having difficulty for him to even get up. Appetite is down. Normal bowel and bladder movements. Denies any headache. Denies chest pain or shortness of breath. No nausea, no abdominal pain. Hemodynamics are okay. Patient has mild intellectual disability and laureano helped with H&P. COVID Cough and weakness Will do short course of remdesivir and Decadron COVID precautions Urgent care prescribed azithromycin and 3 more days to complete the course budenoside and albuterol as needed Supportive care Monitor in the hospital History of diabetes Hold home p.o. medications Sliding scale Will closely monitor Hypertension On atenolol and triamterene hydrochlorothiazide Will monitor History of hypokalemia Continue potassium supplements GERD Cortes's esophagus on omeprazole History of colon cancer Status post left yaw colectomy and chemo in 2005 s/p Right hemicolectomy in 2006 Lower extremity edema Dopplers obtained - no DVT Echo ordered Hyperlipidemia On statin DVT prophylaxis - Lovenox Disposition - Med/telemetry Full code. Addendum 08/02/24: Patient was seen and examined at bedside as a follow-up of generalized weakness and infection due to COVID-19 virus. Patient was sitting up in chair, on room air, NAD, resting comfortably. Patient was oriented, reports eating okay, moved bowels 2 days ago. Per RN no new acute event overnight. Patient reports his strength is back to his baseline. Patient denies any further cough or chest pain or shortness of breath. Patient reports feeling better, patient is hemodynamically stable. PT/OT has evaluated, patient ok to DC back to home with family support. Patient's primary contact Eli Dinero was given phone call x 2, left voicemail to call us back at the hospital and ask for Dr. Rosario for general update. Patient has been on room air for last 3 days, patient does not need any further remdesivir and steroid. Once fingerstick glucose are better, patient can discharge today. Patient is being discharged home with family support with following instructions at the point of discharge: Follow-up with your primary care physician within a week time and likely you will need labs CBC/CMP/magnesium/phosphorus. You are admitted for infection due to COVID-19 virus and generalized weakness, you have been stable respiratory rossi. You will not need further steroid and remdesivir since you have been on room air since last 2 to 3 days. Take your other medications as prescribed. Please make sure that you are able to get your medications today by calling your pharmacy before you leave the hospital so that your treatment continuity is not broken. [facility] Attestation I certify that this patient is under my care and that I, or a physicians visual merchandising assistant working with me, had a face to-face encounter that meets the home health [id number] encounter requirements with this patient. The encounter with the patient was in whole, or in part, for the following medical condition, which is the primary reason for home health care (list medical condition): I certify that, based on my findings, the following services are medically necessary home health services: My clinical findings support the need for the above services because: Further, I certify that my clinical findings support that this patient is homeb ound (i.e. absences from home require considerable and taxing effort and are for medical reasons or [facility] or infrequently or of short duration when for other reasons) because: Certification for Home Health Services: Based on the above findings, I certify that this patient is confined to the home and needs intermittent long term care, physical therapy and/or speech therapy or continues to need occupational therapy. The patient is under my care, and I have initiated the establishment of the plan of care. This patient will be followed by a physician who will periodically review the plan of care. Total Time Total Time Spent Total Time Spent (In Minutes): 40 Discharge Plan Discharge Items Patient Disposition: Home - Self-Care Reason For Visit: WEAKNESS, COVID Discharge Diagnosis: Infection due to COVID-19 virus Generalized weakness Activity: Resume your previous activity Non-emergency contact: Primary Care Provider Call non-emergency contact if: you have any medication questions, your symptoms worsen and your temperature is above 101 Follow-up/Referrals: Dominic Blancas MD [Primary Care Provider] - Diet: Carb Consistent or DM2 and Heart Healthy Addtl Attending Provider Instructions: Follow-up with your primary care physician within a week time and likely you will need labs CBC/CMP/magnesium/phosphorus. You are admitted for infection due to COVID-19 virus and generalized weakness, you have been stable respiratory rossi. You will not need further steroid and remdesivir since you have been on room air since last 2 to 3 days. Take your other medications as prescribed. Please make sure that you are able to get your medications today by calling your pharmacy before you leave the hospital so that your treatment continuity is not broken. Pending Studies at Discharge: Yes (ECHO done this admission) Stand-Alone Forms: My [employer], Smoking Cessation Medications and DC Order Prescriptions: New magnesium oxide 400 mg (241.3 mg magnesium) Tablet 400 mg PO QAM Qty: 30 0RF guaifenesin [Mucinex] 600 mg Tablet Extended Release 12hr 600 mg PO Q12 5 Days Qty: 10 0RF azithromycin 250 mg Tablet 250 mg PO QAM 2 Days Qty: 2 0RF Continued atorvastatin 40 mg Tablet 40 mg PO HS cyanocobalamin (vitamin B-12) [Vitamin B-12] 1,000 mcg Tablet 1,000 mcg PO QAM metformin 1,000 mg Tablet 1,000 mg PO BID omeprazole 20 mg Capsule,Delayed Release(Dr/Ec) 20 mg PO QAM triamterene-hydrochlorothiazid 75-50 mg Tablet 0.5 tab PO QAM Patient Comments: half tablet in the morning . 1 tablet is 75-50 mg. multivitamin Capsule 1 cap PO QAM atenolol 50 mg Tablet 50 mg PO QAM glipizide 5 mg Tablet 5 mg PO DAILY cholecalciferol (vitamin D3) [Vitamin D3] 25 mcg (1,000 unit) Capsule 4,000 - 5,000 unit PO WK potassium chloride [Klor-Con M10] 10 mEq Tablet,Er Particles/Crystals 30 meq PO TID aspirin 81 mg Tablet,Delayed Release (Dr/Ec) 81 mg PO QAM Qty: 30 0RF Discontinued Paxlovid 300 mg (150 mg x 2)-100 mg tablets,dose pack 1 ea PO DAILY Discharge Orders: Discharge Order (Routine); Ordered 08/02/24 Ordered By: Adrian Chavez/Other Patient Handouts: Managing Type 2 Diabetes Admission Data Admit Date/Time: 07/30/24 22:50 Attending Provider: Adrian Rosario Admit Provider: Dank Watson Primary Care Provider: Dominic Blancas Other Providers: Dank Watson
[2024-08-02] MEDS: LANTUS PER UNIT CHARGE SC SCH (13:05)
--- NOTE | 2024-08-02 13:50 | Pharmacy Report ---
Pharmacy Glycemic Short Note 2 - Date of Service August 02, 2024 - Glycemic Short BSG Results (Last 24 hours): 08/01/24 08/01/24 08/02/24 17:06 20:07 05:57 Glucose 187 H POC Glucose 197 H 206 H 08/02/24 08/02/24 08/02/24 08:15 12:12 12:14 Glucose POC Glucose 169 H 357 H* 358 H* OUTPATIENT ANTIDIABETIC REGIMEN: * metformin 1000mg PO BID * HbA1c 7.2% (07/31/24) ASSESSMENT: * Tim is a a 73 YOM admitted with COVID pneumonia and a history of type 2 diabetes mellitus. Pharmacy has been consulted to assist with glycemic management while inpatient. * Fasting BSG this AM acceptable, BSGs greater than 300 at lunchtime, likely due to IV dexamethasone 6mg, will give 0.2 units/kg Lantus now and with any other dexamethasone administrations to help cover steroid induced hyperglycemia * NovoLog tightened to a weight based stress of 2. PLAN FOR INPATIENT GLYCEMIC CONTROL: * Hold outpatient oral diabetes medications * Basal insulin * Lantus 20 units SQ now x1, then 20 units daily with IV dexamethasone * Bolus insulin * NovoLog per scale ACHS or Q6hrs while NPO * Goal Range: Low 110 mg/dL - High 140 mg/dL * Correction Factor: 25 mg/dL/unit * Nutritional / Prandial insulin per carb ratio of 1 unit per 8 grams CHO consumed
[2024-08-02] MEDS: INFLUENZA VACC TS2024-25(65y+)/PF (IIV3) 0.5mL Syr IM ONE (14:07)
[2024-08-02] MEDS ORDERED: INSULIN ASPART PER UNIT CHARGE SC ONE (14:46)
[2024-08-02 15:36] VITALS: TEMP 97.7; O2SAT 96
[2024-08-02 16:42] VITALS: BP 118/71; PULSE 60
--- NOTE | 2024-08-03 16:22 | Coding Query ---
CODING QUERY To promote full compliance with coding requirements relating to patient care, provider participation is requested in all cases of trumpet teacher uncertainty. Please assist us with the question(s) below: Coding Question(s): The medical record reflects the following clinical evidence: Clinical Indicators:Pt presenting with cough, increased weakness. Found to be COVID positive on 07/29 at urgent care center. CXR in ER with Bilateral airspace opacities which may represent pulmonary edema and/or atypical infection. WBC 11.26 Treatment: IV remdesivir, IV decadron, azithromycin, ventolin hfa prn, arnuity ellipta, mucinex, robitussin prn Risk Factor(s): COVID +, age Physician's Response(s): __x__COVID pneumonia ____other pneumonia (please specify) ____Other explanation of clinical findings ____Unable to determine (no explanation for clinical findings) Thank you Anabel ROCK
== END 2024-08-02 18:30 | disposition home or self-care (01) | DRG 177 ==
LOC: ED 19:07 → 2N 22:50 → SUATTDRO 22:50 → 2N 23:44

== ENCOUNTER 2025-07-30 21:56 | Inpatient (IN) ==
[2025-07-30 22:32] LABS: Hematocrit (blood only) 41.0 % (42.0-52.0); Hemoglobin 14.1 g/dL (14.0-18.0); Immature Granulocytes # (auto) 0.06 K/uL (0.01-0.20); Immature Granulocytes % (auto) 0.5 %; Mean Corpuscular Hemoglobin 29.3 pg (25.0-34.0); Mean Corpuscular Volume 85.2 fL (80.0-100.0); Platelet Count 209 K/uL (130-400); RDW Standard Deviation 41.2 fL (36.4-46.3); Red Blood Count 4.81 M/uL (4.70-6.10); White Blood Count 11.58 K/ul (4.8-10.8)
[2025-07-30 22:49] LABS: Alanine Aminotransferase 16.0 U/L (7-52); Albumin Globulin Ratio 1.2 (0.9-2); Albumin Level 4.0 gm/dl (3.4-5.0); Alkaline Phosphatase 67.0 U/L (34-104); Anion Gap 9.0 (3-11); Bilirubin,Total 1.3 mg/dl (0.2-1.0); Blood Urea Nitrogen 12.0 mg/dl (6-23); Calcium 9.7 mg/dl (8.6-10.3); Carbon Dioxide 26.0 mmol/L (21-32); Chloride 104.0 mmol/L (98-107); Creatinine Clr Calc Pharmacy 88.7 ml/min; Globulin 3.3 gm/dl (2.5-4.0); Glucose 174.0 mg/dl (70-99(Fasting)); Potassium 3.9 mmol/L (3.5-5.1); Sodium 139.0 mmol/L (136-145); Total Protein 7.3 gm/dl (6.0-8.3)
--- NOTE | 2025-07-30 23:14 | Emergency Department Note ---
Impression & Plan URI (upper respiratory infection), Fatigue, Hypomagnesemia ED Provider Note ED Provider Note NAME: MIHIR HEATH AGE:74 SEX: Male : 1950 ARRIVES VIA: Private vehicle INFORMANT: Patient ED PROVIDER(s): María Mars DO CHIEF COMPLAINT: Increased fatigue, persistent URI symptoms HPI: This is a 74-year-old male presents the emergency department with his cousin at bedside with whom he lives due to concern for persistent URI symptoms now with increased fatigue. Presents today as he is "special needs". He lives with her and she helps to manage his medical problems. She states a week and a half ago he began to develop a cough, sore throat, and thought developing a cold. She states symptoms persisted but did not seem to be worsening. She took a BC his PCP last . At that time they did not feel he needed antibiotics and thought it was likely viral in origin however gave her an antibiotic as a precaution in case she felt it was worsening. She states she did not start the antibiotic however today noticed that he seemed far more fatigued compared to normal and he was refusing to take his medications. She states no other recent new medications. No known sick contacts. No vomiting or diarrhea. PAST MEDICAL HISTORY:See Below PAST SURGICAL HISTORY:See Below FAMILY HISTORY:See Below SOCIAL HISTORY:See Below HOME MEDICATIONS:See Below ALLERGIES:See Below VITALS:See Below PHYSICAL EXAMINATION: GENERAL: alert, somnolent appearing, well nourished, no distress, non-toxic EYE EXAM: normal conjunctiva, PERRL and EOM's grossly intact OROPHARYNX: no exudate, no erythema, lips, buccal mucosa, and tongue normal and mucous membranes are moist NECK: supple, no nuchal rigidity, no adenopathy, non-tender LUNGS: Clear to auscultation. Normal chest wall mechanics, no w/r/r HEART: no murmurs, S1 normal and S2 normal ABDOMEN: abdomen soft, non-tender, normo-active bowel sounds, no masses, no rebound or guarding. SKIN: no rashes, petechiae, orbruising UPPER EXTREMITIES: upper extremities are grossly normal. FROM, nml pulses b/l. LOWER EXTREMITIES: No pitting edema. FROM, nml pulses b/l. NEURO EXAM: Normal sensorium, cranial nerves II-XII grossly intact, normal speech, no facial droop,nogross weakness of arms, no gross weakness of legs. Gross sensation intact. No ataxia. Vital Signs: reviewed and remarkable Differential Diagnosis: dehydration, stroke, anemia, hypoglycemia, hyponatremia, hypernatremia, urinary tract infection, pneumonia, bronchitis, sepsis, gastroenteritis, additional abdominal pathology, metabolic abnormalities, as well as others were considered MEDICAL DECISION MAKING: This is a 74-year-old male brought in by his cousin due to concern for increased fatigue, not taking his medications, and not acting his usual self. Patient has had intellectual disability and is cared for by his cousin. He was afebrile and hemodynamically stable. Labs drawn and sent, IV established, EKG and CXR performed and interpreted at bedside, and patient placed on telemetry. Nasal swab obtained and sent additionally for viral respiratory panel. Urine collected and sent for analysis also. Patient started on gentle IV fluid hydration as a precaution. Patient's labs reassuring, nasal swab positive for enterovirus/rhinovirus. Hematuria noted on UA, no other evidence of fulminant infection. Hypomagnesemia was also noted and he was given IV repletion. Patient denied any pain at bedside and did have a reassuring exam. Cousin/caregiver concerned for ongoing illness and worsening symptoms. Case discussed with hospitalist team for additional evaluation and management. Consultation(s): 0120: Discussed with Dr. Watson, [facility] hospitalist team, for additional evaluation and mgmt. ER Treatment Provided: See below Diagnostics Interpreted By Me: -ECG: Normal sinus at 96, left axis, normal intervals, nonspecific ST/T wave changes -Cardiac Monitoring: An order was placed for continuous cardiac monitoring. The monitor shows a rate of 94 with normal sinus rhythm. -Laboratory studies: As stated above and show below. -Imaging studies: X-ray Chest: A single view study of the chest was reviewed and was negative for cardiomegaly, focal infiltrate, effusion, pulmonary edema, or wide mediastinum. 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 R colon resection with primary ileocolonic anastomosis, gastrostomy" Cellulitis of right lower extremity without foot SBO (small bowel obstruction) (Acute) Small bowel obstruction (Acute) Tachycardia (Acute) Hx of cholecystectomy (Chronic) S/P appendectomy (Chronic) Mild intellectual disability (Chronic) PT IS SPECIAL NEEDS, COMMUNICATION ABILITY SEEMS TO DECLINE WITH AGE PT IS FEARFUL OF UPCOMING CATARACT SURGERY Cortes's esophagus (Chronic) Malignant neoplasm of colon (Chronic) hx 15-20 yr ago / sx intervention HX PORT PLACEMENT ? HX CHEMO/? 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 born with, reason for potassium supplement History of anesthesia reaction problems with swallowing after surgery, esophagus was irritated - with colon surgery Aortic valve sclerosis Surgical History History of left cataract surgery History of endoscopy History of colonoscopy History of colon surgery for colon ca Family History Mother Family history of diabetes mellitus Social History Smoking Status: Never smoker Second Hand Exposure: No; Do You Dip or Chew Tobacco: No; Hx Alcohol Use: No Hx Substance Use: No Preferred Language: Luxembourgish Communication Ability: Effective Communication Ability Comment: PT SPECIAL NEEDS/COMMUNICATES LIVAN & IS COOPERATIVE/ABLE TO SIGN CONSENTS Director Of Conservation Required: No Beliefs That Will Affect Care: None Current Living Situation: Family Current Living Situation Comment: with cousin and her Feels Safe at Home: Yes Assistive Devices: Cane, Lift Chair and Walker Allergies Allergies Allergy/AdvReac Type Severity Reaction Status Date / Time latex Allergy Unknown Rash Verified 07/30/24 21:59 dapagliflozin [From [facility]] AdvReac Anaphylaxis Unverified 07/30/24 22:00 Home Meds Home Medications Medication Instructions Recorded Confirmed aspirin 81 mg tablet,delayed 81 mg PO DAILY 07/31/25 07/31/25 release atenolol 50 mg tablet 50 mg PO DAILY 07/31/25 07/31/25 atorvastatin 40 mg tablet 40 mg PO DAILY 07/31/25 07/31/25 cholecalciferol (vitamin D3) 25 25 mcg PO DAILY 07/31/25 07/31/25 mcg (1,000 unit) capsule (Vitamin D3) cyanocobalamin (vitamin B-12) 1,000 mcg PO DAILY 07/31/25 07/31/25 1,000 mcg capsule dulaglutide 3 mg/0.5 mL 3 mg subcut WK 07/31/25 07/31/25 subcutaneous pen injector (Trulicity) glipizide 5 mg tablet, extended 5 mg PO DAILY 07/31/25 07/31/25 release 24 hr metformin 1,000 mg tablet 1,000 mg PO BID 07/31/25 07/31/25 multivitamin with minerals 1 tab PO DAILY 07/31/25 07/31/25 omeprazole 20 mg capsule,delayed 20 mg PO DAILY 07/31/25 07/31/25 release potassium chloride 10 mEq 30 meq PO TID 07/31/25 07/31/25 tablet,extended release(part/cryst) triamterene 75 0.5 tab PO DAILY 07/31/25 07/31/25 mg-hydrochlorothiazide 50 mg tablet Results & Data (ED) Vital Signs Vital Signs - 24 hr 07/30/25 22:03 07/30/25 23:00 07/30/25 23:00 Temperature 36.7 C Temperature Source Oral Pulse Rate 95 H 90 Pulse Rate [Apical] 88 Pulse Rate from SpO2 Sensor Respiratory Rate 20 20 Respiratory Effort / Characteristics Non-Labored Spontaneous Non-Labored Spontaneous Respiratory Depth Normal Normal Respiratory Pattern Regular Regular Blood Pressure 141/94 H Blood Pressure [Right Arm] 143/97 H Blood Pressure Mean 109 Blood Pressure Mean [Right Arm] 112 Blood Pressure Position Sitting Pulse Oximetry 93 93 Oxygen Delivery Method Room Air Room Air Sepsis Recent Fever Within 48 Hours No Sepsis New/Unexplained Change in Mental Status No Sepsis Action Taken by Nursing No Action Required 07/30/25 23:00 07/30/25 23:30 07/31/25 00:00 Temperature Temperature Source Pulse Rate 93 H 92 H 92 H Pulse Rate [Apical] Pulse Rate from SpO2 Sensor 93 H 92 H 93 H Respiratory Rate 21 21 24 Respiratory Effort / Characteristics Respiratory Depth Respiratory Pattern Blood Pressure 143/97 H 137/92 137/90 Blood Pressure [Right Arm] Blood Pressure Mean 112 107 105 Blood Pressure Mean [Right Arm] Blood Pressure Position Pulse Oximetry 93 93 96 Oxygen Delivery Method Room Air Room Air Room Air Sepsis Recent Fever Within 48 Hours Sepsis New/Unexplained Change in Mental Status Sepsis Action Taken by Nursing 07/31/25 00:30 07/31/25 01:00 07/31/25 01:30 Temperature Temperature Source Pulse Rate 96 H 94 H 93 H Pulse Rate [Apical] Pulse Rate from SpO2 Sensor 94 H 92 H 94 H Respiratory Rate 18 21 19 Respiratory Effort / Characteristics Respiratory Depth Respiratory Pattern Blood Pressure 117/85 133/86 138/86 Blood Pressure [Right Arm] Blood Pressure Mean 95 101 103 Blood Pressure Mean [Right Arm] Blood Pressure Position Pulse Oximetry 94 95 97 Oxygen Delivery Method Room Air Room Air Room Air Sepsis Recent Fever Within 48 Hours Sepsis New/Unexplained Change in Mental Status Sepsis Action Taken by Nursing Laboratory Data 07/30/25 22:20 07/30/25 22:20 Lab Results 07/30/25 07/31/25 Range/Units 22:20 00:00 WBC 11.58 H (4.8-10.8) K/ul RBC 4.81 (4.70-6.10) M/uL Hgb 14.1 (14.0-18.0) g/dL Hct 41.0 L (42.0-52.0) % MCV 85.2 (80.0-100.0) fL MCH 29.3 (25.0-34.0) pg MCHC 34.4 (32.0-36.0) g/dL RDW Std Deviation 41.2 (36.4-46.3) fL RDW Coeff of Hal 13.2 (11.5-14.5) % Plt Count 209 (130-400) K/uL MPV 9.6 (9.4-12.4) fL Immature Gran % (Auto) 0.5 % Neut % (Auto) 73.7 % Lymph % (Auto) 15.1 % [place] % (Auto) 9.7 % Eos % (Auto) 0.6 % Baso % (Auto) 0.4 % Neut # (Auto) 8.53 H (1.40-6.50) K/uL Lymph # (Auto) 1.75 (1.20-3.40) K/uL [place] # (Auto) 1.12 H (0.11-0.59) K/uL Eos # (Auto) 0.07 (0.00-0.50) K/uL Baso # (Auto) 0.05 (0.00-0.20) K/uL Immature Gran # (Auto) 0.06 (0.01-0.20) K/uL Sodium 139 (136-145) mmol/L Potassium 3.9 (3.5-5.1) mmol/L Chloride 104 (98-107) mmol/L Carbon Dioxide 26 (21-32) mmol/L Anion Gap 9 (3-11) BUN 12 (6-23) mg/dl Creatinine 0.80 (0.6-1.4) mg/dl Est Cr Clr Drug Dosing 88.7 ml/min eGFR 92.29 BUN/Creatinine Ratio 15.0 (10-20) Glucose 174 H (70-99(Fasting)) mg/dl Calcium 9.7 (8.6-10.3) mg/dl Magnesium 1.6 L (1.7-2.4) mg/dl Total Bilirubin 1.3 H (0.2-1.0) mg/dl AST 18 (13-39) U/L ALT 16 (7-52) U/L Alkaline Phosphatase 67 (34-104) U/L Troponin I High Sens 2.9 (0-20) pg/ml Total Protein 7.3 (6.0-8.3) gm/dl Albumin 4.0 (3.4-5.0) gm/dl Globulin 3.3 (2.5-4.0) gm/dl Albumin/Globulin Ratio 1.2 (0.9-2) TSH 2.646 (0.300-4.500) uIu/ml Urine Color Yellow Urine Appearance Clear (Clear) Urine pH 5.5 (4.5-7.5) Ur Specific [place] 1.019 (1.000-1.030) Urine Protein Trace H (Negative) Urine Glucose (UA) Negative (Negative) Urine Ketones Trace H (Negative) Urine Blood 2+ H (Negative) Urine Nitrite Negative (Negative) Urine Bilirubin Negative (Negative) Urine Urobilinogen Negative (Negative) Ur Leukocyte Esterase Trace H (Negative) Urine WBC (Auto) 0-5 (0-5) /hpf Urine RBC (Auto) 6-10 H (0-2) /hpf U Hyaline Cast (Auto) 0-2 (0-2) /lpf U Epithel Cells (Auto) 0-2 (0-2) /hpf Urine Bacteria (Auto) None Seen (None Seen) Urine Comment Adenovirus (PCR) Not Detected (NotDetected) B. pertussis DNA (PCR) Not Detected (NotDetected) B.parapertussis DNA PCR Not Detected (NotDetected) C. pneumoniae DNA (PCR) Not Detected (NotDetected) Coronavirus OC43 (PCR) Not Detected (NotDetected) Coronavirus HKU1 (PCR) Not Detected (NotDetected) Coronavirus 229E (PCR) Not Detected (NotDetected) SARS-CoV-2 (PCR) Not Detected (NotDetected) Coronavirus NL63 (PCR) Not Detected (NotDetected) Human Metapneumovir PCR Not Detected (NotDetected) Influenza Type A (PCR) Not Detected (NotDetected) Influenza Type B (PCR) Not Detected (NotDetected) M. pneumoniae (PCR) Not Detected (NotDetected) Parainfluenza 1 (PCR) Not Detected (NotDetected) Parainfluenza 2 (PCR) Not Detected (NotDetected) Parainfluenza 3 (PCR) Not Detected (NotDetected) Parainfluenza 4 (PCR) Not Detected (NotDetected) RSV (PCR) Not Detected (NotDetected) Entero/Rhino (PCR) DETECTED A (NotDetected) Administered Medications Magnesium Sulfate/Dextrose (Magnesium Sulfate / D5w) 1 gm in 100 mls @ 50 mls/hr IV ONE ONE Stop: 07/31/25 04:21 Last Admin: 07/31/25 03:47 Dose: 50 mls/hr Documented By: LUPE Lactated Ringer's (Lr) 1,000 mls @ 125 mls/hr IV .Q8H DANISHA Stop: 08/03/25 03:38 Last Admin: 07/31/25 04:09 Dose: 125 mls/hr Documented By: LUPE Discontinued Medications Sodium Chloride (Nss) 1,000 mls @ 125 mls/hr IV .Q8H DANISHA Stop: 08/02/25 23:14 Last Infusion: 07/31/25 03:43 Dose: Infused Documented By: Admin: 07/30/25 23:52 Dose: 125 mls/hr Documented By: LUPE Magnesium Sulfate/Dextrose (Magnesium Sulfate / D5w) 1 gm in 100 mls @ 100 mls/hr IV NOW STA Stop: 07/31/25 00:53 Last Infusion: 07/31/25 01:20 Dose: Infused Documented By: Admin: 07/31/25 00:14 Dose: 100 mls/hr Documented By: LUPE Discharge Plan Visit Data Chief Complaint: Altered Mental Status Stated Complaint: AMS ED Provider: María Mars Discharge Problem: URI (upper respiratory infection), Fatigue, Hypomagnesemia Patient Disposition: Being Evaluated by Hospitalist Condition: Fair Discharge Instructions Interventions: ED Discharge Assessment Last Done: 07/31/25 03:39
[2025-07-30 23:39] LABS: Magnesium 1.6 mg/dl (1.7-2.4)
[2025-07-30] MEDS: SODIUM CHLORIDE 0.9% 1,000 ML IV SCH (23:52)
[2025-07-30 23:55] LABS: Thyroid Stimulating Hormone 2.646 uIu/ml (0.300-4.500)
[2025-07-31] MEDS: MAGNESIUM SULFATE / D5W 1 GM/100 ML BAG IV STA (00:14)
[2025-07-31 00:16] LABS: Appearance Urine Clear (Clear); Bacteria Urine Automated None Seen (None Seen); Cast Urine Automated 0-2 /lpf (0-2); Epithelial Cell Urine Auto 0-2 /hpf (0-2); Glucose Urine UA Negative (Negative); WBC Urine Automated 0-5 /hpf (0-5)
[2025-07-31 00:57] LABS: Chlamydia pneumoniae PCR Not Detected (NotDetected); Coronavirus 229E PCR Not Detected (NotDetected); Coronavirus CoV-2 (COVID19)PCR Not Detected (NotDetected); Coronavirus HKU1 PCR Not Detected (NotDetected); Coronavirus NL63 PCR Not Detected (NotDetected); Coronavirus OC43PCR Not Detected (NotDetected); Human Metapneumovirus PCR Not Detected (NotDetected); Parainfluenza Virus 1 PCR Not Detected (NotDetected); Parainfluenza Virus 2 PCR Not Detected (NotDetected); Parainfluenza Virus 3 PCR Not Detected (NotDetected); Parainfluenza Virus 4 PCR Not Detected (NotDetected); Respiratory Syncytial VirusPCR Not Detected (NotDetected); Rhinovirus/Enterovirus PCR DETECTED (NotDetected)
--- NOTE | 2025-07-31 02:44 | History & Physical Report ---
Date of Service July 31, 2025 Assessment & Plan (1) Confusion: Plan: 74-year-old male with past medical history significant for type 2 diabetes, hyperlipidemia, hypokalemia, LV hypertrophy hypertensive, hypertension, aortic valve sclerosis, obesity, Cortes's esophagus without dysplasia, mild intellectual disability, history of colon cancer who lives with his cousin was brought in because of confusion. Patient having some cold symptoms since mid July. He saw PCP on 07/26/2025 with sore throat and congestion and progressing cough with sputum. No fevers. Patient was prescribed Flonase spray, Sudafed and Mucinex and advised to give antibiotic if symptoms worsen. Patient did not required antibiotics. Sudafed was stopped as patient developed nasal bleeding. Still has ongoing cough and cold symptoms. And some sore throat. No runny nose. Today was having headache and abdominal pain. And seemed more confused today. And was also having ambulatory dysfunction, and the cousin decided to bring him to the hospital. Patient is sleepy. Can tell his name. Knows that he is in the hospital. Knows it is [place] time. Can tell his date of . Usually patient is not good with dates as per the cousin. Patient currently denies any chest pain. Denies shortness of breath. Has some complains of headache and abdominal discomfort. No diarrhea as per cousin. Stools are mostly loose since his colon cancer per cousin. Micturating okay. Today he declined to take pills and not eating much. Confusion History of mild intellectual disability Weakness and ambulatory dysfunction Ongoing cold and congestion Respiratory BioFire positive for enterorhinovirus Will monitor in the hospital Gentle fluids Supportive care Enterorhinovirus Supportive care Contact precautions Diabetes Hold home p.o. medications Sliding scale Will monitor Hypertension On atenolol, triamterene/hydrochlorothiazide Will monitor History of hypokalemia Continue home potassium supplements Hypomagnesia Will replace Follow labs GERD Cortes's esophagus On omeprazole Hyperlipidemia On statin History of colon cancer Status post left hemicolectomy and chemo in 2005 S/p right colectomy 2007 DVT prophylaxis Lovenox Disposition Med/telemetry Full code. History of Present Illness Chief Complaint: Confusion Primary Care Provider: Dominic Blancas MD 74-year-old male with past medical history significant for type 2 diabetes, hyperlipidemia, hypokalemia, LV hypertrophy hypertensive, hypertension, aortic valve sclerosis, obesity, Cortes's esophagus without dysplasia, mild intellectual disability, history of colon cancer who lives with his cousin was brought in because of confusion. Patient having some cold symptoms since mid July. He saw PCP on 07/26/2025 with sore throat and congestion and progressing cough with sputum. No fevers. Patient was prescribed Flonase spray, Sudafed and Mucinex and advised to give antibiotic if symptoms worsen. Patient did not required antibiotics. Sudafed was stopped as patient developed nasal bleeding. Still has ongoing cough and cold symptoms. And some sore throat. No runny nose. Today was having headache and abdominal pain. And seemed more confused today. And was also having ambulatory dysfunction, and the cousin decided to bring him to the hospital. Patient is sleepy. Can tell his name. Knows that he is in the hospital. Knows it is [place] time. Can tell his date of . Usually patient is not good with dates as per the cousin. Patient currently denies any chest pain. Denies shortness of breath. Has some complains of headache and abdominal discomfort. No diarrhea as per cousin. Stools are mostly loose since his colon cancer per cousin. Micturating okay. Today he declined to take pills and not eating much. Past medical history. As mentioned above. Past surgical history. Colonoscopy. Colonoscopy biopsy. EGD. EGD with biopsy. Left colon partial removal with anastomosis in 2005.. Right colon resection with primary ileocolonic anastomosis in 2006. Appendectomy. Cholecystectomy. Sigmoidoscopy. Social history. No smoking. No alcohol use. No drug use. Lives with his cousin. Family history. Brother had heart disorder. Maternal grandmother had heart disorder. Uncle had heart disorder. Mother had kidney failure. Father had aneurysm. Allergies Allergy/AdvReac Type Severity Reaction Status Date / Time latex Allergy Unknown Rash Verified 07/30/24 21:59 dapagliflozin [From [facility]] AdvReac Anaphylaxis Unverified 07/30/24 22:00 Home Medications Medication Instructions Recorded Confirmed Type aspirin 81 mg tablet,delayed 81 mg PO DAILY 07/31/25 07/31/25 History release atenolol 50 mg tablet 50 mg PO DAILY 07/31/25 07/31/25 History atorvastatin 40 mg tablet 40 mg PO DAILY 07/31/25 07/31/25 History cholecalciferol (vitamin D3) 25 25 mcg PO DAILY 07/31/25 07/31/25 History mcg (1,000 unit) capsule (Vitamin D3) cyanocobalamin (vitamin B-12) 1,000 mcg PO DAILY 07/31/25 07/31/25 History 1,000 mcg capsule dulaglutide 3 mg/0.5 mL 3 mg subcut WK 07/31/25 07/31/25 History subcutaneous pen injector (Trulicity) glipizide 5 mg tablet, extended 5 mg PO DAILY 07/31/25 07/31/25 History release 24 hr metformin 1,000 mg tablet 1,000 mg PO BID 07/31/25 07/31/25 History multivitamin with minerals 1 tab PO DAILY 07/31/25 07/31/25 History omeprazole 20 mg capsule,delayed 20 mg PO DAILY 07/31/25 07/31/25 History release potassium chloride 10 mEq 30 meq PO TID 07/31/25 07/31/25 History tablet,extended release(part/cryst) triamterene 75 0.5 tab PO DAILY 07/31/25 07/31/25 History mg-hydrochlorothiazide 50 mg tablet Past Med/Surg History Problem List (Updated 07/31/25 @ 04:12 by María Mars, DO) Hypomagnesemia (Acute) Confusion Fatigue (Acute) URI (upper respiratory infection) (Acute) Borderline low O2 saturation (Acute) Generalized weakness (Acute) COVID-19 (Acute) COVID Vertebral artery stenosis, non-symptomatic Hypomagnesemia (Acute) Stroke-like symptom (Acute) LVH (left ventricular hypertrophy) due to hypertensive disease (Chronic) 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 R colon resection with primary ileocolonic anastomosis, gastrostomy" Cellulitis of right lower extremity without foot SBO (small bowel obstruction) (Acute) Small bowel obstruction (Acute) Tachycardia (Acute) Hx of cholecystectomy (Chronic) S/P appendectomy (Chronic) Mild intellectual disability (Chronic) PT IS SPECIAL NEEDS, COMMUNICATION ABILITY SEEMS TO DECLINE WITH AGE PT IS FEARFUL OF UPCOMING CATARACT SURGERY Cortes's esophagus (Chronic) Malignant neoplasm of colon (Chronic) hx 15-20 yr ago / sx intervention HX PORT PLACEMENT ? HX CHEMO/? 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 born with, reason for potassium supplement History of anesthesia reaction problems with swallowing after surgery, esophagus was irritated - with colon surgery Aortic valve sclerosis Surgical History History of left cataract surgery History of endoscopy History of colonoscopy History of colon surgery for colon ca Family History Mother Family history of diabetes mellitus Social History Smoking Status: Never smoker Second Hand Exposure: No; Do You Dip or Chew Tobacco: No; Hx Alcohol Use: No Hx Substance Use: No Preferred Language: [place] Communication Ability: Effective Communication Ability Comment: PT SPECIAL NEEDS/COMMUNICATES LIVAN & 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 ENT- oropharynx clear Neck- supple, no JVD. Lungs- clear to auscultation no wheezing or crackles Heart- regular rhythm; no murmur, no gallop. Abdomen- normal bowel sounds, soft, nontender, no distension Extremities- mild pretibial edema, no erythema seen Neuro- alert, oriented x 2; PERRL, no facial palsy; no dysarthria; moves extremities Results & Data Results & Data Vital Signs (Past 12 Hours) Vital Signs Temp Pulse Pulse Resp BP BP Pulse Ox 07/31/25 01:30 93 H 19 138/86 97 07/31/25 01:00 94 H 21 133/86 95 07/31/25 00:30 96 H 18 117/85 94 07/31/25 00:00 92 H 24 137/90 96 07/30/25 23:30 92 H 21 137/92 93 07/30/25 23:00 93 H 21 143/97 H 93 07/30/25 23:00 90 07/30/25 23:00 88 20 143/97 H 93 07/30/25 22:03 36.7 C 95 H 20 141/94 H 93 O2 Del Method 07/31/25 01:30 Room Air 07/31/25 01:00 Room Air 07/31/25 00:30 Room Air 07/31/25 00:00 Room Air 07/30/25 23:30 Room Air 07/30/25 23:00 Room Air 07/30/25 23:00 07/30/25 23:00 Room Air 07/30/25 22:03 Room Air Diagnostic Findings Laboratory Results WBC 11.58 K/ul (4.8-10.8) H 07/30/25 22:20 RBC 4.81 M/uL (4.70-6.10) 07/30/25 22:20 Hgb 14.1 g/dL (14.0-18.0) 07/30/25 22:20 Hct 41.0 % (42.0-52.0) L 07/30/25 22:20 MCV 85.2 fL (80.0-100.0) 07/30/25 22:20 MCH 29.3 pg (25.0-34.0) 07/30/25 22:20 MCHC 34.4 g/dL (32.0-36.0) 07/30/25 22:20 RDW Std Deviation 41.2 fL (36.4-46.3) 07/30/25 22:20 RDW Coeff of Hal 13.2 % (11.5-14.5) 07/30/25 22:20 Plt Count 209 K/uL (130-400) 07/30/25 22:20 MPV 9.6 fL (9.4-12.4) 07/30/25 22:20 Immature Gran % (Auto) 0.5 % 07/30/25 22:20 Neut % (Auto) 73.7 % 07/30/25 22:20 Lymph % (Auto) 15.1 % 07/30/25 22:20 [place] % (Auto) 9.7 % 07/30/25 22:20 Eos % (Auto) 0.6 % 07/30/25 22:20 Baso % (Auto) 0.4 % 07/30/25 22:20 Neut # (Auto) 8.53 K/uL (1.40-6.50) H 07/30/25 22:20 Lymph # (Auto) 1.75 K/uL (1.20-3.40) 07/30/25 22:20 [place] # (Auto) 1.12 K/uL (0.11-0.59) H 07/30/25 22:20 Eos # (Auto) 0.07 K/uL (0.00-0.50) 07/30/25 22:20 Baso # (Auto) 0.05 K/uL (0.00-0.20) 07/30/25 22:20 Immature Gran # (Auto) 0.06 K/uL (0.01-0.20) 07/30/25 22:20 Sodium 139 mmol/L (136-145) 07/30/25 22:20 Potassium 3.9 mmol/L (3.5-5.1) 07/30/25 22:20 Chloride 104 mmol/L (98-107) 07/30/25 22:20 Carbon Dioxide 26 mmol/L (21-32) 07/30/25 22:20 Anion Gap 9 (3-11) 07/30/25 22:20 BUN 12 mg/dl (6-23) 07/30/25 22:20 Creatinine 0.80 mg/dl (0.6-1.4) 07/30/25 22:20 Est Cr Clr Drug Dosing 88.7 ml/min 07/30/25 22:20 eGFR 92.29 07/30/25 22:20 BUN/Creatinine Ratio 15.0 (10-20) 07/30/25 22:20 Glucose 174 mg/dl (70-99(Fasting)) H 07/30/25 22:20 Calcium 9.7 mg/dl (8.6-10.3) 07/30/25 22:20 Magnesium 1.6 mg/dl (1.7-2.4) L 07/30/25 22:20 Total Bilirubin 1.3 mg/dl (0.2-1.0) H 07/30/25 22:20 AST 18 U/L (13-39) 07/30/25 22:20 ALT 16 U/L (7-52) 07/30/25 22:20 Alkaline Phosphatase 67 U/L (34-104) 07/30/25 22:20 Troponin I High Sens 2.9 pg/ml (0-20) 07/30/25 22:20 Total Protein 7.3 gm/dl (6.0-8.3) 07/30/25 22:20 Albumin 4.0 gm/dl (3.4-5.0) 07/30/25 22:20 Globulin 3.3 gm/dl (2.5-4.0) 07/30/25 22:20 Albumin/Globulin Ratio 1.2 (0.9-2) 07/30/25 22:20 TSH 2.646 uIu/ml (0.300-4.500) 07/30/25 22:20 Urine Color Yellow 07/31/25 00:00 Urine Appearance Clear (Clear) 07/31/25 00:00 Urine pH 5.5 (4.5-7.5) 07/31/25 00:00 Ur Specific [place] 1.019 (1.000-1.030) 07/31/25 00:00 Urine Protein Trace (Negative) H 07/31/25 00:00 Urine Glucose (UA) Negative (Negative) 07/31/25 00:00 Urine Ketones Trace (Negative) H 07/31/25 00:00 Urine Blood 2+ (Negative) H 07/31/25 00:00 Urine Nitrite Negative (Negative) 07/31/25 00:00 Urine Bilirubin Negative (Negative) 07/31/25 00:00 Urine Urobilinogen Negative (Negative) 07/31/25 00:00 Ur Leukocyte Esterase Trace (Negative) H 07/31/25 00:00 Urine WBC (Auto) 0-5 /hpf (0-5) 07/31/25 00:00 Urine RBC (Auto) 6-10 /hpf (0-2) H 07/31/25 00:00 U Hyaline Cast (Auto) 0-2 /lpf (0-2) 07/31/25 00:00 U Epithel Cells (Auto) 0-2 /hpf (0-2) 07/31/25 00:00 Urine Bacteria (Auto) None Seen (None Seen) 07/31/25 00:00 Urine Comment 07/31/25 00:00 Adenovirus (PCR) Not Detected (NotDetected) 07/31/25 00:00 B. pertussis DNA (PCR) Not Detected (NotDetected) 07/31/25 00:00 B.parapertussis DNA PCR Not Detected (NotDetected) 07/31/25 00:00 C. pneumoniae DNA (PCR) Not Detected (NotDetected) 07/31/25 00:00 Coronavirus OC43 (PCR) Not Detected (NotDetected) 07/31/25 00:00 Coronavirus HKU1 (PCR) Not Detected (NotDetected) 07/31/25 00:00 Coronavirus 229E (PCR) Not Detected (NotDetected) 07/31/25 00:00 SARS-CoV-2 (PCR) Not Detected (NotDetected) 07/31/25 00:00 Coronavirus NL63 (PCR) Not Detected (NotDetected) 07/31/25 00:00 Human Metapneumovir PCR Not Detected (NotDetected) 07/31/25 00:00 Influenza Type A (PCR) Not Detected (NotDetected) 07/31/25 00:00 Influenza Type B (PCR) Not Detected (NotDetected) 07/31/25 00:00 M. pneumoniae (PCR) Not Detected (NotDetected) 07/31/25 00:00 Parainfluenza 1 (PCR) Not Detected (NotDetected) 07/31/25 00:00 Parainfluenza 2 (PCR) Not Detected (NotDetected) 07/31/25 00:00 Parainfluenza 3 (PCR) Not Detected (NotDetected) 07/31/25 00:00 Parainfluenza 4 (PCR) Not Detected (NotDetected) 07/31/25 00:00 RSV (PCR) Not Detected (NotDetected) 07/31/25 00:00 Entero/Rhino (PCR) DETECTED (NotDetected) A 07/31/25 00:00 ECG Additional Comments: ECG. Normal sinus rhythm rate of 96. Left axis deviation. Right bundle branch block. QTc 464. Code Status & VTE Plan VTE Prophylaxis Plan VTE Prophylaxis will be ordered: Yes
[2025-07-31] MEDS ORDERED: GLUCAGON FOR INJ 1 MG VIAL SQ PRN (03:39)
[2025-07-31] MEDS ORDERED: CARBOHYDRATES FOR HYPOGLYCEMIA PO PRN (03:39)
[2025-07-31] MEDS ORDERED: GLUCOSE 40% GEL 15 GM TUBE PO PRN (03:39)
[2025-07-31] MEDS ORDERED: ACETAMINOPHEN 325 MG TAB PO PRN (03:39)
[2025-07-31] MEDS ORDERED: NITROGLYCERIN SL 0.4 MG/TAB TAB SL PRN (03:39)
[2025-07-31] MEDS ORDERED: GLUCOSE 10 TAB/TUBE PO PRN (03:39)
[2025-07-31] MEDS ORDERED: DEXTROSE 50% 50 ML SYRINGE IV PRN (03:39)
[2025-07-31] MEDS: MAGNESIUM SULFATE / D5W 1 GM/100 ML BAG IV ONE (03:47)
[2025-07-31] MEDS: LACTATED RINGER'S 1,000 ML IV SCH (04:25)
[2025-07-31] MEDS: ENOXAPARIN INJ 40 MG/0.4 ML SYR SQ ONE (04:25)
--- NOTE | 2025-07-31 04:39 | XRay Report ---
Exam(s): XR CXR 1 VIEW EXAM: XR Chest, 1 View CLINICAL HISTORY: Cough TECHNIQUE: Frontal view of the chest. COMPARISON: Chest radiographs 07/30/2024 FINDINGS: Lungs: Low lung volumes accentuate pulmonary markings. No consolidation. Pleural space: Unremarkable. No pneumothorax. Heart: Cardiomegaly. Mediastinum: Unremarkable. Normal mediastinal contour. Bones/joints: There are degenerative changes of the spine. No acute fracture. IMPRESSION: Cardiomegaly. Electronically signed by: Nichole Johnson MD 07/31/25 04:38 AM
[2025-07-31 06:59] LABS: Hematocrit (blood only) 37.7 % (42.0-52.0); Hemoglobin 12.9 g/dL (14.0-18.0); Immature Granulocytes # (auto) 0.03 K/uL (0.01-0.20); Immature Granulocytes % (auto) 0.3 %; Mean Corpuscular Hemoglobin 29.3 pg (25.0-34.0); Mean Corpuscular Volume 85.5 fL (80.0-100.0); Platelet Count 170 K/uL (130-400); RDW Standard Deviation 41.4 fL (36.4-46.3); Red Blood Count 4.41 M/uL (4.70-6.10); White Blood Count 9.16 K/ul (4.8-10.8)
[2025-07-31 07:19] LABS: Anion Gap 9.0 (3-11); Blood Urea Nitrogen 10.0 mg/dl (6-23); Calcium 8.8 mg/dl (8.6-10.3); Carbon Dioxide 26.0 mmol/L (21-32); Chloride 104.0 mmol/L (98-107); Creatinine Clr Calc Pharmacy 105.9 ml/min; Glucose 101.0 mg/dl (70-99(Fasting)); Magnesium 2.0 mg/dl (1.7-2.4); Potassium 3.6 mmol/L (3.5-5.1); Sodium 139.0 mmol/L (136-145)
[2025-07-31] MEDS: INSULIN ASPART PER UNIT CHARGE SC SCH (07:37)
[2025-07-31] MEDS: ATORVASTATIN 40 MG TAB PO SCH (07:39)
[2025-07-31] MEDS: ASPIRIN 81 MG ECTAB PO SCH (07:39)
[2025-07-31] MEDS: CYANOCOBALAMIN (B-12) 500 MCG TABLET PO SCH (07:39)
[2025-07-31] MEDS: CEROVITE ADV FORMULA TAB PO SCH (07:39)
[2025-07-31] MEDS: CHOLECALCIFEROL 25 MCG (1000 UNITS) TAB PO SCH (07:39)
[2025-07-31] MEDS: POTASSIUM CHLORIDE 10 MEQ TABCR PO SCH (07:40)
[2025-07-31] MEDS: ATENOLOL 50 MG TABLET PO SCH (07:40)
[2025-07-31] MEDS: TRIAMTERENE/HCTZ 37.5/25MG TAB PO SCH (07:40)
[2025-07-31 07:45] LABS: Hemoglobin A1C 6.4 % (4.5-5.6)
--- NOTE | 2025-07-31 09:51 | Electrocardiogram Report ---
Test Reason : Blood Pressure : */* mmHG Vent. Rate : 96 BPM Atrial Rate : 96 BPM P-R Int : 172 ms QRS Dur : 116 ms QT Int : 368 ms P-R-T Axes : 27 -74 23 degrees QTcB Int : 464 ms Normal sinus rhythm Left axis deviation Right bundle branch block Poor R wave progression, consider anterior NM vs. lead placement vs. LVH Abnormal ECG When compared with ECG of 30-Jul-2024 19:52, Right bundle branch block is now Present Confirmed by Eldon Mathews ([id number]) on 07/31/2025 9:50:43 AM Referred By: REFERRED SELF Confirmed By: Eldon Mathews
[2025-08-01] MEDS ORDERED: PHA DELIRIUM CONSULT PRN (01:57)
[2025-08-01 06:23] LABS: Hematocrit (blood only) 36.1 % (42.0-52.0); Hemoglobin 12.3 g/dL (14.0-18.0); Mean Corpuscular Hemoglobin 29.6 pg (25.0-34.0); Mean Corpuscular Volume 86.8 fL (80.0-100.0); Platelet Count 163 K/uL (130-400); RDW Standard Deviation 41.9 fL (36.4-46.3); Red Blood Count 4.16 M/uL (4.70-6.10); White Blood Count 6.48 K/ul (4.8-10.8)
[2025-08-01 06:47] LABS: Anion Gap 7.0 (3-11); Blood Urea Nitrogen 13.0 mg/dl (6-23); Calcium 8.6 mg/dl (8.6-10.3); Carbon Dioxide 26.0 mmol/L (21-32); Chloride 108.0 mmol/L (98-107); Creatinine Clr Calc Pharmacy 88.7 ml/min; Glucose 123.0 mg/dl (70-99(Fasting)); Magnesium 1.8 mg/dl (1.7-2.4); Potassium 3.7 mmol/L (3.5-5.1); Sodium 141.0 mmol/L (136-145)
[2025-08-01] MEDS: ENOXAPARIN INJ 40 MG/0.4 ML SYR SQ SCH (07:40)
--- NOTE | 2025-08-01 16:38 | Hospitalist Progress Note ---
Date of Service August 01, 2025 Assessment & Plan (1) Confusion: Plan: 74-year-old male with past medical history significant for type 2 diabetes, hyperlipidemia, hypokalemia, LV hypertrophy hypertensive, hypertension, aortic valve sclerosis, obesity, Cortes's esophagus without dysplasia, mild intellectual disability, history of colon cancer who lives with his cousin was brought in because of confusion. Patient having some cold symptoms since mid July. He saw PCP on 07/26/2025 with sore throat and congestion and progressing cough with sputum. No fevers. Patient was prescribed Flonase spray, Sudafed and Mucinex and advised to give antibiotic if symptoms worsen. Patient did not required antibiotics. Sudafed was stopped as patient developed nasal bleeding. Still has ongoing cough and cold symptoms. And some sore throat. No runny nose. Today was having headache and abdominal pain. And seemed more confused today. And was also having ambulatory dysfunction, and the cousin decided to bring him to the hospital. Patient is sleepy. Can tell his name. Knows that he is in the hospital. Knows it is [place] time. Can tell his date of . Usually patient is not good with dates as per the cousin. Patient currently denies any chest pain. Denies shortness of breath. Has some complains of headache and abdominal discomfort. No diarrhea as per cousin. Stools are mostly loose since his colon cancer per cousin. Micturating okay. Today he declined to take pills and not eating much. Acute metabolic encephalopathy likely due to infection History of mild intellectual disability Weakness and ambulatory dysfunction Respiratory BioFire positive for enterorhinovirus CXR showed no pneumonia UA not suggestive of UTI Received IV fluids Supportive care Reorient frequently to minimize delirium Saturating well on room air Enterorhinovirus Supportive care Contact precautions Diabetes Hold home p.o. medications Continue sliding scale monitor blood glucose levels Hypertension On atenolol, triamterene/hydrochlorothiazide monitor blood pressure History of hypokalemia Continue home potassium supplements Hypomagnesia Replace and monitor GERD Cortes's esophagus Continue PPI Hyperlipidemia On statin History of colon cancer Status post left hemicolectomy and chemo in 2005 S/p right colectomy 2006 DVT prophylaxis Lovenox SQ CODE STATUS Full code. Admission and Anticipated Discharge Date Admission Date: July 31, 2025 Subjective Patient is seen and examined at bedside States feeling better today Less cough Denies any chest pain, dyspnea, nausea, vomiting, abdominal pain Saturating well on room air Updated patient's family over the phone History unreliable due to intellectual disability Review of Systems Review of Systems: All systems reviewed & are unremarkable except as noted in Subjective Physical Exam Physical Exam: Physical Exam: Vitals signs as noted above General Appearance: Obese, no apparent distress Head: normocephalic, Atraumatic Eyes: normal inspection, EOMI Neck: supple, Trachea midline Respiratory/Chest: Normal breath sounds, CTA, No accessory muscle use Cardiovascular: S1, S2, No murmur Abdomen/GI:Soft, Non tender, Bowel sounds present Extremities/Musculoskeletal:normal inspection, trace pedal edema Neurologic/Psych:AAOX3, grossly no focal neurological deficits Skin: normal color, warm Results & Data Results & Data Vital Signs (Past 12 Hours) Vital Signs Temp Pulse Pulse Resp BP Pulse Ox O2 Del Method 08/01/25 09:00 Room Air 08/01/25 07:38 36.6 C 88 18 120/77 92 Room Air 08/01/25 07:30 88 Laboratory Results Short CBC 08/01/25 Range/Units 05:35 WBC 6.48 (4.8-10.8) K/ul Hgb 12.3 L (14.0-18.0) g/dL Hct 36.1 L (42.0-52.0) % Plt Count 163 (130-400) K/uL BMP 08/01/25 05:35 Sodium 141 Potassium 3.7 Chloride 108 H Carbon Dioxide 26 BUN 13 Creatinine 0.80 Glucose 123 H Calcium 8.6
[2025-08-02 08:08] VITALS: RESP 20
[2025-08-02 11:20] VITALS: BP 121/81; TEMP 97.5; O2SAT 95
--- NOTE | 2025-08-02 12:35 | Hospitalist Progress Note ---
Date of Service August 02, 2025 Assessment & Plan (1) Confusion: Plan: 74-year-old male with past medical history significant for type 2 diabetes, hyperlipidemia, hypokalemia, LV hypertrophy hypertensive, hypertension, aortic valve sclerosis, obesity, Cortes's esophagus without dysplasia, mild intellectual disability, history of colon cancer who lives with his cousin was brought in because of confusion. Patient having some cold symptoms since mid July. He saw PCP on 07/26/2025 with sore throat and congestion and progressing cough with sputum. No fevers. Patient was prescribed Flonase spray, Sudafed and Mucinex and advised to give antibiotic if symptoms worsen. Patient did not required antibiotics. Sudafed was stopped as patient developed nasal bleeding. Still has ongoing cough and cold symptoms. And some sore throat. No runny nose. Today was having headache and abdominal pain. And seemed more confused today. And was also having ambulatory dysfunction, and the cousin decided to bring him to the hospital. Patient is sleepy. Can tell his name. Knows that he is in the hospital. Knows it is [place] time. Can tell his date of . Usually patient is not good with dates as per the cousin. Patient currently denies any chest pain. Denies shortness of breath. Has some complains of headache and abdominal discomfort. No diarrhea as per cousin. Stools are mostly loose since his colon cancer per cousin. Micturating okay. Today he declined to take pills and not eating much. Acute metabolic encephalopathy likely due to infection History of mild intellectual disability Weakness and ambulatory dysfunction Respiratory BioFire positive for enterorhinovirus CXR showed no pneumonia UA not suggestive of UTI Received IV fluids Supportive care Reorient frequently to minimize delirium Saturating well on room air Mental status seem to be back to baseline Plan to be discharged home today Enterorhinovirus Supportive care Contact precautions Saturating well on room air Diabetes Hold home p.o. medications Continue sliding scale monitor blood glucose levels Hypertension On atenolol, triamterene/hydrochlorothiazide monitor blood pressure History of hypokalemia Continue home potassium supplements Hypomagnesia Replace and monitor GERD Ocrtes's esophagus Continue PPI Hyperlipidemia On statin History of colon cancer Status post left hemicolectomy and chemo in 2005 S/p right colectomy 2006 DVT prophylaxis Lovenox SQ CODE STATUS Full code. Disposition Home Admission and Anticipated Discharge Date Admission Date: July 31, 2025 Subjective Patient is seen and examined at bedside No new complaints today Saturating well on room air Updated patient's family over the phone Denies any cough, chest pain, dyspnea, nausea, vomiting, abdominal pain Plan to be discharged home today Review of Systems Review of Systems: All systems reviewed & are unremarkable except as noted in Subjective Physical Exam Physical Exam: Physical Exam: Vitals signs as noted above General Appearance: Obese, no apparent distress Head: normocephalic, Atraumatic Eyes: normal inspection, EOMI Neck: supple, Trachea midline Respiratory/Chest: Normal breath sounds, CTA, No accessory muscle use Cardiovascular: S1, S2, No murmur Abdomen/GI:Soft, Non tender, Bowel sounds present Extremities/Musculoskeletal:normal inspection, trace pedal edema Neurologic/Psych:AAOX3, grossly no focal neurological deficits Skin: normal color, warm Results & Data Results & Data Vital Signs (Past 12 Hours) Vital Signs Temp Pulse Pulse Resp BP Pulse Ox O2 Del Method 08/02/25 11:19 36.4 C L 81 20 121/81 95 Room Air 08/02/25 08:07 36.7 C 85 20 137/84 92 Room Air 08/02/25 08:00 84 08/02/25 03:12 36.5 C 78 18 94/54 L 95 Room Air
--- NOTE | 2025-08-02 12:40 | Discharge Summary ---
Date of Service August 02, 2025 Admission HPI Per Admitting Provider 74-year-old male with past medical history significant for type 2 diabetes, hyperlipidemia, hypokalemia, LV hypertrophy hypertensive, hypertension, aortic valve sclerosis, obesity, Cortes's esophagus without dysplasia, mild intellectual disability, history of colon cancer who lives with his cousin was brought in because of confusion. Patient having some cold symptoms since mid July. He saw PCP on 07/26/2025 with sore throat and congestion and progressing cough with sputum. No fevers. Patient was prescribed Flonase spray, Sudafed and Mucinex and advised to give antibiotic if symptoms worsen. Patient did not required antibiotics. Sudafed was stopped as patient developed nasal bleeding. Still has ongoing cough and cold symptoms. And some sore throat. No runny nose. Today was having headache and abdominal pain. And seemed more confused today. And was also having ambulatory dysfunction, and the cousin decided to bring him to the hospital. Patient is sleepy. Can tell his name. Knows that he is in the hospital. Knows it is [facility] time. Can tell his date of . Usually patient is not good with dates as per the cousin. Patient currently denies any chest pain. Denies shortness of breath. Has some complains of headache and abdominal discomfort. No diarrhea as per cousin. Stools are mostly loose since his colon cancer per cousin. Micturating okay. Today he declined to take pills and not eating much. Past medical history. As mentioned above. Past surgical history. Colonoscopy. Colonoscopy biopsy. EGD. EGD with biopsy. Left colon partial removal with anastomosis in 2005.. Right colon resection with primary ileocolonic anastomosis in 2006. Appendectomy. Cholecystectomy. Sigmoidoscopy. Social history. No smoking. No alcohol use. No drug use. Lives with his cousin. Family history. Brother had heart disorder. Maternal grandmother had heart disorder. Uncle had heart disorder. Mother had kidney failure. Father had aneurysm. Admission Exam Per Admitting Provider General- Not in acute distress Head- atraumatic Eyes- PERRL. ENT- oropharynx clear Neck- supple, no JVD. Lungs- clear to auscultation no wheezing or crackles Heart- regular rhythm; no murmur, no gallop. Abdomen- normal bowel sounds, soft, nontender, no distension Extremities- mild pretibial edema, no erythema seen Neuro- alert, oriented x 2; PERRL, no facial palsy; no dysarthria; moves extremities Principal Diagnosis Acute metabolic encephalopathy Rhinovirus infection Discharge Data Allergies Allergy/AdvReac Type Severity Reaction Status Date / Time latex Allergy Unknown Rash Verified 07/30/24 21:59 dapagliflozin [From [facility]] AdvReac Anaphylaxis Unverified 07/30/24 22:00 Consultations 07/31/25 01:21 ED Decision to Admit Stat Procedures Performed Laboratory Results WBC 6.48 K/ul (4.8-10.8) 08/01/25 05:35 RBC 4.16 M/uL (4.70-6.10) L 08/01/25 05:35 Hgb 12.3 g/dL (14.0-18.0) L 08/01/25 05:35 Hct 36.1 % (42.0-52.0) L 08/01/25 05:35 MCV 86.8 fL (80.0-100.0) 08/01/25 05:35 MCH 29.6 pg (25.0-34.0) 08/01/25 05:35 MCHC 34.1 g/dL (32.0-36.0) 08/01/25 05:35 RDW Std Deviation 41.9 fL (36.4-46.3) 08/01/25 05:35 RDW Coeff of Hal 13.2 % (11.5-14.5) 08/01/25 05:35 Plt Count 163 K/uL (130-400) 08/01/25 05:35 MPV 10.1 fL (9.4-12.4) 08/01/25 05:35 Immature Gran % (Auto) 0.3 % 07/31/25 06:37 Neut % (Auto) 68.8 % 07/31/25 06:37 Lymph % (Auto) 18.2 % 07/31/25 06:37 [place] % (Auto) 11.6 % 07/31/25 06:37 Eos % (Auto) 0.7 % 07/31/25 06:37 Baso % (Auto) 0.4 % 07/31/25 06:37 Neut # (Auto) 6.30 K/uL (1.40-6.50) 07/31/25 06:37 Lymph # (Auto) 1.67 K/uL (1.20-3.40) 07/31/25 06:37 [place] # (Auto) 1.06 K/uL (0.11-0.59) H 07/31/25 06:37 Eos # (Auto) 0.06 K/uL (0.00-0.50) 07/31/25 06:37 Baso # (Auto) 0.04 K/uL (0.00-0.20) 07/31/25 06:37 Immature Gran # (Auto) 0.03 K/uL (0.01-0.20) 07/31/25 06:37 Sodium 141 mmol/L (136-145) 08/01/25 05:35 Potassium 3.7 mmol/L (3.5-5.1) 08/01/25 05:35 Chloride 108 mmol/L (98-107) H 08/01/25 05:35 Carbon Dioxide 26 mmol/L (21-32) 08/01/25 05:35 Anion Gap 7 (3-11) 08/01/25 05:35 BUN 13 mg/dl (6-23) 08/01/25 05:35 Creatinine 0.80 mg/dl (0.6-1.4) 08/01/25 05:35 Est Cr Clr Drug Dosing 88.7 ml/min 08/01/25 05:35 eGFR 92.29 08/01/25 05:35 BUN/Creatinine Ratio 16.3 (10-20) 08/01/25 05:35 Glucose 123 mg/dl (70-99(Fasting)) H 08/01/25 05:35 POC Glucose 121 mg/dl (70-99) H 08/02/25 12:02 Estimat Average Glucose 137 mg/dl 07/31/25 06:37 Hemoglobin A1c 6.4 % (4.5-5.6) H 07/31/25 06:37 Calcium 8.6 mg/dl (8.6-10.3) 08/01/25 05:35 Phosphorus 2.9 mg/dl (2.5-4.9) 08/01/25 05:35 Magnesium 1.8 mg/dl (1.7-2.4) 08/01/25 05:35 Total Bilirubin 1.3 mg/dl (0.2-1.0) H 07/30/25 22:20 AST 18 U/L (13-39) 07/30/25 22:20 ALT 16 U/L (7-52) 07/30/25 22:20 Alkaline Phosphatase 67 U/L (34-104) 07/30/25 22:20 Troponin I High Sens 2.9 pg/ml (0-20) 07/30/25 22:20 Total Protein 7.3 gm/dl (6.0-8.3) 07/30/25 22:20 Albumin 4.0 gm/dl (3.4-5.0) 07/30/25:20 Globulin 3.3 gm/dl (2.5-4.0) 07/30/25: Albumin/Globulin Ratio 1.2 (0.9-2) 07/30/25 22: TSH 2.646 uIu/ml (0.300-4.500) 07/30/25 22:20 Urine Color Yellow 07/31/25 00:00 Urine Appearance Clear (Clear) 07/31/25 00:00 Urine pH 5.5 (4.5-7.5) 07/31/25 00:00 Ur Specific Camilla 1.019 (1.000-1.030) 07/31/25 00:00 Urine Protein Trace (Negative) H 07/31/25 00:00 Urine Glucose (UA) Negative (Negative) 07/31/25 00:00 Urine Ketones Trace (Negative) H 07/31/25 00:00 Urine Blood 2+ (Negative) H 07/31/25 00:00 Urine Nitrite Negative (Negative) 07/31/25 00:00 Urine Bilirubin Negative (Negative) 07/31/25 00:00 Urine Urobilinogen Negative (Negative) 07/31/25 00:00 Ur Leukocyte Esterase Trace (Negative) H 07/31/25 00:00 Urine WBC (Auto) 0-5 /hpf (0-5) 07/31/25 00:00 Urine RBC (Auto) 6-10 /hpf (0-2) H 07/31/25 00:00 U Hyaline Cast (Auto) 0-2 /lpf (0-2) 07/31/25 00:00 U Epithel Cells (Auto) 0-2 /hpf (0-2) 07/31/25 00:00 Urine Bacteria (Auto) None Seen (None Seen) 07/31/25 00:00 Urine Comment 07/31/25 00:00 Adenovirus (PCR) Not Detected (NotDetected) 07/31/25 00:00 B. pertussis DNA (PCR) Not Detected (NotDetected) 07/31/25 00:00 B.parapertussis DNA PCR Not Detected (NotDetected) 07/31/25 00:00 C. pneumoniae DNA (PCR) Not Detected (NotDetected) 07/31/25 00:00 Coronavirus OC43 (PCR) Not Detected (NotDetected) 07/31/25 00:00 Coronavirus HKU1 (PCR) Not Detected (NotDetected) 07/31/25 00:00 Coronavirus 229E (PCR) Not Detected (NotDetected) 07/31/25 00:00 SARS-CoV-2 (PCR) Not Detected (NotDetected) 07/31/25 00:00 Coronavirus NL63 (PCR) Not Detected (NotDetected) 07/31/25 00:00 Human Metapneumovir PCR Not Detected (NotDetected) 07/31/25 00:00 Influenza Type A (PCR) Not Detected (NotDetected) 07/31/25 00:00 Influenza Type B (PCR) Not Detected (NotDetected) 07/31/25 00:00 M. pneumoniae (PCR) Not Detected (NotDetected) 07/31/25 00:00 Parainfluenza 1 (PCR) Not Detected (NotDetected) 07/31/25 00:00 Parainfluenza 2 (PCR) Not Detected (NotDetected) 07/31/25 00:00 Parainfluenza 3 (PCR) Not Detected (NotDetected) 07/31/25 00:00 Parainfluenza 4 (PCR) Not Detected (NotDetected) 07/31/25 00:00 RSV (PCR) Not Detected (NotDetected) 07/31/25 00:00 Entero/Rhino (PCR) DETECTED (NotDetected) A 07/31/25 00:00 Impressions Chest X-Ray 07/30/25 23:11 Exam(s): XR CXR 1 VIEW EXAM: XR Chest, 1 View CLINICAL HISTORY: Cough TECHNIQUE: Frontal view of the chest. COMPARISON: Chest radiographs 07/30/2024 FINDINGS: Lungs: Low lung volumes accentuate pulmonary markings. No consolidation. Pleural space: Unremarkable. No pneumothorax. Heart: Cardiomegaly. Mediastinum: Unremarkable. Normal mediastinal contour. Bones/joints: There are degenerative changes of the spine. No acute fracture. IMPRESSION: Cardiomegaly. Electronically signed by: Nichole Johnson MD 07/31/25 04:38 AM Hospital Course (1) Confusion: 74-year-old male with past medical history significant for type 2 diabetes, hyperlipidemia, hypokalemia, LV hypertrophy hypertensive, hypertension, aortic valve sclerosis, obesity, Cortes's esophagus without dysplasia, mild intellectual disability, history of colon cancer who lives with his cousin was brought in because of confusion. Patient having some cold symptoms since mid July. He saw PCP on 07/26/2025 with sore throat and congestion and progressing cough with sputum. No fevers. Patient was prescribed Flonase sp ray, Sudafed and Mucinex and advised to give antibiotic if symptoms worsen. Patient did not required antibiotics. Sudafed was stopped as patient developed nasal bleeding. Still has ongoing cough and cold symptoms. And some sore throat. No runny nose. Today was having headache and abdominal pain. And seemed more confused today. And was also having ambulatory dysfunction, and the cousin decided to bring him to the hospital. Patient is sleepy. Can tell his name. Knows that he is in the hospital. Knows it is Rafita time. Can tell his date of . Usually patient is not good with dates as per the cousin. Patient currently denies any chest pain. Denies shortness of breath. Has some complains of headache and abdominal discomfort. No diarrhea as per cousin. Stools are mostly loose since his colon cancer per cousin. Micturating okay. Today he declined to take pills and not eating much. Acute metabolic encephalopathy likely due to infection History of mild intellectual disability Weakness and ambulatory dysfunction Respiratory BioFire positive for enterorhinovirus CXR showed no pneumonia UA not suggestive of UTI Received IV fluids Supportive care Reorient frequently to minimize delirium Saturating well on room air Mental status seem to be back to baseline Plan to be discharged home today Enterorhinovirus Supportive care Contact precautions Saturating well on room air Diabetes Hold home p.o. medications Continue sliding scale monitor blood glucose levels Hypertension On atenolol, triamterene/hydrochlorothiazide monitor blood pressure History of hypokalemia Continue home potassium supplements Hypomagnesia Replace and monitor GERD Cortes's esophagus Continue PPI Hyperlipidemia On statin History of colon cancer Status post left hemicolectomy and chemo in 2005 S/p right colectomy 2007 DVT prophylaxis Lovenox SQ CODE STATUS Full code. Disposition Home Total Time Total Time Spent Total Time Spent (In Minutes): 47 minutes Discharge Plan Discharge Items Patient Disposition: Home - Self-Care Reason For Visit: AMS Discharge Diagnosis: Acute metabolic encephalopathy Rhinovirus infection Condition on Discharge: Fair Activity: Per Instructions section Exercise/Sports: Gradually increase as tolerated Non-emergency contact: Primary Care Provider Call non-emergency contact if: you have any medication questions, your symptoms worsen, your pain is concerning for you and you have a fever Follow-up/Referrals: Dominic Blancas MD [Primary Care Provider] - (Date & Time 08/08/2025 9:00 AM Provider: Dominic Blancas MD [facility] ) Diet: Carb Consistent or DM2 and Heart Healthy Addtl Attending Provider Instructions: -- Follow-up with your primary care physician Dr. Blancas on 08/08/2025 9:00 AM Seek immediate medical attention if your symptoms reoccur or worsen Please review medication list provided on discharge for any medication changes as instructed. Please call if you have any questions or problems. You can reach a [facility] hospitalist on duty at [facility] 24 hours a day by calling [phone] Pending Studies at Discharge: No Stand-Alone Forms: My [facility] [employer], Smoking Cessation Medications and DC Order Prescriptions: Continued atorvastatin 40 mg tablet 40 mg PO DAILY glipizide 5 mg tablet extended release 24hr 5 mg PO DAILY aspirin 81 mg tablet,delayed release (DR/EC) 81 mg PO DAILY metformin 1,000 mg tablet 1,000 mg PO BID omeprazole 20 mg capsule,delayed release(DR/EC) 20 mg PO DAILY triamterene-hydrochlorothiazid 75-50 mg tablet 0.5 tab PO DAILY atenolol 50 mg tablet 50 mg PO DAILY potassium chloride 10 mEq tablet,ER particles/crystals 30 meq PO TID Trulicity 3 mg/0.5 mL pen injector 3 mg SUBCUT WK multivitamin with minerals Tablet 1 tab PO DAILY cholecalciferol (vitamin D3) [Vitamin D3] 25 mcg (1,000 unit) Capsule 25 mcg PO DAILY cyanocobalamin (vitamin B-12) 1,000 mcg Capsule 1,000 mcg PO DAILY Discharge Orders: Discharge Order (Routine); Ordered 08/02/25 Ordered By: Jeff Chavez/Other Patient Handouts: Managing Type 2 Diabetes Admission Data Admit Date/Time: 07/31/25 02:22 Attending Provider: Jeff Mcnulty Admit Provider: Dank Watson Primary Care Provider: Dominic Blancas Other Providers: Dank Watson Other Interventions: Discharge Summary Assessment (RN) Last Done: 07/31/25 18:28
[2025-08-02 14:03] VITALS: PULSE 73
== END 2025-08-02 16:42 | disposition home or self-care (01) | DRG 865 ==
LOC: ED 21:56 → SUATTDRO 07-31 02:22 → EDINP 07-31 02:22 → 2W 07-31 16:59
DX: G93.41 Metabolic encephalopathy; E83.42 Hypomagnesemia; N18.9 Chronic kidney disease, unspecified; Z79.85 Long-term (current) use of injectable non-insulin antidiabetic drugs; B34.8 Other viral infections of unspecified site; K22.70 Barrett's esophagus without dysplasia; E87.6 Hypokalemia; E66.9 Obesity, unspecified; Z85.038 Personal history of other malignant neoplasm of large intestine; Z91.040 Latex allergy status; I12.9 Hypertensive chronic kidney disease with stage 1 through stage 4 chronic kidney disease, or unspecified chronic kidney disease; E78.5 Hyperlipidemia, unspecified; Z79.84 Long term (current) use of oral hypoglycemic drugs; E11.22 Type 2 diabetes mellitus with diabetic chronic kidney disease; F70 Mild intellectual disabilities